=== PATIENT | female | born 1945 | race Caucasian/White ===

== ENCOUNTER 2020-04-19 | Outpatient (REF) | payer MEDICARE, SELFPAY | END 2020-04-19 00:01 | disposition home or self-care (01) | LOC: HO.LNP | PROVIDERS: Visit Provider Hospitalist | DX: J44.9 Chronic obstructive pulmonary disease, unspecified (principal) | CPT/HCPCS: 87070; 87205 ==

== ENCOUNTER 2020-04-26 12:55 | Outpatient (REF) | payer MEDICARE, SELFPAY | END 2020-04-26 12:56 | disposition home or self-care (01) | LOC: HO.LNP 12:55 | PROVIDERS: Visit Provider Hospitalist | DX: J44.9 Chronic obstructive pulmonary disease, unspecified (principal) | CPT/HCPCS: 87070; 87205 ==

== ENCOUNTER 2020-05-18 15:00 | Emergency (ER) | payer MEDICARE, SELFPAY ==
[2020-05-18] VITALS (7 sets, daily range): BP systolic 111–140; BP diastolic 69–90; PULSE 102–126; RESP 18–22; TEMP 36.4–36.5; O2SAT 96–99; BMI 46.3
--- NOTE | ~2020-05-18 | XR_ITS ---
EXAMINATION: XR TIBIA AND FIBULA, LEFT CLINICAL INFORMATION: Fall, trauma, pain COMPARISON: None TECHNIQUE: AP and 2 lateral views of the left lower leg are obtained portably for a total of 3 views. FINDINGS: There is no acute or healing fracture, dislocation, or destructive process. There is prior knee arthroplasty. The visualized hardware is intact and there is no osteolysis or destructive process or periostitis. There is an old healed fracture distal fibular shaft. Posterior calcaneal spur present. XR/XR tibia fibula LT 2V IMPRESSION: 1. No acute fracture or dislocation or destructive process. 2. Old healed fracture distal fibula.
--- NOTE | 2020-05-18 15:14 | ED_ITS ---
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) Fall from: standing Fall witnessed: no Place fall occurred: home Loss of consciousness: none Prolonged down time: no Symptoms prior to fall: none Context: tripped/slipped Location of injury - extremities: left: lower leg Severity: moderate Quality: burning Associated symptoms (after fall): other (large laceration) Related Data Previous Rx's Medication Instructions Recorded albuterol sulfate 90 mcg/actuation 2 puff INHALATION Q4-6H PRN #1 ea 02/08/20 aerosol inhaler fluticasone propionate 220 3 puff INHALATION BID 30 Days #12 g 02/08/20 mcg/actuation HFA aerosol inhaler budesonide 0.5 mg/2 mL suspension 0.5 mg INHALATION BID 30 Days #120 02/14/20 for nebulization ml amoxicillin 875 mg-potassium 1 tab PO BID 10 Days #20 tab 03/29/20 clavulanate 125 mg tablet prednisone 20 mg tablet 20 mg PO DAILY 10 Days #15 tab 03/29/20 prednisone 10 mg tablet 10 mg PO DAILY 10 Days #15 tab 04/07/20 Allergies Allergy/AdvReac Type Severity Reaction Status Date / Time Sulfa (Sulfonamide Allergy Intermediate SWELLING Unverified 12/02/19 14:47 Antibiotics) [Sulfa (Sulfonamides)] alendronate sodium [Fosamax] Allergy Unknown Verified 09/08/19 00:00 azithromycin [Zithromax] Allergy Unknown Verified 09/08/19 00:00 cefepime Allergy Unknown Verified 09/08/19 00:00 levofloxacin Allergy Unknown Verified 09/08/19 00:00 umeclidinium [Anoro Ellipta] Allergy Unknown Verified 09/08/19 00:00 vilanterol [Anoro Ellipta] Allergy Unknown Verified 09/08/19 00:00 ADHESIVE TAPE Allergy Unknown Uncoded 09/08/19 00:00 Sucralfate Allergy Unknown Uncoded 09/08/19 00:00 Sulfamethoxazole Allergy Unknown Uncoded 09/08/19 00:00 Review of Systems Review of Systems: Constitutional : No Fever, No Chills, ENT: no sore throat, no runny nose Cardiovascular : No Chest Pain, No SOB Respiratory : no CP, chronic edema Gastrointestinal : No abdominal pain, no vomiting, no diarrhea : no dysuria, no frequency Musculoskeletal : No Joint Swelling, no joint pain Skin : No rash, positive skin laceration Neuro : No Weakness, No Numbness, no headache Psych : No SI/HI All other systems are reviewed and are negative [facility] Past Medical History Attestation statement: The following information was validated with the patient. Medical History Blood clot in vein COPD (chronic obstructive pulmonary disease) Diabetes Epistaxis Factor 5 Leiden mutation, heterozygous FH: total knee replacement GERD (gastroesophageal reflux disease) Surgical History History of cholecystectomy Hx of tonsillectomy Social History Social History Alcohol intake: never Smoking Status: Former smoker Use of substances other than those prescribed or required for medical reasons: No Advance Directives: No Advance Directives Information Provided: Yes Physical Exam Vital Signs: Vital Signs: Last Vital Signs Temp 97.7 F 05/18/20 15:09 Pulse 109 H 05/18/20 15:47 Resp 22 H 05/18/20 15:09 BP 111/74 05/18/20 15:09 Pulse Ox 99 05/18/20 15:09 Body Mass Index 46.3 Appearance: Alert. Oriented X3. No acute distress. Eyes: Pupils equal, round and reactive to light. ENT: Pharynx normal. Neck: Normal inspection. Neck supple. CVS: tachycardic heart rate and rhythm. Pulses normal. Respiratory: No respiratory distress. Breath sounds with mild exp wheezes noted Abdomen: Soft and nontender. Skin: Skin warm and dry. Normal skin color. Normal skin turgor. Extremities: pos bilateral 2+ lower extremity edema pitting edema L>> R, L anterior bird contused tissue with sig tissue loss laceration to adipose tissue 10cm cannot approximate wound margins Neuro: Oriented X 3. No motor deficit. No sensory deficit. Course Course Course Narrative: message sent to general surgery Dr. Miles as I cannot approximate the wound margins 316pm repeat call to surgery 4pm Dr. Miles no emergent need for closure tonight will need wound care as well as possible skin graft in future tonight would cover with aquacel to keep wound bed moist and refer as outpatinet Dr. Poe will see patient as outpatient for wound treatment. MDM - Fall MDM Narrative Medical decision making narrative: 74 yo female with COPD on home O2, DVT with factor 5 here with large open laceration after mechanical slip and fall - labs, neb for COPD, unsure how to proceed with wound this is not amenable to closure in the ED due to significant tissue loss - will discuss with surgery Lab Data Result diagrams: 05/18/20 15:32 05/18/20 15:32 Labs: Lab Results 05/18/20 05/18/20 05/18/20 Range/Units 15:32 15:32 15:32 WBC 13.2 H (4.8-10.8) X10*3/uL RBC 4.24 (4.20-5.50) X10*6/uL Hgb 10.7 L (12.0-16.0) g/dl Hct 37.1 (37-47) % MCV 87.5 (80-98) fL MCH 25.2 L (27.0-33.0) pg MCHC 28.8 L (31.0-35.0) g/dl RDW 17.2 H (11.0-16.0) % Plt Count 468 H (160-400) X10*3/uL MPV 9.6 (9.4-12.3) fL Immature Gran % (Auto) Cancelled Neut % (Auto) Cancelled Lymph % (Auto) Cancelled [place] % (Auto) Cancelled Eos % (Auto) Cancelled Baso % (Auto) Cancelled Lymph # (Auto) Cancelled [place] # (Auto) Cancelled Eos # (Auto) Cancelled Baso # (Auto) Cancelled Abs Immat Gran (auto) Cancelled Absolute Neuts (auto) Cancelled Absolute Nucleated RBC 0.030 H (0.0-0.012) X10*3/uL Nucleated RBC % (auto) 0.2 (0.0-0.2) /100WBC PT 14.2 H (10.8-13.0) SEC INR 1.2 H (0.9-1.1) APTT 25.9 (24.1-38.0) SEC Sodium 141 (135-145) mmol/L Potassium 4.8 (3.3-5.1) mmol/L Chloride 105 (96-108) mmol/L Carbon Dioxide 20 L (22-29) mmol/L Anion Gap 21 H (12-20) BUN 31 H (9-16) mg/dL Creatinine 1.25 (0.5-1.4) mg/dL Estim Creat Clear Calc 44.9 Estimated GFR 42 Random Glucose 281 H (60-115) mg/dL Calcium 9.1 (8.4-10.2) mg/dL COVID-19 (ASHVIN) (Negative) COVID-19 Clin Com 05/18/20 Range/Units 15:45 WBC (4.8-10.8) X10*3/uL RBC (4.20-5.50) X10*6/uL Hgb (12.0-16.0) g/dl Hct (37-47) % MCV (80-98) fL MCH (27.0-33.0) pg MCHC (31.0-35.0) g/dl RDW (11.0-16.0) % Plt Count (160-400) X10*3/uL MPV (9.4-12.3) fL Immature Gran % (Auto) Neut % (Auto) Lymph % (Auto) [place] % (Auto) Eos % (Auto) Baso % (Auto) Lymph # (Auto) [place] # (Auto) Eos # (Auto) Baso # (Auto) Abs Immat Gran (auto) Absolute Neuts (auto) Absolute Nucleated RBC (0.0-0.012) X10*3/uL Nucleated RBC % (auto) (0.0-0.2) /100WBC PT (10.8-13.0) SEC INR (0.9-1.1) APTT (24.1-38.0) SEC Sodium (135-145) mmol/L Potassium (3.3-5.1) mmol/L Chloride (96-108) mmol/L Carbon Dioxide (22-29) mmol/L Anion Gap (12-20) BUN (9-16) mg/dL Creatinine (0.5-1.4) mg/dL Estim Creat Clear Calc Estimated GFR Random Glucose (60-115) mg/dL Calcium (8.4-10.2) mg/dL COVID-19 (ASHVIN) Negative (Negative) COVID-19 Clin Com See Note Discharge Plan Discharge Clinical Impression: Laceration Patient Disposition: Home, Self-Care Instructions: Laceration Without Closure (ED) Additional Instructions: return to ED for any worsening symptoms or concerns APPLY AQUACEL DRESSING DAILY THEN COVER WITH CLEAN STERILE GAUZE, DRESSING WILL NEED TO BE CHANGED DAILY PLAN IS TO FOLLOW UP WITH SURGERY FOR FURTHER MANAGEMENT INR 1.2 PLEASE NOTIFY YOUR ANTICOAGULATION PROVIDER Prescriptions: No Action Flovent HFA 220 mcg/actuation HFA aerosol inhaler 3 puff inhalation BID 30 Days Qty: 12 RF: 0 albuterol sulfate [ProAir HFA] 90 mcg/actuation HFA aerosol inhaler 2 puff inhalation Q4-6H PRN (Reason: shortness of breath or wheezing) Qty: 1 RF: 0 budesonide 0.5 mg/2 mL suspension for nebulization 0.5 mg inhalation BID 30 Days Qty: 120 RF: 6 amoxicillin-pot clavulanate [Augmentin] 875-125 mg tablet 1 tab PO BID 10 Days Qty: 20 RF: 0 prednisone 20 mg tablet 20 mg PO DAILY 10 Days Qty: 15 RF: 0 prednisone 10 mg tablet 10 mg PO DAILY 10 Days Qty: 15 RF: 0 Referrals: Jaleel Poe MD [Physician] - 2 days
[2020-05-18] MEDS: Albuterol Sulfate (0.083%) 2.5 MG/3 ML VIAL.NEB INHALE (15:21)
[2020-05-18 15:51] LABS: Hematocrit 37.1 % (37-47); Hemoglobin 10.7 g/dl (12.0-16.0); Mean Corpuscular HGB Conc 28.8 g/dl (31.0-35.0); Mean Corpuscular Hemoglobin 25.2 pg (27.0-33.0); Mean Corpuscular Volume 87.5 fL (80-98); Mean Platelet Volume 9.6 fL (9.4-12.3); NRBC Pct Auto 0.2 /100WBC (0.0-0.2); Platelet Count 468 X10*3/uL (160-400); Red Blood Count 4.24 X10*6/uL (4.20-5.50); Red Cell Distribution Width 17.2 % (11.0-16.0); White Blood Count 13.2 X10*3/uL (4.8-10.8)
[2020-05-18 15:58] LABS: INTERNATIONAL NORM RATIO 1.2 (0.9-1.1); Prothrombin Time 14.2 SEC (10.8-13.0)
[2020-05-18 16:00] LABS: Partial Thromboplastin Time 25.9 SEC (24.1-38.0)
[2020-05-18 16:16] LABS: COVID-19 Test Negative (Negative); IDNOW Serial# 9DD0AD1C
[2020-05-18 16:33] LABS: Anion Gap 21 (12-20); Blood Urea Nitrogen 31 mg/dL (9-16); Calcium 9.1 mg/dL (8.4-10.2); Carbon Dioxide 20 mmol/L (22-29); Chloride 105 mmol/L (96-108); Creatinine Clr Calc Pharmacy 44.9; Estimated Glomerular Filt Rate 42; Glucose Random 281 mg/dL (60-115); Potassium 4.8 mmol/L (3.3-5.1); Sodium 141 mmol/L (135-145)
[2020-05-18 16:44] LABS: Band Neutrophils Percent 16 % (3-5); Lymphocytes Absolute Manual 0.4 X10*3/uL (0.6-4.8); Lymphocytes Percent Manual 3 % (20-40); Metamyelocytes Absolute 0.3 X10*3/uL; Metamyelocytes Percent 2 %; Monocytes Absolute Manual 0.5 X10*3/uL (0.0-1.2); Monocytes Percent Manual 4 % (2-11); Myelocytes Absolute 0.1 X10*/uL; Myelocytes Percent 1 %; Neutrophils Absolute Manual 11.9 X10*3/uL (2.2-7.9); Neutrophils Percent Manual 74 % (45-73)
[2020-05-18 16:45] LABS: RBC Morphology NORMAL
[2020-05-18 16:46] LABS: Platelet Estimate SLIGHTLY INCREASED (NORMAL); Platelet Morphology Comment NORMAL
--- NOTE | 2020-05-18 17:45 | PC.NURSE ---
patient a&ox3, vss, pt awaiting something for dinner, patient currently watching tv and just spoke with sister bethany pina on the phone ([phone]), currently dressing is dry dressing as the nursing blast furnace auxiliaries supervisor looks for aquacell as requested by provider, will continue to monitor.
--- NOTE | 2020-05-18 17:50 | MHC.CM.ED ---
Dr. Noble met with CM to discuss pt need for daily dressing changes and question if [facility] has staffing for daily drsg changes. Pt will need skin graft repair by Dr. Longo. Will f/u in office. CM called [facility] and spoke with Abida MORENO. Per Abida, they cannot provide daily drsg changes and [facility] would need to accept pt. Expressed concerns about pt ambulation, need 2 assist with her walker and a wheelchair to follow for safety. Abida tells CM that pt was supposed to have PT starting today. Abida tells CM that patient has fallen twice in the 2 weeks that she has been at [facility]. Spoke with Dr. Noble. Agreement that [facility] would probably be best for patient. PT evaluation for am. Pt has not had an evaluation yet. Referral placed. Pt aware and agrees with plan. HCP/daughter, Kylie Tapia ([phone]) is aware and agrees with plan of care. HCP obtained from [facility] and uploaded into system. CM to follow for d/c needs.
--- NOTE | 2020-05-18 19:54 | PC.NURSE ---
patient a&o, vss, pt denies pain or discomfort, nursing casino slot supervisor is checking other facilities to obtain aquacell, pt currently watching tv, will continue to monitor.
--- NOTE | 2020-05-18 20:31 | PC.NURSE ---
unable to get regular aquacell as initially requested dr. hankins was contacted by the nursing uranium processing supervisor and he requested that durafiber ag be used. patients dressing was replaced with the durafiber, the edges are not approximated, the wound is approximately 14cm in length approximately 9cm wide, the wound has no drainage noted, pt tolerated the dressing change well.
[2020-05-18] MEDS: Amoxicillin/Potassium Clav 875 MG TABLET PO (21:23)
[2020-05-18] MEDS: predniSONE 20 MG TABLET PO (21:23)
[2020-05-18] MEDS: Albuterol Sulfate 90 MCG 8 GM INHALER 2 PUFF INHALE (21:25)
[2020-05-19 00:32] VITALS: PULSE 107; O2SAT 94
[2020-05-19 00:36] VITALS: BP 128/74; PULSE 107; RESP 20; O2SAT 94
[2020-05-19 04:13] VITALS: BP 122/76; PULSE 114; RESP 22; O2SAT 98
[2020-05-19] MEDS: predniSONE 20 MG TABLET PO (04:22)
[2020-05-19 07:15] VITALS: BP 155/97; PULSE 112; RESP 22; TEMP 37.2; O2SAT 96
--- NOTE | 2020-05-19 07:49 | PC.NURSE ---
report taken from Daniela MORENO. patient sleeping upon assessment. woke easily to voice. patient made aware that she will have physical therapy/case management. eval this morning to determine discharge needs. dressing to left low leg clean dry and intact. vitals updated. breakfast provided.
[2020-05-19] MEDS: Amoxicillin/Potassium Clav 875 MG TABLET PO (08:46)
[2020-05-19 09:20] VITALS: PULSE 134
--- NOTE | 2020-05-19 10:25 | PC.NURSE ---
patient Nancy given update in waiting room. can be reached at [phone]
[2020-05-19 11:25] VITALS: BP 153/76; PULSE 113; RESP 20; O2SAT 98
--- NOTE | 2020-05-19 12:53 | MHC.CM.ED ---
Patient remains in ER. Physical therapy eval completed. Short term rehab is recommended. Referral was already made to [facility]. [facility] is able to offer a bed and obtained insurance auth. Patient can leave here at 2pm. Attempted to arrange transport with [facility].They are unable to acccomodate patient. [facility] booked. [facility] with chart. Patient, daughter Lian Espinal PA and Ne aware. Continue to monitor for d/c needs.
--- NOTE | 2020-05-19 13:51 | PC.NURSE ---
attempted to call for nurse to nurse to facility. no answer from floor patient is going to.
== END 2020-05-19 14:22 | disposition skilled nursing facility (03) ==
PROVIDERS: Emergency Provider Emergency Medicine; PCP Internal Medicine
DX: S81.812A Laceration without foreign body, left lower leg, initial encounter (principal); W26.8XXA Contact with other sharp object(s), not elsewhere classified, initial encounter; E11.9 Type 2 diabetes mellitus without complications; J44.9 Chronic obstructive pulmonary disease, unspecified; Z20.822 Contact with and (suspected) exposure to COVID-19; Y93.89 Activity, other specified; Y92.039 Unspecified place in apartment as the place of occurrence of the external cause; Y99.9 Unspecified external cause status; Z99.81 Dependence on supplemental oxygen
CPT/HCPCS: 36415; 73590; 80048; 85007; 85025; 85027; 85610; 85730; 87635; 94640; 94660; 97162; 99285

== ENCOUNTER 2020-05-22 14:17 | Inpatient (IN) | payer MEDICARE, SELFPAY ==
[2020-05-22] VITALS (11 sets, daily range): BP systolic 114–127; BP diastolic 54–95; PULSE 105–117; RESP 18–37; TEMP 36.8–37.2; O2SAT 75–98; BMI 44.5
--- NOTE | ~2020-05-22 | CT_ITS ---
EXAMINATION: CT CHEST WITHOUT CONTRAST CLINICAL INFORMATION: Elevated WBC. Cough. Shortness of breath. COMPARISON: Chest x-ray 05/22/2020. CT of the chest 01/11/2008 TECHNIQUE: Multidetector volumetric CT imaging of the chest was done. Axial MIP volume rendering provided. Sagittal and coronal reformatted images were obtained. This CT examination was performed using dose optimization techniques as appropriate, variously including the following: *Automated exposure control *Adjustment of mA and/or kV according to patient size (this includes techniques or standardized protocols for targeted exams where dose is matched to indication/reason for exam; i.e. extremities or head) *Use of iterative reconstruction technique DLP: 416 mGy-cm FINDINGS: LUNGS: There is focal dependent consolidation with air bronchograms and bronchial wall thickening at the medial right lung base. There is bronchial wall thickening at the medial left lung base. Small patchy parenchymal area also present in the dependent peripheral left lower lobe. There is scattered nodularity in the subpleural lung in the right and left lower lobe posterior laterally. No suspicious lung nodules. There is a 4 mm focal pleural thickening along the minor fissure axial image 26/49 series 7. MEDIASTINUM: There is no significant lymphadenopathy. The heart size is normal. There is no pericardial effusion. The central bronchial airways are open. There is no bronchiectasis. PLEURA: There is no pleural effusion. No pleural mass or thickening. AXILLA: No lymphadenopathy. UPPER ABDOMEN: Unremarkable. OSSEOUS STRUCTURES: Compression deformity of T5 and T6 with anterior kyphosis. There is compression deformity with prior thoracoplasty of T8. CT/CT chest wo con IMPRESSION: Bilateral bibasilar airspace disease at both lung bases with bronchial wall thickening, right greater than left.
--- NOTE | ~2020-05-22 | XR_ITS ---
EXAMINATION: XR CHEST CLINICAL INFORMATION: Shortness of breath. Cough. COMPARISON: 01/11/2008 TECHNIQUE: Frontal view of the chest was obtained. FINDINGS: Lung volumes are low. No consolidation, edema, or effusion. Bronchial wall thickening present. No pneumothorax. The cardiomediastinal silhouette is within normal limits for this technique. No acute osseous abnormality. XR/XR chest 1V IMPRESSION: Low lung volumes. No consolidation. Bronchial wall thickening can be seen with a small airways process such as asthma or atypical/viral infection.
--- NOTE | 2020-05-22 14:58 | ECG_ITS ---
Test Reason : SOB Blood Pressure : / mmHG Vent. Rate : 120 BPM Atrial Rate : 120 BPM P-R Int : 136 ms QRS Dur : 066 ms QT Int : 326 ms P-R-T Axes : 038 052 023 degrees QTc Int : 460 ms Sinus tachycardia Otherwise normal ECG When compared with ECG of 11-JAN-2008 12:41, No significant change was found Referred By: Lian Wilkes Electronically Signed By:Yasmany Cooper
[2020-05-22] MEDS: Albuterol/Iprat 2.5/0.5MG 3 ML AMPUL.NEB INHALE ×2 (15:26→18:23)
[2020-05-22] MEDS: Magnesium Sulfate/H2O 2 GM/50 ML PIGGYBACK IV (16:24)
[2020-05-22] MEDS: dexAMETHasone sod phosphate 4 MG/ML VIAL 6 MG IVPUSH (16:24)
--- NOTE | 2020-05-22 16:31 | ED.SOB ---
HPI - SOB/Dyspnea General Chief Complaint: Dyspnea Stated Complaint: RESP DISTRESS LOW O2SAT (82% 2L),ON CPAP Time Seen by Provider: 05/22/20 14:34 Source: patient and EMS Mode of arrival: EMS History of Present Illness HPI Narrative: 74-year-old female with a past medical history of GERD, COPD on chronic 2-3L NC, diabetes, DVT on Coumadin, factor 5 Leiden, BIBA from SNF for worsening SOB and LEMUS x3 days, was found to be 75% on RA, 2L NC applied brought her to 82%. Patient also reports worsening cough. Of note patient recently seen in our ED for large leg laceration requiring surgical follow-up for skin graft, discharged to SNF. Denies fever, chills, worsening LE edema, abdominal pain, nausea/vomiting, calf pain MD elicited complaint: shortness of breath and cough Related Data Home Medications Medication Instructions Recorded Confirmed apixaban [Eliquis] 2.5 mg PO BID 05/18/20 05/22/20 fluticasone propionate [Flovent 2 puff INHALATION BID 05/18/20 05/22/20 HFA] furosemide 40 mg PO DAILY 05/18/20 05/22/20 lorazepam 1 mg PO BEDTIME PRN 05/18/20 05/22/20 metoprolol tartrate 12.5 mg PO BID 05/18/20 05/22/20 montelukast 10 mg PO BEDTIME 05/18/20 05/22/20 pantoprazole 40 mg PO BID 05/18/20 05/22/20 pioglitazone 15 mg PO DAILY 05/18/20 05/22/20 sertraline 25 mg PO DAILY 05/18/20 05/22/20 Previous Rx's Medication Instructions Recorded albuterol sulfate 90 mcg/actuation 2 puff INHALATION Q4-6H PRN #1 ea 02/08/20 aerosol inhaler budesonide 0.5 mg/2 mL suspension 0.5 mg INHALATION BID 30 Days #120 02/14/20 for nebulization ml prednisone 20 mg tablet 20 mg PO DAILY 10 Days #15 tab 03/29/20 Allergies Allergy/AdvReac Type Severity Reaction Status Date / Time Sulfa (Sulfonamide Allergy Intermediate SWELLING Unverified 12/02/19 14:47 Antibiotics) [Sulfa (Sulfonamides)] alendronate sodium [Fosamax] Allergy Unknown Verified 09/08/19 00:00 azithromycin [Zithromax] Allergy Unknown Verified 09/08/19 00:00 cefepime Allergy Unknown Verified 09/08/19 00:00 levofloxacin Allergy Unknown Verified 09/08/19 00:00 umeclidinium [Anoro Ellipta] Allergy Unknown Verified 09/08/19 00:00 vilanterol [Anoro Ellipta] Allergy Unknown Verified 09/08/19 00:00 ADHESIVE TAPE Allergy Unknown Uncoded 09/08/19 00:00 Sucralfate Allergy Unknown Uncoded 09/08/19 00:00 Sulfamethoxazole Allergy Unknown Uncoded 09/08/19 00:00 Review of Systems Review of Systems: Constitutional: No Fever, No Chills, No Fatigue, No Malaise Cardiovascular: No Chest Pain, + SOB, + Dyspnea on Exertion, No Orthopnea, No Edema, No Palpitations Respiratory: + Cough, No Sputum, No Wheezing, + Dyspnea Gastrointestinal: No Nausea, No Vomiting, No Diarrhea, No Constipation, No Abdominal pain Genitourinary: No Dysuria, No Urinary Frequency, No Hematuria Musculoskeletal: No joint pain, No Myalgias, No Joint Swelling Skin: No Skin Lesions, No rash Neuro: No Weakness Yes all other systems are reviewed and are negative [facility] Past Medical History Attestation statement: The following information was validated with the patient. Medical History Blood clot in vein COPD (chronic obstructive pulmonary disease) Diabetes Epistaxis Factor 5 Leiden mutation, heterozygous FH: total knee replacement GERD (gastroesophageal reflux disease) Surgical History History of cholecystectomy Hx of tonsillectomy Social History Social History Alcohol intake: never Smoking Status: Former smoker Use of substances other than those prescribed or required for medical reasons: No Advance Directives: Yes Advance Directives on File: Yes Advance Directives Date on File: 05/18/20 Physical Exam Vital Signs: Vital Signs: Last Vital Signs Temp 98.2 F 05/22/20 16:45 Pulse 114 H 05/22/20 16:45 Resp 24 H 05/22/20 16:45 BP 127/61 05/22/20 16:45 Pulse Ox 92 05/22/20 16:45 Body Mass Index 44.5 Const: General: cooperative Orientation/consciousness: patient oriented x3 Limitations: no limitations HENMT: Head: Yes normal to inspection Ears: hearing grossly normal bilaterally General nose exam: Normal external nose present Face and sinus: Yes normal facial exam Eyes: General: appearance normal, both eyes and all related structures EOM: EOMs intact bilaterally Neck: Neck: Yes normal visual inspection Resp: Other: Coarse lung sounds throughout all Effort & Inspection: normal respiratory effort, Actively coughing and tachypneic Auscultation: rhonchi throughout and wheezes Cardio: Rate: regular rate and tachycardic Heart sounds: S1 normal heart sound present and S2 normal heart sound present GI: Inspection: Yes normal to inspection Palpation (GI): Soft to palpation, nontender, no guarding and not rigid Skin: Other: Left anterior bird with large open laceration with adipose tissue present. Appropriately healing, no active signs of infection, no surrounding cellulitis. No fluctuance or induration Rashes: no rashes Neuro: General: patient oriented x3 Extrem: Other: + bilateral lower extremity edema General: Yes normal to inspection Course Course Course Narrative: XR chest 1V IMPRESSION: Low lung volumes. No consolidation. Bronchial wall thickening can be seen with a small airways process such as asthma or atypical/viral infection. >>1653--empiric IV ceftriaxone ordered. Blood cultures and lactic obtained. Still low concern for severe sepsis is likely chronic COPD, not treated properly as patient was on RA when supposed to be on NC vs viral illness. labs pending. Avoiding any IVF to avoid fluid overload -leukocytosis of 22,000 > dry CT chest ordered for further evaluation --1705--ED care transferred to YAYO Nicholson pending labs, UA, CT chest, re-evaluation, and anticipated admission MDM - SOB/Dyspnea MDM Narrative Medical decision making narrative: 74-year-old female with a past medical history of GERD, COPD on chronic 2-3L NC, diabetes, DVT on Coumadin, factor 5 Leiden, BIBA from SNF for worsening SOB and LEMUS x3 days, was found to be 75% on RA, 2L NC applied brought her to 82%. On arrival patient on CPAP via EMS, switched to BiPAP due to chronic disease, BiPAP almost immediately removed and switched to nasal cannula which patient maintaining saturations greater than 91% on 2-3L NC which is her baseline O2 requirement. Coarse lung sounds throughout. Concern for CHF vs viral syndrome/COVID-19 vs COPD exacerbation. Lower concern for pneumonia or ACS or PE/DVT as patient is anticoagulated Low concern for severe sepsis as vital sign abnormalities and initial CPAP/BiPAP from chronic disease Plan: EKG, labs, CXR, DuoNeb, magnesium, COVID-19 testing, steroids, reassess, anticipated admission Differential Diagnosis Differential diagnosis: Likely acute exacerbation of chronic obstructive airways disease, congestive heart failure, asthma with exacerbation, pleural effusion and sleep apnea Medical Records Attestation: I reviewed the patient's medical records. Lab Data Attestation: I reviewed the patient's lab results. Result diagrams: 05/22/20 16:41 05/22/20 16:41 Labs: Lab Results 05/22/20 05/22/20 05/22/20 Range/Units 16:41 16:41 16:41 WBC 22.1 H (4.8-10.8) X10*3/uL RBC 4.03 L (4.20-5.50) X10*6/uL Hgb 10.1 L (12.0-16.0) g/dl Hct 34.8 L (37-47) % MCV 86.4 (80-98) fL MCH 25.1 L (27.0-33.0) pg MCHC 29.0 L (31.0-35.0) g/dl RDW 17.2 H (11.0-16.0) % Plt Count 431 H (160-400) X10*3/uL MPV 10.0 (9.4-12.3) fL Immature Gran % (Auto) 4.6 H (0.0-0.4) % Neut % (Auto) 89.1 H (45-73) % Lymph % (Auto) 3.9 L (20-40) % Barton % (Auto) 1.6 L (2-11) % Eos % (Auto) 0.4 (0-4) % Baso % (Auto) 0.4 (0-2) % Lymph # (Auto) 0.9 L (1.2-4.9) X10*3/uL Barton # (Auto) 0.4 (0.1-1.2) X10*3/uL Eos # (Auto) 0.1 (0.0-0.4) X10*3/uL Baso # (Auto) 0.1 (0.0-0.2) X10*3/uL Abs Immat Gran (auto) 1.02 H (0.00-0.03) X10*3/uL Absolute Neuts (auto) 19.7 H (2.0-8.3) X10*3/uL Absolute Nucleated RBC 0.000 (0.0-0.012) X10*3/uL Nucleated RBC % (auto) 0.0 (0.0-0.2) /100WBC PT 16.1 H (10.8-13.0) SEC INR 1.4 H (0.9-1.1) APTT 29.9 (24.1-38.0) SEC Sodium 141 (135-145) mmol/L Potassium 3.7 D (3.3-5.1) mmol/L Chloride 99 (96-108) mmol/L Carbon Dioxide 29 (22-29) mmol/L Anion Gap 17 (12-20) BUN 13 D (9-16) mg/dL Creatinine 0.77 (0.5-1.4) mg/dL Estim Creat Clear Calc 71.1 Estimated GFR > 60 Random Glucose 168 H D (60-115) mg/dL Lactic Acid (0.5-2.0) mmol/L Calcium 8.7 (8.4-10.2) mg/dL Magnesium 1.5 L (1.6-2.6) mg/dL Total Bilirubin 0.6 (0.0-1.0) mg/dL Direct Bilirubin 0.4 (0.0-0.5) mg/dL AST 14 (5-31) U/L ALT 25 (0-31) U/L Alkaline Phosphatase 85 (39-117) U/L Total Protein 6.4 L (6.5-8.0) g/dL Albumin 3.2 L (3.5-5.0) g/dL Urine Color Urine Appearance Urine pH (5.0-8.0) Ur Specific [place] (1.005-1.025) Urine Protein (NEG-TRACE) MG/DL Urine Glucose (UA) (NEG) MG/DL Urine Ketones (NEG) MG/DL Urine Blood (NEG) Urine Nitrite (NEG) Ur Leukocyte Esterase (NEG) 05/22/20 05/22/20 Range/Units 16:41 17:05 WBC (4.8-10.8) X10*3/uL RBC (4.20-5.50) X10*6/uL Hgb (12.0-16.0) g/dl Hct (37-47) % MCV (80-98) fL MCH (27.0-33.0) pg MCHC (31.0-35.0) g/dl RDW (11.0-16.0) % Plt Count (160-400) X10*3/uL MPV (9.4-12.3) fL Immature Gran % (Auto) (0.0-0.4) % Neut % (Auto) (45-73) % Lymph % (Auto) (20-40) % Barton % (Auto) (2-11) % Eos % (Auto) (0-4) % Baso % (Auto) (0-2) % Lymph # (Auto) (1.2-4.9) X10*3/uL [place] # (Auto) (0.1-1.2) X10*3/uL Eos # (Auto) (0.0-0.4) X10*3/uL Baso # (Auto) (0.0-0.2) X10*3/uL Abs Immat Gran (auto) (0.00-0.03) X10*3/uL Absolute Neuts (auto) (2.0-8.3) X10*3/uL Absolute Nucleated RBC (0.0-0.012) X10*3/uL Nucleated RBC % (auto) (0.0-0.2) /100WBC PT (10.8-13.0) SEC INR (0.9-1.1) APTT (24.1-38.0) SEC Sodium (135-145) mmol/L Potassium (3.3-5.1) mmol/L Chloride (96-108) mmol/L Carbon Dioxide (22-29) mmol/L Anion Gap (12-20) BUN (9-16) mg/dL Creatinine (0.5-1.4) mg/dL Estim Creat Clear Calc Estimated GFR Random Glucose (60-115) mg/dL Lactic Acid 1.0 (0.5-2.0) mmol/L Calcium (8.4-10.2) mg/dL Magnesium (1.6-2.6) mg/dL Total Bilirubin (0.0-1.0) mg/dL Direct Bilirubin (0.0-0.5) mg/dL AST (5-31) U/L ALT (0-31) U/L Alkaline Phosphatase (39-117) U/L Total Protein (6.5-8.0) g/dL Albumin (3.5-5.0) g/dL Urine Color YELLOW Urine Appearance HAZY Urine pH 5.0 (5.0-8.0) Ur Specific [place] 1.015 (1.005-1.025) Urine Protein NEG (NEG-TRACE) MG/DL Urine Glucose (UA) NEG (NEG) MG/DL Urine Ketones NEG (NEG) MG/DL Urine Blood 2+ H (NEG) Urine Nitrite POS H (NEG) Ur Leukocyte Esterase 2+ H (NEG) Discharge Plan Discharge Prescriptions: No Action albuterol sulfate [ProAir HFA] 90 mcg/actuation HFA aerosol inhaler 2 puff inhalation Q4-6H PRN (Reason: shortness of breath or wheezing) Qty: 1 RF: 0 budesonide 0.5 mg/2 mL suspension for nebulization 0.5 mg inhalation BID 30 Days Qty: 120 RF: 6 prednisone 20 mg tablet 20 mg PO DAILY 10 Days Qty: 15 RF: 0 furosemide 40 mg tablet 40 mg PO DAILY RF: 0 pioglitazone 15 mg tablet 15 mg PO DAILY RF: 0 pantoprazole 40 mg tablet,delayed release (DR/EC) 40 mg PO BID RF: 0 sertraline 25 mg tablet 25 mg PO DAILY RF: 0 montelukast 10 mg tablet 10 mg PO BEDTIME RF: 0 lorazepam 1 mg tablet 1 mg PO BEDTIME PRN (Reason: insomnia) RF: 0 metoprolol tartrate 25 mg tablet 12.5 mg PO BID RF: 0 Eliquis 2.5 mg tablet 2.5 mg PO BID RF: 0 Flovent HFA 220 mcg/actuation HFA aerosol inhaler 2 puff inhalation BID RF: 0
--- NOTE | 2020-05-22 16:47 | PC.NURSE ---
patient a&ox3, speaking in short sentences, ekg performed, labs drawn, covid swab performed, dressing to lle changed to dressing to what was ordered the last time she was here annalisa hector/alfredo/troy, pt has no pain to lle where the wound is located. patient was briefly put on bipap by RT and switched over to 3L NC and O2 sat is in low to mid 90s, pt medicated per order, will continue to monitor.
[2020-05-22 16:52] LABS: MANUAL DIFF FLAG NO
[2020-05-22 17:00] LABS: Basophils Absolute Auto 0.1 X10*3/uL (0.0-0.2); Basophils Percent Auto 0.4 % (0-2); Eosinophils Absolute Auto 0.1 X10*3/uL (0.0-0.4); Eosinophils Percent Auto 0.4 % (0-4); Hematocrit 34.8 % (37-47); Hemoglobin 10.1 g/dl (12.0-16.0); Imm Gran Abs Auto 1.02 X10*3/uL (0.00-0.03); Imm Gran Pct Auto 4.6 % (0.0-0.4); Lymphocytes Absolute Auto 0.9 X10*3/uL (1.2-4.9); Lymphocytes Percent Auto 3.9 % (20-40); Mean Corpuscular Hemoglobin 25.1 pg (27.0-33.0); Mean Corpuscular Volume 86.4 fL (80-98); Monocytes Absolute Auto 0.4 X10*3/uL (0.1-1.2); Monocytes Percent Auto 1.6 % (2-11); Neutrophils Absolute Auto 19.7 X10*3/uL (2.0-8.3); Neutrophils Percent Auto 89.1 % (45-73); Platelet Count 431 X10*3/uL (160-400); Red Blood Count 4.03 X10*6/uL (4.20-5.50); Red Cell Distribution Width 17.2 % (11.0-16.0); White Blood Count 22.1 X10*3/uL (4.8-10.8)
[2020-05-22] MEDS: cefTRIAXone sodium 1 GM in 0.9 % Sodium Chloride 50 ML IV (17:02)
[2020-05-22 17:06] LABS: INTERNATIONAL NORM RATIO 1.4 (0.9-1.1); Prothrombin Time 16.1 SEC (10.8-13.0)
--- NOTE | 2020-05-22 17:06 | PC.NURSE ---
iv antibiotics started per order, urine obtained
--- NOTE | 2020-05-22 17:06 | PC.NURSE ---
Addendum entered by Sabina Rain RN 05/22/20 17:07: provider notified Original Note: during lab draw pt obtained skin tear to rt arm, dressing applied
[2020-05-22 17:08] LABS: Partial Thromboplastin Time 29.9 SEC (24.1-38.0)
[2020-05-22 17:18] LABS: Glucose Urine UA NEG (NEG); Leukocyte Esterase Urine 2+ (NEG); Nitrite Urine POS (NEG); Specific Gravity - Urine 1.015 (1.005-1.025); UACC Culture Trigger YES; Urine Blood 2+ (NEG); Urine Ketones NEG (NEG); Urine Protein NEG (NEG-TRACE)
[2020-05-22 17:22] LABS: Appearance Urine HAZY; Color Urine YELLOW
[2020-05-22 17:29] LABS: Alanine Aminotransferase 25 U/L (0-31); Albumin Level 3.2 g/dL (3.5-5.0); Alkaline Phosphatase 85 U/L (39-117); Anion Gap 17 (12-20); Aspartate Amino Transferase 14 U/L (5-31); Bilirubin Direct 0.4 mg/dL (0.0-0.5); Bilirubin Total 0.6 mg/dL (0.0-1.0); Blood Urea Nitrogen 13 mg/dL (9-16); Calcium 8.7 mg/dL (8.4-10.2); Carbon Dioxide 29 mmol/L (22-29); Chloride 99 mmol/L (96-108); Creatinine Clr Calc Pharmacy 71.1; Estimated Glomerular Filt Rate > 60; Glucose Random 168 mg/dL (60-115); Magnesium 1.5 mg/dL (1.6-2.6); Potassium 3.7 mmol/L (3.3-5.1); Sodium 141 mmol/L (135-145); Total Protein 6.4 g/dL (6.5-8.0)
[2020-05-22 17:33] LABS: B Type Natriuretic Peptide 59 pg/mL (<100)
[2020-05-22 17:34] LABS: Troponin-I High Sensitivity 13.7 ng/L (<3.5-17.0)
[2020-05-22 17:36] LABS: Bacteria Urine 3+ /LPF; Squamous Epithelial Cell Urine TRACE /LPF
[2020-05-22 17:37] LABS: Influenza A PCR NEGATIVE (Negative); Influenza B PCR NEGATIVE (Negative); Resp Syncy Virus RNA Qual PCR NEGATIVE (Negative); SARS COV2 PCR INHOUSE NEGATIVE (Negative)
--- NOTE | 2020-05-22 17:40 | PC.NURSE ---
pt to ct scan
--- NOTE | 2020-05-22 17:41 | PC.NURSE ---
pt to ct scan
[2020-05-22 17:48] LABS: Procalcitonin 0.19 ng/mL
[2020-05-22] MEDS: 0.9 % Sodium Chloride 500 ML 999 ML IV (18:14)
--- NOTE | 2020-05-22 19:24 | PC.NURSE ---
called phlebotomy to draw labs
[2020-05-22 19:35] LABS: Venous Blood Gas Refer to POC result
[2020-05-22 19:35] LABS: VBG Base Excess 1.6 mmol/L; VBG HCO3 24 mmol/L (22-26); VBG pCO2 32 mmHg; VBG pH 7.48 (7.32-7.43); VBG pO2 129 mmHg
--- NOTE | 2020-05-22 19:44 | PC.NURSE ---
IV ANTIBIOTICS RUNNING PER ORDER, LABS DRAWN BY PHLEBOTOMY
[2020-05-22 19:56] LABS: Troponin-I High Sensitivity 11.2 ng/L (<3.5-17.0)
--- NOTE | 2020-05-22 20:17 | PC.NURSE ---
patient a&ox, pt asking for a smaller mask for bipap, stem teacher sinus tach, vitals stable, hospitalist in to speak with the patient, will continue to monitor.
[2020-05-22] MEDS: Metoprolol Tartrate 25 MG TABLET 12.5 MG PO (21:54)
[2020-05-22] MEDS: Montelukast Sodium 10 MG TABLET PO (21:54)
[2020-05-22] MEDS: Azithromycin 500 MG in 0.9 % Sodium Chloride 250 ML 125 MG IV (21:54)
[2020-05-22] MEDS: Apixaban 2.5 MG TABLET PO (21:55)
[2020-05-22] MEDS: LORazepam 1 MG TABLET PO (21:55)
--- NOTE | 2020-05-22 22:03 | PC.NURSE ---
patient sleeping ,woke to verbal stimulus to take medications, chicken tender sinus tach low 100s, vss, iv antibiotics running per order, will continue to monitor.
[2020-05-23] VITALS (11 sets, daily range): BP systolic 102–140; BP diastolic 51–81; PULSE 79–112; RESP 19–25; TEMP 35.9–36.5; O2SAT 90–98; BMI 45.1
--- NOTE | 2020-05-23 01:30 | PC.NURSE ---
Late entry. While giving report to [facility] nurse it was noted patient was on BiPAP. RN was previously informed patient uses CPAP at night today and during previous visit. This RN consulted with medical charge entry specialist and tobacco warehouse manager regarding BiPAP use. FRONT SIGHT ATTACHER confirmed that respiratory can come down and switch patient from BiPAP to CPAP as the BiPAP was only for comfort . director of consumer affairs was able to confirm that the member uses BiPAP at home through previous documentation and this RN went to bedside to confirm what the member uses at home and she confirmed BiPAP use daily. finishing room supervisor confirms the member can go to [facility] with BiPAP in place as it is used at home and is not a rescue treatment.
--- NOTE | 2020-05-23 01:34 | PC.NURSE ---
Pt transported to [facility] via stretcher with respiratory therapist and staff anesthesiologist.
[2020-05-23] MEDS: 0.9 % Sodium Chloride Flush 3 ML SYRINGE IVFLUSH ×3 (02:14→15:29)
[2020-05-23] MEDS: LORazepam 1 MG TABLET PO ×2 (02:25→20:25)
[2020-05-23] MEDS: Omeprazole 20 MG CAPSULE.DR PO ×2 (05:42→15:29)
--- NOTE | 2020-05-23 05:43 | PM.IMHP ---
History of Present Illness Date of Service: 05/22/20 Chief Complaint: Shortness of breath This is a 74-year-old female with history of COPD, diabetes, who presents to hospital with complaints of shortness of breath as well as a cough. Patient comes from [facility] where she experienced acute dyspnea on exertion and was found a 75% O2 on room air. She was placed on nasal cannula and her oxygen only brought up to 82%. Patient reports that she started having shortness of breath since the of last month but worsened in the past 2 days, she also has a cough although has difficulty bringing up any phlegm, no fever but has some chills, she uses a BiPAP at bedtime but has not been helping with her shortness of breath. She had an avulsion of the skin about 2 weeks ago after falling around her knee and presented to the hospital last week and was supposed to follow-up with general surgeon outpatient for skin graft but did not get a chance to do that. She otherwise denies any headache, change in vision, no chest pain, no abdominal pain, no nausea or vomiting, no diarrhea constipation. No urinary symptoms. On arrival to the ED hemodynamically stable, she was placed on BiPAP on arrival because according to the ED PA she felt more comfortable with it but did not necessarily needed. She uses BiPAP at bedtime. she currently on BiPAP satting 96%. Labs are significant for WBC count 22.1 from 13.24 days ago, hemoglobin of 10.1, PT of 16.1, INR of 1.4, venous gas showed pH of 7.48, pCO2 of 32, sodium of 141, potassium 3.7, lactic acid of 1.0, magnesium of 1.5 which was repleted in the ED, UA that is positive for nitrites, leukocyte Estrace and WBC. COVID-19 negative, influenza and RSV negative. Chest CT shows bilateral a basilar airspace disease at both lung bases with bronchial wall thickening. Patient will be admitted for further management Past medical history as below and confirmed with patient Review of Systems Review of Systems: Yes all other systems are reviewed and are negative [facility] Medical History Blood clot in vein COPD (chronic obstructive pulmonary disease) Diabetes Epistaxis Factor 5 Leiden mutation, heterozygous FH: total knee replacement GERD (gastroesophageal reflux disease) Surgical History History of cholecystectomy Hx of tonsillectomy Social History Housing: Assisted Living Facility Alcohol intake: never Smoking Status: Former smoker Smoked in Last 30 Days: No Patient Interested in Nicotine Replacement: No Patient Given Instructions on How to Stop Smoking: No Second Hand Smoke Exposure: No Use of substances other than those prescribed or required for medical reasons: No Have you been hit, kicked, punched, or otherwise hurt by someone within the past year? If so, by whom?: No Do you feel safe in your current relationship?: Yes Is there a partner from a previous relationship who is making you feel unsafe now?: No Are you made to feel afraid or neglected: No Advance Directives: Yes Advance Directives on File: Yes Advance Directives Date on File: 05/18/20 Do you have thoughts of harming others: None Do you have a plan to hurt others: No Plan Recently lost weight without trying: No Meds Allergies Allergy/AdvReac Type Severity Reaction Status Date / Time Sulfa (Sulfonamide Allergy Intermediate SWELLING Unverified 12/02/19 14:47 Antibiotics) [Sulfa (Sulfonamides)] alendronate sodium [Fosamax] Allergy Unknown Verified 09/08/19 00:00 azithromycin [Zithromax] Allergy Unknown Verified 09/08/19 00:00 cefepime Allergy Unknown Verified 09/08/19 00:00 levofloxacin Allergy Unknown Verified 09/08/19 00:00 umeclidinium [Anoro Ellipta] Allergy Unknown Verified 09/08/19 00:00 vilanterol [Anoro Ellipta] Allergy Unknown Verified 09/08/19 00:00 ADHESIVE TAPE Allergy Unknown Uncoded 09/08/19 00:00 Sucralfate Allergy Unknown Uncoded 09/08/19 00:00 Sulfamethoxazole Allergy Unknown Uncoded 09/08/19 00:00 Active Medications: Current Medications Generic Name Dose Route Start Last Admin Trade Name Freq PRN Reason Stop Dose Admin Acetaminophen 650 mg 05/22/20 20:44 Acetaminophen 325 Mg Tablet PO Q6H PRN Pain, Mild (Pain Scale 1-3) Albuterol/Ipratropium 3 ml 05/23/20 08:00 Albuterol/Iprat 2.5/0.5mg 3 Ml Ampul.Neb INHALE RQ4H WHILE AWAKE SATNAM Albuterol/Ipratropium 3 ml 05/22/20 20:25 Albuterol/Iprat 2.5/0.5mg 3 Ml Ampul.Neb INHALE Q4H PRN shortness of breath/wheezing Apixaban 2.5 mg 05/22/20 21:00 05/22/20 21:55 Apixaban 2.5 Mg Tablet PO 2.5 mg BID SATNAM Administration Docusate Sodium 100 mg 05/22/20 20:44 Docusate Sodium 100 Mg Capsule PO DAILY PRN Constipation Furosemide 40 mg 05/23/20 09:00 Furosemide 40 Mg Tablet PO DAILY [facility] Protocol Guaifenesin/Dextromethorphan 1 tab 05/22/20 20:25 Guaifenesin Dm 600/30 1 Tab Tab.Er.12h PO BID PRN cough Ceftriaxone Sodium 1 gm/ 50 mls @ 100 mls/hr 05/23/20 17:00 Sodium Chloride IV Q24H SATNAM Azithromycin 500 mg/ Sodium 250 mls @ 125 mls/hr 05/22/20 21:00 05/23/20 00:10 Chloride IV Infused Q24H SATNAM Infusion Lorazepam 1 mg 05/22/20 20:44 05/23/20 02:25 Lorazepam 1 Mg Tablet PO 1 mg BEDTIME PRN Administration insomnia Methylprednisolone Sodium Succinate 40 mg 05/22/20 21:00 05/22/20 21:47 Methylprednisolone Sod Succ/Pf 40 Mg/Ml Vial IVPUSH Not Given Q12H SATNAM Metoprolol Tartrate 12.5 mg 05/22/20 21:00 05/22/20 21:54 Metoprolol Tartrate 25 Mg Tablet PO 12.5 mg BID SATNAM Administration Protocol Montelukast Sodium 10 mg 05/22/20 21:00 05/22/20 21:54 Montelukast Sodium 10 Mg Tablet PO 10 mg BEDTIME SATNAM Administration Omeprazole 20 mg 05/23/20 06:30 05/23/20 05:42 Omeprazole 20 Mg Capsule.Dr PO 20 mg BID@0630,1630 SATNAM Administration Ondansetron HCl 4 mg 05/22/20 20:44 Ondansetron Hcl 4 Mg/2 Ml Vial IVPUSH Q8H PRN Nausea and Vomiting Pharmacy Consult 1 each 05/22/20 14:58 Consult Rx Perform Med Rec MISCELLANE ONCE PRN Consult order Sertraline HCl 25 mg 05/23/20 09:00 Sertraline Hcl 25 Mg Tablet PO DAILY SATNAM Sodium Chloride 3 ml 05/23/20 00:00 05/23/20 02:14 0.9 % Sodium Chloride Flush 3 Ml Syringe IVFLUSH 3 ml QSHIFT [facility] Administration Home Medications Medication Instructions Recorded Confirmed Last Taken Type apixaban [Eliquis] 2.5 mg PO BID 05/18/20 05/22/20 05/22/20 History fluticasone propionate [Flovent 2 puff INHALATION BID 05/18/20 05/22/20 05/22/20 History HFA] furosemide 40 mg PO DAILY 05/18/20 05/22/20 05/22/20 History lorazepam 1 mg PO BEDTIME PRN 05/18/20 05/22/20 05/21/20 History metoprolol tartrate 12.5 mg PO BID 05/18/20 05/22/20 05/22/20 History montelukast 10 mg PO BEDTIME 05/18/20 05/22/20 05/21/20 History pantoprazole 40 mg PO BID 05/18/20 05/22/20 05/22/20 History pioglitazone 15 mg PO DAILY 05/18/20 05/22/20 05/22/20 History sertraline 25 mg PO DAILY 05/18/20 05/22/20 05/22/20 History Physical Exam Vital Signs and Narrative: Vital Signs: Last Vital Signs Temp 97.7 F 05/23/20 01:58 Pulse 82 05/23/20 01:58 Resp 19 05/23/20 01:58 BP 119/68 05/23/20 01:58 Pulse Ox 93 05/23/20 01:58 Body Mass Index 44.5 Const: General: cooperative and no acute distress Orientation/consciousness: patient oriented x3 Eyes: General: appearance normal, both eyes and all related structures Resp: Other: On BiPAP breathing slightly fast with a respiratory rate of 20 5-30 Effort & Inspection: able to speak in complete sentences and Actively coughing Auscultation: crackles Cardio: Rate: regular rate Rhythm: regular rhythm GI: Palpation (GI): Soft to palpation Auscultation: normal bowel sounds Skin: General skin exam: no rashes or lesions noted Neuro: General: patient oriented x3 Cognition (Neuro): normal cognition Extrem: General: Yes normal to inspection and Yes no pedal edema Results Labs CBC and Chem 7: 05/22/20 16:41 05/22/20 16:41 Labs: Laboratory Results - last 24 hr 05/22/20 05/22/20 05/22/20 16:41 16:41 16:41 MCV 86.4 MCH 25.1 L MCHC 29.0 L RDW 17.2 H Plt Count 431 H MPV 10.0 Immature Gran % (Auto) 4.6 H Neut % (Auto) 89.1 H Lymph % (Auto) 3.9 L Callahan % (Auto) 1.6 L Eos % (Auto) 0.4 Baso % (Auto) 0.4 Lymph # (Auto) 0.9 L Callahan # (Auto) 0.4 Eos # (Auto) 0.1 Baso # (Auto) 0.1 Abs Immat Gran (auto) 1.02 H Absolute Neuts (auto) 19.7 H Absolute Nucleated RBC 0.000 Nucleated RBC % (auto) 0.0 PT INR APTT VBG pH VBG pCO2 VBG pO2 VBG HCO3 VBG O2 Saturation VBG Base Excess Anion Gap 17 Estim Creat Clear Calc 71.1 Estimated GFR > 60 Random Glucose 168 H D Lactic Acid Calcium 8.7 Magnesium 1.5 L Total Bilirubin 0.6 Direct Bilirubin 0.4 AST 14 ALT 25 Alkaline Phosphatase 85 Troponin I High Sens 13.7 B-Natriuretic Peptide Total Protein 6.4 L Albumin 3.2 L Procalcitonin Urine Color Urine Appearance Urine pH Ur Specific [place] Urine Protein Urine Glucose (UA) Urine Ketones Urine Blood Urine Nitrite Ur Leukocyte Esterase Urine RBC Urine WBC Ur Squamous Epith Cells Urine Bacteria Coronavirus (PCR) Influenza Type A (PCR) Influenza Type B (PCR) RSV RNA Qual (PCR) 05/22/20 05/22/20 05/22/20 16:41 16:41 16:41 MCV MCH MCHC RDW Plt Count MPV Immature Gran % (Auto) Neut % (Auto) Lymph % (Auto) Callahan % (Auto) Eos % (Auto) Baso % (Auto) Lymph # (Auto) Callahan # (Auto) Eos # (Auto) Baso # (Auto) Abs Immat Gran (auto) Absolute Neuts (auto) Absolute Nucleated RBC Nucleated RBC % (auto) PT 16.1 H INR 1.4 H APTT 29.9 VBG pH VBG pCO2 VBG pO2 VBG HCO3 VBG O2 Saturation VBG Base Excess Anion Gap Estim Creat Clear Calc Estimated GFR Random Glucose Lactic Acid Calcium Magnesium Total Bilirubin Direct Bilirubin AST ALT Alkaline Phosphatase Troponin I High Sens B-Natriuretic Peptide 59 Total Protein Albumin Procalcitonin 0.19 Urine Color Urine Appearance Urine pH Ur Specific [place] Urine Protein Urine Glucose (UA) Urine Ketones Urine Blood Urine Nitrite Ur Leukocyte Esterase Urine RBC Urine WBC Ur Squamous Epith Cells Urine Bacteria Coronavirus (PCR) Influenza Type A (PCR) Influenza Type B (PCR) RSV RNA Qual (PCR) 05/22/20 05/22/20 05/22/20 16:41 16:41 17:05 MCV MCH MCHC RDW Plt Count MPV Immature Gran % (Auto) Neut % (Auto) Lymph % (Auto) Callahan % (Auto) Eos % (Auto) Baso % (Auto) Lymph # (Auto) Callahan # (Auto) Eos # (Auto) Baso # (Auto) Abs Immat Gran (auto) Absolute Neuts (auto) Absolute Nucleated RBC Nucleated RBC % (auto) PT INR APTT VBG pH VBG pCO2 VBG pO2 VBG HCO3 VBG O2 Saturation VBG Base Excess Anion Gap Estim Creat Clear Calc Estimated GFR Random Glucose Lactic Acid 1.0 Calcium Magnesium Total Bilirubin Direct Bilirubin AST ALT Alkaline Phosphatase Troponin I High Sens B-Natriuretic Peptide Total Protein Albumin Procalcitonin Urine Color YELLOW Urine Appearance HAZY Urine pH 5.0 Ur Specific [place] 1.015 Urine Protein NEG Urine Glucose (UA) NEG Urine Ketones NEG Urine Blood 2+ H Urine Nitrite POS H Ur Leukocyte Esterase 2+ H Urine RBC 1-4 Urine WBC 5-9 H Ur Squamous Epith Cells TRACE Urine Bacteria 3+ Coronavirus (PCR) NEGATIVE Influenza Type A (PCR) NEGATIVE Influenza Type B (PCR) NEGATIVE RSV RNA Qual (PCR) NEGATIVE 05/22/20 05/22/20 19:22 19:29 MCV MCH MCHC RDW Plt Count MPV Immature Gran % (Auto) Neut % (Auto) Lymph % (Auto) Callahan % (Auto) Eos % (Auto) Baso % (Auto) Lymph # (Auto) Callahan # (Auto) Eos # (Auto) Baso # (Auto) Abs Immat Gran (auto) Absolute Neuts (auto) Absolute Nucleated RBC Nucleated RBC % (auto) PT INR APTT VBG pH 7.48 H VBG pCO2 32 VBG pO2 129 VBG HCO3 24 VBG O2 Saturation 99.0 VBG Base Excess 1.6 Anion Gap Estim Creat Clear Calc Estimated GFR Random Glucose Lactic Acid Calcium Magnesium Total Bilirubin Direct Bilirubin AST ALT Alkaline Phosphatase Troponin I High Sens 11.2 B-Natriuretic Peptide Total Protein Albumin Procalcitonin Urine Color Urine Appearance Urine pH Ur Specific [place] Urine Protein Urine Glucose (UA) Urine Ketones Urine Blood Urine Nitrite Ur Leukocyte Esterase Urine RBC Urine WBC Ur Squamous Epith Cells Urine Bacteria Coronavirus (PCR) Influenza Type A (PCR) Influenza Type B (PCR) RSV RNA Qual (PCR) Imaging Radiologist's Impressions: Impressions Chest X-Ray 05/22/20 14:59 IMPRESSION: Low lung volumes. No consolidation. Bronchial wall thickening can be seen with a small airways process such as asthma or atypical/viral infection. Chest CT 05/22/20 17:08 IMPRESSION: Bilateral bibasilar airspace disease at both lung bases with bronchial wall thickening, right greater than left. Assessment and Plan (1) COPD exacerbation: Status: Acute (2) Community acquired pneumonia: Status: Acute (3) Skin avulsion: Status: Acute (4) Acute respiratory failure with hypoxia: Status: Acute 74-year-old female with past medical history COPD presents to the hospital with shortness of breath, cough found to have pneumonia # acute hypoxic resp failure - most likely multifactorial secondary to COPD exacerbation as well as acute community-acquired pneumonia - will start on Solu-Medrol, DuoNebs, ceftriaxone and azithromycin - will send out for ceftriaxone Legionella antigen - follow blood cultures # community-acquired pneumonia - COVID-19 negative - chest CT showing bilateral infiltrates - will start on ceftriaxone and azithromycin - follow cultures # COPD exacerbation - start DuoNeb q.i.d., p.r.n. - start on Solu-Medrol 40 IV b.i.d. - antibiotics as above # skin avulsion - occurred after falling on her knee about a week ago - was supposed to follow-up with surgeon outpatient but has not gone a chance - will consult surgeon for skin graft as planned DVT prophylaxis:Charlottequamy
[2020-05-23 06:15] LABS: MANUAL DIFF FLAG NO
[2020-05-23 06:34] LABS: Basophils Percent Auto 0.2 % (0-2); Hematocrit 32.3 % (37-47); Hemoglobin 9.3 g/dl (12.0-16.0); Imm Gran Pct Auto 4.4 % (0.0-0.4); Lymphocytes Percent Auto 6.3 % (20-40); Mean Corpuscular HGB Conc 28.8 g/dl (31.0-35.0); Mean Corpuscular Hemoglobin 24.8 pg (27.0-33.0); Mean Corpuscular Volume 86.1 fL (80-98); Mean Platelet Volume 9.9 fL (9.4-12.3); Monocytes Absolute Auto 0.3 X10*3/uL (0.1-1.2); Neutrophils Absolute Auto 13.8 X10*3/uL (2.0-8.3); Neutrophils Percent Auto 87.1 % (45-73); Platelet Count 408 X10*3/uL (160-400); Red Blood Count 3.75 X10*6/uL (4.20-5.50); Red Cell Distribution Width 16.8 % (11.0-16.0); White Blood Count 15.8 X10*3/uL (4.8-10.8)
[2020-05-23 06:42] LABS: Anion Gap 16 (12-20); Blood Urea Nitrogen 15 mg/dL (9-16); Calcium 8.3 mg/dL (8.4-10.2); Carbon Dioxide 27 mmol/L (22-29); Chloride 103 mmol/L (96-108); Creatinine Clr Calc Pharmacy 77.8; Estimated Glomerular Filt Rate > 60; Glucose Random 163 mg/dL (60-115); Potassium 4.2 mmol/L (3.3-5.1); Sodium 142 mmol/L (135-145)
[2020-05-23] MEDS: Metoprolol Tartrate 25 MG TABLET 12.5 MG PO ×2 (09:00→20:16)
[2020-05-23] MEDS: Furosemide 40 MG TABLET PO (09:00)
[2020-05-23] MEDS: Apixaban 2.5 MG TABLET PO ×2 (09:00→20:16)
[2020-05-23] MEDS: Sertraline HCL 25 MG TABLET PO (09:00)
--- NOTE | 2020-05-23 11:01 | P.CDIC_ITS ---
CDI Concurrent Query Service Date: 05/23/20 Documentation Clarification: Please clarify if you are treating a proba ble/suspected/likely or confirmed: Hypomagnesemia Please specify if known or other Hypomagnesemia Provider Response: Other Other Diagnosis: Hypomagnesemia PLEASE DO NOT DELETE/MODIFY EXISTING CONTENT Additional information is needed in order to code to the highest accuracy and appropriate Severity of Illness (SOI). Please clarify the information noted below in your progress notes and discharge summary. Risk Factors/Clinical Indicators/Treatments LABS: magnesium 1.5 was repleted in ED. CDS: Alma Watts CCS, CDIS Contact Number: [phone]. [phone] Please Review the information above and exercise your independent professional judgment in responding to the query. If you concur, pleas document in the PROGRESS NOTES and DISCHARGE SUMMARY. If you do not agree with the query, please document in the query above. THIS QUERY IS PART OF THE PERMANENT MEDICAL RECORD
--- NOTE | 2020-05-23 11:04 | P.CDIC_ITS ---
CDI Concurrent Query Service Date: 05/23/20 Documentation Clarification: Please clarify if you are treating a proba ble/suspected/likely or confirmed: Labs: Urine Urinary tract infection (treat, not treating) Please specify if known UTI Provider Response: UTI PLEASE DO NOT DELETE/MODIFY EXISTING CONTENT Additional information is needed in order to code to the highest accuracy and appropriate Severity of Illness (SOI). Please clarify the information noted below in your progress notes and discharge summary. Risk Factors/Clinical Indicators/Treatments LABS: URINE Hazy Nitrite positive Leukocyte 2+ Bacteria 3+ Ceftriaxone, Azithromycin CDS: Alma Watts CCS, CDIS Contact Number: [phone]. [phone] Please Review the information above and exercise your independent professional judgment in responding to the query. If you concur, pleas document in the PROGRESS NOTES and DISCHARGE SUMMARY. If you do not agree with the query, please document in the query above. THIS QUERY IS PART OF THE PERMANENT MEDICAL RECORD
[2020-05-23] MEDS: Albuterol/Iprat 2.5/0.5MG 3 ML AMPUL.NEB INHALE ×3 (11:07→20:07)
--- NOTE | 2020-05-23 12:19 | MHC.CM.PN ---
Addendum entered by Emily Aggarwal RN 05/23/20 12:25: HCP- SHANIQUE STRONG (DAUGHTER) [phone] Original Note: IMM 05/23/20, EMR REVIEWED, PT ADMITTED W/ COPD EXAC/PNA AND UTI DISCOVERED WELL, CM MET W/PT WHO IS ALERT AND ORIENTED, PT REPORTS SHE LIVES AT [facility] IN THE [facility] SECTION, REPORTS IS THERE WELL AND PT WAS TEARFUL WHEN TALKING ABOUT , PT REPORTS SHE IS DEPENDENT WITH CARE, USES A WC, BEDSIDE COMMODE AND BIPAP AT NIGHT, PT DENIES ANY OTHER MEDICAL EQUIPMENT HOWEVER IS DIABETIC SO [facility] STAFF CHECK HER BLOOD SUGARS, PT REPORTS HER PCP IS DR. BONILLA AND HER HCP IS HER DAUGHTER SHANIQUE, COPY IS ON FILE. DISCHARGE PLAN: RETURN TO [facility] WITH BLS TRANSPORT
--- NOTE | 2020-05-23 12:26 | MHC.CM.PN ---
REFERRAL TO RETURN TO [facility] SENT.
--- NOTE | 2020-05-23 12:53 | P.CONGS_ITS ---
History of Present Illness Consult details Consult date: 05/23/20 Narrative: 74-year-old female patient with history of COPD/pneumonia, DVT on anticoagulation, status post fall getting into chair resulting in a laceration to the left leg. The patient was evaluated initially in the emergency department on Friday subsequently returned to the ED with COPD exacerbation. The initial plan was to not close the wound given the thin skin which was unlikely to hold a suture in the surrounding edema. The wounds were dressed with silver calcium alginate and dry sterile dressings. Since this time the wound remains open with minimal bleeding. The patient does report some discomfort when dressings are changed. Review of Systems Constitutional: Constitutional: Denies chills, Reports fatigue, Denies headache(s) and Denies weakness ENT: Denies headache(s) Cardiovascular: Cardiovascular: Denies chest pain, Reports edema, Denies irregular heart rhythm, Reports dyspnea and Reports dyspnea on exertion Respiratory: Respiratory: Denies cough, Reports dyspnea, Reports dyspnea on exertion and Reports wheezing Gastrointestinal: Gastrointestinal: Reports no additional gastrointestinal complaints Musculoskeletal: Musculoskeletal: Reports as per HPI Integumentary/Breasts: Skin/Breast: Reports as per HPI Neurologic: Denies headache(s) and Denies weakness Endocrine: Endocrine: Reports fatigue Allergic/Immunologic: Allergic/Immunologic: Reports wheezing PMFSH Past Medical History Medical History Blood clot in vein COPD (chronic obstructive pulmonary disease) Diabetes Epistaxis Factor 5 Leiden mutation, heterozygous FH: total knee replacement GERD (gastroesophageal reflux disease) Surgical History Surgical History History of cholecystectomy Hx of tonsillectomy Social History Social History Housing: Assisted Living Facility Alcohol intake: never Smoking Status: Former smoker Smoked in Last 30 Days: No Patient Interested in Nicotine Replacement: No Patient Given Instructions on How to Stop Smoking: No Second Hand Smoke Exposure: No Use of substances other than those prescribed or required for medical reasons: No Currently Displaying Signs/Symptoms of Drug Intoxication Withdrawal: No Have you been hit, kicked, punched, or otherwise hurt by someone within the past year? If so, by whom?: No Do you feel safe in your current relationship?: Yes Is there a partner from a previous relationship who is making you feel unsafe now?: No Are you made to feel afraid or neglected: No Advance Directives: Yes Advance Directives on File: Yes Advance Directives Date on File: 05/18/20 Do you have thoughts of harming others: None Do you have a plan to hurt others: No Plan Recently lost weight without trying: No service: No Current occupational status: retired Meds Allergies Allergy/AdvReac Type Severity Reaction Status Date / Time Sulfa (Sulfonamide Allergy Intermediate SWELLING Unverified 12/02/19 14:47 Antibiotics) [Sulfa (Sulfonamides)] alendronate sodium [Fosamax] Allergy Unknown Verified 09/08/19 00:00 azithromycin [Zithromax] Allergy Unknown Verified 09/08/19 00:00 cefepime Allergy Unknown Verified 09/08/19 00:00 levofloxacin Allergy Unknown Verified 09/08/19 00:00 umeclidinium [Anoro Ellipta] Allergy Unknown Verified 09/08/19 00:00 vilanterol [Anoro Ellipta] Allergy Unknown Verified 09/08/19 00:00 ADHESIVE TAPE Allergy Unknown Uncoded 09/08/19 00:00 Sucralfate Allergy Unknown Uncoded 09/08/19 00:00 Sulfamethoxazole Allergy Unknown Uncoded 09/08/19 00:00 Active Medications: Current Medications Generic Name Dose Route Start Last Admin Trade Name Freq PRN Reason Stop Dose Admin Acetaminophen 650 mg 05/22/20 20:44 Acetaminophen 325 Mg Tablet PO Q6H PRN Pain, Mild (Pain Scale 1-3) Albuterol/Ipratropium 3 ml 05/23/20 08:00 05/23/20 11:07 Albuterol/Iprat 2.5/0.5mg 3 Ml Ampul.Neb INHALE 3 ml RQ4H WHILE AWAKE SATNAM Administration Albuterol/Ipratropium 3 ml 05/22/20 20:25 Albuterol/Iprat 2.5/0.5mg 3 Ml Ampul.Neb INHALE Q4H PRN shortness of breath/wheezing Apixaban 2.5 mg 05/22/20 21:00 05/23/20 09:00 Apixaban 2.5 Mg Tablet PO 2.5 mg BID SATNAM Administration Docusate Sodium 100 mg 05/22/20 20:44 Docusate Sodium 100 Mg Capsule PO DAILY PRN Constipation Furosemide 40 mg 05/23/20 09:00 05/23/20 09:00 Furosemide 40 Mg Tablet PO 40 mg DAILY SATNAM Administration Protocol Guaifenesin/Dextromethorphan 1 tab 05/22/20 20:25 Guaifenesin Dm 600/30 1 Tab Tab.Er.12h PO BID PRN cough Ceftriaxone Sodium 1 gm/ 50 mls @ 100 mls/hr 05/23/20 17:00 Sodium Chloride IV Q24H SATNAM Azithromycin 500 mg/ Sodium 250 mls @ 125 mls/hr 05/22/20 21:00 05/23/20 00:10 Chloride IV Infused Q24H SATNAM Infusion Lorazepam 1 mg 05/22/20 20:44 05/23/20 02:25 Lorazepam 1 Mg Tablet PO 1 mg BEDTIME PRN Administration insomnia Methylprednisolone Sodium Succinate 40 mg 05/22/20 21:00 05/23/20 09:20 Methylprednisolone Sod Succ/Pf 40 Mg/Ml Vial IVPUSH 40 mg Q12H SATNAM Administration Metoprolol Tartrate 12.5 mg 05/22/20 21:00 05/23/20 09:00 Metoprolol Tartrate 25 Mg Tablet PO 12.5 mg BID SATNAM Administration Protocol Montelukast Sodium 10 mg 05/22/20 21:00 05/22/20 21:54 Montelukast Sodium 10 Mg Tablet PO 10 mg BEDTIME SATNAM Administration Omeprazole 20 mg 05/23/20 06:30 05/23/20 05:42 Omeprazole 20 Mg Capsule.Dr PO 20 mg BID@0630,1630 SATNAM Administration Ondansetron HCl 4 mg 05/22/20 20:44 Ondansetron Hcl 4 Mg/2 Ml Vial IVPUSH Q8H PRN Nausea and Vomiting Pharmacy Consult 1 each 05/22/20 14:58 Consult Rx Perform Med Rec MISCELLANE ONCE PRN Consult order Sertraline HCl 25 mg 05/23/20 09:00 05/23/20 09:00 Sertraline Hcl 25 Mg Tablet PO 25 mg DAILY SATNAM Administration Sodium Chloride 3 ml 05/23/20 00:00 05/23/20 09:01 0.9 % Sodium Chloride Flush 3 Ml Syringe IVFLUSH 3 ml QSHIFT SATNAM Administration Home Medications Medication Instructions Recorded Confirmed Last Taken Type apixaban [Eliquis] 2.5 mg PO BID 05/18/20 05/22/20 05/22/20 History fluticasone propionate [Flovent 2 puff INHALATION BID 05/18/20 05/22/20 05/22/20 History HFA] furosemide 40 mg PO DAILY 05/18/20 05/22/20 05/22/20 History lorazepam 1 mg PO BEDTIME PRN 05/18/20 05/22/20 05/21/20 History metoprolol tartrate 12.5 mg PO BID 05/18/20 05/22/20 05/22/20 History montelukast 10 mg PO BEDTIME 05/18/20 05/22/20 05/21/20 History pantoprazole 40 mg PO BID 05/18/20 05/22/20 05/22/20 History pioglitazone 15 mg PO DAILY 05/18/20 05/22/20 05/22/20 History sertraline 25 mg PO DAILY 05/18/20 05/22/20 05/22/20 History Physical Exam Vital Signs: Vital Signs: Last Vital Signs Temp 97.4 F 05/23/20 11:40 Pulse 101 H 05/23/20 11:40 Resp 20 05/23/20 11:40 BP 139/76 05/23/20 11:40 Pulse Ox 91 L 05/23/20 11:40 Body Mass Index 45.1 Const: General: cooperative, healthy appearing, comfortable, no acute distress, alert and awake Eyes: General: appearance normal, both eyes and all related structures Resp: Effort & Inspection: normal respiratory effort, grunting, no stridor and tachypneic Auscultation: wheezes GI: Inspection: Yes normal to inspection Skin: Trauma: laceration (Laceration extends into the subcutaneous tissue) left anterior lower leg flap and avulsion; not actively bleeding Full body images: 1. Site of laceration Extrem: Other: See skin above General: Yes edema Results Labs Result diagrams: 05/23/20 05:58 05/23/20 05:58 Labs: Abnormal lab results 05/22/20 05/22/20 05/22/20 Range/Units 16:41 16:41 16:41 WBC 22.1 H (4.8-10.8) X10*3/uL RBC 4.03 L (4.20-5.50) X10*6/uL Hgb 10.1 L (12.0-16.0) g/dl Hct 34.8 L (37-47) % MCH 25.1 L (27.0-33.0) pg MCHC 29.0 L (31.0-35.0) g/dl RDW 17.2 H (11.0-16.0) % Plt Count 431 H (160-400) X10*3/uL Immature Gran % (Auto) 4.6 H (0.0-0.4) % Neut % (Auto) 89.1 H (45-73) % Lymph % (Auto) 3.9 L (20-40) % [place] % (Auto) 1.6 L (2-11) % Lymph # (Auto) 0.9 L (1.2-4.9) X10*3/uL Abs Immat Gran (auto) 1.02 H (0.00-0.03) X10*3/uL Absolute Neuts (auto) 19.7 H (2.0-8.3) X10*3/uL PT 16.1 H (10.8-13.0) SEC INR 1.4 H (0.9-1.1) VBG pH (7.32-7.43) Random Glucose 168 H D (60-115) mg/dL Calcium (8.4-10.2) mg/dL Magnesium 1.5 L (1.6-2.6) mg/dL Total Protein 6.4 L (6.5-8.0) g/dL Albumin 3.2 L (3.5-5.0) g/dL Urine Blood (NEG) Urine Nitrite (NEG) Ur Leukocyte Esterase (NEG) Urine WBC (0-4) /HPF 05/22/20 05/22/20 05/23/20 Range/Units 17:05 19:29 05:58 WBC 15.8 H (4.8-10.8) X10*3/uL RBC 3.75 L (4.20-5.50) X10*6/uL Hgb 9.3 L (12.0-16.0) g/dl Hct 32.3 L (37-47) % MCH 24.8 L (27.0-33.0) pg MCHC 28.8 L (31.0-35.0) g/dl RDW 16.8 H (11.0-16.0) % Plt Count 408 H (160-400) X10*3/uL Immature Gran % (Auto) 4.4 H (0.0-0.4) % Neut % (Auto) 87.1 H (45-73) % Lymph % (Auto) 6.3 L (20-40) % [place] % (Auto) (2-11) % Lymph # (Auto) 1.0 L (1.2-4.9) X10*3/uL Abs Immat Gran (auto) 0.70 H (0.00-0.03) X10*3/uL Absolute Neuts (auto) 13.8 H (2.0-8.3) X10*3/uL PT (10.8-13.0) SEC INR (0.9-1.1) VBG pH 7.48 H (7.32-7.43) Random Glucose (60-115) mg/dL Calcium (8.4-10.2) mg/dL Magnesium (1.6-2.6) mg/dL Total Protein (6.5-8.0) g/dL Albumin (3.5-5.0) g/dL Urine Blood 2+ H (NEG) Urine Nitrite POS H (NEG) Ur Leukocyte Esterase 2+ H (NEG) Urine WBC 5-9 H (0-4) /HPF 05/23/20 Range/Units 05:58 WBC (4.8-10.8) X10*3/uL RBC (4.20-5.50) X10*6/uL Hgb (12.0-16.0) g/dl Hct (37-47) % MCH (27.0-33.0) pg MCHC (31.0-35.0) g/dl RDW (11.0-16.0) % Plt Count (160-400) X10*3/uL Immature Gran % (Auto) (0.0-0.4) % Neut % (Auto) (45-73) % Lymph % (Auto) (20-40) % [place] % (Auto) (2-11) % Lymph # (Auto) (1.2-4.9) X10*3/uL Abs Immat Gran (auto) (0.00-0.03) X10*3/uL Absolute Neuts (auto) (2.0-8.3) X10*3/uL PT (10.8-13.0) SEC INR (0.9-1.1) VBG pH (7.32-7.43) Random Glucose 163 H (60-115) mg/dL Calcium 8.3 L (8.4-10.2) mg/dL Magnesium (1.6-2.6) mg/dL Total Protein (6.5-8.0) g/dL Albumin (3.5-5.0) g/dL Urine Blood (NEG) Urine Nitrite (NEG) Ur Leukocyte Esterase (NEG) Urine WBC (0-4) /HPF Short CBC 05/22/20 05/23/20 Range/Units 16:41 05:58 WBC 22.1 H 15.8 H (4.8-10.8) X10*3/uL Hgb 10.1 L 9.3 L (12.0-16.0) g/dl Hct 34.8 L 32.3 L (37-47) % Plt Count 431 H 408 H (160-400) X10*3/uL BMP 05/22/20 05/23/20 16:41 05:58 Sodium 141 142 Potassium 3.7 D 4.2 Chloride 99 103 Carbon Dioxide 29 27 BUN 13 D 15 Creatinine 0.77 0.71 Calcium 8.7 8.3 L Liver Function 05/22/20 Range/Units 16:41 Total Bilirubin 0.6 (0.0-1.0) mg/dL Direct Bilirubin 0.4 (0.0-0.5) mg/dL AST 14 (5-31) U/L ALT 25 (0-31) U/L Alkaline Phosphatase 85 (39-117) U/L Albumin 3.2 L (3.5-5.0) g/dL Urine 05/22/20 Range/Units 17:05 Urine Color YELLOW Urine Appearance HAZY Urine pH 5.0 (5.0-8.0) Ur Specific [place] 1.015 (1.005-1.025) Urine Protein NEG (NEG-TRACE) MG/DL Urine Glucose (UA) NEG (NEG) MG/DL All other labs normal. Assessment and Plan (1) Skin avulsion: Status: Acute 74-year-old female patient with an acute laceration to the left anterior calf. Wound is open and clean with no evidence of underlying infection or hematoma. Recommend applying silver calcium alginate followed by dry sterile dressings daily. Wound should close by secondary intention with time. No skin graft is required at this time.
--- NOTE | 2020-05-23 14:08 | HO.PM.IMPN ---
Subjective Subjective Date of Service: 05/23/20 Interval History: seen and examined this afternoon feels better than in the ED still has leg pain by her laceration ROS General - no fevers or chills Cardiovascular - no chest pain Respiratory - no shortness of breath or cough Abdominal- no abdominal pain, nausea, vomiting, diarrhea Ext - leg pain Physical Exam Vital Signs: Vital Signs: Last Vital Signs Temp 97.4 F 05/23/20 11:40 Pulse 101 H 05/23/20 11:40 Resp 20 05/23/20 11:40 BP 139/76 05/23/20 11:40 Pulse Ox 91 L 05/23/20 11:40 Body Mass Index 45.1 Const: Other: General - no acute distress, appears comfortable Cardiovascular - regular rate and rhythm, S1-S2 Lungs - dim Abdomen - soft, nontender, no rebound or guarding Extremities - no edema bilaterally Neuro - awake and alert, no focal deficits Skin - dressing in place Objective Data Current Medications Generic Name Dose Route Start Last Admin Trade Name Freq PRN Reason Stop Dose Admin Acetaminophen 650 mg 05/22/20 20:44 Acetaminophen 325 Mg Tablet PO Q6H PRN Pain, Mild (Pain Scale 1-3) Albuterol/Ipratropium 3 ml 05/23/20 08:00 05/23/20 11:07 Albuterol/Iprat 2.5/0.5mg 3 Ml Ampul.Neb INHALE 3 ml RQ4H WHILE AWAKE SATNAM Administration Albuterol/Ipratropium 3 ml 05/22/20 20:25 Albuterol/Iprat 2.5/0.5mg 3 Ml Ampul.Neb INHALE Q4H PRN shortness of breath/wheezing Apixaban 2.5 mg 05/22/20 21:00 05/23/20 09:00 Apixaban 2.5 Mg Tablet PO 2.5 mg BID SATNAM Administration Docusate Sodium 100 mg 05/22/20 20:44 Docusate Sodium 100 Mg Capsule PO DAILY PRN Constipation Furosemide 40 mg 05/23/20 09:00 05/23/20 09:00 Furosemide 40 Mg Tablet PO 40 mg DAILY SATNAM Administration Protocol Guaifenesin/Dextromethorphan 1 tab 05/22/20 20:25 Guaifenesin Dm 600/30 1 Tab Tab.Er.12h PO BID PRN cough Ceftriaxone Sodium 1 gm/ 50 mls @ 100 mls/hr 05/23/20 17:00 Sodium Chloride IV Q24H SATNAM Azithromycin 500 mg/ Sodium 250 mls @ 125 mls/hr 05/22/20 21:00 05/23/20 00:10 Chloride IV Infused Q24H SATNAM Infusion Lorazepam 1 mg 05/22/20 20:44 05/23/20 02:25 Lorazepam 1 Mg Tablet PO 1 mg BEDTIME PRN Administration insomnia Methylprednisolone Sodium Succinate 40 mg 05/22/20 21:00 05/23/20 09:20 Methylprednisolone Sod Succ/Pf 40 Mg/Ml Vial IVPUSH 40 mg Q12H SATNAM Administration Metoprolol Tartrate 12.5 mg 05/22/20 21:00 05/23/20 09:00 Metoprolol Tartrate 25 Mg Tablet PO 12.5 mg BID SATNAM Administration Protocol Montelukast Sodium 10 mg 05/22/20 21:00 05/22/20 21:54 Montelukast Sodium 10 Mg Tablet PO 10 mg BEDTIME SATNAM Administration Omeprazole 20 mg 05/23/20 06:30 05/23/20 05:42 Omeprazole 20 Mg Capsule.Dr PO 20 mg BID@0630,1630 SATNAM Administration Ondansetron HCl 4 mg 05/22/20 20:44 Ondansetron Hcl 4 Mg/2 Ml Vial IVPUSH Q8H PRN Nausea and Vomiting Pharmacy Consult 1 each 05/22/20 14:58 Consult Rx Perform Med Rec MISCELLANE ONCE PRN Consult order Sertraline HCl 25 mg 05/23/20 09:00 05/23/20 09:00 Sertraline Hcl 25 Mg Tablet PO 25 mg DAILY SATNAM Administration Sodium Chloride 3 ml 05/23/20 00:00 05/23/20 09:01 0.9 % Sodium Chloride Flush 3 Ml Syringe IVFLUSH 3 ml QSHIFT SATNAM Administration Labs CBC & Chem 7: 05/23/20 05:58 05/23/20 05:58 Microbiology Microbiology Results: Microbiology 05/22/20 17:00 Urine clean catch - Clean Catch Midstream Urine Culture - Preliminary Culture in progress. Assessment and Plan (1) COPD exacerbation: Status: Acute (2) Community acquired pneumonia: Status: Acute (3) Skin avulsion: Status: Acute (4) Acute respiratory failure with hypoxia: Status: Acute Assessment and Plan: 74-year-old female with past medical history COPD presents to the hospital with shortness of breath, cough found to have pneumonia 1. Acute on Chronic Respiratory failure with hypoxia reports being on O2 at SNF continue O2, goal 90-92 due to pneumonia + copd 2. COPD exacerbation updrafts solu-medrol 3. Penumonia continue rocephin / zithromax 4. UTI rocephin 5. Skin Laceration seen by gen surg silver alginate + dry sterile dressing 6. EMERALD BIPAP at night BIPAP use was for EMERALD and not severe sepsis 7. History of DVT on ELiquis 2.5mg at SNF, unclear why -- will leave the dose as is. DNR/DNI DVT pptx, Julio C
[2020-05-23] MEDS: guaiFENesin DM 600/30 1 TAB TAB.ER.12H PO (15:29)
--- NOTE | 2020-05-23 15:50 | PC.NURSE ---
P-patient reports allergy to zithromax,stating my plts went down I-pharmacist notified e-pharmacy will contact
[2020-05-23] MEDS: Piperacillin Sodium/Tazobactam 3.375 GM in 0.9 % Sodium Chloride 50 ML IV (20:13)
[2020-05-23] MEDS: Montelukast Sodium 10 MG TABLET PO (20:16)
[2020-05-23] MEDS: Doxycycline Hyclate 100 MG in 0.9 % Sodium Chloride 250 ML 166.67 MG IV (21:07)
[2020-05-24] VITALS (12 sets, daily range): BP systolic 104–143; BP diastolic 53–76; PULSE 82–108; RESP 16–22; TEMP 36–36.6; O2SAT 92–98; BMI 45.8
[2020-05-24] MEDS: Piperacillin Sodium/Tazobactam 3.375 GM in 0.9 % Sodium Chloride 50 ML IV ×4 (02:45→20:31)
[2020-05-24] MEDS: Omeprazole 20 MG CAPSULE.DR PO ×2 (06:48→17:10)
[2020-05-24] MEDS: Albuterol/Iprat 2.5/0.5MG 3 ML AMPUL.NEB INHALE ×3 (07:19→19:11)
[2020-05-24] MEDS: 0.9 % Sodium Chloride Flush 3 ML SYRINGE IVFLUSH ×3 (08:29→17:24)
[2020-05-24] MEDS: Apixaban 2.5 MG TABLET PO ×2 (08:29→19:49)
[2020-05-24] MEDS: Furosemide 40 MG TABLET PO (08:29)
[2020-05-24] MEDS: Metoprolol Tartrate 25 MG TABLET 12.5 MG PO ×2 (08:29→19:47)
[2020-05-24] MEDS: Sertraline HCL 25 MG TABLET PO (08:29)
--- NOTE | 2020-05-24 09:09 | PM.PNGS ---
Subjective Subjective Date of Service: 05/24/20 Interval history: No new complaints Has some shortness of breath Says she still has a cough Physical Exam Vital Signs: Vital Signs: Last Vital Signs Temp 96.8 F 05/24/20 07:24 Pulse 94 05/24/20 07:24 Resp 22 H 05/24/20 07:24 BP 136/76 05/24/20 07:24 Pulse Ox 93 05/24/20 07:24 Body Mass Index 45.8 Const: Other: A little short of breath, coughing otherwise not in distress Resp: Auscultation: wheezes Cardio: Rhythm: regular rhythm GI: Palpation (GI): Soft to palpation and nontender Extrem: Other: Laceration/avulsion anterior aspect of the leg, about 7 cm in length, 5 cm wide clean, no pus, no necrotic tissue, subcutaneous fat exposed Progress Note: A&P Assessment and plan (1) Skin avulsion: Status: Acute Assessment and Plan: I have changed her dressings - none adherent dressings applied Continue daily wound care - okay to start using alginate dressings Wound not infected Allow healing by secondary intention The rest of management as per the hospitalist service Fall Risk Details Current Medications: Current Medications Generic Name Dose Route Start Last Admin Trade Name Freq PRN Reason Stop Dose Admin Acetaminophen 650 mg 05/22/20 20:44 Acetaminophen 325 Mg Tablet PO Q6H PRN Pain, Mild (Pain Scale 1-3) Albuterol/Ipratropium 3 ml 05/23/20 08:00 05/24/20 07:19 Albuterol/Iprat 2.5/0.5mg 3 Ml Ampul.Neb INHALE 3 ml RQ4H WHILE AWAKE SATNAM Administration Albuterol/Ipratropium 3 ml 05/22/20 20:25 Albuterol/Iprat 2.5/0.5mg 3 Ml Ampul.Neb INHALE Q4H PRN shortness of breath/wheezing Apixaban 2.5 mg 05/22/20 21:00 05/24/20 08:29 Apixaban 2.5 Mg Tablet PO 2.5 mg BID SATNAM Administration Docusate Sodium 100 mg 05/22/20 20:44 Docusate Sodium 100 Mg Capsule PO DAILY PRN Constipation Furosemide 40 mg 05/23/20 09:00 05/24/20 08:29 Furosemide 40 Mg Tablet PO 40 mg DAILY SATNAM Administration Protocol Guaifenesin/Dextromethorphan 1 tab 05/22/20 20:25 05/23/20 15:29 Guaifenesin Dm 600/30 1 Tab Tab.Er.12h PO 1 tab BID PRN Administration cough Doxycycline Hyclate 100 mg/ 250 mls @ 166.67 mls/hr 05/23/20 21:00 05/23/20 22:55 Sodium Chloride IV Infused Q12H SATNAM Infusion Piperacillin Sod/Tazobactam 50 mls @ 100 mls/hr 05/23/20 20:00 05/24/20 08:28 Sod 3.375 gm/ Sodium Chloride IV 100 mls/hr Q6H SATNAM Administration Lorazepam 1 mg 05/22/20 20:44 05/23/20 20:25 Lorazepam 1 Mg Tablet PO 1 mg BEDTIME PRN Administration insomnia Methylprednisolone Sodium Succinate 40 mg 05/22/20 21:00 05/24/20 08:29 Methylprednisolone Sod Succ/Pf 40 Mg/Ml Vial IVPUSH 40 mg Q12H SATNAM Administration Metoprolol Tartrate 12.5 mg 05/22/20 21:00 05/24/20 08:29 Metoprolol Tartrate 25 Mg Tablet PO 12.5 mg BID SATNAM Administration Protocol Montelukast Sodium 10 mg 05/22/20 21:00 05/23/20 20:16 Montelukast Sodium 10 Mg Tablet PO 10 mg BEDTIME SATNAM Administration Omeprazole 20 mg 05/23/20 06:30 05/24/20 06:48 Omeprazole 20 Mg Capsule.Dr PO 20 mg BID@0630,1630 SATNAM Administration Ondansetron HCl 4 mg 05/22/20 20:44 Ondansetron Hcl 4 Mg/2 Ml Vial IVPUSH Q8H PRN Nausea and Vomiting Pharmacy Consult 1 each 05/22/20 14:58 Consult Rx Perform Med Rec MISCELLANE ONCE PRN Consult order Sertraline HCl 25 mg 05/23/20 09:00 05/24/20 08:29 Sertraline Hcl 25 Mg Tablet PO 25 mg DAILY SATNAM Administration Sodium Chloride 3 ml 05/23/20 00:00 05/24/20 08:29 0.9 % Sodium Chloride Flush 3 Ml Syringe IVFLUSH 3 ml QSHIFT SATNAM Administration Time Spent With Patient Time: Total time spent is greater than 50% in coordination of care (as documented) at patient's floor/unit and/or counseling patient: Time with patient: 15 - 24 minutes
[2020-05-24] MEDS: Doxycycline Hyclate 100 MG in 0.9 % Sodium Chloride 250 ML 166.67 MG IV (09:53)
--- NOTE | 2020-05-24 11:16 | MHC.CM.PN ---
PER MULTIDISCIPLINARY ROUNDS PT WILL NEED 1-2 MORE DAYS, NO D/C PLANNED FOR TODAY. DISCHARGE PLAN: RETURN TO [facility]
[2020-05-24 11:25] LABS: Hematocrit 33.9 % (37-47); Hemoglobin 9.7 g/dl (12.0-16.0); Mean Corpuscular HGB Conc 28.6 g/dl (31.0-35.0); Mean Corpuscular Hemoglobin 24.7 pg (27.0-33.0); Mean Corpuscular Volume 86.3 fL (80-98); Mean Platelet Volume 10.2 fL (9.4-12.3); Platelet Count 412 X10*3/uL (160-400); Red Blood Count 3.93 X10*6/uL (4.20-5.50); Red Cell Distribution Width 16.7 % (11.0-16.0); White Blood Count 20.6 X10*3/uL (4.8-10.8)
--- NOTE | 2020-05-24 12:50 | HO.PM.IMPN ---
Subjective Subjective Date of Service: 05/24/20 Interval History: f/u for COPD exacerbation, pneumonia Denies shortness of breath, reports chest congestion, cough Review of Systems Review of Systems: Yes all other systems are reviewed and are negative Constitutional Constitutional: Denies chills and Denies fever(s) Cardiovascular Cardiovascular: Denies chest pain Respiratory Respiratory: Reports cough Gastrointestinal Gastrointestinal: Denies abdominal pain Physical Exam Vital Signs: Vital Signs: Last Vital Signs Temp 96.8 F 05/24/20 07:24 Pulse 96 05/24/20 11:08 Resp 22 H 05/24/20 07:24 BP 136/76 05/24/20 07:24 Pulse Ox 93 05/24/20 07:24 Body Mass Index 45.8 Const: Nutritional Appearance: well nourished Orientation/consciousness: patient oriented x3 HENMT: Head: Yes normocephalic and Yes atraumatic Eyes: Sclerae: sclerae normal Chest: Chest palpation & inspection: normal inspection of the chest Resp: Effort & Inspection: normal respiratory effort, no respiratory distress and not tachypneic Auscultation: diminished lung sounds Cardio: Rate: regular rate Rhythm: regular rhythm GI: Palpation (GI): Soft to palpation and nontender Skin: General skin exam: no rashes or lesions noted Neuro: General: patient oriented x3 Cranial nerves: Yes CN's II-XII intact bilaterally and Yes Bilaterally intact EOM present Extrem: Other: left lower leg wrapped in clean bandage Objective Data Current Medications Generic Name Dose Route Start Last Admin Trade Name Freq PRN Reason Stop Dose Admin Acetaminophen 650 mg 05/22/20 20:44 Acetaminophen 325 Mg Tablet PO Q6H PRN Pain, Mild (Pain Scale 1-3) Albuterol/Ipratropium 3 ml 05/23/20 08:00 05/24/20 11:07 Albuterol/Iprat 2.5/0.5mg 3 Ml Ampul.Neb INHALE 3 ml RQ4H WHILE AWAKE SATNAM Administration Albuterol/Ipratropium 3 ml 05/22/20 20:25 Albuterol/Iprat 2.5/0.5mg 3 Ml Ampul.Neb INHALE Q4H PRN shortness of breath/wheezing Apixaban 2.5 mg 05/22/20 21:00 05/24/20 08:29 Apixaban 2.5 Mg Tablet PO 2.5 mg BID SATNAM Administration Docusate Sodium 100 mg 05/22/20 20:44 Docusate Sodium 100 Mg Capsule PO DAILY PRN Constipation Furosemide 40 mg 05/23/20 09:00 05/24/20 08:29 Furosemide 40 Mg Tablet PO 40 mg DAILY SATNAM Administration Protocol Guaifenesin/Dextromethorphan 1 tab 05/22/20 20:25 05/23/20 15:29 Guaifenesin Dm 600/30 1 Tab Tab.Er.12h PO 1 tab BID PRN Administration cough Doxycycline Hyclate 100 mg/ 250 mls @ 166.67 mls/hr 05/23/20 21:00 05/24/20 11:31 Sodium Chloride IV Infused Q12H [facility] Infusion Piperacillin Sod/Tazobactam 50 mls @ 100 mls/hr 05/23/20 20:00 05/24/20 09:35 Sod 3.375 gm/ Sodium Chloride IV Infused Q6H [facility] Infusion Lorazepam 1 mg 05/22/20 20:44 05/23/20 20:25 Lorazepam 1 Mg Tablet PO 1 mg BEDTIME PRN Administration insomnia Methylprednisolone Sodium Succinate 40 mg 05/22/20 21:00 05/24/20 08:29 Methylprednisolone Sod Succ/Pf 40 Mg/Ml Vial IVPUSH 40 mg Q12H [facility]NAM Administration Metoprolol Tartrate 12.5 mg 05/22/20 21:00 05/24/20 08:29 Metoprolol Tartrate 25 Mg Tablet PO 12.5 mg BID SATNAM Administration Protocol Montelukast Sodium 10 mg 05/22/20 21:00 05/23/20 20:16 Montelukast Sodium 10 Mg Tablet PO 10 mg BEDTIME SATNAM Administration Omeprazole 20 mg 05/23/20 06:30 05/24/20 06:48 Omeprazole 20 Mg Capsule.Dr PO 20 mg BID@0630,1630 [facility] Administration Ondansetron HCl 4 mg 05/22/20 20:44 Ondansetron Hcl 4 Mg/2 Ml Vial IVPUSH Q8H PRN Nausea and Vomiting Pharmacy Consult 1 each 05/22/20 14:58 Consult Rx Perform Med Rec MISCELLANE ONCE PRN Consult order Sertraline HCl 25 mg 05/23/20 09:00 05/24/20 08:29 Sertraline Hcl 25 Mg Tablet PO 25 mg DAILY [facility] Administration Sodium Chloride 3 ml 05/23/20 00:00 05/24/20 08:29 0.9 % Sodium Chloride Flush 3 Ml Syringe IVFLUSH 3 ml QSHIFT SATNAM Administration Labs CBC & Chem 7: 05/24/20 11:09 05/23/20 05:58 Microbiology Microbiology Results: Microbiology 05/22/20 17:00 Urine clean catch - Clean Catch Midstream Urine Culture - Final 05/22/20 16:41 Blood - Venous Blood Culture - Preliminary No growth after 24 hours. 05/22/20 16:41 Blood - Venous Blood Culture - Preliminary No growth after 24 hours. Assessment and Plan (1) Acute respiratory failure with hypoxia: Status: Acute (2) Community acquired pneumonia: Status: Acute (3) COPD exacerbation: Status: Acute (4) Skin avulsion: Status: Acute Assessment and Plan: 74-year-old female with past medical history of COPD presents to the hospital with shortness of breath, cough found to have pneumonia 1. Acute on Chronic Respiratory failure with hypoxia reports being on O2 at SNF continue O2, goal 90-92 due to pneumonia + copd 2. COPD exacerbation updrafts solu-medrol 3. Penumonia continue zosyn/doxy day 2 4. UTI Urine culture final result mixed gurpreet suggestive of contamination 5. Skin Laceration seen by gen surg silver alginate + dry sterile dressing 6. EMERALD BIPAP at night BIPAP use was for EMERALD and not severe sepsis 7. History of DVT on ELiquis 2.5mg at [facility], unclear why -- will leave the dose as is. DM -SSI, POCs -pioglidizone on hold Mood Continue sertraline Anemia H/H at baseline Leukocytosis likely related to steroids Morbid obesity 45.8 Likely contributing to respiratory condition DNR/DNI DVT pptx, Eliquis
[2020-05-24 17:06] LABS: Glucose, Whole Blood 223 mg/dL (60-115)
[2020-05-24] MEDS: Insulin Lispro 100 UNIT/ML 3 ML VIAL SUBCUT ×2 (17:50→20:38)
[2020-05-24] MEDS: Doxycycline Hyclate 100 MG in 0.9 % Sodium Chloride 250 ML 166.7 MG IV (19:46)
[2020-05-24] MEDS: LORazepam 1 MG TABLET PO (19:49)
[2020-05-24] MEDS: Montelukast Sodium 10 MG TABLET PO (19:49)
[2020-05-24 19:50] LABS: Glucose, Whole Blood 221 mg/dL (60-115)
[2020-05-24] MEDS: guaiFENesin DM 600/30 1 TAB TAB.ER.12H PO (20:37)
[2020-05-25] VITALS (13 sets, daily range): BP systolic 106–165; BP diastolic 66–86; PULSE 78–109; RESP 18–20; TEMP 36.2–36.6; O2SAT 92–98; BMI 45.3
[2020-05-25] MEDS: 0.9 % Sodium Chloride Flush 3 ML SYRINGE IVFLUSH ×3 (02:29→15:54)
[2020-05-25] MEDS: Piperacillin Sodium/Tazobactam 3.375 GM in 0.9 % Sodium Chloride 50 ML IV ×4 (02:29→21:17)
[2020-05-25] MEDS: Omeprazole 20 MG CAPSULE.DR PO ×2 (05:57→15:55)
[2020-05-25] MEDS: Insulin Lispro 100 UNIT/ML 3 ML VIAL SUBCUT ×3 (08:05→21:14)
[2020-05-25] MEDS: Albuterol/Iprat 2.5/0.5MG 3 ML AMPUL.NEB INHALE ×4 (08:28→19:53)
[2020-05-25 08:35] LABS: Glucose, Whole Blood 163 mg/dL (60-115)
[2020-05-25] MEDS: Sertraline HCL 25 MG TABLET PO (09:05)
[2020-05-25] MEDS: guaiFENesin DM 600/30 1 TAB TAB.ER.12H PO ×2 (09:05→21:15)
[2020-05-25] MEDS: Furosemide 40 MG TABLET PO (09:05)
[2020-05-25] MEDS: Metoprolol Tartrate 25 MG TABLET 12.5 MG PO ×2 (09:06→21:13)
[2020-05-25 09:56] LABS: MANUAL DIFF FLAG NO
[2020-05-25 09:58] LABS: Basophils Percent Auto 0.2 % (0-2); Hematocrit 34.5 % (37-47); Hemoglobin 9.9 g/dl (12.0-16.0); Imm Gran Abs Auto 0.93 X10*3/uL (0.00-0.03); Imm Gran Pct Auto 4.4 % (0.0-0.4); Lymphocytes Absolute Auto 1.6 X10*3/uL (1.2-4.9); Lymphocytes Percent Auto 7.5 % (20-40); Mean Corpuscular HGB Conc 28.7 g/dl (31.0-35.0); Mean Corpuscular Hemoglobin 25.1 pg (27.0-33.0); Mean Corpuscular Volume 87.6 fL (80-98); Mean Platelet Volume 10.5 fL (9.4-12.3); Monocytes Absolute Auto 1.1 X10*3/uL (0.1-1.2); Monocytes Percent Auto 5.3 % (2-11); NRBC Pct Auto 0.1 /100WBC (0.0-0.2); Neutrophils Absolute Auto 17.6 X10*3/uL (2.0-8.3); Neutrophils Percent Auto 82.6 % (45-73); Platelet Count 400 X10*3/uL (160-400); Red Blood Count 3.94 X10*6/uL (4.20-5.50); Red Cell Distribution Width 16.6 % (11.0-16.0); White Blood Count 21.3 X10*3/uL (4.8-10.8)
--- NOTE | 2020-05-25 10:03 | P.PNIM_ITS ---
Subjective Subjective Date of Service: 05/25/20 Interval History: f/u COPD exacerbation, PNA, left leg wound Reports improvement in breathing, still some chest congestion Review of Systems Review of Systems: Yes all other systems are reviewed and are negative Constitutional Constitutional: Denies chills and Denies fever(s) Cardiovascular Cardiovascular: Denies chest pain Respiratory Respiratory: Denies cough Gastrointestinal Gastrointestinal: Denies abdominal pain Physical Exam Vital Signs: Vital Signs: Last Vital Signs Temp 97.2 F 05/25/20 07:36 Pulse 78 05/25/20 09:36 Resp 18 05/25/20 07:36 BP 165/85 H 05/25/20 09:36 Pulse Ox 97 05/25/20 07:36 Body Mass Index 45.3 Const: General: alert and awake Nutritional Appearance: obese Orie ntation/consciousness: patient oriented x3 HENMT: Head: Yes normocephalic and Yes atraumatic Eyes: Sclerae: sclerae normal Chest: Chest palpation & inspection: normal inspection of the chest Resp: Other: coarse, congested b/l Effort & Inspection: able to speak in complete sentences and no respiratory distress Auscultation: diminished lung sounds Cardio: Rate: regular rate Rhythm: regular rhythm GI: Palpation (GI): Soft to palpation and nontender Skin: General skin exam: no rashes or lesions noted Neuro: General: patient oriented x3 Cranial nerves: Yes CN's II-XII intact bilaterally and Yes Bilaterally intact EOM present Extrem: Other: right wrist, left lower leg bandage Objective Data Current Medications Generic Name Dose Route Start Last Admin Trade Name Freq PRN Reason Stop Dose Admin Acetaminophen 650 mg 05/22/20 20:44 Acetaminophen 325 Mg Tablet PO Q6H PRN Pain, Mild (Pain Scale 1-3) Albuterol/Ipratropium 3 ml 05/23/20 08:00 05/25/20 08:28 Albuterol/Iprat 2.5/0.5mg 3 Ml Ampul.Neb INHALE 3 ml RQ4H WHILE AWAKE SATNAM Administration Albuterol/Ipratropium 3 ml 05/22/20 20:25 Albuterol/Iprat 2.5/0.5mg 3 Ml Ampul.Neb INHALE Q4H PRN shortness of breath/wheezing Apixaban 2.5 mg 05/22/20 21:00 05/24/20 19:49 Apixaban 2.5 Mg Tablet PO 2.5 mg BID SATNAM Administration Docusate Sodium 100 mg 05/22/20 20:44 Docusate Sodium 100 Mg Capsule PO DAILY PRN Constipation Furosemide 40 mg 05/23/20 09:00 05/25/20 09:05 Furosemide 40 Mg Tablet PO 40 mg DAILY [facility] Administration Protocol Guaifenesin/Dextromethorphan 1 tab 05/24/20 21:00 05/25/20 09:05 Guaifenesin Dm 600/30 1 Tab Tab.Er.12h PO 1 tab BID SATNAM Administration Insulin Human Lispro 0 unit 05/24/20 16:30 05/25/20 08:05 Insulin Lispro 100 Unit/Ml 3 Ml Vial SUBCUT 4 unit QIDACHS [facility] Administration Protocol Lorazepam 1 mg 05/22/20 20:44 05/24/20 19:49 Lorazepam 1 Mg Tablet PO 1 mg BEDTIME PRN Administration insomnia Metoprolol Tartrate 12.5 mg 05/22/20 21:00 05/25/20 09:06 Metoprolol Tartrate 25 Mg Tablet PO 12.5 mg BID SATNAM Administration Protocol Montelukast Sodium 10 mg 05/22/20 21:00 05/24/20 19:49 Montelukast Sodium 10 Mg Tablet PO 10 mg BEDTIME [facility]NAM Administration Omeprazole 20 mg 05/23/20 06:30 05/25/20 05:57 Omeprazole 20 Mg Capsule.Dr PO 20 mg BID@0630,1630 [facility] Administration Ondansetron HCl 4 mg 05/22/20 20:44 Ondansetron Hcl 4 Mg/2 Ml Vial IVPUSH Q8H PRN Nausea and Vomiting Pharmacy Consult 1 each 05/22/20 14:58 Consult Rx Perform Med Rec MISCELLANE ONCE PRN Consult order Prednisone 40 mg 05/25/20 09:45 Prednisone 20 Mg Tablet PO DAILY [facility] Sertraline HCl 25 mg 05/23/20 09:00 05/25/20 09:05 Sertraline Hcl 25 Mg Tablet PO 25 mg DAILY [facility] Administration Sodium Chloride 3 ml 05/23/20 00:00 05/25/20 09:02 0.9 % Sodium Chloride Flush 3 Ml Syringe IVFLUSH 3 ml QSHIFT [facility] Administration Labs CBC & Chem 7: 05/25/20 09:47 05/23/20 05:58 Microbiology Microbiology Results: Microbiology 05/22/20 16:41 Blood - Venous Blood Culture - Preliminary No growth after 48 hours. 05/22/20 16:41 Blood - Venous Blood Culture - Preliminary No growth after 48 hours. 05/22/20 17:00 Urine clean catch - Clean Catch Midstream Urine Culture - Final Assessment and Plan (1) Acute respiratory failure with hypoxia: Status: Acute (2) Skin avulsion: Status: Acute (3) Community acquired pneumonia: Status: Acute (4) COPD exacerbation: Status: Acute Assessment and Plan: 74-year-old female with past medical history of COPD presents to the hospital with shortness of breath, cough found to have pneumonia Acute on Chronic Respiratory failure with hypoxia on 2L O2 at baseline continue O2, goal 90-92 due to pneumonia + copd COPD exacerbation continue updrafts change steroids to PO Penumonia continue antibiotics day 3 h/o bronchiectasis/microaspiration seen by pulmonology, plan for bronch on Friday, hold ELiquis starting 05/26 UTI Urine culture final result mixed gurpreet suggestive of contamination Skin Laceration seen by gen surg, rec silver alginate + dry sterile dressing dressing changes every other day follow up with Dr. Poe after discharge EMERALD BIPAP at night BIPAP use was for EMERALD and not severe sepsis History of DVT on ELiquis 2.5mg at baseline, unclear why -- will leave the dose as is. DM -SSI, POCs -pioglidizone on hold Mood Continue sertraline Anemia H/H at baseline Leukocytosis likely related to steroids follow cbc Morbid obesity 45.8 Likely contributing to respiratory condition Difficult IV access, will order midline Dispo: likely back to STR at [facility], probably here through the weekend with plan for bronch on Friday DNR/DNI DVT pptx, Eliquis This case was discussed with Dr. Combs
[2020-05-25] MEDS: predniSONE 20 MG TABLET 40 MG PO (11:18)
[2020-05-25] MEDS: Apixaban 2.5 MG TABLET PO ×2 (11:19→21:13)
[2020-05-25 11:28] LABS: Glucose, Whole Blood 113 mg/dL (60-115)
--- NOTE | 2020-05-25 13:25 | MHC.CM.PN ---
EMR REVIEWED, PER HOSPITALIST PT PULMONOLGY WILL KEEP PT THROUGH WEEKEND AND SCHEDULE BRONCHOSCOPY ON Friday05/29/20, SNF HAS BEEN UPDATED ON PT STATUS. DISCHARGE PLAN: RETURN TO [facility].
--- NOTE | 2020-05-25 14:45 | HO.MIDLINE ---
PICC Line Insertion Diagnosis: SOB, COPD EXACERBATION, PNA, HYPOXIA Indication: DIFFICULT IV ACCESS Pertinent Labs: REVIEWED Using sterile technique including cap and mask, glove and drape, the RIGHT arm was prepped and draped in the usual sterile fashion of full barrier technique with CHG. Using ultrasound guidance, BRACHIAL vein access was obtained IN SINGLE ATTEMPT BY THIS RN. A (20G x 8CM) SINGLE LUMEN, NON-PASV MIDLINE was positioned. The procedure was performed in S3-363. Ultrasound was used to document vein patency and for needle entry. A formal ultrasound picture was recorded. [employer] has released the line for use and it is currently dressed with a StatLock, Tegaderm, and CHG disc. Verification has been performed for blood return and line patency. Arm Circumference: 40.5 Equipment: [employer] POWERGLIDE PRO MIDLINE Catheter Type: (20G X 8CM) SINGLE LUMEN NON-PASV Lot #: [id number]
--- NOTE | 2020-05-25 15:58 | PM.CNPUL ---
History of Present Illness History of Present Illness Consult date: 05/25/20 Requesting physician: Nelida Mcgarry Reason for consult: COPD and other (Pneumonia) Chief complaint: COPD/Pneumonia Narrative: 74-year-old lady with underlying history of morbid obesity obstructive sleep apnea on BiPAP, COPD, diabetes mellitus, factor 5 Leiden, deep venous thrombosis on anticoagulation, hospitalized on 05/23/2020 from [facility] for progressive dyspnea resulting in hypoxemia. On ER evaluation she was noted to to be hypoxic with leukocytosis and by basilar infiltrate on CT chest. She was started on empiric antibiotics and admitted to [facility]. Review of Systems Constitutional: Constitutional: Denies daytime sleepiness, Denies excessive sweating, Denies fatigue, Denies fever(s), Denies lethargy, Denies malaise, Denies night sweats, Denies snoring and Denies weight loss Eyes: Eyes: Denies blurry vision and Denies itchy eyes ENT: Denies nasal congestion, Denies post nasal drip, Denies sinus pain, Denies sinus pressure and Denies other ( Thrush) Cardiovascular: Cardiovascular: Denies chest pain, Reports pedal edema, Reports dyspnea, Denies orthopnea and Denies paroxysmal nocturnal dyspnea Respiratory: Respiratory: Denies cough, Denies hemoptysis, Denies excessive phlegm production, Reports dyspnea, Denies snoring and Denies wheezing Gastrointestinal: Gastrointestinal: Denies abdominal pain and Denies heartburn Musculoskeletal: Musculoskeletal: Denies myalgias, Denies arthralgias and Denies joint swelling Integumentary/Breasts: Skin/Breast: Denies rash Neurologic: Denies memory loss and Denies seizure-like activity Psychiatric: Psychiatric: Denies abnormal sleep pattern, Denies anxiety and Denies memory loss Endocrine: Endocrine: Denies excessive sweating, Denies fatigue and Denies heat intolerance Hematologic/Lymphatic: Hematologic/Lymphatic: Denies easy bruising Allergic/Immunologic: Allergic/Immunologic: Denies itchy eyes, Denies seasonal rhinorrhea and Denies wheezing PMFSH Past Medical History Medical History Blood clot in vein COPD (chronic obstructive pulmonary disease) Diabetes Epistaxis Factor 5 Leiden mutation, heterozygous FH: total knee replacement GERD (gastroesophageal reflux disease) Surgical History Surgical History History of cholecystectomy Hx of tonsillectomy Social History Social History Housing: Assisted Living Facility Alcohol intake: never Smoking Status: Former smoker Second Hand Smoke Exposure: No Advance Directives Date on File: 05/18/20 service: No Current occupational status: retired Meds Allergies Allergy/AdvReac Type Severity Reaction Status Date / Time Sulfa (Sulfonamide Allergy Intermediate SWELLING Unverified 12/02/19 14:47 Antibiotics) [Sulfa (Sulfonamides)] alendronate sodium [Fosamax] Allergy Unknown Verified 09/08/19 00:00 azithromycin [Zithromax] Allergy Unknown Verified 09/08/19 00:00 cefepime Allergy Unknown Verified 09/08/19 00:00 levofloxacin Allergy Unknown Verified 09/08/19 00:00 umeclidinium [Anoro Ellipta] Allergy Unknown Verified 09/08/19 00:00 vilanterol [Anoro Ellipta] Allergy Unknown Verified 09/08/19 00:00 ADHESIVE TAPE Allergy Unknown Uncoded 09/08/19 00:00 Sucralfate Allergy Unknown Uncoded 09/08/19 00:00 Sulfamethoxazole Allergy Unknown Uncoded 09/08/19 00:00 Active Medications: Current Medications Generic Name Dose Route Start Last Admin Trade Name Freq PRN Reason Stop Dose Admin Acetaminophen 650 mg 05/22/20 20:44 Acetaminophen 325 Mg Tablet PO Q6H PRN Pain, Mild (Pain Scale 1-3) Albuterol/Ipratropium 3 ml 05/23/20 08:00 05/25/20 11:49 Albuterol/Iprat 2.5/0.5mg 3 Ml Ampul.Neb INHALE 3 ml RQ4H WHILE AWAKE SATNAM Administration Albuterol/Ipratropium 3 ml 05/22/20 20:25 Albuterol/Iprat 2.5/0.5mg 3 Ml Ampul.Neb INHALE Q4H PRN shortness of breath/wheezing Apixaban 2.5 mg 05/22/20 21:00 05/25/20 11:19 Apixaban 2.5 Mg Tablet PO 2.5 mg BID SATNAM Administration Heparin Sodium (Porcine) 50 0 units 05/25/20 15:00 units/ Sodium Chloride 5 ml IVFLUSH TID SATNAM Docusate Sodium 100 mg 05/22/20 20:44 Docusate Sodium 100 Mg Capsule PO DAILY PRN Constipation Furosemide 40 mg 05/23/20 09:00 05/25/20 09:05 Furosemide 40 Mg Tablet PO 40 mg DAILY [facility] Administration Protocol Guaifenesin/Dextromethorphan 1 tab 05/24/20 21:00 05/25/20 09:05 Guaifenesin Dm 600/30 1 Tab Tab.Er.12h PO 1 tab BID [facility] Administration Piperacillin Sod/Tazobactam 50 mls @ 100 mls/hr 05/25/20 16:00 Sod 3.375 gm/ Sodium Chloride IV Q6H [facility] Insulin Human Lispro 0 unit 05/24/20 16:30 05/25/20 11:36 Insulin Lispro 100 Unit/Ml 3 Ml Vial SUBCUT Not Given QIDACHS [facility] Protocol Lorazepam 1 mg 05/22/20 20:44 05/24/20 19:49 Lorazepam 1 Mg Tablet PO 1 mg BEDTIME PRN Administration insomnia Metoprolol Tartrate 12.5 mg 05/22/20 21:00 05/25/20 09:06 Metoprolol Tartrate 25 Mg Tablet PO 12.5 mg BID [facility] Administration Protocol Montelukast Sodium 10 mg 05/22/20 21:00 05/24/20 19:49 Montelukast Sodium 10 Mg Tablet PO 10 mg BEDTIME [facility] Administration Omeprazole 20 mg 05/23/20 06:30 05/25/20 15:55 Omeprazole 20 Mg Capsule.Dr PO 20 mg BID@0630,1630 [facility] Administration Ondansetron HCl 4 mg 05/22/20 20:44 Ondansetron Hcl 4 Mg/2 Ml Vial IVPUSH Q8H PRN Nausea and Vomiting Pharmacy Consult 1 each 05/22/20 14:58 Consult Rx Perform Med Rec MISCELLANE ONCE PRN Consult order Prednisone 40 mg 05/25/20 09:45 05/25/20 11:18 Prednisone 20 Mg Tablet PO 40 mg DAILY [facility] Administration Sertraline HCl 25 mg 05/23/20 09:00 05/25/20 09:05 Sertraline Hcl 25 Mg Tablet PO 25 mg DAILY [facility] Administration Sodium Chloride 3 ml 05/23/20 00:00 05/25/20 15:54 0.9 % Sodium Chloride Flush 3 Ml Syringe IVFLUSH 3 ml QSWVFT [facility] Administration Home Medications Medication Instructions Recorded Confirmed Last Taken Type apixaban [Eliquis] 2.5 mg PO BID 05/18/20 05/22/20 05/22/20 History fluticasone propionate [Flovent 2 puff INHALATION BID 05/18/20 05/22/20 05/22/20 History HFA] furosemide 40 mg PO DAILY 05/18/20 05/22/20 05/22/20 History lorazepam 1 mg PO BEDTIME PRN 05/18/20 05/22/20 05/21/20 History metoprolol tartrate 12.5 mg PO BID 05/18/20 05/22/20 05/22/20 History montelukast 10 mg PO BEDTIME 05/18/20 05/22/20 05/21/20 History pantoprazole 40 mg PO BID 05/18/20 05/22/20 05/22/20 History pioglitazone 15 mg PO DAILY 05/18/20 05/22/20 05/22/20 History sertraline 25 mg PO DAILY 05/18/20 05/22/20 05/22/20 History Physical Exam Vital Signs: Vital Signs: Last Vital Signs Temp 97.7 F 05/25/20 11:40 Pulse 90 05/25/20 11:50 Resp 18 05/25/20 11:40 BP 136/86 05/25/20 11:40 Pulse Ox 98 05/25/20 11:40 Body Mass Index 45.3 Const: General: no acute distress, alert and awake Nutritional Appearance: obese morbidly obese Eyes: Sclerae: sclerae normal EOM: EOMs intact bilaterally Neck: Neck: Yes no lymphadenopathy, Yes trachea midline and Yes supple Resp: Effort & Inspection: normal respiratory effort and no respiratory distress Auscultation: crackles (Diffuse bilateral) Cardio: Rate: regular rate Rhythm: regular rhythm Heart sounds: no gallops, no murmurs and no rubs GI: Palpation (GI): Soft to palpation and Other GI palpation findings present ( Nontender) Auscultation: normal bowel sounds Extrem: General: No clubbing, No cyanosis and Yes edema (2+ bilateral) Results Laboratory Findings CBC and BMP: 05/25/20 09:47 05/23/20 05:58 ABG, PT/INR, D-dimer: PT/INR, D-dimer PT 16.1 SEC (10.8-13.0) H 05/22/20 16:41 INR 1.4 (0.9-1.1) H 05/22/20 16:41 Abnormal lab findings: Abnormal Labs 05/22/20 05/22/20 05/22/20 16:41 16:41 16:41 WBC 22.1 H RBC 4.03 L Hgb 10.1 L Hct 34.8 L MCH 25.1 L MCHC 29.0 L RDW 17.2 H Plt Count 431 H Immature Gran % (Auto) 4.6 H Neut % (Auto) 89.1 H Lymph % (Auto) 3.9 L [place] % (Auto) 1.6 L Lymph # (Auto) 0.9 L Abs Immat Gran (auto) 1.02 H Absolute Neuts (auto) 19.7 H Absolute Nucleated RBC PT 16.1 H INR 1.4 H VBG pH POC Glucose Random Glucose 168 H D Calcium Magnesium 1.5 L Total Protein 6.4 L Albumin 3.2 L Urine Blood Urine Nitrite Ur Leukocyte Esterase Urine WBC 05/22/20 05/22/20 05/23/20 17:05 19:29 05:58 WBC 15.8 H RBC 3.75 L Hgb 9.3 L Hct 32.3 L MCH 24.8 L MCHC 28.8 L RDW 16.8 H Plt Count 408 H Immature Gran % (Auto) 4.4 H Neut % (Auto) 87.1 H Lymph % (Auto) 6.3 L [place] % (Auto) Lymph # (Auto) 1.0 L Abs Immat Gran (auto) 0.70 H Absolute Neuts (auto) 13.8 H Absolute Nucleated RBC PT INR VBG pH 7.48 H POC Glucose Random Glucose Calcium Magnesium Total Protein Albumin Urine Blood 2+ H Urine Nitrite POS H Ur Leukocyte Esterase 2+ H Urine WBC 5-9 H 05/23/20 05/24/20 05/24/20 05:58 11:09 17:03 WBC 20.6 H RBC 3.93 L Hgb 9.7 L Hct 33.9 L MCH 24.7 L MCHC 28.6 L RDW 16.7 H Plt Count 412 H Immature Gran % (Auto) Neut % (Auto) Lymph % (Auto) [place] % (Auto) Lymph # (Auto) Abs Immat Gran (auto) Absolute Neuts (auto) Absolute Nucleated RBC PT INR VBG pH POC Glucose 223 H Random Glucose 163 H Calcium 8.3 L Magnesium Total Protein Albumin Urine Blood Urine Nitrite Ur Leukocyte Esterase Urine WBC 05/24/20 05/25/20 05/25/20 19:43 07:34 09:47 WBC 21.3 H RBC 3.94 L Hgb 9.9 L Hct 34.5 L MCH 25.1 L MCHC 28.7 L RDW 16.6 H Plt Count Immature Gran % (Auto) 4.4 H Neut % (Auto) 82.6 H Lymph % (Auto) 7.5 L [place] % (Auto) Lymph # (Auto) Abs Immat Gran (auto) 0.93 H Absolute Neuts (auto) 17.6 H Absolute Nucleated RBC 0.030 H PT INR VBG pH POC Glucose 221 H 163 H Random Glucose Calcium Magnesium Total Protein Albumin Urine Blood Urine Nitrite Ur Leukocyte Esterase Urine WBC Microbiology: Microbiology 05/22/20 16:41 Blood - Venous Blood Culture - Preliminary No growth after 48 hours. 05/22/20 16:41 Blood - Venous Blood Culture - Preliminary No growth after 48 hours. 05/22/20 17:00 Urine clean catch - Clean Catch Midstream Urine Culture - Final Assessment and Plan (1) Acute respiratory failure with hypoxia: Status: Acute Impression: 74-year-old lady with underlying morbid obesity, EMERALD, COPD, heart failure admitted on 05/23/2020 with progressive shortness of breath and hypoxemia likely secondary to combination pneumonia and acute on chronic congestive heart failure. On outpatient basis patient is followed by Dr. Baez who is planning to perform bronchoscopy on 05/30/2020. Patient appears to have air significant component of right-sided heart failure, however at this time she is very resistant to increase in her current diuretic regimen of Lasix 40 mg p.o. daily. Recommendation: Consider changing Zosyn to Unasyn, as Pseudomonas is a less likely pathogen. Continue with nocturnal noninvasive positive pressure ventilation. Patient would benefit from workup for underlying congestive heart failure. (2) Pneumonia: Status: Acute (3) Heart failure: Status: Acute (4) EMERALD (obstructive sleep apnea): Status: Acute (5) COPD (chronic obstructive pulmonary disease): Status: Acute
[2020-05-25 16:59] LABS: Glucose, Whole Blood 196 mg/dL (60-115)
[2020-05-25] MEDS: Heparin Sodium,Porcine Flush 50 UNITS, 0.9 % Sodium Chloride Flush 5 ML IVFLUSH ×2 (17:20→21:15)
[2020-05-25 20:40] LABS: Glucose, Whole Blood 212 mg/dL (60-115)
[2020-05-25] MEDS: Montelukast Sodium 10 MG TABLET PO (21:13)
[2020-05-26] VITALS (15 sets, daily range): BP systolic 116–148; BP diastolic 63–86; PULSE 78–108; RESP 18–20; TEMP 36.3–36.8; O2SAT 91–100; BMI 46.1
[2020-05-26] MEDS: 0.9 % Sodium Chloride Flush 3 ML SYRINGE IVFLUSH ×4 (00:18→23:44)
[2020-05-26] MEDS: Piperacillin Sodium/Tazobactam 3.375 GM in 0.9 % Sodium Chloride 50 ML IV ×4 (04:40→22:11)
[2020-05-26] MEDS: Omeprazole 20 MG CAPSULE.DR PO ×2 (06:12→16:18)
[2020-05-26 06:47] LABS: Hematocrit 29.9 % (37-47); Hemoglobin 8.5 g/dl (12.0-16.0); Mean Corpuscular HGB Conc 28.4 g/dl (31.0-35.0); Mean Corpuscular Hemoglobin 24.6 pg (27.0-33.0); Mean Corpuscular Volume 86.7 fL (80-98); Mean Platelet Volume 9.9 fL (9.4-12.3); NRBC Pct Auto 0.1 /100WBC (0.0-0.2); Platelet Count 260 X10*3/uL (160-400); Red Blood Count 3.45 X10*6/uL (4.20-5.50); Red Cell Distribution Width 16.7 % (11.0-16.0); White Blood Count 13.3 X10*3/uL (4.8-10.8)
[2020-05-26 07:58] LABS: Glucose, Whole Blood 132 mg/dL (60-115)
[2020-05-26 08:08] LABS: Iron 28 mcg/dL (30-160); Percent Iron Saturation 10 % (15-50); Total Iron Binding Capacity 291 mcg/dL (228-428); Unsaturated Iron Binding 263 ug/dL
[2020-05-26 08:19] LABS: Band Neutrophils Percent 6 % (3-5); Lymphocytes Absolute Manual 0.9 X10*3/uL (0.6-4.8); Lymphocytes Percent Manual 7 % (20-40); Metamyelocytes Absolute 0.1 X10*3/uL; Metamyelocytes Percent 1 %; Monocytes Absolute Manual 0.1 X10*3/uL (0.0-1.2); Monocytes Percent Manual 1 % (2-11); Neutrophils Absolute Manual 12.1 X10*3/uL (2.2-7.9); Neutrophils Percent Manual 85 % (45-73)
[2020-05-26 08:20] LABS: Hypochromasia 1+; Microcytosis 1+; Platelet Estimate NORMAL (NORMAL); Platelet Morphology Comment NORMAL; RBC Morphology NOTED; Stomatocytes 1+; Tear Drop Cells 1+
[2020-05-26 08:28] LABS: Ferritin 116 ng/mL (10-250)
[2020-05-26 08:31] LABS: Calcium 8.7 mg/dL (8.4-10.2); Creatinine Clr Calc Pharmacy 64.3; Estimated Glomerular Filt Rate > 60; Glucose Random 143 mg/dL (60-115)
[2020-05-26] MEDS: Albuterol/Iprat 2.5/0.5MG 3 ML AMPUL.NEB INHALE ×4 (08:34→20:45)
[2020-05-26 08:43] LABS: Anion Gap 14 (12-20); Blood Urea Nitrogen 28 mg/dL (9-16); Carbon Dioxide 30 mmol/L (22-29); Chloride 104 mmol/L (96-108); Potassium 3.2 mmol/L (3.3-5.1); Sodium 145 mmol/L (135-145)
[2020-05-26] MEDS: Heparin Sodium,Porcine Flush 50 UNITS, 0.9 % Sodium Chloride Flush 5 ML IVFLUSH ×3 (10:10→22:47)
[2020-05-26] MEDS: Sertraline HCL 25 MG TABLET PO (10:11)
[2020-05-26] MEDS: predniSONE 20 MG TABLET 40 MG PO (10:11)
[2020-05-26] MEDS: Metoprolol Tartrate 25 MG TABLET 12.5 MG PO ×2 (10:11→22:16)
[2020-05-26] MEDS: Furosemide 20 MG/2 ML VIAL IVPUSH (10:11)
--- NOTE | 2020-05-26 10:45 | CA_ITS ---
Transthoracic Echocardiogram Patient (Last, First, Middle): Natalie Cano, Gender: Female Date of : 1945 Age: 74 Procedure Date: 05/26/2020 Procedure Type: Transthoracic Echocardiogram Location: S3E Height: 154.94 cm Weight: 110.68 kg BSA: 2.06 m2 Heart Rate: bpm BP: 111 / 58 mmHg Product Support Specialist: Referring MD: Nelida NUÑEZ Symptoms: dyspnea Study Quality: Fair ECG Rhythm: Sinus Conclusions: - The left ventricular systolic function is hyperdynamic. The visually estimated ejection fraction is between 65-70%. - Abnormal diastolic function is noted. Spectral Doppler is indicative of an impaired relaxation filling pattern. Elevated filling pressures. - Normal right ventricular cavity size and systolic function. - The inferior vena cava is normal in size and collapses greater than 50% with inspiration. Findings Left Ventricle Normal left ventricular cavity size. There is mildly increased left ventricular wall thickness. The left ventricular systolic function is hyperdynamic. The visually estimated ejection fraction is between 65-70%. There is no evidence of regional wall motion abnormalities. Abnormal diastolic function is noted. Spectral Doppler is indicative of an impaired relaxation filling pattern. Elevated filling pressures. Right Ventricle Normal right ventricular cavity size and systolic function. Atria The left atrium is likely dilated. Aortic Valve The aortic valve was not well visualized. There is mild calcification of the aortic valve. There is mild thickening of the aortic valve. There is no aortic valve stenosis. There is no aortic valve regurgitation. Mitral Valve Normal mitral valve structure and function. There is trace mitral valve regurgitation. There is no mitral valve stenosis. Pulmonic Valve The pulmonic valve is likely normal. Tricuspid Valve Normal tricuspid valve structure and function. There is trace tricuspid valve regurgitation. Normal right atrial pressure. There is no evidence of pulmonary hypertension. Great Vessels All visible segments of the aorta are normal in size. Venous The inferior vena cava is normal in size and collapses greater than 50% with inspiration. Pericardium/Pleural Prominent epicardial adipose tissue noted. There is no evidence of pericardial effusion. Prior Study Comparison No prior study available for comparison. Measurements 2D Linear Measurements IVSd: 1.04 0.6-0.9/0.6-1.0 cm LVIDd: 3.06 3.9-5.3/4.2-5.9 cm LVIDd Index: 1.49 2.4-3.2/2.2-3.1 cm/m2 LVIDs: 2.26 2.0-3.6 cm LVPWd: 1.04 0.7-1.1 cm Ao Root: 3.10 2.1-3.5 cm LA Diam: 2.50 2.7-3.8/3.0-4.0 cm LAIDs Index: 1.21 1.5-2.3 cm/m2 LV Mass: 111.43 67-162/88-224 g LV Mass Index: 54.09 43-95/49-115 g/m2 LVOT Diam: 2.00 3.0+(-)1.3 cm 2D Systolic Function EF 4C: 71.30 >55% EF 2C: 67.80 >55% EF BiP: 71.20 >55% Mitral Valve MV Pk E: 0.92 MV PK A: 1.12 MV Decel Time: 162.00 E/A: 0.80 E'Lateral: 6.29 E'Medial: 4.16 E/E' Med: 22.20 E/E' Lat: 14.70 PHT: 47.00 MVA PHT: 4.68 Decel [place]: 5.69 Aortic Valve AoV Pk James: 1.75 AoV Mn James: 1.15 AoV VTI: 0.39 AoV Pk Grad: 12.00 Aov Mn Grad: 6.00 BRITANY Cont.VTI: 1.70 LVOT LVOT Pk James: 0.88 LVOT Mn James: 0.59 LVOT VTI: 0.21 LVOT Pk Grad: 3.00 LVOT Mn Grad: 2.00 LVOT Diam: 2.00 LVOT Area: 3.14 Diastolic Function MV Pk E: 0.92 MV Pk A: 1.12 E/A: 0.80 E'Medial: 4.16 E/E' Med: 22.20 E' Laterial: 6.29 E/E' Lat: 14.70 Tricuspid Valve TR Pk James: 2.43 TR Pk Grad: 24.00 RVSP: 27.00 Great Vessels Aorta Ao Root-2D: 3.10 2.0-3.7 cm Ao Asc: 3.20 2.1-3.4 cm Pulmonary Valve PV Pk James: 0.90 Peak PV Grad: 3.00 Updated in Other Vendor System with Status of Final Yasmany Cooper MD electronically signed on 05/27/2020 10:48:56 AM with status of Final
--- NOTE | 2020-05-26 10:59 | P.PNIM_ITS ---
Subjective Subjective Date of Service: 05/26/20 Interval History: f/u for respiratory failure/copd exacerbation Still with chest congestion, on baseline oxygen Review of Systems Review of Systems: Yes all other systems are reviewed and are negative Constitutional Constitutional: Denies chills and Denies fever(s) Cardiovascular Cardiovascular: Denies chest pain Respiratory Respiratory: Reports cough Gastrointestinal Gastrointestinal: Denies abdominal pain Physical Exam Vital Signs: Vital Signs: Last Vital Signs Temp 97.5 F 05/26/20 07:31 Pulse 78 05/26/20 10:11 Resp 19 05/26/20 07:31 BP 138/79 05/26/20 10:11 Pulse Ox 100 05/26/20 07:31 Body Mass Index 46.1 Const: General: alert and awake Nutritional Appearance: obese Orientation/consciousness: patient oriented x3 HENMT: Head: Yes normocephalic and Yes atraumatic Eyes: Sclerae: sclerae normal Chest: Chest palpation & inspection: normal inspection of the chest Resp: Other: coarse, congested b/l Effort & Inspection: able to speak in complete sentences, no respiratory distress and not tachypneic Auscultation: diminished lung sounds Cardio: Rate: regular rate Rhythm: regular rhythm GI: Palpation (GI): Soft to palpation and nontender Skin: General skin exam: no rashes or lesions noted Neuro: General: patient oriented x3 Cranial nerves: Yes CN's II-XII intact bilaterally and Yes Bilaterally intact EOM present Extrem: Other: right wrist, left lower leg bandage Objective Data Current Medications Generic Name Dose Route Start Last Admin Trade Name Freq PRN Reason Stop Dose Admin Acetaminophen 650 mg 05/22/20 20:44 Acetaminophen 325 Mg Tablet PO Q6H PRN Pain, Mild (Pain Scale 1-3) Albuterol/Ipratropium 3 ml 05/23/20 08:00 05/26/20 08:34 Albuterol/Iprat 2.5/0.5mg 3 Ml Ampul.Neb INHALE 3 ml RQ4H WHILE AWAKE SATNAM Administration Albuterol/Ipratropium 3 ml 05/22/20 20:25 Albuterol/Iprat 2.5/0.5mg 3 Ml Ampul.Neb INHALE Q4H PRN shortness of breath/wheezing Heparin Sodium (Porcine) 50 0 units 05/25/20 15:00 05/26/20 10:10 units/ Sodium Chloride 5 ml IVFLUSH 50 unit TID SATNAM Administration Docusate Sodium 100 mg 05/22/20 20:44 Docusate Sodium 100 Mg Capsule PO DAILY PRN Constipation Furosemide 40 mg 05/27/20 09:00 Furosemide 40 Mg/4 Ml Vial IVPUSH DAILY [facility] Protocol Guaifenesin 1,200 mg 05/26/20 21:00 Guaifenesin La 600 Mg Tab.Er.12h PO BID [facility] Piperacillin Sod/Tazobactam 50 mls @ 100 mls/hr 05/25/20 16:00 05/26/20 10:58 Sod 3.375 gm/ Sodium Chloride IV Infused Q6H SATNAM Infusion Insulin Human Lispro 0 unit 05/24/20 16:30 05/26/20 07:54 Insulin Lispro 100 Unit/Ml 3 Ml Vial SUBCUT Not Given QIDACHS [facility] Protocol Lorazepam 1 mg 05/22/20 20:44 05/24/20 19:49 Lorazepam 1 Mg Tablet PO 1 mg BEDTIME PRN Administration insomnia Metoprolol Tartrate 12.5 mg 05/22/20 21:00 05/26/20 10:11 Metoprolol Tartrate 25 Mg Tablet PO 12.5 mg BID SATNAM Administration Protocol Montelukast Sodium 10 mg 05/22/20 21:00 05/25/20 21:13 Montelukast Sodium 10 Mg Tablet PO 10 mg BEDTIME SATNAM Administration Omeprazole 20 mg 05/23/20 06:30 05/26/20 06:12 Omeprazole 20 Mg Capsule.Dr PO 20 mg BID@0630,1630 SATNAM Administration Ondansetron HCl 4 mg 05/22/20 20:44 Ondansetron Hcl 4 Mg/2 Ml Vial IVPUSH Q8H PRN Nausea and Vomiting Pharmacy Consult 1 each 05/22/20 14:58 Consult Rx Perform Med Rec MISCELLANE ONCE PRN Consult order Prednisone 40 mg 05/25/20 09:45 05/26/20 10:11 Prednisone 20 Mg Tablet PO 40 mg DAILY SATNAM Administration Sertraline HCl 25 mg 05/23/20 09:00 05/26/20 10:11 Sertraline Hcl 25 Mg Tablet PO 25 mg DAILY SATNAM Administration Sodium Chloride 3 ml 05/23/20 00:00 05/26/20 10:10 0.9 % Sodium Chloride Flush 3 Ml Syringe IVFLUSH 3 ml QSHIFT SATNAM Administration Labs CBC & Chem 7: 05/26/20 06:08 05/26/20 06:08 Microbiology Microbiology Results: Microbiology 05/22/20 16:41 Blood - Venous Blood Culture - Preliminary No growth after 48 hours. 05/22/20 16:41 Blood - Venous Blood Culture - Preliminary No growth after 48 hours. 05/22/20 17:00 Urine clean catch - Clean Catch Midstream Urine Culture - Final Assessment and Plan (1) Acute respiratory failure with hypoxia: Status: Acute (2) Skin avulsion: Status: Acute (3) Community acquired pneumonia: Status: Acute (4) COPD exacerbation: Status: Acute Assessment and Plan: 74-year-old female with past medical history of COPD presents to the hospital with shortness of breath, cough found to have pneumonia Acute on Chronic Respiratory failure with hypoxia on 2L O2 at baseline continue O2, goal 90-92 due to pneumonia + copd ?component of CHF -will change lasix to IV (on PO lasix at home) -no echo in system, will obtain echo COPD exacerbation continue updrafts continue PO steroids Penumonia continue antibiotics day 3 h/o bronchiectasis/microaspiration seen by pulmonology, plan for bronch on Friday, hold Eliquis starting 05/26 Skin Laceration seen by gen surg, rec silver alginate + dry sterile dressing No evidence of infection dressing changes every other day follow up with Dr. Poe after discharge EMERALD BIPAP at night BIPAP use was for EMERALD and not severe sepsis History of DVT on ELiquis 2.5mg at baseline, unclear why -- will leave the dose as is. -Eliquis on hold due to plan for bronch on Friday DM -SSI, POCs -pioglidizone on hold Mood Continue sertraline Anemia H/H downtrending somewhat no active bleeding noted Iron studies suggest anemia of chronic dz -check stool guiac -follow cbc Urine culture final result mixed gurpreet suggestive of contamination Morbid obesity 45.8 Likely contributing to respiratory condition Difficult IV access, will order midline Dispo: eval by PT plan to return to [facility] at [facility] when medically ready, here through the weekend with plan for bronch on Friday DNR/DNI DVT pptx, Eliquis This case was discussed with Dr. Combs
[2020-05-26 12:18] LABS: Glucose, Whole Blood 102 mg/dL (60-115)
[2020-05-26 16:18] LABS: Glucose, Whole Blood 172 mg/dL (60-115)
[2020-05-26] MEDS: Insulin Lispro 100 UNIT/ML 3 ML VIAL SUBCUT ×2 (16:18→22:09)
[2020-05-26 20:26] LABS: Glucose, Whole Blood 159 mg/dL (60-115)
[2020-05-26] MEDS: guaiFENesin LA 600 MG TAB.ER.12H 1200 MG PO (22:08)
[2020-05-26] MEDS: Montelukast Sodium 10 MG TABLET PO (22:08)
[2020-05-27] VITALS (12 sets, daily range): BP systolic 118–159; BP diastolic 66–89; PULSE 76–105; RESP 13–18; TEMP 36.2–37; O2SAT 94–98; BMI 45.3
[2020-05-27] MEDS: Piperacillin Sodium/Tazobactam 3.375 GM in 0.9 % Sodium Chloride 50 ML IV ×2 (03:51→10:30)
[2020-05-27] MEDS: Omeprazole 20 MG CAPSULE.DR PO ×2 (06:47→16:13)
[2020-05-27 07:23] LABS: Hematocrit 32.9 % (37-47); Hemoglobin 9.3 g/dl (12.0-16.0); Mean Corpuscular HGB Conc 28.3 g/dl (31.0-35.0); Mean Corpuscular Hemoglobin 24.5 pg (27.0-33.0); Mean Corpuscular Volume 86.8 fL (80-98); Mean Platelet Volume 10.6 fL (9.4-12.3); NRBC Pct Auto 0.4 /100WBC (0.0-0.2); Platelet Count 193 X10*3/uL (160-400); Red Blood Count 3.79 X10*6/uL (4.20-5.50); Red Cell Distribution Width 16.9 % (11.0-16.0)
[2020-05-27 07:36] LABS: Anion Gap 14 (12-20); Blood Urea Nitrogen 28 mg/dL (9-16); Calcium 8.7 mg/dL (8.4-10.2); Carbon Dioxide 29 mmol/L (22-29); Chloride 104 mmol/L (96-108); Estimated Glomerular Filt Rate > 60; Glucose Random 101 mg/dL (60-115); Sodium 144 mmol/L (135-145)
[2020-05-27 07:49] LABS: Atypical Lymph Absolute Manual 0.1 x10*3/uL; Atypical Lymphs Percent Manual 1 % (0-6); Lymphocytes Absolute Manual 1.4 X10*3/uL (0.6-4.8); Lymphocytes Percent Manual 10 % (20-40); Metamyelocytes Absolute 0.3 X10*3/uL; Metamyelocytes Percent 2 %; Monocytes Absolute Manual 0.8 X10*3/uL (0.0-1.2); Monocytes Percent Manual 6 % (2-11); Neutrophils Percent Manual 81 % (45-73)
[2020-05-27 07:50] LABS: Band Neutrophils Percent 0 % (3-5); Neutrophils Absolute Manual 11.3 X10*3/uL (2.2-7.9); Platelet Estimate NORMAL (NORMAL); Platelet Morphology Comment NORMAL; Polychromasia 1+; RBC Morphology NOTED
[2020-05-27 07:51] LABS: Hypochromasia 1+
[2020-05-27 07:57] LABS: Glucose, Whole Blood 89 mg/dL (60-115)
[2020-05-27] MEDS: Albuterol/Iprat 2.5/0.5MG 3 ML AMPUL.NEB INHALE ×3 (08:15→15:20)
[2020-05-27] MEDS: guaiFENesin LA 600 MG TAB.ER.12H 1200 MG PO ×2 (08:46→20:36)
[2020-05-27] MEDS: Metoprolol Tartrate 25 MG TABLET 12.5 MG PO ×2 (08:47→20:37)
[2020-05-27] MEDS: predniSONE 20 MG TABLET 40 MG PO (08:49)
[2020-05-27] MEDS: Furosemide 40 MG/4 ML VIAL IVPUSH (08:49)
[2020-05-27] MEDS: 0.9 % Sodium Chloride Flush 3 ML SYRINGE IVFLUSH ×2 (08:50→20:40)
[2020-05-27] MEDS: Heparin Sodium,Porcine Flush 50 UNITS, 0.9 % Sodium Chloride Flush 5 ML IVFLUSH ×3 (08:51→20:39)
[2020-05-27] MEDS: Sertraline HCL 25 MG TABLET PO (08:51)
--- NOTE | 2020-05-27 09:54 | PM.PNGS ---
Subjective Subjective Date of Service: 05/27/20 Interval history: no new events pt says she is ok Physical Exam Vital Signs: Vital Signs: Last Vital Signs Temp 97.5 F 05/27/20 07:55 Pulse 76 05/27/20 08:17 Resp 18 05/27/20 07:55 BP 118/66 05/27/20 07:55 Pulse Ox 94 05/27/20 07:55 Body Mass Index 45.3 Const: General: comfortable and no acute distress Resp: Auscultation: crackles and rhonchi Cardio: Rhythm: regular rhythm GI: Palpation (GI): Soft to palpation Back/Spine/Pelvis: Other: large skin avulsion left thigh, clean, no cellulitis Progress Note: A&P Assessment and plan (1) Skin avulsion: Status: Acute Assessment and Plan: dressings changed - Durafiber Ag applied wound clean,not infected continue wound care Fall Risk Details Current Medications: Current Medications Generic Name Dose Route Start Last Admin Trade Name Freq PRN Reason Stop Dose Admin Acetaminophen 650 mg 05/22/20 20:44 Acetaminophen 325 Mg Tablet PO Q6H PRN Pain, Mild (Pain Scale 1-3) Albuterol/Ipratropium 3 ml 05/23/20 08:00 05/27/20 08:15 Albuterol/Iprat 2.5/0.5mg 3 Ml Ampul.Neb INHALE 3 ml RQ4H WHILE AWAKE SATNAM Administration Albuterol/Ipratropium 3 ml 05/22/20 20:25 Albuterol/Iprat 2.5/0.5mg 3 Ml Ampul.Neb INHALE Q4H PRN shortness of breath/wheezing Heparin Sodium (Porcine) 50 0 units 05/25/20 15:00 05/27/20 08:51 units/ Sodium Chloride 5 ml IVFLUSH 50 unit TID SATNAM Administration Docusate Sodium 100 mg 05/22/20 20:44 Docusate Sodium 100 Mg Capsule PO DAILY PRN Constipation Furosemide 40 mg 05/27/20 09:00 05/27/20 08:49 Furosemide 40 Mg/4 Ml Vial IVPUSH 40 mg DAILY SATNAM Administration Protocol Guaifenesin 1,200 mg 05/26/20 21:00 05/27/20 08:46 Guaifenesin La 600 Mg Tab.Er.12h PO 1,200 mg BID SATNAM Administration Piperacillin Sod/Tazobactam 50 mls @ 100 mls/hr 05/25/20 16:00 05/27/20 04:27 Sod 3.375 gm/ Sodium Chloride IV Infused Q6H SATNAM Infusion Insulin Human Lispro 0 unit 05/24/20 16:30 05/27/20 08:17 Insulin Lispro 100 Unit/Ml 3 Ml Vial SUBCUT Not Given QIDACHS [facility]NAM Protocol Lorazepam 1 mg 05/22/20 20:44 05/24/20 19:49 Lorazepam 1 Mg Tablet PO 1 mg BEDTIME PRN Administration insomnia Metoprolol Tartrate 12.5 mg 05/22/20 21:00 05/27/20 08:47 Metoprolol Tartrate 25 Mg Tablet PO 12.5 mg BID SATNAM Administration Protocol Montelukast Sodium 10 mg 05/22/20 21:00 05/26/20 22:08 Montelukast Sodium 10 Mg Tablet PO 10 mg BEDTIME SATNAM Administration Omeprazole 20 mg 05/23/20 06:30 05/27/20 06:47 Omeprazole 20 Mg Capsule.Dr PO 20 mg BID@0630,1630 SATNAM Administration Ondansetron HCl 4 mg 05/22/20 20:44 Ondansetron Hcl 4 Mg/2 Ml Vial IVPUSH Q8H PRN Nausea and Vomiting Pharmacy Consult 1 each 05/22/20 14:58 Consult Rx Perform Med Rec MISCELLANE ONCE PRN Consult order Prednisone 40 mg 05/25/20 09:45 05/27/20 08:49 Prednisone 20 Mg Tablet PO 40 mg DAILY SATNAM Administration Sertraline HCl 25 mg 05/23/20 09:00 05/27/20 08:51 Sertraline Hcl 25 Mg Tablet PO 25 mg DAILY SATNAM Administration Sodium Chloride 3 ml 05/23/20 00:00 05/27/20 08:50 0.9 % Sodium Chloride Flush 3 Ml Syringe IVFLUSH 3 ml QSHIFT SATNAM Administration Time Spent With Patient Time: Total time spent is greater than 50% in coordination of care (as documented) at patient's floor/unit and/or counseling patient: Time with patient: 15 - 24 minutes
--- NOTE | 2020-05-27 10:05 | HO.PM.IMPN ---
Subjective Subjective Date of Service: 05/27/20 <SAVANNAH Mata - Last Filed: 05/27/20 11:32> 05/28/20 <Carmen Combs MD - Last Filed: 05/28/20 15:43> Interval History: f/u respiratory failure/COPD exacerbation Not much change in respiratory status Worried about bronch on Friday, otherwise no complaints No overnight events <SAVANNAH Mata - Last Filed: 05/27/20 11:32> Review of Systems Review of Systems: Yes all other systems are reviewed and are negative <SAVANNAH Mata - Last Filed: 05/27/20 11:32> Constitutional Constitutional: Denies chills and Denies fever(s) <SAVANNAH Mata - Last Filed: 05/27/20 11:32> Cardiovascular Cardiovascular: Denies chest pain <SAVANNAH Mata - Last Filed: 05/27/20 11:32> Respiratory Respiratory: Reports cough <SAVANNAH Mata - Last Filed: 05/27/20 11:32> Gastrointestinal Gastrointestinal: Denies abdominal pain <SAVANNAH Mata - Last Filed: 05/27/20 11:32> Physical Exam Vital Signs: Vital Signs: Last Vital Signs Temp 97.5 F 05/27/20 07:55 Pulse 76 05/27/20 08:17 Resp 18 05/27/20 07:55 BP 118/66 05/27/20 07:55 Pulse Ox 94 05/27/20 07:55 Body Mass Index 45.3 <SAVANNAH Mata - Last Filed: 05/27/20 11:32> Const: General: alert and awake <SAVANNAH Mata - Last Filed: 05/27/20 11:32> Nutritional Appearance: obese <SAVANNAH Mata - Last Filed: 05/27/20 11:32> Orientation/consciousness: patient oriented x3 <SAVANNAH Mata - Last Filed: 05/27/20 11:32> HENMT: Head: Yes normocephalic and Yes atraumatic <SAVANNAH Mata - Last Filed: 05/27/20 11:32> Eyes: Sclerae: sclerae normal <SAVANNAH Mata - Last Filed: 05/27/20 11:32> Chest: Chest palpation & inspection: normal inspection of the chest <SAVANNAH Mata - Last Filed: 05/27/20 11:32> Resp: Other: coarse, congested b/l <SAVANNAH Mata - Last Filed: 05/27/20 11:32> Effort & Inspection: able to speak in complete sentences, no respiratory distress and not tachypneic <SAVANNAH Mata - Last Filed: 05/27/20 11:32> Auscultation: diminished lung sounds <SAVANNAH Mata - Last Filed: 05/27/20 11:32> Cardio: Rate: regular rate <SAVANNAH Mata - Last Filed: 05/27/20 11:32> Rhythm: regular rhythm <SAVANNAH Mata - Last Filed: 05/27/20 11:32> GI: Palpation (GI): Soft to palpation and nontender <SAVANNAH Mata - Last Filed: 05/27/20 11:32> Skin: General skin exam: no rashes or lesions noted <SAVANNAH Mata - Last Filed: 05/27/20 11:32> Neuro: General: patient oriented x3 <SAVANNAH Mata - Last Filed: 05/27/20 11:32> Cranial nerves: Yes CN's II-XII intact bilaterally and Yes Bilaterally intact EOM present <SAVANNAH Mata - Last Filed: 05/27/20 11:32> Extrem: Other: right wrist, left lower leg bandage <SAVANNAH Mata - Last Filed: 05/27/20 11:32> Objective Data Current Medications Generic Name Dose Route Start Last Admin Trade Name Freq PRN Reason Stop Dose Admin Acetaminophen 650 mg 05/22/20 20:44 Acetaminophen 325 Mg Tablet PO Q6H PRN Pain, Mild (Pain Scale 1-3) Albuterol/Ipratropium 3 ml 05/23/20 08:00 05/27/20 08:15 Albuterol/Iprat 2.5/0.5mg 3 Ml Ampul.Neb INHALE 3 ml RQ4H WHILE AWAKE SATNAM Administration Albuterol/Ipratropium 3 ml 05/22/20 20:25 Albuterol/Iprat 2.5/0.5mg 3 Ml Ampul.Neb INHALE Q4H PRN shortness of breath/wheezing Heparin Sodium (Porcine) 50 0 units 05/25/20 15:00 05/27/20 08:51 units/ Sodium Chloride 5 ml IVFLUSH 50 unit TID SATNAM Administration Docusate Sodium 100 mg 05/22/20 20:44 Docusate Sodium 100 Mg Capsule PO DAILY PRN Constipation Furosemide 40 mg 05/27/20 09:00 05/27/20 08:49 Furosemide 40 Mg/4 Ml Vial IVPUSH 40 mg DAILY SATNAM Administration Protocol Guaifenesin 1,200 mg 05/26/20 21:00 05/27/20 08:46 Guaifenesin La 600 Mg Tab.Er.12h PO 1,200 mg BID SATNAM Administration Piperacillin Sod/Tazobactam 50 mls @ 100 mls/hr 05/25/20 16:00 05/27/20 04:27 Sod 3.375 gm/ Sodium Chloride IV Infused Q6H SATNAM Infusion Insulin Human Lispro 0 unit 05/24/20 16:30 05/27/20 08:17 Insulin Lispro 100 Unit/Ml 3 Ml Vial SUBCUT Not Given QIDACHS [facility] Protocol Lorazepam 1 mg 05/22/20 20:44 05/24/20 19:49 Lorazepam 1 Mg Tablet PO 1 mg BEDTIME PRN Administration insomnia Metoprolol Tartrate 12.5 mg 05/22/20 21:00 05/27/20 08:47 Metoprolol Tartrate 25 Mg Tablet PO 12.5 mg BID [facility] Administration Protocol Montelukast Sodium 10 mg 05/22/20 21:00 05/26/20 22:08 Montelukast Sodium 10 Mg Tablet PO 10 mg BEDTIME SATNAM Administration Omeprazole 20 mg 05/23/20 06:30 05/27/20 06:47 Omeprazole 20 Mg Capsule. PO 20 mg BID@0630,1630 SATNAM Administration Ondansetron HCl 4 mg 05/22/20 20:44 Ondansetron Hcl 4 Mg/2 Ml Vial IVPUSH Q8H PRN Nausea and Vomiting Pharmacy Consult 1 each 05/22/20 14:58 Consult Rx Perform Med Rec MISCELLANE ONCE PRN Consult order Prednisone 40 mg 05/25/20 09:45 05/27/20 08:49 Prednisone 20 Mg Tablet PO 40 mg DAILY SATNAM Administration Sertraline HCl 25 mg 05/23/20 09:00 05/27/20 08:51 Sertraline Hcl 25 Mg Tablet PO 25 mg DAILY SATNAM Administration Sodium Chloride 3 ml 05/23/20 00:00 05/27/20 08:50 0.9 % Sodium Chloride Flush 3 Ml Syringe IVFLUSH 3 ml QSHIFT SATNAM Administration <SAVANNAH Mata - Last Filed: 05/27/20 11:32> Labs CBC & Chem 7: : 05/27/20 06:48 05/28/20 06:01 <SAVANNAH Mata - Last Filed: 05/27/20 11:32> Microbiology Microbiology Results: Microbiology 05/22/20 16:41 Blood - Venous Blood Culture - Preliminary No growth after 48 hours. 05/22/20 16:41 Blood - Venous Blood Culture - Preliminary No growth after 48 hours. 05/22/20 17:00 Urine clean catch - Clean Catch Midstream Urine Culture - Final <SAVANNAH Mata - Last Filed: 05/27/20 11:32> Assessment and Plan (1) Acute respiratory failure with hypoxia: Status: Acute <SAVANNAH Mata - Last Filed: 05/27/20 11:32> (2) Skin avulsion: Status: Acute <SAVANNAH Mata - Last Filed: 05/27/20 11:32> (3) Community acquired pneumonia: Status: Acute <SAVANNAH Mata - Last Filed: 05/27/20 11:32> (4) COPD exacerbation: Status: Acute <SAVANNAH Mata - Last Filed: 05/27/20 11:32> Assessment and Plan: 74-year-old female with past medical history of COPD presents to the hospital with shortness of breath, cough found to have pneumonia Acute on Chronic Respiratory failure with hypoxia on 2L O2 at baseline continue O2, goal 90-92 due to pneumonia + copd ?component of CHF -continue IV lasix -echo report pending COPD exacerbation continue updrafts continue PO steroids Penumonia continue antibiotics day 07/21, will change to PO Augmentin h/o bronchiectasis/microaspiration seen by pulmonology, plan for bronch on Friday, holding Eliquis starting 05/26 Skin Laceration seen by gen surg, rec silver alginate + dry sterile dressing No evidence of infection dressing changes every other day follow up with Dr. Poe after discharge EMERALD BIPAP at night BIPAP use was for EMERALD and not severe sepsis History of DVT on ELiquis 2.5mg at baseline, unclear why -- will leave the dose as is. -Eliquis on hold due to plan for bronch on Friday DM -SSI, POCs -pioglidizone on hold Mood Continue sertraline Anemia H/H stable no active bleeding noted Iron studies suggest anemia of chronic dz Urine culture final result mixed gurpreet suggestive of contamination Morbid obesity 45.8 Likely contributing to respiratory condition Difficult IV access, midline in place Dispo: eval by PT plan to return to [facility] [place] when medically ready, here through the weekend with plan for bronch on Friday DNR/DNI DVT pptx, Eliquis This case was discussed with Dr. Combs <SAVANNAH Mata - Last Filed: 05/27/20 11:32>
[2020-05-27] MEDS: Potassium Chloride Packet 20 MEQ PACKET 40 MEQ PO (10:32)
[2020-05-27 11:23] LABS: Glucose, Whole Blood 121 mg/dL (60-115)
[2020-05-27] MEDS: Ferrous Sulfate 324 MG TABLET.DR PO (12:27)
[2020-05-27] MEDS: Insulin Lispro 100 UNIT/ML 3 ML VIAL SUBCUT ×2 (16:13→20:39)
[2020-05-27 16:27] LABS: Glucose, Whole Blood 200 mg/dL (60-115)
[2020-05-27 20:34] LABS: Glucose, Whole Blood 195 mg/dL (60-115)
[2020-05-27] MEDS: Montelukast Sodium 10 MG TABLET PO (20:36)
[2020-05-27] MEDS: Amoxicillin/Potassium Clav 875 MG TABLET PO (20:38)
[2020-05-28] VITALS (9 sets, daily range): BP systolic 112–153; BP diastolic 50–95; PULSE 78–100; RESP 16–19; TEMP 35.7–36.3; O2SAT 93–98
[2020-05-28] MEDS: Omeprazole 20 MG CAPSULE.DR PO ×2 (05:56→15:43)
[2020-05-28 07:00] LABS: Anion Gap 15 (12-20); Blood Urea Nitrogen 29 mg/dL (9-16); Carbon Dioxide 30 mmol/L (22-29); Chloride 103 mmol/L (96-108); Creatinine Clr Calc Pharmacy 70.1; Estimated Glomerular Filt Rate > 60; Glucose Random 112 mg/dL (60-115); Potassium 3.6 mmol/L (3.3-5.1); Sodium 144 mmol/L (135-145)
[2020-05-28 07:53] LABS: Glucose, Whole Blood 94 mg/dL (60-115)
--- NOTE | 2020-05-28 08:15 | HO.PM.IMPN ---
Subjective Subjective Date of Service: 05/28/20 <SAVANNAH Mata - Last Filed: 05/28/20 10:42> 05/28/20 <Carmen Combs MD - Last Filed: 05/28/20 15:45> Interval History: f/u acute on chronic respiratory failure Mild improvement with breathing, still with chest congestion plan for bronchoscopy tomorrow No acute events overnight <SAVANNAH Mata - Last Filed: 05/28/20 10:42> Review of Systems Review of Systems: Yes all other systems are reviewed and are negative <SAVANNAH Mata - Last Filed: 05/28/20 10:42> Constitutional Constitutional: Denies chills and Denies fever(s) <SAVANNAH Mata - Last Filed: 05/28/20 10:42> Cardiovascular Cardiovascular: Denies chest pain and Denies palpitations <SAVANNAH Mata - Last Filed: 05/28/20 10:42> Respiratory Respiratory: Reports chest congestion and Reports cough <SAVANNAH Mata - Last Filed: 05/28/20 10:42> Gastrointestinal Gastrointestinal: Denies abdominal pain <SAVANNAH Mata - Last Filed: 05/28/20 10:42> Endocrine Endocrine: Denies palpitations <SAVANNAH Mata - Last Filed: 05/28/20 10:42> Physical Exam Vital Signs: Vital Signs: Last Vital Signs Temp 97.1 F 05/28/20 03:46 Pulse 84 05/28/20 03:46 Resp 18 05/28/20 03:46 BP 140/50 H 05/28/20 03:46 Pulse Ox 98 05/28/20 03:46 Body Mass Index 45.3 <SAVANNAH Mata - Last Filed: 05/28/20 10:42> Const: General: alert and awake <SAVANNAH Mata - Last Filed: 05/28/20 10:42> Nutritional Appearance: obese <SAVANNAH Mata - Last Filed: 05/28/20 10:42> Orientation/consciousness: patient oriented x3 <SAVANNAH Mata - Last Filed: 05/28/20 10:42> HENMT: Head: Yes normocephalic and Yes atraumatic <SAVANNAH Mata - Last Filed: 05/28/20 10:42> Eyes: Sclerae: sclerae normal <SAVANNAH Mata - Last Filed: 05/28/20 10:42> Chest: Chest palpation & inspection: normal inspection of the chest <SAVANNAH Mata - Last Filed: 05/28/20 10:42> Resp: Other: coarse, congested b/l <SAVANNAH Mata - Last Filed: 05/28/20 10:42> Effort & Inspection: able to speak in complete sentences, no respiratory distress and not tachypneic <SAVANNAH Mata - Last Filed: 05/28/20 10:42> Auscultation: diminished lung sounds <SAVANNAH Mata - Last Filed: 05/28/20 10:42> Cardio: Rate: regular rate <SAVANNAH Mata - Last Filed: 05/28/20 10:42> Rhythm: regular rhythm <SAVANNAH Mata - Last Filed: 05/28/20 10:42> GI: Palpation (GI): Soft to palpation and nontender <SAVANNAH Mata - Last Filed: 05/28/20 10:42> : Other: pérez present <SAVANNAH Mata - Last Filed: 05/28/20 10:42> Skin: General skin exam: no rashes or lesions noted <SAVANNAH Mata - Last Filed: 05/28/20 10:42> Neuro: General: patient oriented x3 <SAVANNAH Mata - Last Filed: 05/28/20 10:42> Cranial nerves: Yes CN's II-XII intact bilaterally and Yes Bilaterally intact EOM present <SAVANNAH Mata - Last Filed: 05/28/20 10:42> Extrem: Other: right wrist, left lower leg bandage; right wrist laceration with no surrounding erythema, some ecchymosis, no fluctuance/drainage; left lower leg skin tear no fluctuance/drainage <SAVANNAH Mata - Last Filed: 05/28/20 10:42> Objective Data Current Medications Generic Name Dose Route Start Last Admin Trade Name Kelle PRN Reason Stop Dose Admin Acetaminophen 650 mg 05/22/20 20:44 Acetaminophen 325 Mg Tablet PO Q6H PRN Pain, Mild (Pain Scale 1-3) Albuterol/Ipratropium 3 ml 05/23/20 08:00 05/28/20 07:29 Albuterol/Iprat 2.5/0.5mg 3 Ml Ampul.Neb INHALE Not Given RQ4H WHILE AWAKE [facility] Albuterol/Ipratropium 3 ml 05/22/20 20:25 Albuterol/Iprat 2.5/0.5mg 3 Ml Ampul.Neb INHALE Q4H PRN shortness of breath/wheezing Amoxicillin/Clavulanate Potassium 875 mg 05/27/20 21:00 05/27/20 20:38 Amoxicillin/Potassium Clav 875 Mg Tablet PO 875 mg BID SATNAM Administration Heparin Sodium (Porcine) 50 0 units 05/25/20 15:00 05/27/20 20:39 units/ Sodium Chloride 5 ml IVFLUSH 1 unit TID [facility] Administration Docusate Sodium 100 mg 05/22/20 20:44 Docusate Sodium 100 Mg Capsule PO DAILY PRN Constipation Ferrous Sulfate 324 mg 05/27/20 10:45 05/27/20 12:27 Ferrous Sulfate 324 Mg Tablet.Dr PO 324 mg DAILY [facility] Administration Furosemide 40 mg 05/27/20 09:00 05/27/20 08:49 Furosemide 40 Mg/4 Ml Vial IVPUSH 40 mg DAILY [facility] Administration Protocol Guaifenesin 1,200 mg 05/26/20 21:00 05/27/20 20:36 Guaifenesin La 600 Mg Tab.Er.12h PO 1,200 mg BID [facility] Administration Insulin Human Lispro 0 unit 05/24/20 16:30 05/28/20 07:27 Insulin Lispro 100 Unit/Ml 3 Ml Vial SUBCUT Not Given QIDACHS [facility] Protocol Metoprolol Tartrate 12.5 mg 05/22/20 21:00 05/27/20 20:37 Metoprolol Tartrate 25 Mg Tablet PO 12.5 mg BID SATNAM Administration Protocol Montelukast Sodium 10 mg 05/22/20 21:00 05/27/20 20:36 Montelukast Sodium 10 Mg Tablet PO 10 mg BEDTIME [facility] Administration Omeprazole 20 mg 05/23/20 06:30 05/28/20 05:56 Omeprazole 20 Mg Capsule. PO 20 mg BID@1156,8467 [facility] Administration Ondansetron HCl 4 mg 05/22/20 20:44 Ondansetron Hcl 4 Mg/2 Ml Vial IVPUSH Q8H PRN Nausea and Vomiting Pharmacy Consult 1 each 05/22/20 14:58 Consult Rx Perform Med Rec MISCELLANE ONCE PRN Consult order Prednisone 40 mg 05/25/20 09:45 05/27/20 08:49 Prednisone 20 Mg Tablet PO 40 mg DAILY [facility] Administration Sertraline HCl 25 mg 05/23/20 09:00 05/27/20 08:51 Sertraline Hcl 25 Mg Tablet PO 25 mg DAILY [facility] Administration Sodium Chloride 3 ml 05/23/20 00:00 05/28/20 07:27 0.9 % Sodium Chloride Flush 3 Ml Syringe IVFLUSH Not Given QSHIFT [facility] <SAVANNAH Mata - Last Filed: 05/28/20 10:42> Labs CBC & Chem 7: : 05/27/20 06:48 05/28/20 06:01 <SAVANNAH Mata - Last Filed: 05/28/20 10:42> Microbiology Microbiology Results: Microbiology 05/22/20 16:41 Blood - Venous Blood Culture - Final No growth after 5 days. 05/22/20 16:41 Blood - Venous Blood Culture - Final No growth after 5 days. 05/22/20 17:00 Urine clean catch - Clean Catch Midstream Urine Culture - Final <SAVANNAH Mata - Last Filed: 05/28/20 10:42> Assessment and Plan (1) Acute respiratory failure with hypoxia: Status: Acute <SAVANNAH Mata Last Filed: 05/28/20 10:42> (2) Skin avulsion: Status: Acute <SAVANNAH Mata Last Filed: 05/28/20 10:42> (3) Community acquired pneumonia: Status: Acute <SAVANNAH Mata Last Filed: 05/28/20 10:42> (4) COPD exacerbation: Status: Acute <SAVANNAH Mata Last Filed: 05/28/20 10:42> Assessment and Plan: 74-year-old female with past medical history of COPD/chronic respiratory failure, factor 5 leiden deficiency/h/o DVT, emerald on bipap, DM, recent fall (05/18) with left leg wound who presented to the hospital with shortness of breath, cough found to have pneumonia and likely component of chf Acute on Chronic Respiratory failure with hypoxia on 2L O2 at baseline due to pneumonia + copd, component of CHF Acute on chronic HFpEF ECHO from 05/26: The left ventricular systolic function is hyperdynamic. The visually estimated ejection fraction is between 65-70%. Abnormal diastolic function is noted. Spectral Doppler is indicative of an impaired relaxation filling pattern. Elevated filling pressures. Normal right ventricular cavity size and systolic function. -Contiinue gnetle diuresis, follow Is & Os -pérez for fluid management -add fluid restriction, low sodium diet COPD exacerbation -continue updrafts -Continue steroids day 6 (changed to PO 05/26) Penumonia -continue antibiotics day /7, PO Augmentin h/o bronchiectasis/microaspiration seen by pulmonology, plan for bronch on Friday, holding Eliquis starting 05/26 Skin Laceration seen by gen surg, rec silver alginate + dry sterile dressing No evidence of infection dressing changes every other day follow up with Dr. Poe after discharge EMERALD BIPAP at night History of DVT on ELiquis 2.5mg at baseline -Eliquis on hold due to plan for bronch on Friday DM -SSI, POCs -pioglidizone on hold Mood Continue sertraline Anemia H/H stable no active bleeding noted -iron supplementation added Gerd prilosec Urine culture final result mixed gurpreet suggestive of contamination Morbid obesity 45.8 Likely contributing to respiratory condition/difficulty ambulating and overall deconditioning Difficult IV access, midline in place Dispo: eval by PT plan to return to [facility] at when medically ready, plan for bronch on Friday DNR/DNI DVT pptx, Eliquis This case was discussed with Dr. Combs <SAVANNAH Mata - Last Filed: 05/28/20 10:42>
[2020-05-28] MEDS: guaiFENesin LA 600 MG TAB.ER.12H 1200 MG PO ×2 (10:22→21:13)
[2020-05-28] MEDS: Sertraline HCL 25 MG TABLET PO (10:23)
[2020-05-28] MEDS: predniSONE 20 MG TABLET 40 MG PO (10:24)
[2020-05-28] MEDS: Metoprolol Tartrate 25 MG TABLET 12.5 MG PO ×2 (10:24→21:13)
[2020-05-28] MEDS: Heparin Sodium,Porcine Flush 50 UNITS, 0.9 % Sodium Chloride Flush 5 ML IVFLUSH ×3 (10:25→21:20)
[2020-05-28] MEDS: Ferrous Sulfate 324 MG TABLET.DR PO (10:25)
[2020-05-28] MEDS: Furosemide 40 MG/4 ML VIAL IVPUSH (10:26)
[2020-05-28] MEDS: Piperacillin Sodium/Tazobactam 3.375 GM in 0.9 % Sodium Chloride 50 ML IV ×3 (11:49→23:23)
[2020-05-28 11:50] LABS: Glucose, Whole Blood 92 mg/dL (60-115)
--- NOTE | 2020-05-28 13:28 | MHC.CM.PN ---
UPDATES SENT TO [facility] FOR PATIENT ANTICIPATED DISCHARGE
[2020-05-28] MEDS: Albuterol/Iprat 2.5/0.5MG 3 ML AMPUL.NEB INHALE ×2 (15:08→23:13)
[2020-05-28] MEDS: Insulin Lispro 100 UNIT/ML 3 ML VIAL SUBCUT ×2 (16:33→21:14)
[2020-05-28 17:14] LABS: Glucose, Whole Blood 227 mg/dL (60-115)
[2020-05-28 20:39] LABS: Glucose, Whole Blood 180 mg/dL (60-115)
[2020-05-28] MEDS: Nystatin Powder 15 GM BOTTLE 1 APPL TOPICAL (21:12)
[2020-05-28] MEDS: Montelukast Sodium 10 MG TABLET PO (21:13)
[2020-05-28] MEDS: 0.9 % Sodium Chloride Flush 3 ML SYRINGE IVFLUSH (23:23)
[2020-05-29] VITALS (13 sets, daily range): BP systolic 104–124; BP diastolic 67–77; PULSE 68–105; RESP 14–22; TEMP 36.1–36.6; O2SAT 94–100; BMI 45.8
[2020-05-29] MEDS: Piperacillin Sodium/Tazobactam 3.375 GM in 0.9 % Sodium Chloride 50 ML IV ×4 (04:57→22:23)
[2020-05-29 06:14] LABS: Hematocrit 36.5 % (37-47); Hemoglobin 10.5 g/dl (12.0-16.0); Mean Corpuscular HGB Conc 28.8 g/dl (31.0-35.0); Mean Corpuscular Hemoglobin 24.9 pg (27.0-33.0); Mean Corpuscular Volume 86.7 fL (80-98); Mean Platelet Volume 10.3 fL (9.4-12.3); NRBC Pct Auto 0.2 /100WBC (0.0-0.2); Red Blood Count 4.21 X10*6/uL (4.20-5.50); Red Cell Distribution Width 17.2 % (11.0-16.0); White Blood Count 16.9 X10*3/uL (4.8-10.8)
[2020-05-29 06:37] LABS: Platelet Count 76 X10*3/uL (160-400)
[2020-05-29 06:40] LABS: Anion Gap 14 (12-20); Blood Urea Nitrogen 26 mg/dL (9-16); Calcium 8.5 mg/dL (8.4-10.2); Carbon Dioxide 31 mmol/L (22-29); Chloride 101 mmol/L (96-108); Creatinine Clr Calc Pharmacy 74.4; Estimated Glomerular Filt Rate > 60; Glucose Random 96 mg/dL (60-115); Potassium 3.1 mmol/L (3.3-5.1); Sodium 143 mmol/L (135-145)
[2020-05-29] MEDS: Albuterol/Iprat 2.5/0.5MG 3 ML AMPUL.NEB INHALE ×3 (07:24→14:57)
[2020-05-29 07:30] LABS: Glucose, Whole Blood 89 mg/dL (60-115)
[2020-05-29] MEDS: Furosemide 40 MG/4 ML VIAL IVPUSH (08:59)
[2020-05-29] MEDS: guaiFENesin LA 600 MG TAB.ER.12H 1200 MG PO ×2 (08:59→20:09)
[2020-05-29] MEDS: Ferrous Sulfate 324 MG TABLET.DR PO (09:00)
[2020-05-29] MEDS: Sertraline HCL 25 MG TABLET PO (09:00)
[2020-05-29] MEDS: Potassium Chloride/H20 10 MEQ/100 ML PIGGYBACK 100 MEQ IV ×2 (09:01→11:23)
[2020-05-29] MEDS: Metoprolol Tartrate 25 MG TABLET 12.5 MG PO ×2 (09:01→20:09)
[2020-05-29] MEDS: Heparin Sodium,Porcine Flush 50 UNITS, 0.9 % Sodium Chloride Flush 5 ML IVFLUSH ×3 (09:02→20:09)
[2020-05-29] MEDS: predniSONE 20 MG TABLET 40 MG PO (09:03)
[2020-05-29] MEDS: Omeprazole 20 MG CAPSULE.DR PO ×2 (09:04→16:54)
[2020-05-29] MEDS: Nystatin Powder 15 GM BOTTLE 1 APPL TOPICAL ×2 (09:21→20:11)
[2020-05-29] MEDS: 0.9 % Sodium Chloride Flush 3 ML SYRINGE IVFLUSH ×2 (09:21→15:29)
[2020-05-29 11:33] LABS: Glucose, Whole Blood 113 mg/dL (60-115)
--- NOTE | 2020-05-29 11:39 | MHC.CM.PN ---
Per ROUNDS discussion, Patient is not yet medically cleared for dc (IV LASIX, IV HEPARIN, IV Zosyn). Returning to LTC at [facility] is the goal for dc and CM will continue to follow.
--- NOTE | 2020-05-29 14:20 | HO.PM.IMPN ---
Subjective Subjective Date of Service: 05/29/20 Interval History: Patient feels her breathing is a little better, her bronchoscopy has been postponed for tomorrow, no acute overnight issues, remains on 2 L of oxygen with finger oximetry 100% General no headache, no dizziness no fever chills. CVS no chest pain, no palpitation. Respiratory chest congestion, cough, no respiratory distress Gastrointestinal no nausea no vomiting, no abdominal pain Physical Exam Vital Signs: Vital Signs: Last Vital Signs Temp 98 F 05/29/20 11:07 Pulse 84 05/29/20 11:07 Resp 22 H 05/29/20 11:07 BP 106/67 05/29/20 11:07 Pulse Ox 100 05/29/20 11:07 Body Mass Index 45.8 General resting comfortably in no acute distress. Neck is supple no JVD. CVS regular rate rhythm, Respiratory lungs bilateral inspiratory rhonchi, no acute respiratory distress Gastrointestinal abdomen soft, nontender, bowel sounds audible, no guarding , no rigidity. Extremities bilateral nonpitting edema Neuro nonfocal , speech clear. Skin left lower leg dressing in place, no drainage, few old bruises and ecchymoses, right wrist laceration healing with no surrounding erythema, Objective Data Current Medications Generic Name Dose Route Start Last Admin Trade Name Freq PRN Reason Stop Dose Admin Acetaminophen 650 mg 05/22/20 20:44 Acetaminophen 325 Mg Tablet PO Q6H PRN Pain, Mild (Pain Scale 1-3) Albuterol/Ipratropium 3 ml 05/23/20 08:00 05/29/20 10:58 Albuterol/Iprat 2.5/0.5mg 3 Ml Ampul.Neb INHALE 3 ml RQ4H WHILE AWAKE [facility] Administration Albuterol/Ipratropium 3 ml 05/22/20 20:25 Albuterol/Iprat 2.5/0.5mg 3 Ml Ampul.Neb INHALE Q4H PRN shortness of breath/wheezing Heparin Sodium (Porcine) 50 0 units 05/25/20 15:00 05/29/20 09:02 units/ Sodium Chloride 5 ml IVFLUSH 50 unit TID [facility]NAM Administration Docusate Sodium 100 mg 05/22/20 20:44 Docusate Sodium 100 Mg Capsule PO DAILY PRN Constipation Ferrous Sulfate 324 mg 05/27/20 10:45 05/29/20 09:00 Ferrous Sulfate 324 Mg Tablet. PO 324 mg DAILY [facility] Administration Furosemide 40 mg 05/27/20 09:00 05/29/20 08:59 Furosemide 40 Mg/4 Ml Vial IVPUSH 40 mg DAILY [facility] Administration Protocol Guaifenesin 1,200 mg 05/26/20 21:00 05/29/20 08:59 Guaifenesin La 600 Mg Tab.Er.12h PO 1,200 mg BID [facility] Administration Piperacillin Sod/Tazobactam 50 mls @ 100 mls/hr 05/28/20 11:00 05/29/20 13:06 Sod 3.375 gm/ Sodium Chloride IV Infused Q6H [facility] Infusion Insulin Human Lispro 0 unit 05/24/20 16:30 05/29/20 11:38 Insulin Lispro 100 Unit/Ml 3 Ml Vial SUBCUT Not Given QIDACHS [facility] Protocol Metoprolol Tartrate 12.5 mg 05/22/20 21:00 05/29/20 09:01 Metoprolol Tartrate 25 Mg Tablet PO 12.5 mg BID SATNAM Administration Protocol Montelukast Sodium 10 mg 05/22/20 21:00 05/28/20 21:13 Montelukast Sodium 10 Mg Tablet PO 10 mg BEDTIME [facility] Administration Nystatin 1 appl 05/28/20 21:00 05/29/20 09:21 Nystatin Powder 15 Gm Bottle TOPICAL 1 appl BID [facility] Administration Protocol Omeprazole 20 mg 05/23/20 06:30 05/29/20 09:04 Omeprazole 20 Mg Capsule. PO 20 mg BID@0630,1630 [facility] Administration Ondansetron HCl 4 mg 05/22/20 20:44 Ondansetron Hcl 4 Mg/2 Ml Vial IVPUSH Q8H PRN Nausea and Vomiting Pharmacy Consult 1 each 05/22/20 14:58 Consult Rx Perform Med Rec MISCELLANE ONCE PRN Consult order Prednisone 40 mg 05/25/20 09:45 05/29/20 09:03 Prednisone 20 Mg Tablet PO 40 mg DAILY [facility] Administration Sertraline HCl 25 mg 05/23/20 09:00 05/29/20 09:00 Sertraline Hcl 25 Mg Tablet PO 25 mg DAILY [facility] Administration Sodium Chloride 3 ml 05/23/20 00:00 05/29/20 09:21 0.9 % Sodium Chloride Flush 3 Ml Syringe IVFLUSH 3 ml QSHIFT [facility] Administration Labs CBC & Chem 7: 05/29/20 05:59 05/29/20 05:59 Microbiology Microbiology Results: Microbiology 05/22/20 16:41 Blood - Venous Blood Culture - Final No growth after 5 days. 05/22/20 16:41 Blood - Venous Blood Culture - Final No growth after 5 days. 05/22/20 17:00 Urine clean catch - Clean Catch Midstream Urine Culture - Final Assessment and Plan (1) EMERALD (obstructive sleep apnea): Status: Acute (2) Heart failure: Status: Acute (3) Pneumonia: Status: Acute (4) Acute respiratory failure with hypoxia: Status: Acute (5) Skin avulsion: Status: Acute (6) Community acquired pneumonia: Status: Acute (7) COPD exacerbation: Status: Acute (8) Epistaxis: Status: Acute (9) COPD (chronic obstructive pulmonary disease): Status: Acute Assessment and Plan: 74-year-old female with past medical history of COPD/chronic respiratory failure, factor 5 leiden deficiency/h/o DVT, emerald on bipap, DM, recent fall (05/18) with left leg wound who presented to the hospital with shortness of breath, cough found to have pneumonia and likely component of chf Acute on Chronic Respiratory failure with hypoxia due to pneumonia, underlying COPD and component of CHF,on 2L O2 at baseline Acute on chronic HFpEF ECHO from 05/26: The left ventricular systolic function is hyperdynamic, ejection fraction 65-70%. Abnormal diastolic function is noted. Normal right ventricular cavity size and systolic function. will Contiinue gentle diuresis, follow Is & Os,elisa for fluid management continue low-sodium diet Hypokalemia due to Lasix will replace and follow. COPD exacerbation improving continue, updrafts now on by mouth prednisone day 7 Penumonia on IV Zosyn day 7 will discontinue after today's dose,h/o bronchiectasis/microaspiration seen by pulmonology, plan for bronch tomorrow will continue to hold Eliquis Skin Laceration seen by gen surg, rec silver alginate + dry sterile dressing,No evidence of infection,dressing changes every other day follow up with Dr. Poe after discharge EMERALD BIPAP at night History of DVT on ELiquis 2.5mg at baseline -Eliquis on hold due to plan for bronch on Friday DM blood sugar stable this a.m. continue SSI, POCs -pioglidizone on hold Mood Continue sertraline Anemia H/H stable no active bleeding noted iron supplementation added Gerd prilosec Urine culture final result mixed gurpreet suggestive of contamination Morbid obesity 45.8 Likely contributing to respiratory condition/difficulty ambulating and overall deconditioning Difficult IV access, midline in place Dispo: eval by PT plan to return [facility] when medically ready, after bronchoscopy. DNR/DNI DVT Eliquis is on hold, placed on Lovenox.
[2020-05-29] MEDS: Potassium Chloride ER 20 MEQ TAB.ER.PRT 40 MEQ PO (15:28)
[2020-05-29] MEDS: Enoxaparin Sodium 40 MG/0.4 ML SYRINGE SUBCUT (15:29)
[2020-05-29 16:46] LABS: Glucose, Whole Blood 218 mg/dL (60-115)
[2020-05-29] MEDS: Insulin Lispro 100 UNIT/ML 3 ML VIAL SUBCUT (16:54)
--- NOTE | 2020-05-29 18:40 | PC.NURSE ---
Patient's potassium 3.1; 2 10 mEq bags of potassium chloride hung. On PO potassium following IV infusions. Patient's dressings changed; skin tear to right forearm and laceration to left bird; patient tolerated well. Patient had 3 BM's on bedpan, F/C for accurate I+O due to diuresis. No complaints or complications.
[2020-05-29 20:09] LABS: Glucose, Whole Blood 155 mg/dL (60-115)
[2020-05-29] MEDS: Montelukast Sodium 10 MG TABLET PO (20:09)
[2020-05-30] VITALS (17 sets, daily range): BP systolic 115–162; BP diastolic 63–96; PULSE 74–123; RESP 16–22; TEMP 36–36.9; O2SAT 90–98; BMI 46.0; BMI 46.8
[2020-05-30] MEDS: 0.9 % Sodium Chloride Flush 3 ML SYRINGE IVFLUSH ×3 (00:30→23:36)
[2020-05-30] MEDS: Piperacillin Sodium/Tazobactam 3.375 GM in 0.9 % Sodium Chloride 50 ML IV (04:32)
[2020-05-30 07:16] LABS: Glucose, Whole Blood 75 mg/dL (60-115)
[2020-05-30 07:55] LABS: Anion Gap 14 (12-20); Blood Urea Nitrogen 23 mg/dL (9-16); Calcium 8.7 mg/dL (8.4-10.2); Carbon Dioxide 33 mmol/L (22-29); Chloride 102 mmol/L (96-108); Creatinine Clr Calc Pharmacy 71.5; Estimated Glomerular Filt Rate > 60; Glucose Random 81 mg/dL (60-115); Potassium 3.6 mmol/L (3.3-5.1); Sodium 145 mmol/L (135-145)
--- NOTE | 2020-05-30 08:27 | MHC.SHP ---
Pre-Procedural Eval Section B Chief Complaint: COPD/Pneumonia Allergies: Allergies Allergy/AdvReac Type Severity Reaction Status Date / Time Sulfa (Sulfonamide Allergy Intermediate SWELLING Verified 05/27/20 20:09 Antibiotics) [Sulfa (Sulfonamides)] alendronate sodium [Fosamax] Allergy Unknown Unknown Verified 05/27/20 20:09 azithromycin [Zithromax] Allergy Unknown Unknown Verified 05/27/20 20:09 cefepime Allergy Unknown Unknown Verified 05/27/20 20:09 levofloxacin Allergy Unknown Unknown Verified 05/27/20 20:09 umeclidinium [Anoro Ellipta] Allergy Unknown Unknown Verified 05/27/20 20:09 vilanterol [Anoro Ellipta] Allergy Unknown Unknown Verified 05/27/20 20:09 ADHESIVE TAPE Allergy Unknown Unknown Uncoded 05/27/20 20:09 Sucralfate Allergy Unknown Unknown Uncoded 05/27/20 20:09 Sulfamethoxazole Allergy Unknown Unknown Uncoded 05/27/20 20:09 Plan I have reviewed the history and physical and performed a pertinent physical examination on my patient. No changes have occurred unless specified.
[2020-05-30] MEDS: Lactated Ringers 1,000 ML 50 ML IV (08:30)
[2020-05-30 08:31] LABS: Glucose, Whole Blood 72 mg/dL (60-115)
--- NOTE | 2020-05-30 08:37 | P.CONAN_ITS ---
HPI - Anesthesia Eval Consult details Narrative: 74yo female patient here for fiberoptic bronchoscopy [facility] Active Problems Active Problems: All Active Problems (Updated 05/25/20 @ 16:02 by Israel Ashby MD) EMERALD (obstructive sleep apnea) (Acute) Heart failure (Acute) Pneumonia (Acute) Acute respiratory failure with hypoxia (Acute) Skin avulsion (Acute) Community acquired pneumonia (Acute) COPD exacerbation (Acute) Epistaxis (Acute) COPD (chronic obstructive pulmonary disease) (Acute) Past Medical History Medical History (Updated 05/25/20 @ 16:02 by Israel Ashby MD) Blood clot in vein COPD (chronic obstructive pulmonary disease) Diabetes Epistaxis Factor 5 Leiden mutation, heterozygous FH: total knee replacement GERD (gastroesophageal reflux disease) Family History Family history of problems with anesthesia: No Surgical History Surgical History (Updated 05/30/20 @ 09:05 by Olinda Gabriel) History of bronchoscopy History of cholecystectomy Hx of tonsillectomy History of Problems with Anesthesia: No Social History Social History Housing: Assisted Living Facility Alcohol intake: never Smoking Status: Former smoker Second Hand Smoke Exposure: No Advance Directives Date on File: 05/18/20 service: No Current occupational status: retired Meds Allergies Allergy/AdvReac Type Severity Reaction Status Date / Time Sulfa (Sulfonamide Allergy Intermediate SWELLING Verified 05/27/20 20:09 Antibiotics) [Sulfa (Sulfonamides)] alendronate sodium [Fosamax] Allergy Unknown Unknown Verified 05/27/20 20:09 azithromycin [Zithromax] Allergy Unknown Unknown Verified 05/27/20 20:09 cefepime Allergy Unknown Unknown Verified 05/27/20 20:09 levofloxacin Allergy Unknown Unknown Verified 05/27/20 20:09 umeclidinium [Anoro Ellipta] Allergy Unknown Unknown Verified 05/27/20 20:09 vilanterol [Anoro Ellipta] Allergy Unknown Unknown Verified 05/27/20 20:09 ADHESIVE TAPE Allergy Unknown Unknown Uncoded 05/27/20 20:09 Sucralfate Allergy Unknown Unknown Uncoded 05/27/20 20:09 Sulfamethoxazole Allergy Unknown Unknown Uncoded 05/27/20 20:09 Active Medications: Current Medications Generic Name Dose Route Start Last Admin Trade Name Freq PRN Reason Stop Dose Admin Acetaminophen 650 mg 03/08/21 20:44 Acetaminophen 325 Mg Tablet PO Q6H PRN Pain, Mild (Pain Scale 1-3) Heparin Sodium (Porcine) 50 0 units 05/25/20 15:00 05/29/20 20:09 units/ Sodium Chloride 5 ml IVFLUSH 50 unit TID SATNAM Administration Docusate Sodium 100 mg 05/22/20 20:44 Docusate Sodium 100 Mg Capsule PO DAILY PRN Constipation Ferrous Sulfate 324 mg 05/27/20 10:45 05/29/20 09:00 Ferrous Sulfate 324 Mg Tablet. PO 324 mg DAILY SATNAM Administration Furosemide 40 mg 05/30/20 09:00 Furosemide 40 Mg Tablet PO DAILY [facility] Protocol Guaifenesin 1,200 mg 05/26/20 21:00 05/29/20 20:09 Guaifenesin La 600 Mg Tab.Er.12h PO 1,200 mg BID SATNAM Administration Piperacillin Sod/Tazobactam 50 mls @ 100 mls/hr 05/28/20 11:00 05/30/20 05:03 Sod 3.375 gm/ Sodium Chloride IV Infused Q6H [facility] Infusion Insulin Human Lispro 0 unit 05/24/20 16:30 05/30/20 07:34 Insulin Lispro 100 Unit/Ml 3 Ml Vial SUBCUT Not Given QIDACHS [facility] Protocol Metoprolol Tartrate 12.5 mg 05/22/20 21:00 05/29/20 20:09 Metoprolol Tartrate 25 Mg Tablet PO 12.5 mg BID [facility] Administration Protocol Montelukast Sodium 10 mg 05/22/20 21:00 05/29/20 20:09 Montelukast Sodium 10 Mg Tablet PO 10 mg BEDTIME [facility] Administration Nystatin 1 appl 05/28/20 21:00 05/29/20 20:11 Nystatin Powder 15 Gm Bottle TOPICAL 1 appl BID [facility] Administration Protocol Omeprazole 20 mg 05/23/20 06:30 05/30/20 05:03 Omeprazole 20 Mg Capsule. PO Not Given BID@0630,1630 [facility] Ondansetron HCl 4 mg 05/22/20 20:44 Ondansetron Hcl 4 Mg/2 Ml Vial IVPUSH Q8H PRN Nausea and Vomiting Pharmacy Consult 1 each 05/22/20 14:58 Consult Rx Perform Med Rec MISCELLANE ONCE PRN Consult order Potassium Chloride 40 meq 05/29/20 14:45 05/29/20 15:28 Potassium Chloride Er 20 Meq Tab.Er.Prt PO 40 meq DAILY SATNAM Administration Prednisone 40 mg 05/25/20 09:45 05/29/20 09:03 Prednisone 20 Mg Tablet PO 40 mg DAILY SATNAM Administration Sertraline HCl 25 mg 05/23/20 09:00 05/29/20 09:00 Sertraline Hcl 25 Mg Tablet PO 25 mg DAILY [facility] Administration Sodium Chloride 3 ml 05/23/20 00:00 05/30/20 08:37 0.9 % Sodium Chloride Flush 3 Ml Syringe IVFLUSH Not Given QSHIFT [facility] Home Medications Medication Instructions Recorded Confirmed Last Taken Type apixaban [Eliquis] 2.5 mg PO BID 05/18/20 05/22/20 05/22/20 History fluticasone propionate [Flovent 2 puff INHALATION BID 05/18/20 05/22/20 05/22/20 History HFA] furosemide 40 mg PO DAILY 05/18/20 05/22/20 05/22/20 History lorazepam 1 mg PO BEDTIME PRN 05/18/20 05/22/20 05/21/20 History metoprolol tartrate 12.5 mg PO BID 05/18/20 05/22/20 05/22/20 History montelukast 10 mg PO BEDTIME 05/18/20 05/22/20 05/21/20 History pantoprazole 40 mg PO BID 05/18/20 05/22/20 05/22/20 History pioglitazone 15 mg PO DAILY 05/18/20 05/22/20 05/22/20 History sertraline 25 mg PO DAILY 05/18/20 05/22/20 05/22/20 History Exam Exam Date and Time: May 30, 2020 0837 Height,Weight and Vital Signs: Height 5 ft 1 in Weight 112.5 kg Temp Pulse Resp BP Pulse Ox 97.5 F 103 H 20 132/83 96 05/30/20 07:30 05/30/20 07:30 05/30/20 07:30 05/30/20 07:30 05/30/20 07:30 Pertinent Lab Results Pertinent Lab Results: Laboratory Tests 05/22/20 05/22/20 05/22/20 16:41 16:41 16:41 WBC 22.1 H RBC 4.03 L Hgb 10.1 L Hct 34.8 L MCV 86.4 MCH 25.1 L MCHC 29.0 L RDW 17.2 H Plt Count 431 H MPV 10.0 Immature Gran % (Auto) 4.6 H Neut % (Auto) 89.1 H Lymph % (Auto) 3.9 L [place] % (Auto) 1.6 L Eos % (Auto) 0.4 Baso % (Auto) 0.4 Lymph # (Auto) 0.9 L [place] # (Auto) 0.4 Eos # (Auto) 0.1 Baso # (Auto) 0.1 Abs Immat Gran (auto) 1.02 H Absolute Neuts (auto) 19.7 H Absolute Nucleated RBC 0.000 Nucleated RBC % (auto) 0.0 Neutrophils % (Manual) Band Neutrophils % Lymphocytes % (Manual) Atypical Lymphs % (Man) Monocytes % (Manual) Metamyelocytes % Abs Neuts (Manual) Lymphocytes # (Manual) Atyp Lymphs # (Manual) Monocytes # (Manual) Metamyelocytes # Platelet Estimate Plt Morphology Comment RBC Morphology Polychromasia Hypochromasia Microcytosis Tear Drop Cells Stomatocytes PT INR APTT VBG pH VBG pCO2 VBG pO2 VBG HCO3 VBG O2 Saturation VBG Base Excess Sodium 141 Potassium 3.7 D Chloride 99 Carbon Dioxide 29 Anion Gap 17 BUN 13 D Creatinine 0.77 Estim Creat Clear Calc 71.1 Estimated GFR > 60 POC Glucose Random Glucose 168 H D Lactic Acid Calcium 8.7 Magnesium 1.5 L Iron TIBC % Saturation Unsat Iron Binding Ferritin Total Bilirubin 0.6 Direct Bilirubin 0.4 AST 14 ALT 25 Alkaline Phosphatase 85 Troponin I High Sens 13.7 B-Natriuretic Peptide Total Protein 6.4 L Albumin 3.2 L Procalcitonin Urine Color Urine Appearance Urine pH Ur Specific [place] Urine Protein Urine Glucose (UA) Urine Ketones Urine Blood Urine Nitrite Ur Leukocyte Esterase Urine RBC Urine WBC Ur Squamous Epith Cells Urine Bacteria Coronavirus (PCR) Influenza Type A (PCR) Influenza Type B (PCR) RSV RNA Qual (PCR) 05/22/20 05/22/20 05/22/20 16:41 16:41 16:41 WBC RBC Hgb Hct MCV MCH MCHC RDW Plt Count MPV Immature Gran % (Auto) Neut % (Auto) Lymph % (Auto) [place] % (Auto) Eos % (Auto) Baso % (Auto) Lymph # (Auto) [place] # (Auto) Eos # (Auto) Baso # (Auto) Abs Immat Gran (auto) Absolute Neuts (auto) Absolute Nucleated RBC Nucleated RBC % (auto) Neutrophils % (Manual) Band Neutrophils % Lymphocytes % (Manual) Atypical Lymphs % (Man) Monocytes % (Manual) Metamyelocytes % Abs Neuts (Manual) Lymphocytes # (Manual) Atyp Lymphs # (Manual) Monocytes # (Manual) Metamyelocytes # Platelet Estimate Plt Morphology Comment RBC Morphology Polychromasia Hypochromasia Microcytosis Tear Drop Cells Stomatocytes PT 16.1 H INR 1.4 H APTT 29.9 VBG pH VBG pCO2 VBG pO2 VBG HCO3 VBG O2 Saturation VBG Base Excess Sodium Potassium Chloride Carbon Dioxide Anion Gap BUN Creatinine Estim Creat Clear Calc Estimated GFR POC Glucose Random Glucose Lactic Acid Calcium Magnesium Iron TIBC % Saturation Unsat Iron Binding Ferritin Total Bilirubin Direct Bilirubin AST ALT Alkaline Phosphatase Troponin I High Sens B-Natriuretic Peptide 59 Total Protein Albumin Procalcitonin 0.19 Urine Color Urine Appearance Urine pH Ur Specific [place] Urine Protein Urine Glucose (UA) Urine Ketones Urine Blood Urine Nitrite Ur Leukocyte Esterase Urine RBC Urine WBC Ur Squamous Epith Cells Urine Bacteria Coronavirus (PCR) Influenza Type A (PCR) Influenza Type B (PCR) RSV RNA Qual (PCR) 05/22/20 05/22/20 05/22/20 16:41 16:41 17:05 WBC RBC Hgb Hct MCV MCH MCHC RDW Plt Count MPV Immature Gran % (Auto) Neut % (Auto) Lymph % (Auto) [place] % (Auto) Eos % (Auto) Baso % (Auto) Lymph # (Auto) [place] # (Auto) Eos # (Auto) Baso # (Auto) Abs Immat Gran (auto) Absolute Neuts (auto) Absolute Nucleated RBC Nucleated RBC % (auto) Neutrophils % (Manual) Band Neutrophils % Lymphocytes % (Manual) Atypical Lymphs % (Man) Monocytes % (Manual) Metamyelocytes % Abs Neuts (Manual) Lymphocytes # (Manual) Atyp Lymphs # (Manual) Monocytes # (Manual) Metamyelocytes # Platelet Estimate Plt Morphology Comment RBC Morphology Polychromasia Hypochromasia Microcytosis Tear Drop Cells Stomatocytes PT INR APTT VBG pH VBG pCO2 VBG pO2 VBG HCO3 VBG O2 Saturation VBG Base Excess Sodium Potassium Chloride Carbon Dioxide Anion Gap BUN Creatinine Estim Creat Clear Calc Estimated GFR POC Glucose Random Glucose Lactic Acid 1.0 Calcium Magnesium Iron TIBC % Saturation Unsat Iron Binding Ferritin Total Bilirubin Direct Bilirubin AST ALT Alkaline Phosphatase Troponin I High Sens B-Natriuretic Peptide Total Protein Albumin Procalcitonin Urine Color YELLOW Urine Appearance HAZY Urine pH 5.0 Ur Specific [place] 1.015 Urine Protein NEG Urine Glucose (UA) NEG Urine Ketones NEG Urine Blood 2+ H Urine Nitrite POS H Ur Leukocyte Esterase 2+ H Urine RBC 1-4 Urine WBC 5-9 H Ur Squamous Epith Cells TRACE Urine Bacteria 3+ Coronavirus (PCR) NEGATIVE Influenza Type A (PCR) NEGATIVE Influenza Type B (PCR) NEGATIVE RSV RNA Qual (PCR) NEGATIVE 05/22/20 05/22/20 05/23/20 19:22 19:29 05:58 WBC 15.8 H RBC 3.75 L Hgb 9.3 L Hct 32.3 L MCV 86.1 MCH 24.8 L MCHC 28.8 L RDW 16.8 H Plt Count 408 H MPV 9.9 Immature Gran % (Auto) 4.4 H Neut % (Auto) 87.1 H Lymph % (Auto) 6.3 L [place] % (Auto) 2.0 Eos % (Auto) 0.0 Baso % (Auto) 0.2 Lymph # (Auto) 1.0 L [place] # (Auto) 0.3 Eos # (Auto) 0.0 Baso # (Auto) 0.0 Abs Immat Gran (auto) 0.70 H Absolute Neuts (auto) 13.8 H Absolute Nucleated RBC 0.000 Nucleated RBC % (auto) 0.0 Neutrophils % (Manual) Band Neutrophils % Lymphocytes % (Manual) Atypical Lymphs % (Man) Monocytes % (Manual) Metamyelocytes % Abs Neuts (Manual) Lymphocytes # (Manual) Atyp Lymphs # (Manual) Monocytes # (Manual) Metamyelocytes # Platelet Estimate Plt Morphology Comment RBC Morphology Polychromasia Hypochromasia Microcytosis Tear Drop Cells Stomatocytes PT INR APTT VBG pH 7.48 H VBG pCO2 32 VBG pO2 129 VBG HCO3 24 VBG O2 Saturation 99.0 VBG Base Excess 1.6 Sodium Potassium Chloride Carbon Dioxide Anion Gap BUN Creatinine Estim Creat Clear Calc Estimated GFR POC Glucose Random Glucose Lactic Acid Calcium Magnesium Iron TIBC % Saturation Unsat Iron Binding Ferritin Total Bilirubin Direct Bilirubin AST ALT Alkaline Phosphatase Troponin I High Sens 11.2 B-Natriuretic Peptide Total Protein Albumin Procalcitonin Urine Color Urine Appearance Urine pH Ur Specific [place] Urine Protein Urine Glucose (UA) Urine Ketones Urine Blood Urine Nitrite Ur Leukocyte Esterase Urine RBC Urine WBC Ur Squamous Epith Cells Urine Bacteria Coronavirus (PCR) Influenza Type A (PCR) Influenza Type B (PCR) RSV RNA Qual (PCR) 05/23/20 05/24/20 05/24/20 05:58 11:09 17:03 WBC 20.6 H RBC 3.93 L Hgb 9.7 L Hct 33.9 L MCV 86.3 MCH 24.7 L MCHC 28.6 L RDW 16.7 H Plt Count 412 H MPV 10.2 Immature Gran % (Auto) Neut % (Auto) Lymph % (Auto) [place] % (Auto) Eos % (Auto) Baso % (Auto) Lymph # (Auto) [place] # (Auto) Eos # (Auto) Baso # (Auto) Abs Immat Gran (auto) Absolute Neuts (auto) Absolute Nucleated RBC 0.000 Nucleated RBC % (auto) 0.0 Neutrophils % (Manual) Band Neutrophils % Lymphocytes % (Manual) Atypical Lymphs % (Man) Monocytes % (Manual) Metamyelocytes % Abs Neuts (Manual) Lymphocytes # (Manual) Atyp Lymphs # (Manual) Monocytes # (Manual) Metamyelocytes # Platelet Estimate Plt Morphology Comment RBC Morphology Polychromasia Hypochromasia Microcytosis Tear Drop Cells Stomatocytes PT INR APTT VBG pH VBG pCO2 VBG pO2 VBG HCO3 VBG O2 Saturation VBG Base Excess Sodium 142 Potassium 4.2 Chloride 103 Carbon Dioxide 27 Anion Gap 16 BUN 15 Creatinine 0.71 Estim Creat Clear Calc 77.8 Estimated GFR > 60 POC Glucose 223 H Random Glucose 163 H Lactic Acid Calcium 8.3 L Magnesium Iron TIBC % Saturation Unsat Iron Binding Ferritin Total Bilirubin Direct Bilirubin AST ALT Alkaline Phosphatase Troponin I High Sens B-Natriuretic Peptide Total Protein Albumin Procalcitonin Urine Color Urine Appearance Urine pH Ur Specific [place] Urine Protein Urine Glucose (UA) Urine Ketones Urine Blood Urine Nitrite Ur Leukocyte Esterase Urine RBC Urine WBC Ur Squamous Epith Cells Urine Bacteria Coronavirus (PCR) Influenza Type A (PCR) Influenza Type B (PCR) RSV RNA Qual (PCR) 05/24/20 05/25/2005/25/21 19:43 07:34 09:47 WBC 21.3 H RBC 3.94 L Hgb 9.9 L Hct 34.5 L MCV 87.6 MCH 25.1 L MCHC 28.7 L RDW 16.6 H Plt Count 400 MPV 10.5 Immature Gran % (Auto) 4.4 H Neut % (Auto) 82.6 H Lymph % (Auto) 7.5 L [place] % (Auto) 5.3 Eos % (Auto) 0.0 Baso % (Auto) 0.2 Lymph # (Auto) 1.6 [place] # (Auto) 1.1 Eos # (Auto) 0.0 Baso # (Auto) 0.0 Abs Immat Gran (auto) 0.93 H Absolute Neuts (auto) 17.6 H Absolute Nucleated RBC 0.030 H Nucleated RBC % (auto) 0.1 Neutrophils % (Manual) Band Neutrophils % Lymphocytes % (Manual) Atypical Lymphs % (Man) Monocytes % (Manual) Metamyelocytes % Abs Neuts (Manual) Lymphocytes # (Manual) Atyp Lymphs # (Manual) Monocytes # (Manual) Metamyelocytes # Platelet Estimate Plt Morphology Comment RBC Morphology Polychromasia Hypochromasia Microcytosis Tear Drop Cells Stomatocytes PT INR APTT VBG pH VBG pCO2 VBG pO2 VBG HCO3 VBG O2 Saturation VBG Base Excess Sodium Potassium Chloride Carbon Dioxide Anion Gap BUN Creatinine Estim Creat Clear Calc Estimated GFR POC Glucose 221 H 163 H Random Glucose Lactic Acid Calcium Magnesium Iron TIBC % Saturation Unsat Iron Binding Ferritin Total Bilirubin Direct Bilirubin AST ALT Alkaline Phosphatase Troponin I High Sens B-Natriuretic Peptide Total Protein Albumin Procalcitonin Urine Color Urine Appearance Urine pH Ur Specific [place] Urine Protein Urine Glucose (UA) Urine Ketones Urine Blood Urine Nitrite Ur Leukocyte Esterase Urine RBC Urine WBC Ur Squamous Epith Cells Urine Bacteria Coronavirus (PCR) Influenza Type A (PCR) Influenza Type B (PCR) RSV RNA Qual (PCR) 05/25/20 05/25/20 05/25/20 11:23 16:54 20:34 WBC RBC Hgb Hct MCV MCH MCHC RDW Plt Count MPV Immature Gran % (Auto) Neut % (Auto) Lymph % (Auto) [place] % (Auto) Eos % (Auto) Baso % (Auto) Lymph # (Auto) [place] # (Auto) Eos # (Auto) Baso # (Auto) Abs Immat Gran (auto) Absolute Neuts (auto) Absolute Nucleated RBC Nucleated RBC % (auto) Neutrophils % (Manual) Band Neutrophils % Lymphocytes % (Manual) Atypical Lymphs % (Man) Monocytes % (Manual) Metamyelocytes % Abs Neuts (Manual) Lymphocytes # (Manual) Atyp Lymphs # (Manual) Monocytes # (Manual) Metamyelocytes # Platelet Estimate Plt Morphology Comment RBC Morphology Polychromasia Hypochromasia Microcytosis Tear Drop Cells Stomatocytes PT INR APTT VBG pH VBG pCO2 VBG pO2 VBG HCO3 VBG O2 Saturation VBG Base Excess Sodium Potassium Chloride Carbon Dioxide Anion Gap BUN Creatinine Estim Creat Clear Calc Estimated GFR POC Glucose 113 196 H 212 H Random Glucose Lactic Acid Calcium Magnesium Iron TIBC % Saturation Unsat Iron Binding Ferritin Total Bilirubin Direct Bilirubin AST ALT Alkaline Phosphatase Troponin I High Sens B-Natriuretic Peptide Total Protein Albumin Procalcitonin Urine Color Urine Appearance Urine pH Ur Specific [place] Urine Protein Urine Glucose (UA) Urine Ketones Urine Blood Urine Nitrite Ur Leukocyte Esterase Urine RBC Urine WBC Ur Squamous Epith Cells Urine Bacteria Coronavirus (PCR) Influenza Type A (PCR) Influenza Type B (PCR) RSV RNA Qual (PCR) 05/26/20 05/26/20 05/26/20 06:08 06:08 07:28 WBC 13.3 H RBC 3.45 L Hgb 8.5 L Hct 29.9 L MCV 86.7 MCH 24.6 L MCHC 28.4 L RDW 16.7 H Plt Count 260 D MPV 9.9 Immature Gran % (Auto) Cancelled Neut % (Auto) Cancelled Lymph % (Auto) Cancelled [place] % (Auto) Cancelled Eos % (Auto) Cancelled Baso % (Auto) Cancelled Lymph # (Auto) Cancelled [place] # (Auto) Cancelled Eos # (Auto) Cancelled Baso # (Auto) Cancelled Abs Immat Gran (auto) Cancelled Absolute Neuts (auto) Cancelled Absolute Nucleated RBC 0.020 H Nucleated RBC % (auto) 0.1 Neutrophils % (Manual) 85 H Band Neutrophils % 6 H Lymphocytes % (Manual) 7 L Atypical Lymphs % (Man) Monocytes % (Manual) 1 L Metamyelocytes % 1 Abs Neuts (Manual) 12.1 H Lymphocytes # (Manual) 0.9 Atyp Lymphs # (Manual) Monocytes # (Manual) 0.1 Metamyelocytes # 0.1 Platelet Estimate NORMAL Plt Morphology Comment NORMAL RBC Morphology NOTED Polychromasia Hypochromasia 1+ Microcytosis 1+ Tear Drop Cells 1+ Stomatocytes 1+ PT INR APTT VBG pH VBG pCO2 VBG pO2 VBG HCO3 VBG O2 Saturation VBG Base Excess Sodium 145 Potassium 3.2 L D Chloride 104 Carbon Dioxide 30 H Anion Gap 14 BUN 28 H D Creatinine 0.87 Estim Creat Clear Calc 64.3 Estimated GFR > 60 POC Glucose 132 H Random Glucose 143 H Lactic Acid Calcium 8.7 Magnesium Iron 28 L TIBC 291 % Saturation 10 L Unsat Iron Binding 263 Ferritin 116 Total Bilirubin Direct Bilirubin AST ALT Alkaline Phosphatase Troponin I High Sens B-Natriuretic Peptide Total Protein Albumin Procalcitonin Urine Color Urine Appearance Urine pH Ur Specific [place] Urine Protein Urine Glucose (UA) Urine Ketones Urine Blood Urine Nitrite Ur Leukocyte Esterase Urine RBC Urine WBC Ur Squamous Epith Cells Urine Bacteria Coronavirus (PCR) Influenza Type A (PCR) Influenza Type B (PCR) RSV RNA Qual (PCR) 05/26/20 05/26/20 05/26/20 11:24 16:15 20:22 WBC RBC Hgb Hct MCV MCH MCHC RDW Plt Count MPV Immature Gran % (Auto) Neut % (Auto) Lymph % (Auto) [place] % (Auto) Eos % (Auto) Baso % (Auto) Lymph # (Auto) [place] # (Auto) Eos # (Auto) Baso # (Auto) Abs Immat Gran (auto) Absolute Neuts (auto) Absolute Nucleated RBC Nucleated RBC % (auto) Neutrophils % (Manual) Band Neutrophils % Lymphocytes % (Manual) Atypical Lymphs % (Man) Monocytes % (Manual) Metamyelocytes % Abs Neuts (Manual) Lymphocytes # (Manual) Atyp Lymphs # (Manual) Monocytes # (Manual) Metamyelocytes # Platelet Estimate Plt Morphology Comment RBC Morphology Polychromasia Hypochromasia Microcytosis Tear Drop Cells Stomatocytes PT INR APTT VBG pH VBG pCO2 VBG pO2 VBG HCO3 VBG O2 Saturation VBG Base Excess Sodium Potassium Chloride Carbon Dioxide Anion Gap BUN Creatinine Estim Creat Clear Calc Estimated GFR POC Glucose 102 172 H 159 H Random Glucose Lactic Acid Calcium Magnesium Iron TIBC % Saturation Unsat Iron Binding Ferritin Total Bilirubin Direct Bilirubin AST ALT Alkaline Phosphatase Troponin I High Sens B-Natriuretic Peptide Total Protein Albumin Procalcitonin Urine Color Urine Appearance Urine pH Ur Specific [place] Urine Protein Urine Glucose (UA) Urine Ketones Urine Blood Urine Nitrite Ur Leukocyte Esterase Urine RBC Urine WBC Ur Squamous Epith Cells Urine Bacteria Coronavirus (PCR) Influenza Type A (PCR) Influenza Type B (PCR) RSV RNA Qual (PCR) 05/27/20 05/27/20 05/27/20 06:48 06:48 07:52 WBC 14.0 H RBC 3.79 L Hgb 9.3 L Hct 32.9 L MCV 86.8 MCH 24.5 L MCHC 28.3 L RDW 16.9 H Plt Count 193 D MPV 10.6 Immature Gran % (Auto) Cancelled Neut % (Auto) Cancelled Lymph % (Auto) Cancelled [place] % (Auto) Cancelled Eos % (Auto) Cancelled Baso % (Auto) Cancelled Lymph # (Auto) Cancelled [place] # (Auto) Cancelled Eos # (Auto) Cancelled Baso # (Auto) Cancelled Abs Immat Gran (auto) Cancelled Absolute Neuts (auto) Cancelled Absolute Nucleated RBC 0.060 H Nucleated RBC % (auto) 0.4 H Neutrophils % (Manual) 81 H Band Neutrophils % 0 L Lymphocytes % (Manual) 10 L Atypical Lymphs % (Man) 1 Monocytes % (Manual) 6 Metamyelocytes % 2 Abs Neuts (Manual) 11.3 H Lymphocytes # (Manual) 1.4 Atyp Lymphs # (Manual) 0.1 Monocytes # (Manual) 0.8 Metamyelocytes # 0.3 Platelet Estimate NORMAL Plt Morphology Comment NORMAL RBC Morphology NOTED Polychromasia 1+ Hypochromasia 1+ Microcytosis Tear Drop Cells Stomatocytes PT INR APTT VBG pH VBG pCO2 VBG pO2 VBG HCO3 VBG O2 Saturation VBG Base Excess Sodium 144 Potassium 3.0 L Chloride 104 Carbon Dioxide 29 Anion Gap 14 BUN 28 H Creatinine 0.84 Estim Creat Clear Calc 66.0 Estimated GFR > 60 POC Glucose 89 Random Glucose 101 Lactic Acid Calcium 8.7 Magnesium Iron TIBC % Saturation Unsat Iron Binding Ferritin Total Bilirubin Direct Bilirubin AST ALT Alkaline Phosphatase Troponin I High Sens B-Natriuretic Peptide Total Protein Albumin Procalcitonin Urine Color Urine Appearance Urine pH Ur Specific [place] Urine Protein Urine Glucose (UA) Urine Ketones Urine Blood Urine Nitrite Ur Leukocyte Esterase Urine RBC Urine WBC Ur Squamous Epith Cells Urine Bacteria Coronavirus (PCR) Influenza Type A (PCR) Influenza Type B (PCR) RSV RNA Qual (PCR) 05/27/20 05/27/20 05/27/20 11:05 16:07 20:14 WBC RBC Hgb Hct MCV MCH MCHC RDW Plt Count MPV Immature Gran % (Auto) Neut % (Auto) Lymph % (Auto) [place] % (Auto) Eos % (Auto) Baso % (Auto) Lymph # (Auto) [place] # (Auto) Eos # (Auto) Baso # (Auto) Abs Immat Gran (auto) Absolute Neuts (auto) Absolute Nucleated RBC Nucleated RBC % (auto) Neutrophils % (Manual) Band Neutrophils % Lymphocytes % (Manual) Atypical Lymphs % (Man) Monocytes % (Manual) Metamyelocytes % Abs Neuts (Manual) Lymphocytes # (Manual) Atyp Lymphs # (Manual) Monocytes # (Manual) Metamyelocytes # Platelet Estimate Plt Morphology Comment RBC Morphology Polychromasia Hypochromasia Microcytosis Tear Drop Cells Stomatocytes PT INR APTT VBG pH VBG pCO2 VBG pO2 VBG HCO3 VBG O2 Saturation VBG Base Excess Sodium Potassium Chloride Carbon Dioxide Anion Gap BUN Creatinine Estim Creat Clear Calc Estimated GFR POC Glucose 121 H 200 H 195 H Random Glucose Lactic Acid Calcium Magnesium Iron TIBC % Saturation Unsat Iron Binding Ferritin Total Bilirubin Direct Bilirubin AST ALT Alkaline Phosphatase Troponin I High Sens B-Natriuretic Peptide Total Protein Albumin Procalcitonin Urine Color Urine Appearance Urine pH Ur Specific [place] Urine Protein Urine Glucose (UA) Urine Ketones Urine Blood Urine Nitrite Ur Leukocyte Esterase Urine RBC Urine WBC Ur Squamous Epith Cells Urine Bacteria Coronavirus (PCR) Influenza Type A (PCR) Influenza Type B (PCR) RSV RNA Qual (PCR) 05/28/20 05/28/20 05/28/20 06:01 07:26 11:46 WBC RBC Hgb Hct MCV MCH MCHC RDW Plt Count MPV Immature Gran % (Auto) Neut % (Auto) Lymph % (Auto) [place] % (Auto) Eos % (Auto) Baso % (Auto) Lymph # (Auto) [place] # (Auto) Eos # (Auto) Baso # (Auto) Abs Immat Gran (auto) Absolute Neuts (auto) Absolute Nucleated RBC Nucleated RBC % (auto) Neutrophils % (Manual) Band Neutrophils % Lymphocytes % (Manual) Atypical Lymphs % (Man) Monocytes % (Manual) Metamyelocytes % Abs Neuts (Manual) Lymphocytes # (Manual) Atyp Lymphs # (Manual) Monocytes # (Manual) Metamyelocytes # Platelet Estimate Plt Morphology Comment RBC Morphology Polychromasia Hypochromasia Microcytosis Tear Drop Cells Stomatocytes PT INR APTT VBG pH VBG pCO2 VBG pO2 VBG HCO3 VBG O2 Saturation VBG Base Excess Sodium 144 Potassium 3.6 Chloride 103 Carbon Dioxide 30 H Anion Gap 15 BUN 29 H Creatinine 0.79 Estim Creat Clear Calc 70.1 Estimated GFR > 60 POC Glucose 94 92 Random Glucose 112 Lactic Acid Calcium 9.0 Magnesium Iron TIBC % Saturation Unsat Iron Binding Ferritin Total Bilirubin Direct Bilirubin AST ALT Alkaline Phosphatase Troponin I High Sens B-Natriuretic Peptide Total Protein Albumin Procalcitonin Urine Color Urine Appearance Urine pH Ur Specific [place] Urine Protein Urine Glucose (UA) Urine Ketones Urine Blood Urine Nitrite Ur Leukocyte Esterase Urine RBC Urine WBC Ur Squamous Epith Cells Urine Bacteria Coronavirus (PCR) Influenza Type A (PCR) Influenza Type B (PCR) RSV RNA Qual (PCR) 05/28/20 05/28/20 05/29/20 16:29 20:36 05:59 WBC 16.9 H RBC 4.21 Hgb 10.5 L Hct 36.5 L MCV 86.7 MCH 24.9 L MCHC 28.8 L RDW 17.2 H Plt Count 76 L D MPV 10.3 Immature Gran % (Auto) Neut % (Auto) Lymph % (Auto) [place] % (Auto) Eos % (Auto) Baso % (Auto) Lymph # (Auto) [place] # (Auto) Eos # (Auto) Baso # (Auto) Abs Immat Gran (auto) Absolute Neuts (auto) Absolute Nucleated RBC 0.030 H Nucleated RBC % (auto) 0.2 Neutrophils % (Manual) Band Neutrophils % Lymphocytes % (Manual) Atypical Lymphs % (Man) Monocytes % (Manual) Metamyelocytes % Abs Neuts (Manual) Lymphocytes # (Manual) Atyp Lymphs # (Manual) Monocytes # (Manual) Metamyelocytes # Platelet Estimate Plt Morphology Comment RBC Morphology Polychromasia Hypochromasia Microcytosis Tear Drop Cells Stomatocytes PT INR APTT VBG pH VBG pCO2 VBG pO2 VBG HCO3 VBG O2 Saturation VBG Base Excess Sodium Potassium Chloride Carbon Dioxide Anion Gap BUN Creatinine Estim Creat Clear Calc Estimated GFR POC Glucose 227 H 180 H Random Glucose Lactic Acid Calcium Magnesium Iron TIBC % Saturation Unsat Iron Binding Ferritin Total Bilirubin Direct Bilirubin AST ALT Alkaline Phosphatase Troponin I High Sens B-Natriuretic Peptide Total Protein Albumin Procalcitonin Urine Color Urine Appearance Urine pH Ur Specific [place] Urine Protein Urine Glucose (UA) Urine Ketones Urine Blood Urine Nitrite Ur Leukocyte Esterase Urine RBC Urine WBC Ur Squamous Epith Cells Urine Bacteria Coronavirus (PCR) Influenza Type A (PCR) Influenza Type B (PCR) RSV RNA Qual (PCR) 05/29/20 05/29/20 05/29/20 05:59 07:07 11:09 WBC RBC Hgb Hct MCV MCH MCHC RDW Plt Count MPV Immature Gran % (Auto) Neut % (Auto) Lymph % (Auto) [place] % (Auto) Eos % (Auto) Baso % (Auto) Lymph # (Auto) [place] # (Auto) Eos # (Auto) Baso # (Auto) Abs Immat Gran (auto) Absolute Neuts (auto) Absolute Nucleated RBC Nucleated RBC % (auto) Neutrophils % (Manual) Band Neutrophils % Lymphocytes % (Manual) Atypical Lymphs % (Man) Monocytes % (Manual) Metamyelocytes % Abs Neuts (Manual) Lymphocytes # (Manual) Atyp Lymphs # (Manual) Monocytes # (Manual) Metamyelocytes # Platelet Estimate Plt Morphology Comment RBC Morphology Polychromasia Hypochromasia Microcytosis Tear Drop Cells Stomatocytes PT INR APTT VBG pH VBG pCO2 VBG pO2 VBG HCO3 VBG O2 Saturation VBG Base Excess Sodium 143 Potassium 3.1 L Chloride 101 Carbon Dioxide 31 H Anion Gap 14 BUN 26 H Creatinine 0.75 Estim Creat Clear Calc 74.4 Estimated GFR > 60 POC Glucose 89 113 Random Glucose 96 Lactic Acid Calcium 8.5 Magnesium Iron TIBC % Saturation Unsat Iron Binding Ferritin Total Bilirubin Direct Bilirubin AST ALT Alkaline Phosphatase Troponin I High Sens B-Natriuretic Peptide Total Protein Albumin Procalcitonin Urine Color Urine Appearance Urine pH Ur Specific [place] Urine Protein Urine Glucose (UA) Urine Ketones Urine Blood Urine Nitrite Ur Leukocyte Esterase Urine RBC Urine WBC Ur Squamous Epith Cells Urine Bacteria Coronavirus (PCR) Influenza Type A (PCR) Influenza Type B (PCR) RSV RNA Qual (PCR) 05/29/20 05/29/20 05/30/20 16:43 20:04 06:10 WBC RBC Hgb Hct MCV MCH MCHC RDW Plt Count MPV Immature Gran % (Auto) Neut % (Auto) Lymph % (Auto) [place] % (Auto) Eos % (Auto) Baso % (Auto) Lymph # (Auto) [place] # (Auto) Eos # (Auto) Baso # (Auto) Abs Immat Gran (auto) Absolute Neuts (auto) Absolute Nucleated RBC Nucleated RBC % (auto) Neutrophils % (Manual) Band Neutrophils % Lymphocytes % (Manual) Atypical Lymphs % (Man) Monocytes % (Manual) Metamyelocytes % Abs Neuts (Manual) Lymphocytes # (Manual) Atyp Lymphs # (Manual) Monocytes # (Manual) Metamyelocytes # Platelet Estimate Plt Morphology Comment RBC Morphology Polychromasia Hypochromasia Microcytosis Tear Drop Cells Stomatocytes PT INR APTT VBG pH VBG pCO2 VBG pO2 VBG HCO3 VBG O2 Saturation VBG Base Excess Sodium 145 Potassium 3.6 Chloride 102 Carbon Dioxide 33 H Anion Gap 14 BUN 23 H Creatinine 0.79 Estim Creat Clear Calc 71.5 Estimated GFR > 60 POC Glucose 218 H 155 H Random Glucose 81 Lactic Acid Calcium 8.7 Magnesium Iron TIBC % Saturation Unsat Iron Binding Ferritin Total Bilirubin Direct Bilirubin AST ALT Alkaline Phosphatase Troponin I High Sens B-Natriuretic Peptide Total Protein Albumin Procalcitonin Urine Color Urine Appearance Urine pH Ur Specific [place] Urine Protein Urine Glucose (UA) Urine Ketones Urine Blood Urine Nitrite Ur Leukocyte Esterase Urine RBC Urine WBC Ur Squamous Epith Cells Urine Bacteria Coronavirus (PCR) Influenza Type A (PCR) Influenza Type B (PCR) RSV RNA Qual (PCR) 05/30/20 05/30/20 07:07 08:26 WBC RBC Hgb Hct MCV MCH MCHC RDW Plt Count MPV Immature Gran % (Auto) Neut % (Auto) Lymph % (Auto) [place] % (Auto) Eos % (Auto) Baso % (Auto) Lymph # (Auto) [place] # (Auto) Eos # (Auto) Baso # (Auto) Abs Immat Gran (auto) Absolute Neuts (auto) Absolute Nucleated RBC Nucleated RBC % (auto) Neutrophils % (Manual) Band Neutrophils % Lymphocytes % (Manual) Atypical Lymphs % (Man) Monocytes % (Manual) Metamyelocytes % Abs Neuts (Manual) Lymphocytes # (Manual) Atyp Lymphs # (Manual) Monocytes # (Manual) Metamyelocytes # Platelet Estimate Plt Morphology Comment RBC Morphology Polychromasia Hypochromasia Microcytosis Tear Drop Cells Stomatocytes PT INR APTT VBG pH VBG pCO2 VBG pO2 VBG HCO3 VBG O2 Saturation VBG Base Excess Sodium Potassium Chloride Carbon Dioxide Anion Gap BUN Creatinine Estim Creat Clear Calc Estimated GFR POC Glucose 75 72 Random Glucose Lactic Acid Calcium Magnesium Iron TIBC % Saturation Unsat Iron Binding Ferritin Total Bilirubin Direct Bilirubin AST ALT Alkaline Phosphatase Troponin I High Sens B-Natriuretic Peptide Total Protein Albumin Procalcitonin Urine Color Urine Appearance Urine pH Ur Specific [place] Urine Protein Urine Glucose (UA) Urine Ketones Urine Blood Urine Nitrite Ur Leukocyte Esterase Urine RBC Urine WBC Ur Squamous Epith Cells Urine Bacteria Coronavirus (PCR) Influenza Type A (PCR) Influenza Type B (PCR) RSV RNA Qual (PCR) Airway Mallampati Class: III TM Dist: >3cm Neck ROM: Full Loose/Missing/Broken Teeth: No (Poor dentition) Heart: RRR Lungs: Diminished. No wheezes Assessment and Plan Assessment Anesthesia Assessment: Anesthesia Plan Discussed and Chart Reviewed Final Anesthetic Review NPO: Yes ASA Class: III Final Preanesthetic Review: No Changes in Pt Med Stat, Meds/Allgs Chart Reviewed, Consent Obtained/Reviewed and Anes Risks/Benef Reviewed Patient Risk: Intermediate Procedure Risk: Intermediate Assessment/Block/Sedation in SS: Assess/Block/Sedation-SS Anesthetic Plan Anesthetic Plan: GA Disposition: Standard PACU
[2020-05-30] MEDS: ondansetron HCL 4 MG/2 ML VIAL IVPUSH (09:50)
--- NOTE | 2020-05-30 10:34 | MHC.CLN ---
F/U PT CURRENTLY NPO FOR PROCEDURE TODAY PREVIOUS PO INTAKE 75/100% RECOMMEND 1100 CALORIES PER DAY TO PROMOTE SLOW WT LOSS FOLLOWING
[2020-05-30 11:15] LABS: Glucose, Whole Blood 95 mg/dL (60-115)
[2020-05-30] MEDS: predniSONE 20 MG TABLET 40 MG PO (11:46)
[2020-05-30] MEDS: Potassium Chloride ER 20 MEQ TAB.ER.PRT 40 MEQ PO (11:46)
[2020-05-30] MEDS: Furosemide 40 MG TABLET PO (11:46)
[2020-05-30] MEDS: Ferrous Sulfate 324 MG TABLET.DR PO (11:46)
[2020-05-30] MEDS: guaiFENesin LA 600 MG TAB.ER.12H 1200 MG PO ×2 (11:47→20:24)
[2020-05-30] MEDS: Nystatin Powder 15 GM BOTTLE 1 APPL TOPICAL ×2 (11:47→21:00)
[2020-05-30] MEDS: Metoprolol Tartrate 25 MG TABLET 12.5 MG PO ×2 (11:47→20:23)
[2020-05-30] MEDS: Heparin Sodium,Porcine Flush 50 UNITS, 0.9 % Sodium Chloride Flush 5 ML IVFLUSH ×3 (11:48→20:25)
[2020-05-30] MEDS: Sertraline HCL 25 MG TABLET PO (12:00)
--- NOTE | 2020-05-30 15:11 | HO.PM.IMPN ---
Subjective Subjective Date of Service: 05/31/20 Interval History: Patient feeling better this morning underwent bronchoscopy as per patient large amount of secretions were suctioned, denies shortness of breath, denies nausea vomiting fever chills or other acute issues. Daughter at bedside. General no headache, no dizziness no fever chills. CVS no chest pain, no palpitation. Respiratory no shortness of breath , no respiratory distress Gastrointestinal no nausea, no vomiting, no abdominal pain Physical Exam Vital Signs: Vital Signs: Last Vital Signs Temp 98.5 F 05/30/20 11:13 Pulse 123 H 05/30/20 11:47 Resp 22 H 05/30/20 11:13 BP 132/63 05/30/20 11:47 Pulse Ox 92 05/30/20 11:13 Body Mass Index 46.8 General resting comfortably in no acute distress. Neck is supple no JVD. CVS regular rate rhythm, Respiratory lungs clear to auscultation, diminished, no acute respiratory distress Gastrointestinal abdomen soft, nontender, bowel sounds audible, no guarding , no rigidity. Extremities bilateral nonpitting edema click Neuro nonfocal , speech clear. Skin left lower leg dressing in place, area of large skin avulsion, clean base, no drainage, few old bruises and ecchymoses, right wrist laceration healing with no surrounding erythema, Objective Data Current Medications Generic Name Dose Route Start Last Admin Trade Name Laurentq PRN Reason Stop Dose Admin Acetaminophen 650 mg 05/22/20 20:44 Acetaminophen 325 Mg Tablet PO Q6H PRN Pain, Mild (Pain Scale 1-3) Heparin Sodium (Porcine) 50 0 units 05/25/20 15:00 05/30/20 11:48 units/ Sodium Chloride 5 ml IVFLUSH 50 unit TID SATNAM Administration Docusate Sodium 100 mg 05/22/20 20:44 Docusate Sodium 100 Mg Capsule PO DAILY PRN Constipation Ferrous Sulfate 324 mg 05/27/20 10:45 05/30/20 11:46 Ferrous Sulfate 324 Mg Tablet. PO 324 mg DAILY SATNAM Administration Furosemide 40 mg 05/30/20 09:00 05/30/20 11:46 Furosemide 40 Mg Tablet PO 40 mg DAILY SATNAM Administration Protocol Guaifenesin 1,200 mg 05/26/20 21:00 05/30/20 11:47 Guaifenesin La 600 Mg Tab.Er.12h PO 1,200 mg BID SATNAM Administration Piperacillin Sod/Tazobactam 50 mls @ 100 mls/hr 05/28/20 11:00 05/30/20 12:01 Sod 3.375 gm/ Sodium Chloride IV Not Given Q6H [facility] Lactated Ringer's 1,000 mls @ 50 mls/hr 05/30/20 09:30 05/30/20 08:30 Lr IV 50 mls/hr .Q20H SATNAM Administration Insulin Human Lispro 0 unit 05/24/20 16:30 05/30/20 12:02 Insulin Lispro 100 Unit/Ml 3 Ml Vial SUBCUT Not Given QIDACHS [facility] Protocol Metoprolol Tartrate 12.5 mg 05/22/20 21:00 05/30/20 11:47 Metoprolol Tartrate 25 Mg Tablet PO 12.5 mg BID [facility] Administration Protocol Montelukast Sodium 10 mg 05/22/20 21:00 05/29/20 20:09 Montelukast Sodium 10 Mg Tablet PO 10 mg BEDTIME SATNAM Administration Nystatin 1 appl 05/28/20 21:00 05/30/20 11:47 Nystatin Powder 15 Gm Bottle TOPICAL 1 appl BID [facility] Administration Protocol Omeprazole 20 mg 05/23/20 06:30 05/30/20 05:03 Omeprazole 20 Mg Capsule.Dr PO Not Given BID@0630,1630 [facility] Ondansetron HCl 4 mg 05/22/20 20:44 Ondansetron Hcl 4 Mg/2 Ml Vial IVPUSH Q8H PRN Nausea and Vomiting Ondansetron HCl 4 mg 05/30/20 09:18 05/30/20 09:50 Ondansetron Hcl 4 Mg/2 Ml Vial IVPUSH 4 mg ONCE PRN Administration Nausea and Vomiting Pharmacy Consult 1 each 05/22/20 14:58 Consult Rx Perform Med Rec MISCELLANE ONCE PRN Consult order Potassium Chloride 40 meq 05/29/20 14:45 05/30/20 11:46 Potassium Chloride Er 20 Meq Tab.Er.Prt PO 40 meq DAILY SATNAM Administration Prednisone 40 mg 05/25/20 09:45 05/30/20 11:46 Prednisone 20 Mg Tablet PO 40 mg DAILY SATNAM Administration Sertraline HCl 25 mg 05/23/20 09:00 05/30/20 12:00 Sertraline Hcl 25 Mg Tablet PO 25 mg DAILY SATNAM Administration Sodium Chloride 3 ml 05/23/20 00:00 05/30/20 08:37 0.9 % Sodium Chloride Flush 3 Ml Syringe IVFLUSH Not Given QSHIFT SATNAM Labs CBC & Chem 7: 05/29/20 05:59 05/30/20 06:10 Microbiology Microbiology Results: Microbiology 05/30/20 09:21 Bronchial Washings Gram Stain - Final 05/30/20 09:21 Bronchial Brushings Gram Stain - Final 05/22/20 16:41 Blood - Venous Blood Culture - Final No growth after 5 days. 05/22/20 16:41 Blood - Venous Blood Culture - Final No growth after 5 days. 05/22/20 17:00 Urine clean catch - Clean Catch Midstream Urine Culture - Final Assessment and Plan (1) History of bronchoscopy: Problem details: About 10 years ago Status: Acute (2) EMERALD (obstructive sleep apnea): Status: Acute (3) Heart failure: Status: Acute (4) Pneumonia: Status: Acute (5) Acute respiratory failure with hypoxia: Status: Acute (6) Skin avulsion: Status: Acute (7) Community acquired pneumonia: Status: Acute (8) COPD exacerbation: Status: Acute (9) COPD (chronic obstructive pulmonary disease): Status: Acute Assessment and Plan: 74-year-old female with past medical history of COPD/chronic respiratory failure, factor 5 leiden deficiency/h/o DVT, emerald on bipap, DM, recent fall (05/18) with left leg wound who presented to the hospital with shortness of breath, cough found to have pneumonia and likely component of chf Acute on Chronic Respiratory failure with hypoxia due to pneumonia, underlying COPD and component of CHF,on 2L O2 at baseline, currently on 3 L of oxygen s/p bronchoscopy will wean down to 2 L Acute on chronic HFpEF ECHO from 05/26: The left ventricular systolic function is hyperdynamic, ejection fraction 65-70%. Abnormal diastolic function is noted. Normal right ventricular cavity size and systolic function. Patient appears euvolemic will DC IV Lasix and placed back on Lasix 40 mg daily, follow Is & Os,pérez for fluid management continue low-sodium diet, noted to have blood in Pérez catheter question related to trauma for will irrigate Pérez and will discontinue Pérez catheter after urine is clear, patient is not on Pérez catheter at baseline. Hematuria noted blood in Pérez catheter with a clot in tubing will irrigate Pérez and if hematuria resolves will discontinue Pérez catheter. Hypokalemia due to Lasix placed on potassium repeat potassium normalized. COPD exacerbation improving continue, updrafts and by mouth prednisone day 8 will start tapering dose of prednisone Penumonia finished course of antibiotic ,h/o bronchiectasis/microaspiration seen by pulmonology, s/p bronch today will follow final operative report and resume Eliquis Skin Laceration seen by gen surg, rec silver alginate + dry sterile dressing,No evidence of infection,dressing changes every other day follow up with Dr. Poe after discharge EMERALD BIPAP at night History of DVT on ELiquis 2.5mg at baseline, resume Eliquis DM blood sugar stable this a.m. continue SSI, POCs -pioglidizone on hold Mood Continue sertraline Anemia H/H stable no active bleeding noted iron supplementation added Gerd prilosec Urine culture final result mixed gurpreet suggestive of contamination Morbid obesity 45.8 Likely contributing to respiratory condition/difficulty ambulating and overall deconditioning Difficult IV access, midline in place Dispo: eval by PT plan to return to STR at [facility] when medically ready, after bronchoscopy. DNR/DNI DVT resume Eliquis
[2020-05-30] MEDS: Omeprazole 20 MG CAPSULE.DR PO (15:51)
[2020-05-30] MEDS: Insulin Lispro 100 UNIT/ML 3 ML VIAL SUBCUT ×2 (15:57→20:24)
[2020-05-30 16:05] LABS: Glucose, Whole Blood 182 mg/dL (60-115)
--- NOTE | 2020-05-30 16:54 | PM.OP ---
Brief Operative Note Date of Service: 05/30/20 Pre-op diagnosis: Pneumonia Post-op diagnosis: same Procedure: Bronchoscopy with washings and brushings Surgeon: Lobo Baez MD Anesthesia: GLMA Estimated blood loss (mL): 0 Pathology: none sent Condition: stable Disposition: floor
--- NOTE | 2020-05-30 19:15 | OP_ITS ---
SURGEON: Lobo Baez MD INDICATIONS: Preop pneumonia, postop pneumonia, and also bronchomalacia. PREOPERATIVE DIAGNOSIS: POSTOPERATIVE DIAGNOSIS: PROCEDURE PERFORMED: Bronchoscopy with washings and brushings. ESTIMATED BLOOD LOSS: COMPLICATIONS: None. ANESTHESIA: LMA. ASSISTANTS: None. SPECIMENS: BLOOD LOSS: 0. INTERPRETATION: Successful bronchoscopy with micro and cytologic brushings along with washings and along with therapeutic suctioning. DESCRIPTION OF PROCEDURE: The patient was adequately sedated. The flexible digital bronchoscope was inserted over the LMA to the level of the vocal cords. The vocal cord was moved symmetrically to the midline without any lesions or masses. After instilling 2% lidocaine for a total of 6 mL, the bronchoscope was navigated, past the vocal cords to the level of the trachea. The bronchoscopy was navigated to the entire tracheobronchial tree up to the subsegmental level. The patient did have moderate degree of purulent secretion probably from the left lower lobe. Also, significant malacia collapsing her left lower lobe bronchi. The patient also had a slight endobronchial area of abnormality in the right lower lobe, which is more of an area of increased vascularity. No evidence of any active bleeding, although she did have friable mucosa and had a little bleeding from the lingula area likely from the brushings. The bronchoscope was navigated to the entire tracheobronchial tree. Cytologic brush was introduced into the right lower lobe, sent to the appropriate location. Also, a microscopic brush was introduced into the left lower lobe and that was also sent for microbiology specimens. Bronchial washings were collected bilaterally and therapeutic suctioning was provided and the washings were sent for both cytology and also microbiology. The bronchoscope was then removed. After adequate therapeutic suctioning of the airways, the bronchoscope was then removed. The total endoscopic time approximately 10 minutes. The patient tolerated the procedure well. Vital signs were stable throughout the procedure. MD LEO Bocanegra/LEONARDO / [phone]
[2020-05-30 19:53] LABS: Glucose, Whole Blood 172 mg/dL (60-115)
[2020-05-30] MEDS: Apixaban 2.5 MG TABLET PO (20:23)
[2020-05-30] MEDS: Montelukast Sodium 10 MG TABLET PO (20:24)
[2020-05-31 00:15] VITALS: PULSE 81; RESP 22; O2SAT 98
[2020-05-31 03:07] VITALS: BP 142/82; PULSE 81; RESP 16; TEMP 36.6; O2SAT 98
[2020-05-31 06:00] VITALS: BMI 45.6
[2020-05-31] MEDS: Omeprazole 20 MG CAPSULE.DR PO (06:20)
[2020-05-31 07:39] LABS: Glucose, Whole Blood 80 mg/dL (60-115)
[2020-05-31 08:00] VITALS: BP 128/58; PULSE 93; RESP 25; TEMP 36.7; O2SAT 95
[2020-05-31] MEDS: Metoprolol Tartrate 25 MG TABLET 12.5 MG PO (08:07)
[2020-05-31] MEDS: Furosemide 40 MG TABLET PO (08:08)
[2020-05-31] MEDS: Ferrous Sulfate 324 MG TABLET.DR PO (08:08)
[2020-05-31] MEDS: Sertraline HCL 25 MG TABLET PO (08:08)
[2020-05-31] MEDS: Potassium Chloride ER 20 MEQ TAB.ER.PRT 40 MEQ PO (08:09)
[2020-05-31] MEDS: predniSONE 10 MG TABLET 30 MG PO (08:09)
[2020-05-31] MEDS: guaiFENesin LA 600 MG TAB.ER.12H 1200 MG PO (08:09)
[2020-05-31] MEDS: Apixaban 2.5 MG TABLET PO (08:09)
[2020-05-31] MEDS: 0.9 % Sodium Chloride Flush 3 ML SYRINGE IVFLUSH (08:10)
[2020-05-31] MEDS: Nystatin Powder 15 GM BOTTLE 1 APPL TOPICAL (08:11)
[2020-05-31] MEDS: Heparin Sodium,Porcine Flush 50 UNITS, 0.9 % Sodium Chloride Flush 5 ML IVFLUSH (08:11)
[2020-05-31 09:18] VITALS: O2SAT 95
[2020-05-31 09:48] VITALS: BP 128/58; PULSE 93; O2SAT 95
[2020-05-31 10:59] LABS: COVID-19 Test Negative (Negative); IDNOW Serial# 9DD0AD1C
[2020-05-31 11:03] VITALS: BP 105/63; PULSE 85; RESP 20; TEMP 36.7; O2SAT 96
[2020-05-31 11:20] LABS: Glucose, Whole Blood 106 mg/dL (60-115)
--- NOTE | 2020-05-31 12:14 | HO.POSTANES ---
Post Anesthesia Evaluation Post Anesthesia Evaluation Vital Signs: Vital Signs Temp Pulse Resp BP Pulse Ox 05/31/20 11:03 98.1 F 85 20 105/63 96 05/31/20 09:48 93 128/58 L 95 05/31/20 09:18 95 05/31/20 08:00 98.1 F 93 25 H 128/58 L 95 05/31/20 03:07 97.8 F 81 16 142/82 H 98 05/31/20 00:15 22 H Anesthesia: General Mental Status: Awake Pain Control: Satisfactory Nausea/Vomiting: None Hydration: Adequate Anesthesia-Related Issues: No Anes. Related Issues
--- NOTE | 2020-05-31 12:57 | MHC.CM.PN ---
IMM 05/31/20 Female DX PNA/COPD The Patient is discharged today. She will return to [facility] via S. DC info has been sent. Negative covid result as well as PT notes. The Patients family has been notified
[2020-05-31] MEDS: Amoxicillin/Potassium Clav 875 MG TABLET PO (13:34)
--- NOTE | 2020-05-31 14:15 | MHC.INPTTRAN ---
F/C removed at 0830 voided at 1000. also had BM today. Has open area on left lower leg. gets silver alginate and DSD daily. Skin tear on left arm, xeroform and DSD. Takes meds whole with water. Leeann diet. Alert and oriented. started back on eliquis today. VSS Blood sugars stable.
--- NOTE | 2020-05-31 15:09 | P.DS_ITS ---
DS: Providers Provider Date of Service: 05/31/20 Date of admission: 05/22/20 20:23 Primary care physician: Unknown Physician Consults: 05/22/20 20:44 Consult to General Surgery Routine Consulting Provider: Jaleel Poe Reason for consultation: skin avulsion/was to see dr. Poe op for skin graft Has provider been notified: No 05/25/20 10:09 Consult to Pulmonology Routine Consulting Provider: Lobo Baez Reason for consultation: copd,pna Has provider been notified: No DS: Diagnosis Discharge Diagnosis (1) History of bronchoscopy: Status: Acute Problem details: About 10 years ago (2) EMERALD (obstructive sleep apnea): Status: Acute (3) Heart failure: Status: Acute (4) Pneumonia: Status: Acute (5) Acute respiratory failure with hypoxia: Status: Acute (6) Skin avulsion: Status: Acute (7) Community acquired pneumonia: Status: Acute (8) COPD exacerbation: Status: Acute (9) COPD (chronic obstructive pulmonary disease): Status: Acute DS: Medications Discharge Medications Home Medications: Home Medications Medication Instructions Recorded Confirmed Eliquis 2.5 mg PO BID 05/18/20 05/22/20 Flovent HFA 2 puff INHALATION BID 05/18/20 05/22/20 furosemide 40 mg PO DAILY 05/18/20 05/22/20 lorazepam 1 mg PO BEDTIME PRN 05/18/20 05/22/20 metoprolol tartrate 12.5 mg PO BID 05/18/20 05/22/20 montelukast 10 mg PO BEDTIME 05/18/20 05/22/20 pantoprazole 40 mg PO BID 05/18/20 05/22/20 pioglitazone 15 mg PO DAILY 05/18/20 05/22/20 sertraline 25 mg PO DAILY 05/18/20 05/22/20 Previous Rx's Medication Instructions Recorded albuterol sulfate 90 mcg/actuation 2 puff INHALATION Q4-6H PRN #1 ea 02/08/20 aerosol inhaler budesonide 0.5 mg/2 mL suspension 0.5 mg INHALATION BID 30 Days #120 02/14/20 for nebulization ml amoxicillin-pot clavulanate 875 mg PO BID #10 tab 05/31/20 ferrous sulfate 324 mg PO DAILY #30 tab 05/31/20 guaifenesin [Mucinex] 1,200 mg PO BID #10 tab 05/31/20 ipratropium-albuterol 3 ml INHALATION Q6H PRN #180 ml 05/31/20 nystatin 1 appl TOPICAL BID #1 g 05/31/20 potassium chloride 20 meq PO DAILY #30 tab 05/31/20 prednisone 20 mg PO DAILY 10 Days #10 tab 05/31/20 DS: Summary Hospital Course Hospital Course: History of presenting illness Chief Complaint: Shortness of breath This is a 74-year-old female with history of COPD, diabetes, who presents to hospital with complaints of shortness of breath as well as a cough. Patient comes from [facility] where she experienced acute dyspnea on exertion and was found a 75% O2 on room air. She was placed on nasal cannula and her oxygen only brought up to 82%. Patient reports that she started having shortness of b reath since the of last month but worsened in the past 2 days, she also has a cough although has difficulty bringing up any phlegm, no fever but has some chills, she uses a BiPAP at bedtime but has not been helping with her shortness of breath. She had an avulsion of the skin about 2 weeks ago after falling around her knee and presented to the hospital last week and was supposed to follow-up with general surgeon outpatient for skin graft but did not get a chance to do that. She otherwise denies any headache, change in vision, no chest pain, no abdominal pain, no nausea or vomiting, no diarrhea constipation. No urinary symptoms. On arrival to the ED hemodynamically stable, she was placed on BiPAP on arrival because according to the ED PA she felt more comfortable with it but did not necessarily needed. She uses BiPAP at bedtime. she currently on BiPAP satting 96%. Labs are significant for WBC count 22.1 from 13.24 days ago, hemoglobin of 10.1, PT of 16.1, INR of 1.4, venous gas showed pH of 7.48, pCO2 of 32, sodium of 141, potassium 3.7, lactic acid of 1.0, magnesium of 1.5 which was repleted in the ED, UA that is positive for nitrites, leukocyte Estrace and WBC. COVID-19 negative, influenza and RSV negative. Chest CT shows bilateral a basilar airspace disease at both lung bases with bronchial wall thickening. Hospital course 74-year-old female with past medical history of COPD/chronic respiratory failure, factor 5 leiden deficiency/h/o DVT, emerald on bipap, DM, recent fall (05/18) with left leg wound who presented to the hospital with shortness of breath, cough found to have pneumonia and likely component of chf Acute on Chronic Respiratory failure with hypoxia due to pneumonia, underlying COPD and component of CHF,on 2L O2 at baseline, clinically appears at baseline continue oxygen 2 L Acute on chronic HFpEF Patient feeling better with less shortness of breath, has no PND or orthopnea,ECHO from 05/26 showed left ventricular systolic function is hyperdyna lizette, ejection fraction 65-70%. Abnormal diastolic function is noted. Normal right ventricular cavity size and systolic function patient treated with IV Lasix currently appears euvolemic therefore placed back on 40 mg of Lasix daily with potassium supplement. Caraballo catheter removed today. Hypokalemia due to Lasix resolved placed on potassium supplement COPD exacerbation improved continue, updrafts and prednisone continue home inhalers. Penumonia with h/o bronchiectasis/microaspiration, s/p bronch 05/30/20 large amount of secretions were suctioned post procedure patient is feeling significantly better, patient will be continued on 5 more days of Augmentin g stain from bronchial secretion grew Gram-negative pau follow final culture report patient has multiple antibiotic allergies including sulfa, Levaquin and cefepime. Skin Laceration seen by gen surg, rec silver alginate + dry sterile dressing,No evidence of infection,dressing changes every other day follow up with Dr. Poe in 1-2 weeks. EMERALD continue BIPAP at night History of DVT on ELiquis 2.5mg twice daily DM blood sugar stable resume home medication Mood Continue sertraline Anemia H/H stable no active bleeding noted iron supplementation added due to low iron saturation Gerd continue Protonix Urine culture final result mixed gurpreet suggestive of contamination Morbid obesity 45.8 Likely contributing to respiratory condition/difficulty ambulating and overall deconditioning, weight reduction recommended. Time Spent with Patient Time attestation: Total time spent providing and/or coordinating discharge services: Discharge coordination time: Greater than 30 minutes Physical Exam Vital Signs: Vital Signs: Last Vital Signs Temp 98.1 F 05/31/20 11:03 Pulse 85 05/31/20 11:03 Resp 20 05/31/20 11:03 BP 105/63 05/31/20 11:03 Pulse Ox 96 05/31/20 11:03 Body Mass Index 45.6 General resting comfortably in no acute distress. Neck is supple no JVD. CVS regular rate rhythm, Respiratory lungs bilateral crackles improved , no acute respiratory distress Gastrointestinal abdomen soft, nontender, bowel sounds audible, no guarding , no rigidity. Extremities bilateral nonpitting edema Neuro nonfocal , speech clear. Skin left lower leg dressing in place, area of large skin avulsion, clean base, no drainage, few old bruises and ecchymoses, right wrist laceration healing with no surrounding erythema, DS: Data Data Completed and Pending Pending studies at discharge: Pending at discharge 05/30/20 09:21 Cytology [PTH] Stat Labs on day of discharge: Laboratory Results - last 24 hr 05/30/20 05/30/20 05/31/20 15:54 19:44 07:28 POC Glucose 182 H 172 H 80 COVID-19 (ASHVIN) COVID-19 Clin Com 05/31/20 05/31/20 10:35 11:05 POC Glucose 106 COVID-19 (ASHVIN) Negative COVID-19 Clin Com See Note Preliminary micro results at discharge 05/30/20 09:21 Routine Culture - Preliminary Bronchial Washings Gram negative pau 05/30/20 09:21 Routine Culture - Preliminary Bronchial Brushings Gram negative pau Discharge Plan Discharge Patient Disposition: [facility] Referrals: [facility] [Outside] Physician,Unknown [Primary Care Provider] - Discharge Medications: New nystatin 100,000 unit/gram Powder 1 appl topical BID Qty: 1 RF: 0 guaifenesin [Mucinex] 600 mg Tablet Extended Release 12hr 1,200 mg PO BID Qty: 10 RF: 0 amoxicillin-pot clavulanate 875-125 mg Tablet 875 mg PO BID Qty: 10 RF: 0 potassium chloride 20 mEq tablet extended release 20 meq PO DAILY Qty: 30 RF: 0 ipratropium-albuterol 0.5 mg-3 mg(2.5 mg base)/3 mL solution for nebulization 3 ml inhalation Q6H PRN (Reason: shortness of breath) Qty: 180 RF: 0 ferrous sulfate 324 mg (65 mg iron) Tablet,Delayed Release (Dr/Ec) 324 mg PO DAILY Qty: 30 RF: 0 Continued albuterol sulfate [ProAir HFA] 90 mcg/actuation HFA aerosol inhaler 2 puff inhalation Q4-6H PRN (Reason: shortness of breath or wheezing) Qty: 1 RF: 0 budesonide 0.5 mg/2 mL suspension for nebulization 0.5 mg inhalation BID 30 Days Qty: 120 RF: 6 furosemide 40 mg tablet 40 mg PO DAILY RF: 0 pioglitazone 15 mg tablet 15 mg PO DAILY RF: 0 pantoprazole 40 mg tablet,delayed release (DR/EC) 40 mg PO BID RF: 0 sertraline 25 mg tablet 25 mg PO DAILY RF: 0 montelukast 10 mg tablet 10 mg PO BEDTIME RF: 0 lorazepam 1 mg tablet 1 mg PO BEDTIME PRN (Reason: insomnia) RF: 0 metoprolol tartrate 25 mg tablet 12.5 mg PO BID RF: 0 Eliquis 2.5 mg tablet 2.5 mg PO BID RF: 0 Flovent HFA 220 mcg/actuation HFA aerosol inhaler 2 puff inhalation BID RF: 0 prednisone 20 mg tablet 20 mg PO DAILY 10 Days Qty: 10 RF: 0 Discharge Orders: Discharge Order (Routine); Ordered 05/31/20 Ordered By: Carmen Combs Diet: diabetic diet, low fat, low cholesterol and low salt diet Activity on Discharge: As tolerated Stand Alone Forms: Patient Portal Discharge page Care Plan Goals: Follow low-salt, diabetic and low-fat diet Health Concerns: Acute on chronic heart failure, acute on chronic respiratory failure, COPD exacerbation and pneumonia, encourage out of bed to chair use incentive spirometry prednisone and antibiotic as prescribed Avulsion injury to left leg continue durafiber Ag dressing and follow-up with general surgeon Plan of Treatment: Follow-up with primary care physician
--- NOTE | 2020-05-31 15:18 | HO.MIDLINE ---
PICC Line Insertion MIDLINE) Diagnosis SOB,COPD,PNA AND HYPOXIA Indication: [DIFFICULTY IV ACCESS]----NO LONGER NEEDED PT BEING D/C TODAY Right Brachial midline ([id number]) was removed intact without any issues. No bleeding/edema or s/s of infection noted. 4x4 gauze and tegaderm applied. Pt tolerated the removal.
== END 2020-05-31 14:15 | disposition skilled nursing facility (03) | DRG 190 ==
LOC: HO.ED 14:46 → HO.EDOVER 20:31 → HO.S3 23:14 → HO.IMC 05-28 19:27
PROVIDERS: Family Medicine; Hospitalist; Nurse Practitioner Family; Physician Assistant; Physician Assistant Medical; Admitting Provider Internal Medicine; Emergency Provider Emergency Medicine; PCP Internal Medicine; Visit Provider Hospitalist
PROC: 0BJ08ZZ Inspection of Tracheobronchial Tree, Via Natural or Artificial Opening Endoscopic (ICD-10-PCS; CPT 31622; principal; 2020-05-30 08:30)
DX: J44.0 Chronic obstructive pulmonary disease with (acute) lower respiratory infection (principal); J18.9 Pneumonia, unspecified organism; J96.21 Acute and chronic respiratory failure with hypoxia; I50.33 Acute on chronic diastolic (congestive) heart failure; D68.51 Activated protein C resistance; Z68.42 Body mass index [BMI] 45.0-49.9, adult; J44.1 Chronic obstructive pulmonary disease with (acute) exacerbation; E66.01 Morbid (severe) obesity due to excess calories; D72.829 Elevated white blood cell count, unspecified; E83.42 Hypomagnesemia; G47.33 Obstructive sleep apnea (adult) (pediatric); S81.002A Unspecified open wound, left knee, initial encounter; K21.9 Gastro-esophageal reflux disease without esophagitis; D63.8 Anemia in other chronic diseases classified elsewhere; W18.30XA Fall on same level, unspecified, initial encounter; E87.6 Hypokalemia; Y93.9 Activity, unspecified; Y92.9 Unspecified place or not applicable; Y99.9 Unspecified external cause status; Z87.891 Personal history of nicotine dependence; Z20.822 Contact with and (suspected) exposure to COVID-19; Z86.718 Personal history of other venous thrombosis and embolism; Z88.2 Allergy status to sulfonamides; Z79.4 Long term (current) use of insulin; Z79.01 Long term (current) use of anticoagulants; Z79.899 Other long term (current) drug therapy; Z66 Do not resuscitate
CPT/HCPCS: 0241U; 36410; 36415; 71045; 71250; 80048; 80076; 81001; 81003; 82728; 82947; 83540; 83605; 83735; 83880; 84145; 84484; 85007; 85025; 85027; 85610; 85730; 87040; 87071; 87077; 87086; 87102; 87106; 87116; 87186; 87205; 87635; 88112; 88305; 93005; 93306; 94640; 94660; 94799; 96365; 96366; 96367; 96368; 96375; 97110; 97162; 99284; 99285; C1758; J0171; J0456; J0696; J1100; J1642; J1650; J1940; J2250; J2405; J2543; J2920; J3370; J3475

== ENCOUNTER 2020-06-04 17:31 | Inpatient (IN) | payer MEDICARE, SELFPAY ==
[2020-06-04] VITALS (10 sets, daily range): BP systolic 80–135; BP diastolic 40–81; PULSE 103–120; RESP 12–27; TEMP 36–36.4; O2SAT 86–98; BMI 44.1
--- NOTE | ~2020-06-04 | CT_ITS ---
EXAMINATION: CT ABDOMEN AND PELVIS WITHOUT CONTRAST CLINICAL INFORMATION: Followup abscess. COMPARISON: Previous CT of the abdomen and pelvis 06/12/2020 TECHNIQUE: Multidetector volumetric imaging was performed from the superior aspect of the liver through the pubic symphysis. Sagittal and coronal reformatted images were obtained on the technologist's workstation. This CT examination was performed using dose optimization techniques as appropriate, variously including the following: *Automated exposure control *Adjustment of mA and/or kV according to patient size (this includes techniques or standardized protocols for targeted exams where dose is matched to indication/reason for exam; i.e. extremities or head) *Use of iterative reconstruction technique DLP: 747 mGy-cm FINDINGS: LUNG BASES: There is bilateral lower lobe atelectasis/consolidation with air bronchograms. This does not appear appreciably changed. There is a small left pleural effusion that is unchanged. LIVER, GALLBLADDER, AND BILIARY TREE: The liver is normal in size, shape, and attenuation. No focal hepatic lesion or biliary ductal dilatation is present. The gallbladder has been removed. PANCREAS: There is fatty infiltration of the pancreas. SPLEEN: Unremarkable. ADRENAL GLANDS: Unremarkable. KIDNEYS AND URETERS: The kidneys are normal in size, shape, and attenuation. No hydronephrosis, hydroureter, or calculi seen. No perinephric stranding. BLADDER: Unremarkable. GASTROINTESTINAL TRACT: There is diverticulosis of the colon. There is mild bowel wall thickening of the proximal sigmoid colon. There is an adjacent air-fluid level lateral to the left side of the sigmoid colon and adjacent to the left adnexa suggestive of an abscess. This is decreased in size from previous exam. This measures approximately 2.9 x 3.4 cm axial image 51 series 3 compared to 4.3 x 3.7 cm on most recent exam 06/12/2020. Again differential would include pericolic abscess or contained perforation. ABDOMINAL WALL: No significant hernia is appreciated. LYMPH NODES: Normal. VASCULAR: There is an IVC filter. There is evidence of atherosclerotic disease. PELVIC VISCERA: Unremarkable. OSSEOUS STRUCTURES: There is spondylolysis, spondylolisthesis and degenerative disc disease at L5-S1. There are mild compression fractures versus Schmorl's nodes of the superior endplates of the T12 and L1 vertebral bodies. There is joint space narrowing at the hip joints. CT/CT abdomen pelvis wo con IMPRESSION: Mild diverticular disease of the proximal sigmoid colon. There is slight interval decrease in the pericolic abscess versus contained perforation now measuring 2.9 x 3.4 cm.
--- NOTE | ~2020-06-04 | XR_ITS ---
EXAMINATION: XR CHEST CLINICAL INFORMATION: Shortness of breath COMPARISON: CT abdomen/pelvis from earlier today and chest x-ray 06/04/2020 TECHNIQUE: Frontal view of the chest was obtained. FINDINGS: Stable cardiac silhouette. Low lung volumes. No gross lobar consolidation. Subtle bibasilar opacities likely represent atelectasis/consolidation identified on CT imaging from earlier today. No significant pleural effusion identified. No pneumothorax. XR/XR chest 1V IMPRESSION: Stable examination demonstrating mild bibasilar airspace disease, atelectasis versus consolidation.
--- NOTE | ~2020-06-04 | IR_ITS ---
PROCEDURE: IR INSERTION OF PICC CLINICAL INFORMATION: Needs long-term IV hydration and hyperalimentation. COMPARISON: None TECHNIQUE: Following explaining ultrasound and fluoroscopy-guided PICC line placement, benefits and risk, a written consent was obtained. Patient was placed supine on fluoroscopy table and preliminary ultrasound imaging was obtained through the right arm and a small basilic vein was aerated on the skin and marked. A small 2 negative was applied above the right arm. All elements of maximal sterile barrier technique followed including use of cap, mask, sterile gown, sterile gloves, a sterile full body drape and hand hygiene. Also followed skin preparation with 2% chlorhexidine for cutaneous antisepsis, and sterile ultrasound preparation with sterile gel and probe cover when applicable. 1% lidocaine was injected at puncture site. Under sterile guidance a singlewall needle was advanced and right basilic vein was punctured. After observing venous return, a thin guidewire was advanced into the SVC under fluoroscopy and needle withdrawn. A 5 [place] dilator sheath was advanced over the wire. The guidewire and the dilator were removed. Precut PICC line catheter with wire advanced centimeters beyond the catheter was inserted through the peel-away sheath under fluoroscopy and placed in SVC. The peel-away sheath and wire were removed. Both ports of the catheter were flushed with heparinized saline. Simple dressing applied at puncture site anchoring device. Patient tolerated procedure extremely well. FINDINGS: On preliminary ultrasound imaging there is small basilic and brachial veins. Approximately 44 cm long dual lumen PICC 5 [place] catheter was placed via basilic vein into the SVC. The catheter is ready for use. IR/IR us guide venous access IMPRESSION: Successful and ultrasound-guided placement of a 5 [place] 40 cm long dual lumen PICC catheter was tip in the SVC. A single extremities was obtained for documentation. FLUOROSCOPY TIME: 1.0 minutes. DOSE AREA PRODUCT: 40 cGy/cm. IMAGES: 1 ultrasound and 1 x-ray
--- NOTE | ~2020-06-04 | CT_ITS ---
EXAMINATION: CT CHEST WITHOUT CONTRAST CLINICAL INFORMATION: Dyspnea. Altered mental status. COMPARISON: Chest regressed and earlier the same day. CT chest dated 05/22/2020. TECHNIQUE: Multidetector volumetric CT imaging of the chest was done. Axial MIP volume rendering provided. Sagittal and coronal reformatted images were obtained. This CT examination was performed using dose optimization techniques as appropriate, variously including the following: *Automated exposure control *Adjustment of mA and/or kV according to patient size (this includes techniques or standardized protocols for targeted exams where dose is matched to indication/reason for exam; i.e. extremities or head) *Use of iterative reconstruction technique DLP: 1325 mGy-cm FINDINGS: CHARGE HAND: Hypoinflation of the lungs. LUNGS: Bilateral lower lobe airspace opacities with air bronchograms, slightly decreased on the right and slightly increased on the left when compared to the prior CT dated 05/22/2020. Findings could represent atelectasis versus early infiltrates. No large pulmonary mass. Fluid/secretions redemonstrated within the left mainstem bronchus, similar when compared to the prior CT. MEDIASTINUM: No cardiomegaly. No pericardial effusion. Prominent mediastinal fat. No significant mediastinal or hilar lymphadenopathy. Atrophic thyroid. PLEURA: There is no pleural effusion. No pleural mass or thickening. AXILLA: No lymphadenopathy. UPPER ABDOMEN: Small, sliding hiatal hernia. Otherwise, the visualized upper abdominal structures are unremarkable. OSSEOUS STRUCTURES: Compression fractures redemonstrated within the thoracic spine, unchanged. No new lytic or blastic osseous lesion. CT/CT chest wo con IMPRESSION: 1. Bilateral lower lobe airspace opacities, slightly decreased on the right and slightly increased on the left when compared to the CT dated 05/22/2020. Findings could represent atelectasis versus early infiltrates. 2. Fluid/secretions redemonstrated within the left mainstem bronchus, similar when compared to the prior CT. 3. Small, sliding hiatal hernia. 4. Compression fractures redemonstrated throughout the thoracic spine, unchanged.
--- NOTE | ~2020-06-04 | CT_ITS ---
EXAMINATION: CT ABDOMEN AND PELVIS WITHOUT CONTRAST. CT LEFT HIP WITHOUT CONTRAST. CLINICAL INFORMATION: Check for retroperitoneal bleed COMPARISON: CT chest 06/04/2020 TECHNIQUE: 5 mm thin axial and reformatted 2 mm thin sagittal and coronal images of abdomen and pelvis are obtained without contrast. Subsequently 2 mm thin axial and reformatted 2 minutes in sagittal coronal images of left hip were obtained. DLP 1088. FINDINGS: Abdomen and pelvis: There is bilateral lower lobe airspace disease. The heart size is normal. The liver is homogeneous in density without focal lesion. There is normal size and shape. The gallbladder has been surgically removed. Visualized spleen, pancreas and bilateral adrenal glands are unremarkable. Both kidneys are normal size, shape and position. No radiopaque renal calculi or hydronephrosis seen. The abdominal aorta is normal caliber. No retroperitoneal lymph nodes or mass seen. There is infrarenal IVC filter. There is scattered stool, diverticula and gas seen in colon without any distention. There is a small air-fluid collection in the left pelvis measuring 4.6 x 3.5 cm and lies adjacent to the sigmoid colon likely a small abscess. Small bowel loops are normal caliber. Appendix is normal caliber. The stomach is nondistended. There is likely a small hiatal hernia There is a small umbilical hernia containing fat. The uterus is anteverted and appears unremarkable. No pelvic free fluid seen. The uterus is anteverted and appears unremarkable. Bone windows reveal grade 1 anterolisthesis L5 over S1 with degenerative disc changes. Rest of vertebral heights, alignment and disc heights are normal. LEFT HIP: There is no visible acute fracture, dislocation subluxation. The left hip joint space is maintained normal. The left pelvic bone including the pubic symphysis is normal. The soft tissues are normal. CT/CT abdomen pelvis wo con IMPRESSION: Small air-fluid collection likely an abscess. Appears concealed at this time and may have originated from adjacent sigmoid colon. No mural thickening seen in the sigmoid colon at this time. There is noted from bleed or mass seen. Small umbilical hernia. Small hiatal hernia. There is no visible acute fracture, dislocation or subluxation of left hip. There are mild degenerative changes bilateral SI joints. There is no evidence of hematoma.
--- NOTE | ~2020-06-04 | XR_ITS ---
EXAMINATION: XR CHEST CLINICAL INFORMATION: Shortness of breath. COMPARISON: 05/22/2020 portable chest. TECHNIQUE: Frontal view of the chest was obtained. FINDINGS: Low lung volumes limit evaluation. Mild linear markings are seen at the left lung base. The left upper lung field and right lung are clear. The heart is mildly enlarged. The mediastinal structures are unremarkable. XR/XR chest 1V IMPRESSION: Mild linear atelectasis versus scarring at the left lung base. Mild cardiac enlargement.
--- NOTE | ~2020-06-04 | CT_ITS ---
EXAMINATION: CT ABDOMEN AND PELVIS WITHOUT CONTRAST CLINICAL INFORMATION: Follow-up pelvic abscess COMPARISON: Previous CT scan of the abdomen and pelvis most recent 06/08/2020 TECHNIQUE: Multidetector volumetric imaging was performed from the superior aspect of the liver through the pubic symphysis. Sagittal and coronal reformatted images were obtained on the technologist's workstation. This CT examination was performed using dose optimization techniques as appropriate, variously including the following: *Automated exposure control *Adjustment of mA and/or kV according to patient size (this includes techniques or standardized protocols for targeted exams where dose is matched to indication/reason for exam; i.e. extremities or head) *Use of iterative reconstruction technique DLP: 1032 mGy-cm FINDINGS: LUNG BASES: There is bilateral lower lobe consolidation with air bronchograms that appears unchanged. There is a small left pleural effusion. LIVER, GALLBLADDER, AND BILIARY TREE: The liver is normal in size, shape, and attenuation. No focal hepatic lesion or biliary ductal dilatation is present. The gallbladder has been removed. PANCREAS: There is fatty infiltration of the pancreas. SPLEEN: Unremarkable. ADRENAL GLANDS: Unremarkable. KIDNEYS AND URETERS: The kidneys are normal in size, shape, and attenuation. No hydronephrosis, hydroureter, or calculi seen. No perinephric stranding. BLADDER: Unremarkable. GASTROINTESTINAL TRACT: There is a left pelvic abscess inferior lateral to the sigmoid colon and adjacent to the left adnexa. This is irregularly-shaped and has air-fluid levels. This measures 3.7 x 3.9 cm axial image 60 series 3 compared to 3.4 x 3.8 cm on 06/08/2020 exam and does not appear appreciably changed. This may communication with the sigmoid colon, for example sagittal reconstructed image 64, coronal reconstructed image 48 and axial 3. There is minimal inflammatory change of the surrounding fat. No free air is seen. No ascites is seen. There is diverticulosis of the distal colon. The small and large bowel is otherwise unremarkable. The appendix is unremarkable. ABDOMINAL WALL: There is a small umbilical hernia containing fat. LYMPH NODES: Normal. VASCULAR: There is an IVC filter that appears unchanged. There is evidence of atherosclerotic disease. The abdominal aorta is normal in caliber. PELVIC VISCERA: Unremarkable. OSSEOUS STRUCTURES: There is spondylolysis spondylolisthesis and degenerative disc disease at L5-S1. There are mild compression fracture versus Schmorl's nodes of the superior endplates of the L1 and T12 vertebral bodies. There is an old severe to the eighth vertebral body compression fracture with some retropulsion of bone posteriorly into the spinal canal measuring 0.[address]/CT abdomen pelvis wo con IMPRESSION: No change in left pelvic abscess from most recent exam 06/08/2020. This may communicate with the sigmoid colon. There is diverticulosis of the colon.
--- NOTE | ~2020-06-04 | CT_ITS ---
EXAMINATION: CT ABDOMEN AND PELVIS WITHOUT CONTRAST CLINICAL INFORMATION: Follow up of abdominal abscess. COMPARISON: Most recent prior CT of the abdomen and pelvis done on 06/20/2020. TECHNIQUE: Multidetector volumetric imaging was performed from the superior aspect of the liver through the pubic symphysis. Sagittal and coronal reformatted images were obtained on the technologist's workstation. This CT examination was performed using dose optimization techniques as appropriate, variously including the following: *Automated exposure control *Adjustment of mA and/or kV according to patient size (this includes techniques or standardized protocols for targeted exams where dose is matched to indication/reason for exam; i.e. extremities or head) *Use of iterative reconstruction technique DLP: 1123.73 mGy-cm FINDINGS: LUNG BASES: Persistent stable nonspecific airspace disease along the posteromedial aspect of both lung bases associated with air bronchogram and mild bronchiectatic changes are noted, likely represent chronic changes. Stable trace simple appearing left-sided pleural effusion. New trace right-sided pleural effusion. LIVER, GALLBLADDER, AND BILIARY TREE: The liver is normal in size, shape, and attenuation. No focal hepatic lesion or biliary ductal dilatation is present. The gallbladder is surgically absent. PANCREAS: Unremarkable. SPLEEN: Unremarkable. ADRENAL GLANDS: Unremarkable. KIDNEYS AND URETERS: The kidneys are normal in size, shape, and attenuation. No hydronephrosis, hydroureter, or calculi seen. No perinephric stranding. BLADDER: Unremarkable. GASTROINTESTINAL TRACT: Small sliding hiatal hernia is noted, unchanged. Colonic diverticulosis related changes are noted within the sigmoid colon. The appendix is visualized and is unremarkable. Previously documented air-fluid level and associated fluid collection seen within the left hemipelvis appears significantly smaller. Specifically, the air-fluid levels are no longer present. Trace amount of air pocket is visualized. Adjacent inflammatory stranding, mesenteric thickening however is still noted measuring approximately 2.8 x 2.5 cm, previously measured 2.8 x 3.2 cm. ABDOMINAL WALL: No significant hernia is appreciated. LYMPH NODES: Normal. VASCULAR: IVC filter is present, unchanged. PELVIC VISCERA: There is no pelvic mass present. There is no free fluid and/or free air present. OSSEOUS STRUCTURES: Grade 2 spondylolisthesis of L5 over S1 is seen, unchanged. CT/CT abdomen pelvis wo con IMPRESSION: Compared to most recent prior CT of the abdomen and pelvis dated 06/20/2020, previously documented air-fluid levels within the fluid collection at the level of the left upper hemipelvis is no longer present. Residual tiny air pockets and nonspecific inflammatory stranding are noted. Specifically, no new abnormalities.
--- NOTE | ~2020-06-04 | XR_ITS ---
EXAMINATION: XR CHEST CLINICAL INFORMATION: Sepsis COMPARISON: 06/20/2020 TECHNIQUE: Frontal view of the chest was obtained. FINDINGS: Small left pleural effusion and accompanying atelectasis. Right lung clear. No pneumothorax. Normal heart size and pulmonary vascularity. Aorta is atherosclerotic. No acute osseous abnormalities. XR/XR chest 1V IMPRESSION: Stable small left pleural effusion and accompanying atelectasis.
--- NOTE | ~2020-06-04 | IR_ITS ---
PROCEDURE: IR INSERTION OF PICC CLINICAL INFORMATION: Needs long-term IV hydration and hyperalimentation. COMPARISON: None TECHNIQUE: Following explaining ultrasound and fluoroscopy-guided PICC line placement, benefits and risk, a written consent was obtained. Patient was placed supine on fluoroscopy table and preliminary ultrasound imaging was obtained through the right arm and a small basilic vein was aerated on the skin and marked. A small 2 negative was applied above the right arm. All elements of maximal sterile barrier technique followed including use of cap, mask, sterile gown, sterile gloves, a sterile full body drape and hand hygiene. Also followed skin preparation with 2% chlorhexidine for cutaneous antisepsis, and sterile ultrasound preparation with sterile gel and probe cover when applicable. 1% lidocaine was injected at puncture site. Under sterile guidance a singlewall needle was advanced and right basilic vein was punctured. After observing venous return, a thin guidewire was advanced into the SVC under fluoroscopy and needle withdrawn. A 5 Ghanaian dilator sheath was advanced over the wire. The guidewire and the dilator were removed. Precut PICC line catheter with wire advanced centimeters beyond the catheter was inserted through the peel-away sheath under fluoroscopy and placed in SVC. The peel-away sheath and wire were removed. Both ports of the catheter were flushed with heparinized saline. Simple dressing applied at puncture site anchoring device. Patient tolerated procedure extremely well. FINDINGS: On preliminary ultrasound imaging there is small basilic and brachial veins. Approximately 44 cm long dual lumen PICC 5 Ghanaian catheter was placed via basilic vein into the SVC. The catheter is ready for use. IR/IR cvc insert peripheral IMPRESSION: Successful and ultrasound-guided placement of a 5 Ghanaian 40 cm long dual lumen PICC catheter was tip in the SVC. A single extremities was obtained for documentation. FLUOROSCOPY TIME: 1.0 minutes. DOSE AREA PRODUCT: 40 cGy/cm. IMAGES: 1 ultrasound and 1 x-ray
--- NOTE | ~2020-06-04 | CT_ITS ---
EXAMINATION: CT HEAD WITHOUT CONTRAST CLINICAL INFORMATION: Altered mental status. Evaluate for intracranial hemorrhage. COMPARISON: None TECHNIQUE: Contiguous axial imaging was performed from the skull base to vertex without intravenous administration of contrast. This CT examination was performed using dose optimization techniques as appropriate, variously including the following: *Automated exposure control *Adjustment of mA and/or kV according to patient size (this includes techniques or standardized protocols for targeted exams where dose is matched to indication/reason for exam; i.e. extremities or head) *Use of iterative reconstruction technique DLP: 801 mGy-cm FINDINGS: There is no evidence of acute intracranial hemorrhage or territorial infarction. No abnormal mass effect or midline shift is seen. Lemon to white matter differentiation is well preserved. No extra-axial fluid collections are identified. The ventricles are normal in size. Patchy subcortical and periventricular white matter low-attenuation changes statistically related to chronic white matter small vessel ischemic disease. Bilateral chronic gangliocapsular lacunar infarcts suspected. Cavernous carotid calcifications. The osseous structures and soft tissues are normal. Bilateral mastoid air cell effusions. Minimal secretions present within the left middle ear cavity. Paranasal sinuses are clear. CT/CT head/brain wo con IMPRESSION: * No acute intracranial hemorrhage. * Small vessel ischemic changes and bilateral gangliocapsular lacunar infarcts. If there is concern for acute or subacute ischemia, MRI is indicated. * Partial bilateral mastoid air cell effusions.
--- NOTE | 2020-06-04 17:39 | ECG_ITS ---
Test Reason : SEPTIC Blood Pressure : / mmHG Vent. Rate : 116 BPM Atrial Rate : 116 BPM P-R Int : 146 ms QRS Dur : 058 ms QT Int : 332 ms P-R-T Axes : 018 029 -04 degrees QTc Int : 461 ms Artifact in tracing Sinus tachycardia with Premature supraventricular complexes Otherwise normal ECG When compared with ECG of 22-MAY-2020 15:58, Premature supraventricular complexes are now Present Referred By: Lyn Posada Electronically Signed By:SAM ISAACS
--- NOTE | 2020-06-04 17:57 | ED_ITS ---
HPI - Altered Mental Status General Chief Complaint: Altered Mental Status Stated Complaint: ams Time Seen by Provider: 06/04/20 17:32 Source: EMS Mode of arrival: EMS Limitations: no limitations History of Present Illness HPI narrative: 74 yo female with past medical history of COPD on 2LNC, chronic resp failure, factor 5 leiden deficiency h/o DVT on eliquis, EMERALD on bipap nightly, anemia, GERD, morbid obesity here with AMS. Patient coming from [facility] after discharge 05/31 from this facility. Per report from EMS came to visit patient today and noted her to be lethargic and confused from her baseline. Additional history is limited d/t patient's mental status. Recent admit 05/23-05/31 for acute on chronic respiratory failure with hypoxia d/t PNA discharge on 5 more days of augmentin (completion day 06/04), acute on chronic HF, hypokalemia, known large LLE skin laceration. Had bronchoscopy during admission with bronchial secretions growing gram negative rods, pseudomonas sensitive to cefepime, gent, levaquin (however multiple allergies). Related Data Home Medications Medication Instructions Recorded Confirmed Eliquis 2.5 mg PO BID 05/18/20 06/04/20 Flovent HFA 2 puff INHALATION BID 05/18/20 06/04/20 furosemide 40 mg PO DAILY 05/18/20 06/04/20 lorazepam 1 mg PO BEDTIME PRN 05/18/20 06/04/20 metoprolol tartrate 12.5 mg PO BID 05/18/20 06/04/20 montelukast 10 mg PO BEDTIME 05/18/20 06/04/20 pantoprazole 40 mg PO BID 05/18/20 06/04/20 pioglitazone 15 mg PO DAILY 05/18/20 06/04/20 sertraline 25 mg PO DAILY 05/18/20 06/04/20 calcium carbonate-vitamin D2 1 tab PO DAILY 06/04/20 06/04/20 [Calcium + Vitamin D] cholecalciferol (vitamin D3) 25 mcg PO DAILY 06/04/20 06/04/20 [Vitamin D3] glucosamine sulfate [Glucosamine] 750 mg PO DAILY 06/04/20 06/04/20 insulin lispro [Humalog U-100 1 sliding scale dose SUBCUT 06/04/20 06/04/20 Insulin] USEASDIRECTD loratadine [Claritin] 10 mg PO DAILY 06/04/20 06/04/20 zolpidem [Ambien] 5 mg PO BEDTIME PRN 06/04/20 06/04/20 Previous Rx's Medication Instructions Recorded albuterol sulfate 90 mcg/actuation 2 puff INHALATION Q4-6H PRN #1 ea 02/08/20 aerosol inhaler budesonide 0.5 mg/2 mL suspension 0.5 mg INHALATION BID 30 Days #120 02/14/20 for nebulization ml amoxicillin-pot clavulanate 875 mg PO BID #10 tab 05/31/20 ferrous sulfate 324 mg PO DAILY #30 tab 05/31/20 guaifenesin [Mucinex] 1,200 mg PO BID #10 tab 05/31/20 ipratropium-albuterol 3 ml INHALATION Q6H PRN #180 ml 05/31/20 nystatin 1 appl TOPICAL BID #1 g 05/31/20 potassium chloride 20 meq PO DAILY #30 tab 05/31/20 Allergies Allergy/AdvReac Type Severity Reaction Status Date / Time Sulfa (Sulfonamide Allergy Intermediate SWELLING Verified 05/27/20 20:09 Antibiotics) [Sulfa (Sulfonamides)] alendronate sodium [Fosamax] Allergy Unknown Unknown Verified 05/27/20 20:09 azithromycin [Zithromax] Allergy Unknown Unknown Verified 05/27/20 20:09 cefepime Allergy Unknown Unknown Verified 05/27/20 20:09 levofloxacin Allergy Unknown Unknown Verified 05/27/20 20:09 umeclidinium [Anoro Ellipta] Allergy Unknown Unknown Verified 05/27/20 20:09 vilanterol [Anoro Ellipta] Allergy Unknown Unknown Verified 05/27/20 20:09 ADHESIVE TAPE Allergy Unknown Unknown Uncoded 05/27/20 20:09 Sucralfate Allergy Unknown Unknown Uncoded 05/27/20 20:09 Sulfamethoxazole Allergy Unknown Unknown Uncoded 05/27/20 20:09 Review of Systems Review of Systems: Yes Unobtainable due to mental status (limited d/t mental status ) ENT: Reports system reviewed and no additional complaints, except as documented, Denies nasal congestion and Denies nasal discharge Respiratory: Respiratory: Denies cough PMFSH Past Medical History Attestation statement: The following information was validated with the patient. Source: old records reviewed and nursing notes reviewed Medical History (Updated 06/04/20 @ 20:58 by Erika Arroyo NP) Blood clot in vein COPD (chronic obstructive pulmonary disease) Diabetes Epistaxis Factor 5 Leiden mutation, heterozygous FH: total knee replacement GERD (gastroesophageal reflux disease) Surgical History History of bronchoscopy History of cholecystectomy Hx of tonsillectomy Social History Social History Housing: Assisted Living Facility Alcohol intake: unknown Smoking Status: Unknown if ever smoked Second Hand Smoke Exposure: No Use of substances other than those prescribed or required for medical reasons: Unknown Advance Directives: Yes Advance Directives on File: Yes Advance Directives Date on File: 05/18/20 service: No Current occupational status: retired Physical Exam Vital Signs: Vital Signs: Last Vital Signs Temp 96.8 F 06/04/20 19:23 Pulse 112 H 06/04/20 19:23 Resp 19 06/04/20 20:25 BP 135/81 06/04/20 19:23 Pulse Ox 92 06/04/20 19:23 Body Mass Index 44.1 Const: General: cooperative and lethargic Orientation/consciousness: oriented to person and lethargic Limitations: altered mental status HENMT: Head: Yes normal to inspection Ears: hearing grossly normal bilate rally General nose exam: Normal external nose present Face and sinus: Yes normal facial exam Mouth: Normal oral and palatal mucosa present Throat: Yes posterior oropharynx normal Eyes: General: appearance normal, both eyes and all related structures Pupils: Equal, round and reactive pupils present Neck: Neck: Yes normal visual inspection Chest: Chest palpation & inspection: normal inspection of the chest Resp: Other: Accessory muscle use noted Coarse breath sounds throughout noted Cardio: Rate: tachycardic Rhythm: regular rhythm Peripheral pulses: Peripheral pulses 2+ throughout GI: Inspection: Yes normal to inspection Palpation (GI): Soft to palpation and nontender Auscultation: normal bowel sounds Back/Spine/Pelvis: Thoracic/Lumbar Spine: thoracic and lumbar spine normal to inspection Skin: General skin exam: no rashes or lesions noted Neuro: Other: Diffuse weakness 3/5 throughout Able to follow simple commands, tell her name, requires frequent re-direction as patient is very lethargic General: oriented to person, moves all extremities, normal sensation to monofilament and Unable to assess gait Cranial nerves: Yes Equal, round and reactive pupils present Gait exam (Neuro): Unable to assess gait Extrem: Other: To the distal anterior LLE there is a healing laceration noted. No surrounding erythema, fluctuance or induration. NV intact distally. General: Yes normal to inspection NIH Stroke Scale Internal: Other (Very limited to mental status-patient not cooperative ) Level of Consciousness: Not Alert; but arousable by minor stimulation Level of Consciousness Questions: Answers one question correctly Level of Consciousness Commands: Performs both tasks correctly Best Gaze: Normal (unable to assess) Visual: No visual loss (unable to assess) Facial Palsy: Normal Motor Arm (Right): Some effort against gravity Motor Arm (Left): Some effort against gravity Motor Leg (Right): Some effort against gravity Motor Leg (Left): Some effort against gravity Limb Ataxia: Absent (unable to assess) Sensory: Normal Best Language: No aphasia (unable to assess) Dysarthia: Normal (unable to assess) Extinction and Inattention: No abnormality (unable to assess ) Score: 10 Course Course Course Narrative: 74 yo female from a SNF with AMS. Noted by today during visit however unable to contact him. Spoke to HCP daughter who tells me patient has been lethargic today, confused. Normally A&Ox4. Last few days complaining of depression with suicidal thoughts. Psych consult pending Friday at facility. daughter told staff and they dispense her medication. Daughter does not feel the patient would harm herself and does not have access to do so. Also noted to have worsening WOB in the last 2 days per family. On arrival patient is lethargic rouses to verbal stimuli and follows simple commands. Oriented to self only which per family is not baseline. Last known well yesterday per family. Coarse breath sounds throughout, accessory muscle use noted with tachypnea with stable saturations 95% on 2LNC. Patient is DNR/DNI. Will need labs including blood cultures, lactic acid, COVID screen, ABG, CXR, CT head, UA, tox screens. 1850-CXR shows low lung volumes with mild atelectasis and mild cardiac enlargement. Will order CT chest to further eval with CT head. Labs show leukocytosis worsened from previous ?secondary to recent prednisone use. BNP normal. ABG shows no hypercarbia. UA negative. Unclear source of lethargy. To place on Bipap for CLD once returned from CT scan. Saturations are stable on baseline 2LNC. 2029-Call from daughter who tells me she spoke to the patient's spouse. The patient has been feeling depressed as well as suicidal and requested him to bring her bottle of ativan to the correction so she may take this as an attempted suicide. The ativan was filled 04/30 #30 to take one daily. Patient had access to this until 05/18 and has not had access to this since as she has been in either the correction or hospital setting. The bottle is currently empty and so they believe the patient may have taken up to 15 tablets of 1mg ativan between 11-2pm today. At this time HD stable. Lethargic but rouses to verbal. Maintaining saturations on 2 LNC. On bipap for CLD which patient is on at home at nighttime. Spoke to poison control. Recommended supportive measures. Imaging pending. 2054-CT chest concern for bilateral infiltrates. AT this time infection is suspected. Antibiotics ordered. Ct head shows no ICH, small vessel ischemic changes and bilateral lacunar infarcts. Recommend MRI if concern for acute or benavides bacute ischemia.Call out to hospitalist to discuss. 2109-Spoke to Dr Jarvis who accepted admission to hospital. Requested adding vancomycin. Section 12 placed on chart. Nursing aware. Daughter Kylie [phone] MDM - Altered Mental Status MDM Narrative Medical decision making narrative: Tox, metabolic encephalopathy (UTI, PNA, viral syndrome), COPD exacerbation, CHF exacerbation, ICH Medical Records Attestation: I reviewed the patient's medical records. Lab Data Attestation: I reviewed the patient's lab results. Result diagrams: 06/04/20 18:06 06/04/20 18:06 Labs: Lab Results 06/04/20 06/04/20 06/04/20 Range/Units 18:05 18:06 18:06 WBC 20.6 H (4.8-10.8) X10*3/uL RBC 4.14 L (4.20-5.50) X10*6/uL Hgb 10.6 L (12.0-16.0) g/dl Hct 35.4 L (37-47) % MCV 85.5 (80-98) fL MCH 25.6 L (27.0-33.0) pg MCHC 29.9 L (31.0-35.0) g/dl RDW 18.2 H (11.0-16.0) % Plt Count 208 D (160-400) X10*3/uL MPV 10.9 (9.4-12.3) fL Immature Gran % (Auto) Cancelled Neut % (Auto) Cancelled Lymph % (Auto) Cancelled Williamson % (Auto) Cancelled Eos % (Auto) Cancelled Baso % (Auto) Cancelled Lymph # (Auto) Cancelled Williamson # (Auto) Cancelled Eos # (Auto) Cancelled Baso # (Auto) Cancelled Abs Immat Gran (auto) Cancelled Absolute Neuts (auto) Cancelled Absolute Nucleated RBC 0.000 (0.0-0.012) X10*3/uL Nucleated RBC % (auto) 0.0 (0.0-0.2) /100WBC Neutrophils % (Manual) 84 H (45-73) % Band Neutrophils % 1 L (3-5) % Lymphocytes % (Manual) 5 L (20-40) % Monocytes % (Manual) 5 (2-11) % Metamyelocytes % 3 % Myelocytes % 2 % Abs Neuts (Manual) 17.5 H (2.2-7.9) X10*3/uL Lymphocytes # (Manual) 1.0 (0.6-4.8) X10*3/uL Monocytes # (Manual) 1.0 (0.0-1.2) X10*3/uL Metamyelocytes # 0.6 X10*3/uL Myelocytes # 0.4 X10*/uL Platelet Estimate NORMAL (NORMAL) Plt Morphology Comment NORMAL RBC Morphology NOTED Polychromasia 1+ (0-2) /OIF Macrocytosis 1+ (5-14) /OIF PT 15.9 H (10.8-13.0) SEC INR 1.3 H (0.9-1.1) O2 Saturation % ABG pH at Pt Temp (7.35-7.45) ABG pH (Temp Correct) (7.35-7.45) ABG pCO2 at Pt Temp (32-45) mmHg ABG pCO2 (Temp Corrct (32-45) mmHg ABG pO2 at Pt Temp (83-108) mmHg ABG pO2 (Temp Correct (83-108) ABG HCO3 (22-26) mmol/L ABG Base Excess (Actual) mmol/L Sodium (135-145) mmol/L Potassium (3.3-5.1) mmol/L Chloride (96-108) mmol/L Carbon Dioxide (22-29) mmol/L Anion Gap (12-20) BUN (9-16) mg/dL Creatinine (0.5-1.4) mg/dL Estim Creat Clear Calc Estimated GFR Random Glucose (60-115) mg/dL Lactic Acid (0.5-2.0) mmol/L Calcium (8.4-10.2) mg/dL Magnesium (1.6-2.6) mg/dL Total Bilirubin (0.0-1.0) mg/dL Direct Bilirubin (0.0-0.5) mg/dL AST (5-31) U/L ALT (0-31) U/L Alkaline Phosphatase (39-117) U/L Troponin I High Sens (<3.5-17.0) ng/L B-Natriuretic Peptide (<100) pg/mL Total Protein (6.5-8.0) g/dL Albumin (3.5-5.0) g/dL Urine Color Urine Appearance Urine pH (5.0-8.0) Ur Specific [place] (1.005-1.025) Urine Protein (NEG-TRACE) MG/DL Urine Glucose (UA) (NEG) MG/DL Urine Ketones (NEG) MG/DL Urine Blood (NEG) Urine Nitrite (NEG) Ur Leukocyte Esterase (NEG) Salicylates (15-30) mg/dL Urine Opiates Screen (Not Detect) Acetaminophen (<30) mcg/mL Ur Barbiturates Screen (Not Detect) Ur Phencyclidine Scrn (Not Detect) Ur Amphetamines Screen (Not Detect) U Benzodiazepines Scrn (Not Detect) Urine Cocaine Screen (Not Detect) U Marijuana (THC) Screen (Not Detect) Ethyl Alcohol mg/dL COVID-19 (ASHVIN) Negative (Negative) COVID-19 Clin Com See Note 06/04/20 06/04/20 06/04/20 Range/Units 18:06 18:06 18:06 WBC (4.8-10.8) X10*3/uL RBC (4.20-5.50) X10*6/uL Hgb (12.0-16.0) g/dl Hct (37-47) % MCV (80-98) fL MCH (27.0-33.0) pg MCHC (31.0-35.0) g/dl RDW (11.0-16.0) % Plt Count (160-400) X10*3/uL MPV (9.4-12.3) fL Immature Gran % (Auto) Neut % (Auto) Lymph % (Auto) Williamson % (Auto) Eos % (Auto) Baso % (Auto) Lymph # (Auto) Williamson # (Auto) Eos # (Auto) Baso # (Auto) Abs Immat Gran (auto) Absolute Neuts (auto) Absolute Nucleated RBC (0.0-0.012) X10*3/uL Nucleated RBC % (auto) (0.0-0.2) /100WBC Neutrophils % (Manual) (45-73) % Band Neutrophils % (3-5) % Lymphocytes % (Manual) (20-40) % Monocytes % (Manual) (2-11) % Metamyelocytes % % Myelocytes % % Abs Neuts (Manual) (2.2-7.9) X10*3/uL Lymphocytes # (Manual) (0.6-4.8) X10*3/uL Monocytes # (Manual) (0.0-1.2) X10*3/uL Metamyelocytes # X10*3/uL Myelocytes # X10*/uL Platelet Estimate (NORMAL) Plt Morphology Comment RBC Morphology Polychromasia /OIF Macrocytosis /OIF PT (10.8-13.0) SEC INR (0.9-1.1) O2 Saturation % ABG pH at Pt Temp (7.35-7.45) ABG pH (Temp Correct) (7.35-7.45) ABG pCO2 at Pt Temp (32-45) mmHg ABG pCO2 (Temp Corrct (32-45) mmHg ABG pO2 at Pt Temp (83-108) mmHg ABG pO2 (Temp Correct (83-108) ABG HCO3 (22-26) mmol/L ABG Base Excess (Actual) mmol/L Sodium 139 (135-145) mmol/L Potassium 3.6 (3.3-5.1) mmol/L Chloride 97 (96-108) mmol/L Carbon Dioxide 28 (22-29) mmol/L Anion Gap 18 (12-20) BUN 11 D (9-16) mg/dL Creatinine 0.76 (0.5-1.4) mg/dL Estim Creat Clear Calc 71.7 Estimated GFR > 60 Random Glucose 141 H D (60-115) mg/dL Lactic Acid 0.9 (0.5-2.0) mmol/L Calcium 8.1 L D (8.4-10.2) mg/dL Magnesium 1.7 (1.6-2.6) mg/dL Total Bilirubin 0.2 (0.0-1.0) mg/dL Direct Bilirubin 0.2 (0.0-0.5) mg/dL AST 12 (5-31) U/L ALT 20 (0-31) U/L Alkaline Phosphatase 73 (39-117) U/L Troponin I High Sens 11.3 (<3.5-17.0) ng/L B-Natriuretic Peptide 94 (<100) pg/mL Total Protein 6.2 L (6.5-8.0) g/dL Albumin 3.1 L (3.5-5.0) g/dL Urine Color Urine Appearance Urine pH (5.0-8.0) Ur Specific [place] (1.005-1.025) Urine Protein (NEG-TRACE) MG/DL Urine Glucose (UA) (NEG) MG/DL Urine Ketones (NEG) MG/DL Urine Blood (NEG) Urine Nitrite (NEG) Ur Leukocyte Esterase (NEG) Salicylates (15-30) mg/dL Urine Opiates Screen (Not Detect) Acetaminophen (<30) mcg/mL Ur Barbiturates Screen (Not Detect) Ur Phencyclidine Scrn (Not Detect) Ur Amphetamines Screen (Not Detect) U Benzodiazepines Scrn (Not Detect) Urine Cocaine Screen (Not Detect) U Marijuana (THC) Screen (Not Detect) Ethyl Alcohol mg/dL COVID-19 (ASHVIN) (Negative) COVID-19 Clin Com 06/04/20 06/04/20 06/04/20 Range/Units 18:13 18:13 18:27 WBC (4.8-10.8) X10*3/uL RBC (4.20-5.50) X10*6/uL Hgb (12.0-16.0) g/dl Hct (37-47) % MCV (80-98) fL MCH (27.0-33.0) pg MCHC (31.0-35.0) g/dl RDW (11.0-16.0) % Plt Count (160-400) X10*3/uL MPV (9.4-12.3) fL Immature Gran % (Auto) Neut % (Auto) Lymph % (Auto) Williamson % (Auto) Eos % (Auto) Baso % (Auto) Lymph # (Auto) Williamson # (Auto) Eos # (Auto) Baso # (Auto) Abs Immat Gran (auto) Absolute Neuts (auto) Absolute Nucleated RBC (0.0-0.012) X10*3/uL Nucleated RBC % (auto) (0.0-0.2) /100WBC Neutrophils % (Manual) (45-73) % Band Neutrophils % (3-5) % Lymphocytes % (Manual) (20-40) % Monocytes % (Manual) (2-11) % Metamyelocytes % % Myelocytes % % Abs Neuts (Manual) (2.2-7.9) X10*3/uL Lymphocytes # (Manual) (0.6-4.8) X10*3/uL Monocytes # (Manual) (0.0-1.2) X10*3/uL Metamyelocytes # X10*3/uL Myelocytes # X10*/uL Platelet Estimate (NORMAL) Plt Morphology Comment RBC Morphology Polychromasia /OIF Macrocytosis /OIF PT (10.8-13.0) SEC INR (0.9-1.1) O2 Saturation 95.0 % ABG pH at Pt Temp 7.42 (7.35-7.45) ABG pH (Temp Correct) 7.42 (7.35-7.45) ABG pCO2 at Pt Temp 48 H (32-45) mmHg ABG pCO2 (Temp Corrct 47 H (32-45) mmHg ABG pO2 at Pt Temp 82 L (83-108) mmHg ABG pO2 (Temp Correct 80 L (83-108) ABG HCO3 31 H (22-26) mmol/L ABG Base Excess (Actual) 6.2 mmol/L Sodium (135-145) mmol/L Potassium (3.3-5.1) mmol/L Chloride (96-108) mmol/L Carbon Dioxide (22-29) mmol/L Anion Gap (12-20) BUN (9-16) mg/dL Creatinine (0.5-1.4) mg/dL Estim Creat Clear Calc Estimated GFR Random Glucose (60-115) mg/dL Lactic Acid (0.5-2.0) mmol/L Calcium (8.4-10.2) mg/dL Magnesium (1.6-2.6) mg/dL Total Bilirubin (0.0-1.0) mg/dL Direct Bilirubin (0.0-0.5) mg/dL AST (5-31) U/L ALT (0-31) U/L Alkaline Phosphatase (39-117) U/L Troponin I High Sens (<3.5-17.0) ng/L B-Natriuretic Peptide (<100) pg/mL Total Protein (6.5-8.0) g/dL Albumin (3.5-5.0) g/dL Urine Color YELLOW Urine Appearance CLEAR Urine pH 5.5 (5.0-8.0) Ur Specific [place] 1.020 (1.005-1.025) Urine Protein NEG (NEG-TRACE) MG/DL Urine Glucose (UA) NEG (NEG) MG/DL Urine Ketones NEG (NEG) MG/DL Urine Blood NEG (NEG) Urine Nitrite NEG (NEG) Ur Leukocyte Esterase NEG (NEG) Salicylates (15-30) mg/dL Urine Opiates Screen Not Detected (Not Detect) Acetaminophen (<30) mcg/mL Ur Barbiturates Screen Not Detected (Not Detect) Ur Phencyclidine Scrn Not Detected (Not Detect) Ur Amphetamines Screen Not Detected (Not Detect) U Benzodiazepines Scrn Not Detected (Not Detect) Urine Cocaine Screen Not Detected (Not Detect) U Marijuana (THC) Screen Not Detected (Not Detect) Ethyl Alcohol mg/dL COVID-19 (ASHVIN) (Negative) COVID-19 Clin Com 06/04/20 06/04/20 Range/Units 18:35 18:35 WBC (4.8-10.8) X10*3/uL RBC (4.20-5.50) X10*6/uL Hgb (12.0-16.0) g/dl Hct (37-47) % MCV (80-98) fL MCH (27.0-33.0) pg MCHC (31.0-35.0) g/dl RDW (11.0-16.0) % Plt Count (160-400) X10*3/uL MPV (9.4-12.3) fL Immature Gran % (Auto) Neut % (Auto) Lymph % (Auto) Williamson % (Auto) Eos % (Auto) Baso % (Auto) Lymph # (Auto) Williamson # (Auto) Eos # (Auto) Baso # (Auto) Abs Immat Gran (auto) Absolute Neuts (auto) Absolute Nucleated RBC (0.0-0.012) X10*3/uL Nucleated RBC % (auto) (0.0-0.2) /100WBC Neutrophils % (Manual) (45-73) % Band Neutrophils % (3-5) % Lymphocytes % (Manual) (20-40) % Monocytes % (Manual) (2-11) % Metamyelocytes % % Myelocytes % % Abs Neuts (Manual) (2.2-7.9) X10*3/uL Lymphocytes # (Manual) (0.6-4.8) X10*3/uL Monocytes # (Manual) (0.0-1.2) X10*3/uL Metamyelocytes # X10*3/uL Myelocytes # X10*/uL Platelet Estimate (NORMAL) Plt Morphology Comment RBC Morphology Polychromasia /OIF Macrocytosis /OIF PT (10.8-13.0) SEC INR (0.9-1.1) O2 Saturation % ABG pH at Pt Temp (7.35-7.45) ABG pH (Temp Correct) (7.35-7.45) ABG pCO2 at Pt Temp (32-45) mmHg ABG pCO2 (Temp Corrct (32-45) mmHg ABG pO2 at Pt Temp (83-108) mmHg ABG pO2 (Temp Correct (83-108) ABG HCO3 (22-26) mmol/L ABG Base Excess (Actual) mmol/L Sodium (135-145) mmol/L Potassium (3.3-5.1) mmol/L Chloride (96-108) mmol/L Carbon Dioxide (22-29) mmol/L Anion Gap (12-20) BUN (9-16) mg/dL Creatinine (0.5-1.4) mg/dL Estim Creat Clear Calc Estimated GFR Random Glucose (60-115) mg/dL Lactic Acid (0.5-2.0) mmol/L Calcium (8.4-10.2) mg/dL Magnesium (1.6-2.6) mg/dL Total Bilirubin (0.0-1.0) mg/dL Direct Bilirubin (0.0-0.5) mg/dL AST (5-31) U/L ALT (0-31) U/L Alkaline Phosphatase (39-117) U/L Troponin I High Sens (<3.5-17.0) ng/L B-Natriuretic Peptide (<100) pg/mL Total Protein (6.5-8.0) g/dL Albumin (3.5-5.0) g/dL Urine Color Urine Appearance Urine pH (5.0-8.0) Ur Specific [place] (1.005-1.025) Urine Protein (NEG-TRACE) MG/DL Urine Glucose (UA) (NEG) MG/DL Urine Ketones (NEG) MG/DL Urine Blood (NEG) Urine Nitrite (NEG) Ur Leukocyte Esterase (NEG) Salicylates < 5.0 L (15-30) mg/dL Urine Opiates Screen (Not Detect) Acetaminophen < 1 (<30) mcg/mL Ur Barbiturates Screen (Not Detect) Ur Phencyclidine Scrn (Not Detect) Ur Amphetamines Screen (Not Detect) U Benzodiazepines Scrn (Not Detect) Urine Cocaine Screen (Not Detect) U Marijuana (THC) Screen (Not Detect) Ethyl Alcohol < 10 mg/dL COVID-19 (ASHVIN) (Negative) COVID-19 Clin Com Imaging Data Chest x-ray: Attestation: I personally reviewed and interpreted this imaging study as follows: Radiologist's impression: [address] [id number] ReportSigned Patient: Natalie Cano#: [id number]: 5Acct:[id number]/Sex: 74 / FADM Date: 06/04/20Loc: HO.EDAttending Dr: Ordering Physician: ERIKA ARROYO NP Date of Service: 06/04/20 Procedure(s): XR chest 1V Accession Number(s): [id number] cc: ERIKA ARROYO NP~ EXAMINATION: XR CHEST CLINICAL INFORMATION: Shortness of breath. COMPARISON: 05/22/2020 portable chest. TECHNIQUE: Frontal view of the chest was obtained. FINDINGS: Low lung volumes limit evaluation. Mild linear markings are seen at the left lung base. The left upper lung field and right lung are clear. The heart is mildly enlarged. The mediastinal structures are unremarkable. XR/XR chest 1V IMPRESSION: Mild linear atelectasis versus scarring at the left lung base. Mild cardiac enlargement. CT scan - head: Radiologist's impression: There is no evidence of acute intracranial hemorrhage or territorial infarction. No abnormal mass effect or midline shift is seen. Lemon to white matter differentiation is well preserved. No extra-axial fluid collections are identified. The ventricles are normal in size. Patchy subcortical and periventricular white matter low-attenuation changes statistically related to chronic white matter small vessel ischemic disease. Bilateral chronic gangliocapsular lacunar infarcts suspected. Cavernous carotid calcifications. The osseous structures and soft tissues are normal. Bilateral mastoid air cell effusions. Minimal secretions present within the left middle ear cavity. Paranasal sinuses are clear. CT/CT head/brain wo con IMPRESSION: * No acute intracranial hemorrhage. * Small vessel ischemic changes and bilateral gangliocapsular lacunar infarcts. If there is concern for acute or subacute ischemia, MRI is indicated. * Partial bilateral mastoid air cell effusions. CT scan - chest: Attestation: I personally reviewed and interpreted this imaging study as follows: Radiologist's impression: 1. Bilateral lower lobe airspace opacities, slightly decreased on the right and slightly increased on the left when compared to the CT dated 05/22/2020. Findings could represent atelectasis versus early infiltrates. 2. Fluid/secretions redemonstrated within the left mainstem bronchus, similar when compared to the prior CT. 3. Small, sliding hiatal hernia. 4. Compression fractures redemonstrated throughout the thoracic spine, unchanged. ECG Data ECG #1: Attestation: I personally reviewed and interpreted this ECG as follows: ECG interpretation date: 06/04/20 ECG interpretation time: 17:58 Interpretation: ST with rate 116 with PVC's, normal pr, normal qrs, normal qtc Critical Care Time Critical Care Time Critical Care Time: Yes Total Critical Care Time: 60 Attestation: Discussion with family multiple times, re-evaluation for mental status, vital signs multiple times Discharge Plan Discharge Clinical Impression: Overdose of benzodiazepine, Leukocytosis, Pneumonia Patient Disposition: Admitted As Inpatient
[2020-06-04 18:14] LABS: Hematocrit 35.4 % (37-47); Hemoglobin 10.6 g/dl (12.0-16.0); Mean Corpuscular HGB Conc 29.9 g/dl (31.0-35.0); Mean Corpuscular Hemoglobin 25.6 pg (27.0-33.0); Mean Corpuscular Volume 85.5 fL (80-98); Mean Platelet Volume 10.9 fL (9.4-12.3); Platelet Count 208 X10*3/uL (160-400); Red Blood Count 4.14 X10*6/uL (4.20-5.50); Red Cell Distribution Width 18.2 % (11.0-16.0); White Blood Count 20.6 X10*3/uL (4.8-10.8)
[2020-06-04 18:20] LABS: INTERNATIONAL NORM RATIO 1.3 (0.9-1.1); Prothrombin Time 15.9 SEC (10.8-13.0)
[2020-06-04 18:27] LABS: Appearance Urine CLEAR; Color Urine YELLOW; Glucose Urine UA NEG (NEG); Leukocyte Esterase Urine NEG (NEG); Nitrite Urine NEG (NEG); PH 5.5 (5.0-8.0); Urine Blood NEG (NEG); Urine Ketones NEG (NEG); Urine Protein NEG (NEG-TRACE)
[2020-06-04] MEDS: Albuterol/Iprat 2.5/0.5MG 3 ML AMPUL.NEB INHALE (18:28)
[2020-06-04 18:30] LABS: Lactic Acid 0.9 mmol/L (0.5-2.0)
[2020-06-04 18:33] LABS: COVID-19 Test Negative (Negative)
[2020-06-04 18:34] LABS: ABG Refer to POC result
[2020-06-04 18:35] LABS: ABG Base Excess 6.2 mmol/L; ABG HCO3 31 mmol/L (22-26); ABG pCO2 48 mmHg (32-45); ABG pCO2 TC 47 mmHg (32-45); ABG pH 7.42 (7.35-7.45); ABG pH TC 7.42 (7.35-7.45); ABG pO2 82 mmHg (83-108); ABG pO2 TC 80 (83-108)
[2020-06-04 18:35] LABS: Alanine Aminotransferase 20 U/L (0-31); Albumin Level 3.1 g/dL (3.5-5.0); Alkaline Phosphatase 73 U/L (39-117); Anion Gap 18 (12-20); Aspartate Amino Transferase 12 U/L (5-31); Bilirubin Direct 0.2 mg/dL (0.0-0.5); Bilirubin Total 0.2 mg/dL (0.0-1.0); Blood Urea Nitrogen 11 mg/dL (9-16); Calcium 8.1 mg/dL (8.4-10.2); Carbon Dioxide 28 mmol/L (22-29); Chloride 97 mmol/L (96-108); Creatinine Clr Calc Pharmacy 71.7; Estimated Glomerular Filt Rate > 60; Glucose Random 141 mg/dL (60-115); Magnesium 1.7 mg/dL (1.6-2.6); Potassium 3.6 mmol/L (3.3-5.1); Sodium 139 mmol/L (135-145); Total Protein 6.2 g/dL (6.5-8.0)
[2020-06-04 18:38] LABS: Band Neutrophils Percent 1 % (3-5); Lymphocytes Percent Manual 5 % (20-40); Metamyelocytes Absolute 0.6 X10*3/uL; Metamyelocytes Percent 3 %; Monocytes Percent Manual 5 % (2-11); Myelocytes Absolute 0.4 X10*/uL; Myelocytes Percent 2 %; Neutrophils Absolute Manual 17.5 X10*3/uL (2.2-7.9); Neutrophils Percent Manual 84 % (45-73)
[2020-06-04 18:40] LABS: B Type Natriuretic Peptide 94 pg/mL (<100); Troponin-I High Sensitivity 11.3 ng/L (<3.5-17.0)
[2020-06-04 18:41] LABS: Macrocytosis 1+ (5-14) /OIF; Polychromasia 1+ (0-2) /OIF; RBC Morphology NOTED
[2020-06-04 18:42] LABS: Platelet Estimate NORMAL (NORMAL); Platelet Morphology Comment NORMAL
[2020-06-04 18:55] LABS: Amphetamine Screen Urine Not Detected (Not Detect); Barbiturates, Urine Not Detected (Not Detect); Benzodiazepines Screen Urine Not Detected (Not Detect); Cannabinoid Screen Urine Not Detected (Not Detect); Cocaine Screen Urine Not Detected (Not Detect); Opiate Screen Urine Not Detected (Not Detect); Phencyclidine Screen Urine Not Detected (Not Detect)
[2020-06-04 19:03] LABS: Ethanol < 10 mg/dL
[2020-06-04 19:05] LABS: Acetaminophen LAB < 1 mcg/mL (<30); Salicylate < 5.0 mg/dL (15-30)
--- NOTE | 2020-06-04 20:48 | PC.NURSE ---
Addendum entered by Paula Melendez 06/04/20 20:50: Pt and daughter also report pt was making SI statements earlier today. Facility staff aware. Original Note: Pt tolerating bipap well at this time. Continues to be lethargic. Pt family reports to ingested approc 50 0.5 mg ativan around 2pm today. carson Crawford aware and placed call to poison control.
--- NOTE | 2020-06-04 21:21 | PC.NURSE ---
Unable to complete [place] suicide scale w/ pt r/t lethargy.
[2020-06-04] MEDS: Piperacillin Sodium/Tazobactam 3.375 GM in 0.9 % Sodium Chloride 50 ML IV (21:25)
--- NOTE | 2020-06-04 21:26 | PM.IMHP ---
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 She most of the history obtained from the ER staff, family, records. Reportedly patient has been depressed over the past few days at the longterm and today she took 12-15 tablets of Ativan 1 mg. Subsequently patient was brought into the hospital with a chief complaint of altered mental status. Patient was recently discharged from the hospital for pneumonia was on Augmentin as outpatient. ER team mentioned that this spoke to the patient's daughter and followed the patient was due suicidal and took Ativan tablets. Patient was lethargic and drowsy, follows simple commands and falls back to sleep. Rates the airway is okay. Does not seem to be in discomfort. ER course: ER team mentioned that patient was noted to be lethargic on presentation; CT scan showed pneumonia and old compression fractures and bronchial secretions. Patient was protecting airways. Briefly placed on BiPAP. ER team mentioned that this spoke to poison Control who recommended supportive therapy and also mentioned that benzos may not disease in the urinary tox screen in the initial period. Patient was section 12 in the ER and 1 on 1 sitter was placed. Patient was given vanc and Zosyn. Blood cultures were sent. Admitted to the hospital for further management. [facility] Medical History Blood clot in vein COPD (chronic obstructive pulmonary disease) Diabetes Epistaxis Factor 5 Leiden mutation, heterozygous FH: total knee replacement GERD (gastroesophageal reflux disease) Heart failure Intra-abdominal abscess EMERALD (obstructive sleep apnea) Surgical History History of bronchoscopy History of cholecystectomy Hx of tonsillectomy Social History Household Members: Other Household Members Other:: [facility] Housing: Assisted Living Facility Housing Other:: [facility] Do you presently have visiting nurse or other home services: Yes Unable to assess alcohol history related to: Unable to respond, Unknown and Refusing to respond Alcohol intake: unknown Smoking Status: Unknown if ever smoked Second Hand Smoke Exposure: No Use of substances other than those prescribed or required for medical reasons: Unknown Currently Displaying Signs/Symptoms of Drug Intoxication Withdrawal: No Advance Directives: Yes Advance Directives on File: Yes Advance Directives Date on File: 05/18/20 Do you have thoughts of harming others: None Do you have a plan to hurt others: No Plan Recently lost weight without trying: Unsure service: No Current occupational status: retired Meds Allergies Allergy/AdvReac Type Severity Reaction Status Date / Time Sulfa (Sulfonamide Allergy Intermediate SWELLING Verified 05/27/20 20:09 Antibiotics) [Sulfa (Sulfonamides)] alendronate sodium [Fosamax] Allergy Unknown Unknown Verified 05/27/20 20:09 azithromycin [Zithromax] Allergy Unknown Unknown Verified 05/27/20 20:09 cefepime Allergy Unknown Unknown Verified 05/27/20 20:09 levofloxacin Allergy Unknown Unknown Verified 05/27/20 20:09 umeclidinium [Anoro Ellipta] Allergy Unknown Unknown Verified 05/27/20 20:09 vilanterol [Anoro Ellipta] Allergy Unknown Unknown Verified 05/27/20 20:09 vancomycin AdvReac Severe thrombocyto Verified 06/06/20 17:13 penia ADHESIVE TAPE Allergy Unknown Unknown Uncoded 05/27/20 20:09 Sucralfate Allergy Unknown Unknown Uncoded 05/27/20 20:09 Sulfamethoxazole Allergy Unknown Unknown Uncoded 05/27/20 20:09 Active Medications: Current Medications Generic Name Dose Route Start Last Admin Trade Name Freq PRN Reason Stop Dose Admin Acetaminophen 650 mg 06/04/20 21:23 Acetaminophen Supp 650 Mg Supp.Rect IN Q6H PRN Pain, Mild (Pain Scale 1-3) Albuterol/Ipratropium 3 ml 06/04/20 21:18 Albuterol/Iprat 2.5/0.5mg 3 Ml Ampul.Neb INHALE Q6H PRN shortness of breath Apixaban 2.5 mg 06/05/20 09:00 Apixaban 2.5 Mg Tablet PO BID [facility] Ferrous Sulfate 324 mg 06/05/20 09:00 Ferrous Sulfate 324 Mg Tablet.Dr PO DAILY [facility] Furosemide 40 mg 06/05/20 09:00 Furosemide 40 Mg Tablet PO DAILY [facility] Protocol Guaifenesin 1,200 mg 06/05/20 09:00 Guaifenesin La 600 Mg Tab.Er.12h PO BID [facility] Vancomycin HCl 1,500 mg/ 500 mls @ 333.333 mls/hr 06/04/20 21:12 Sodium Chloride IV 06/04/20 22:41 ONCE ONE Piperacillin Sod/Tazobactam 50 mls @ 100 mls/hr 06/04/20 21:30 Sod 3.375 gm/ Sodium Chloride IV Q6H [facility] Vancomycin HCl 1,000 mg/ 270 mls @ 270 mls/hr 06/04/20 21:30 Sodium Chloride IV Q12H [facility] Sodium Chloride 1,000 mls @ 50 mls/hr 06/04/20 21:30 Ns IVCONT .Q20H [facility] Insulin Human Lispro 0 unit 06/05/20 07:30 Insulin Lispro 100 Unit/Ml 3 Ml Vial SUBCUT QIDACHS [facility] Protocol Loratadine 10 mg 06/05/20 09:00 Loratadine 10 Mg Tablet PO DAILY [facility] Metoprolol Tartrate 12.5 mg 06/05/20 09:00 Metoprolol Tartrate 25 Mg Tablet PO BID [facility] Protocol Montelukast Sodium 10 mg 06/05/20 21:00 Montelukast Sodium 10 Mg Tablet PO BEDTIME [facility] Non-Formulary Medication 40 mg 06/05/20 09:00 Pantoprazole PO BID [facility] Pharmacy Consult 1 each 06/04/20 21:12 Consult Rx Vancomycin Dosing MISCELLANE DAILY PRN Consult order Pharmacy Consult 1 each 06/04/20 21:20 Consult Rx Vancomycin Dosing MISCELLANE DAILY PRN Consult order Senna 17.2 mg 06/04/20 21:23 Sennosides 8.6 Mg Tablet PO BEDTIME PRN Constipation Sertraline HCl 25 mg 06/05/20 09:00 Sertraline Hcl 25 Mg Tablet PO DAILY [facility] Sodium Chloride 3 ml 06/05/20 00:00 0.9 % Sodium Chloride Flush 3 Ml Syringe [facility] Home Medications Medication Instructions Recorded Confirmed Last Taken Type Eliquis 2.5 mg PO BID 05/18/20 06/04/20 05/22/20 History Flovent HFA 2 puff INHALATION BID 05/18/20 06/04/20 05/22/20 History furosemide 40 mg PO DAILY 05/18/20 06/04/2021 History lorazepam 1 mg PO BEDTIME PRN 05/18/20 06/04/20 05/21/20 History metoprolol tartrate 12.5 mg PO BID 05/18/20 06/04/20 05/22/20 History montelukast 10 mg PO BEDTIME 05/18/20 06/04/20 05/21/20 History pantoprazole 40 mg PO BID 05/18/20 06/04/20 05/22/20 History pioglitazone 15 mg PO DAILY 05/18/20 06/04/20 05/22/20 History sertraline 25 mg PO DAILY 05/18/20 06/04/20 05/22/20 History calcium carbonate-vitamin D2 1 tab PO DAILY 06/04/20 06/04/20 Unknown History [Calcium + Vitamin D] cholecalciferol (vitamin D3) 25 mcg PO DAILY 06/04/20 06/04/20 Unknown History [Vitamin D3] glucosamine sulfate [Glucosamine] 750 mg PO DAILY 06/04/20 06/04/20 Unknown History insulin lispro [Humalog U-100 1 sliding scale dose SUBCUT 06/04/20 06/04/20 Unknown History Insulin] USEASDIRECTD loratadine [Claritin] 10 mg PO DAILY 06/04/20 06/04/20 Unknown History zolpidem [Ambien] 5 mg PO BEDTIME PRN 06/04/20 06/04/20 Unknown History Physical Exam Vital Signs and Narrative: Vital Signs: Last Vital Signs Temp 96.8 F 06/04/20 19:23 Pulse 112 H 06/04/20 19:23 Resp 19 06/04/20 20:25 BP 135/81 06/04/20 19:23 Pulse Ox 92 06/04/20 19:23 Body Mass Index 44.1 Gen: Appears be in no acute distress. On supplemental oxygen HEENT: NCAT, dry mucosa. Pulmonary: Course breath sounds, fair air entry CVS: Normal S1-S2 Abdomen: BS+, Soft, Nontender Extremities: Warm well perfused Neuro: Lethargic, drowsy but follows simple commands. Results Labs CBC and Chem 7: 06/10/20 07:28 06/12/20 05:45 Labs: Laboratory Results - last 24 hr 06/04/20 06/04/20 06/04/20 18:05 18:06 18:06 MCV 85.5 MCH 25.6 L MCHC 29.9 L RDW 18.2 H Plt Count 208 D MPV 10.9 Immature Gran % (Auto) Cancelled Neut % (Auto) Cancelled Lymph % (Auto) Cancelled [place] % (Auto) Cancelled Eos % (Auto) Cancelled Baso % (Auto) Cancelled Lymph # (Auto) Cancelled [place] # (Auto) Cancelled Eos # (Auto) Cancelled Baso # (Auto) Cancelled Abs Immat Gran (auto) Cancelled Absolute Neuts (auto) Cancelled Absolute Nucleated RBC 0.000 Nucleated RBC % (auto) 0.0 Neutrophils % (Manual) 84 H Band Neutrophils % 1 L Lymphocytes % (Manual) 5 L Monocytes % (Manual) 5 Metamyelocytes % 3 Myelocytes % 2 Abs Neuts (Manual) 17.5 H Lymphocytes # (Manual) 1.0 Monocytes # (Manual) 1.0 Metamyelocytes # 0.6 Myelocytes # 0.4 Platelet Estimate NORMAL Plt Morphology Comment NORMAL RBC Morphology NOTED Polychromasia 1+ (0-2) Macrocytosis 1+ (5-14) PT 15.9 H INR 1.3 H O2 Saturation ABG pH at Pt Temp ABG pH (Temp Correct) ABG pCO2 at Pt Temp ABG pCO2 (Temp Corrct ABG pO2 at Pt Temp ABG pO2 (Temp Correct ABG HCO3 ABG Base Excess (Actual) Anion Gap Estim Creat Clear Calc Estimated GFR Random Glucose Lactic Acid Calcium Magnesium Total Bilirubin Direct Bilirubin AST ALT Alkaline Phosphatase Troponin I High Sens B-Natriuretic Peptide Total Protein Albumin Urine Color Urine Appearance Urine pH Ur Specific [place] Urine Protein Urine Glucose (UA) Urine Ketones Urine Blood Urine Nitrite Ur Leukocyte Esterase Salicylates Urine Opiates Screen Acetaminophen Ur Barbiturates Screen Ur Phencyclidine Scrn Ur Amphetamines Screen U Benzodiazepines Scrn Urine Cocaine Screen U Marijuana (THC) Screen Ethyl Alcohol COVID-19 (ASHVIN) Negative COVID-19 Clin Com See Note 06/04/20 06/04/20 06/04/20 18:06 18:06 18:06 MCV MCH MCHC RDW Plt Count MPV Immature Gran % (Auto) Neut % (Auto) Lymph % (Auto) [place] % (Auto) Eos % (Auto) Baso % (Auto) Lymph # (Auto) [place] # (Auto) Eos # (Auto) Baso # (Auto) Abs Immat Gran (auto) Absolute Neuts (auto) Absolute Nucleated RBC Nucleated RBC % (auto) Neutrophils % (Manual) Band Neutrophils % Lymphocytes % (Manual) Monocytes % (Manual) Metamyelocytes % Myelocytes % Abs Neuts (Manual) Lymphocytes # (Manual) Monocytes # (Manual) Metamyelocytes # Myelocytes # Platelet Estimate Plt Morphology Comment RBC Morphology Polychromasia Macrocytosis PT INR O2 Saturation ABG pH at Pt Temp ABG pH (Temp Correct) ABG pCO2 at Pt Temp ABG pCO2 (Temp Corrct ABG pO2 at Pt Temp ABG pO2 (Temp Correct ABG HCO3 ABG Base Excess (Actual) Anion Gap 18 Estim Creat Clear Calc 71.7 Estimated GFR > 60 Random Glucose 141 H D Lactic Acid 0.9 Calcium 8.1 L D Magnesium 1.7 Total Bilirubin 0.2 Direct Bilirubin 0.2 AST 12 ALT 20 Alkaline Phosphatase 73 Troponin I High Sens 11.3 B-Natriuretic Peptide 94 Total Protein 6.2 L Albumin 3.1 L Urine Color Urine Appearance Urine pH Ur Specific [place] Urine Protein Urine Glucose (UA) Urine Ketones Urine Blood Urine Nitrite Ur Leukocyte Esterase Salicylates Urine Opiates Screen Acetaminophen Ur Barbiturates Screen Ur Phencyclidine Scrn Ur Amphetamines Screen U Benzodiazepines Scrn Urine Cocaine Screen U Marijuana (THC) Screen Ethyl Alcohol COVID-19 (ASHVIN) COVID-19 Clin Com 06/04/20 06/04/20 06/04/20 18:13 18:13 18:27 MCV MCH MCHC RDW Plt Count MPV Immature Gran % (Auto) Neut % (Auto) Lymph % (Auto) [place] % (Auto) Eos % (Auto) Baso % (Auto) Lymph # (Auto) [place] # (Auto) Eos # (Auto) Baso # (Auto) Abs Immat Gran (auto) Absolute Neuts (auto) Absolute Nucleated RBC Nucleated RBC % (auto) Neutrophils % (Manual) Band Neutrophils % Lymphocytes % (Manual) Monocytes % (Manual) Metamyelocytes % Myelocytes % Abs Neuts (Manual) Lymphocytes # (Manual) Monocytes # (Manual) Metamyelocytes # Myelocytes # Platelet Estimate Plt Morphology Comment RBC Morphology Polychromasia Macrocytosis PT INR O2 Saturation 95.0 ABG pH at Pt Temp 7.42 ABG pH (Temp Correct) 7.42 ABG pCO2 at Pt Temp 48 H ABG pCO2 (Temp Corrct 47 H ABG pO2 at Pt Temp 82 L ABG pO2 (Temp Correct 80 L ABG HCO3 31 H ABG Base Excess (Actual) 6.2 Anion Gap Estim Creat Clear Calc Estimated GFR Random Glucose Lactic Acid Calcium Magnesium Total Bilirubin Direct Bilirubin AST ALT Alkaline Phosphatase Troponin I High Sens B-Natriuretic Peptide Total Protein Albumin Urine Color YELLOW Urine Appearance CLEAR Urine pH 5.5 Ur Specific [place] 1.020 Urine Protein NEG Urine Glucose (UA) NEG Urine Ketones NEG Urine Blood NEG Urine Nitrite NEG Ur Leukocyte Esterase NEG Salicylates Urine Opiates Screen Not Detected Acetaminophen Ur Barbiturates Screen Not Detected Ur Phencyclidine Scrn Not Detected Ur Amphetamines Screen Not Detected U Benzodiazepines Scrn Not Detected Urine Cocaine Screen Not Detected U Marijuana (THC) Screen Not Detected Ethyl Alcohol COVID-19 (ASHVIN) COVID-19 [employer] Com 06/04/20 06/04/20 18:35 18:35 MCV MCH MCHC RDW Plt Count MPV Immature Gran % (Auto) Neut % (Auto) Lymph % (Auto) [place] % (Auto) Eos % (Auto) Baso % (Auto) Lymph # (Auto) [place] # (Auto) Eos # (Auto) Baso # (Auto) Abs Immat Gran (auto) Absolute Neuts (auto) Absolute Nucleated RBC Nucleated RBC % (auto) Neutrophils % (Manual) Band Neutrophils % Lymphocytes % (Manual) Monocytes % (Manual) Metamyelocytes % Myelocytes % Abs Neuts (Manual) Lymphocytes # (Manual) Monocytes # (Manual) Metamyelocytes # Myelocytes # Platelet Estimate Plt Morphology Comment RBC Morphology Polychromasia Macrocytosis PT INR O2 Saturation ABG pH at Pt Temp ABG pH (Temp Correct) ABG pCO2 at Pt Temp ABG pCO2 (Temp Corrct ABG pO2 at Pt Temp ABG pO2 (Temp Correct ABG HCO3 ABG Base Excess (Actual) Anion Gap Estim Creat Clear Calc Estimated GFR Random Glucose Lactic Acid Calcium Magnesium Total Bilirubin Direct Bilirubin AST ALT Alkaline Phosphatase Troponin I High Sens B-Natriuretic Peptide Total Protein Albumin Urine Color Urine Appearance Urine pH Ur Specific [place] Urine Protein Urine Glucose (UA) Urine Ketones Urine Blood Urine Nitrite Ur Leukocyte Esterase Salicylates < 5.0 L Urine Opiates Screen Acetaminophen < 1 Ur Barbiturates Screen Ur Phencyclidine Scrn Ur Amphetamines Screen U Benzodiazepines Scrn Urine Cocaine Screen U Marijuana (THC) Screen Ethyl Alcohol < 10 COVID-19 (ASHVIN) COVID-19 Clin Com Imaging Radiologist's Impressions: Impressions Chest X-Ray 06/04/20 17:39 IMPRESSION: Mild linear atelectasis versus scarring at the left lung base. Mild cardiac enlargement. Chest CT 06/04/20 18:54 IMPRESSION: 1. Bilateral lower lobe airspace opacities, slightly decreased on the right and slightly increased on the left when compared to the CT dated 05/22/2020. Findings could represent atelectasis versus early infiltrates. 2. Fluid/secretions redemonstrated within the left mainstem bronchus, similar when compared to the prior CT. 3. Small, sliding hiatal hernia. 4. Compression fractures redemonstrated throughout the thoracic spine, unchanged. Head CT 06/04/20 18:54 IMPRESSION: * No acute intracranial hemorrhage. * Small vessel ischemic changes and bilateral gangliocapsular lacunar infarcts. If there is concern for acute or subacute ischemia, MRI is indicated. * Partial bilateral mastoid air cell effusions. 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 Altered mental status: Likely in setting of benzodiazepine overdose/toxic metabolic encephalopathy. Patient currently lethargic. Will keep the patient NPO. Dysphagia screen. Fall precautions. Aspiration precautions. Suicidal ideation/benzodiazepine overdose: Patient was placed on 1 on 1 observation. Section 12 was done in the ER. Psychiatric consult. Patient reported to Will to 15 tablets of Ativan 1 mg tablets. Poison Control recommended supportive therapy and observation. Patient currently protecting the airway is okay. Discussed with the family who mentioned that patient is strict DNR DNI but BiPAP okay. Health-care associated pneumonia: Suspected aspiration. Continue vancomycin and Zosyn. Id consult. Patient has thick bronchial secretions-chest physiotherapy. History of COPD/chronic respiratory failure: Continue home oxygen at 2 L. Duo nebs p.r.n.. Will keep BiPAP at night as tolerated. History of factor 5 laden deficiency/DVT: Continue home anticoagulation. Patient was on Eliquis but question recently changed to Coumadin; will defer to the a.m. team for clarification with the PCP. Diet: NPO. IV fluids. Aspiration precautions. Code status: DNR/DNI. Discussed with the family.
[2020-06-04 22:07] LABS: Troponin-I High Sensitivity 9.1 ng/L (<3.5-17.0)
[2020-06-04] MEDS: vancomycin HCL 1,500 MG in 0.9 % Sodium Chloride 500 ML 333.33 MG IV (22:09)
[2020-06-04] MEDS: 0.9 % Sodium Chloride 1,000 ML 50 ML IVCONT (22:11)
--- NOTE | 2020-06-04 22:25 | PC.NURSE ---
Report given- unable to take pt to floor until 11pm sitter arrives.
[2020-06-05] VITALS (8 sets, daily range): BP systolic 102–133; BP diastolic 62–87; PULSE 82–127; RESP 18–24; TEMP 36.4–36.9; O2SAT 91–99; BMI 44.1
[2020-06-05] MEDS: ondansetron HCL 4 MG/2 ML VIAL IVPUSH (00:01)
--- NOTE | 2020-06-05 00:32 | PC.NURSE ---
Admission assessment done to the best of my abilities as patient is not able to answer questions/very drowsy/vague with her answers.
[2020-06-05] MEDS: Piperacillin Sodium/Tazobactam 3.375 GM in 0.9 % Sodium Chloride 50 ML IV ×4 (01:34→21:00)
[2020-06-05 06:24] LABS: Eosinophils Percent Auto 1.3 % (0-4); MANUAL DIFF FLAG SCAN; NRBC Pct Auto 0.1 /100WBC (0.0-0.2); PLT CLUMP 1; SCAN SMEAR FLAG 1
[2020-06-05 06:26] LABS: Basophils Absolute Auto 0.1 X10*3/uL (0.0-0.2); Basophils Percent Auto 0.4 % (0-2); Eosinophils Absolute Auto 0.4 X10*3/uL (0.0-0.4); Hematocrit 37.1 % (37-47); Hemoglobin 10.7 g/dl (12.0-16.0); Imm Gran Abs Auto 1.19 X10*3/uL (0.00-0.03); Imm Gran Pct Auto 4.3 % (0.0-0.4); Lymphocytes Percent Auto 3.7 % (20-40); Mean Corpuscular HGB Conc 28.8 g/dl (31.0-35.0); Mean Corpuscular Hemoglobin 25.1 pg (27.0-33.0); Mean Corpuscular Volume 87.1 fL (80-98); Mean Platelet Volume 11.2 fL (9.4-12.3); Monocytes Absolute Auto 1.1 X10*3/uL (0.1-1.2); Monocytes Percent Auto 3.8 % (2-11); Neutrophils Absolute Auto 24.2 X10*3/uL (2.0-8.3); Neutrophils Percent Auto 86.5 % (45-73); Red Blood Count 4.26 X10*6/uL (4.20-5.50); Red Cell Distribution Width 18.4 % (11.0-16.0); White Blood Count 27.9 X10*3/uL (4.8-10.8)
[2020-06-05 06:33] LABS: Platelet Count 55 X10*3/uL (160-400)
[2020-06-05 06:45] LABS: Anion Gap 18 (12-20); Blood Urea Nitrogen 13 mg/dL (9-16); Calcium 8.2 mg/dL (8.4-10.2); Carbon Dioxide 27 mmol/L (22-29); Chloride 101 mmol/L (96-108); Creatinine Clr Calc Pharmacy 63.4; Estimated Glomerular Filt Rate > 60; Glucose Random 110 mg/dL (60-115); Potassium 3.4 mmol/L (3.3-5.1); Sodium 143 mmol/L (135-145)
[2020-06-05 06:53] LABS: SLIDE REVIEW VERIFIED
[2020-06-05 07:29] LABS: Glucose, Whole Blood 111 mg/dL (60-115)
--- NOTE | 2020-06-05 09:47 | MHC.CM.PN ---
Patient appears to have AMS; CM spoke with Daughter/HCP/Jackie @ [phone]. Patient (and her ) are LTC Residents of [facility] and the goal for dc is to return there. CM has initiated and will follow for dc plan. IMM addressed with Kylie and chio will be mailed certified letter to her and a copy has been placed on the chart. PCP is Dr. Magdiel Stanley. Patient is here with SI/AMS/Ativan Overdose and may benefit from Psych and or Care Team Consult.
[2020-06-05 11:01] LABS: Glucose, Whole Blood 108 mg/dL (60-115)
--- NOTE | 2020-06-05 12:11 | P.CDIC_ITS ---
CDI Concurrent Query Service Date: 06/05/20 Documentation Clarification: Please clarify if you are treating a proba ble/suspected/likely or confirmed: Chronic respiratory failure Acute on chronic respiratory failure Please specify if known Provider Response: Other Other Diagnosis: Acute on chronic hypoxic resp. failure PLEASE DO NOT DELETE/MODIFY EXISTING CONTENT Additional information is needed in order to code to the highest accuracy and appropriate Severity of Illness (SOI). Please clarify the information noted below in your progress notes and discharge summary. Risk Factors/Clinical Indicators/Treatments Accessory muscle use, tachypnea, coarse breath sounds. Chronic respiratory failure home oxygen 2 liters HR 112 RR Pulse ox 91 L ABG's ordered History of acute respiratory failure EMERALD, Morbid obesity on Bipap CDS: Alma Watts CCS, CDIS Contact Number: [phone]. [phone] Please Review the information above and exercise your independent professional judgment in responding to the query. If you concur, pleas document in the PROGRESS NOTES and DISCHARGE SUMMARY. If you do not agree with the query, pl ease document in the query above. THIS QUERY IS PART OF THE PERMANENT MEDICAL RECORD
--- NOTE | 2020-06-05 13:43 | HO.PM.IMPN ---
Subjective Subjective Date of Service: 06/05/20 Interval History: the patient was seen and evaluated this morning Laying in bed, sleepy, very difficult to arouse but open her eyes and speaks and recognizable words No reported fever, chills No reported other overnight events. Systemic review: Encephalopathic, nonverbal Physical Exam Vital Signs: Vital Signs: Last Vital Signs Temp 98.1 F 06/05/20 11:22 Pulse 111 H 06/05/20 11:22 Resp 24 H 06/05/20 11:24 BP 133/87 06/05/20 11:22 Pulse Ox 98 06/05/20 11:22 Body Mass Index 44.1 Const: Other: Constitutional : Encephalopathic, not in distress Neck : Normal inspection, Supple Cardiovascular : RRR, S1 S2, no lower extremity edema Respiratory : Fair bilateral air entry, bilateral bases crackles, now wheezes or rhonchi Gastrointestinal: soft, lax, Normal bowel sounds, Non tender Skin : Warm/Dry, No rash Neurological : Encephalopathic, No focal deficit Objective Data Current Medications Generic Name Dose Route Start Last Admin Trade Name Freq PRN Reason Stop Dose Admin Acetaminophen 650 mg 06/04/20 21:23 Acetaminophen Supp 650 Mg Supp.Rect VA Q6H PRN Pain, Mild (Pain Scale 1-3) Albuterol/Ipratropium 3 ml 06/04/20 21:18 Albuterol/Iprat 2.5/0.5mg 3 Ml Ampul.Neb INHALE Q6H PRN shortness of breath Apixaban 2.5 mg 06/05/20 09:00 06/05/20 08:36 Apixaban 2.5 Mg Tablet PO Not Given BID [facility] Ferrous Sulfate 324 mg 06/05/20 09:00 06/05/20 08:36 Ferrous Sulfate 324 Mg Tablet. PO Not Given DAILY SATNAM Furosemide 40 mg 06/05/20 09:00 06/05/20 08:36 Furosemide 40 Mg Tablet PO Not Given DAILY [facility] Protocol Guaifenesin 1,200 mg 06/05/20 09:00 06/05/20 08:37 Guaifenesin La 600 Mg Tab.Er.12h PO Not Given BID [facility] Piperacillin Sod/Tazobactam 50 mls @ 100 mls/hr 06/05/20 03:00 06/05/20 09:22 Sod 3.375 gm/ Sodium Chloride IV Infused Q6H SATNAM Infusion Insulin Human Lispro 0 unit 06/05/20 07:30 06/05/20 12:38 Insulin Lispro 100 Unit/Ml 3 Ml Vial SUBCUT Not Given QIDACHS [facility] Protocol Loratadine 10 mg 06/05/20 09:00 06/05/20 08:37 Loratadine 10 Mg Tablet PO Not Given DAILY [facility] Metoprolol Tartrate 12.5 mg 06/05/20 09:00 06/05/20 08:37 Metoprolol Tartrate 25 Mg Tablet PO Not Given BID [facility] Protocol Montelukast Sodium 10 mg 06/05/20 21:00 Montelukast Sodium 10 Mg Tablet PO BEDTIME [facility] Omeprazole 20 mg 06/05/20 06:30 06/05/20 05:22 Omeprazole 20 Mg Capsule.Dr PO Not Given BID@0630,1230 [facility] Ondansetron HCl 4 mg 06/04/20 23:45 06/05/20 00:01 Ondansetron Hcl 4 Mg/2 Ml Vial IVPUSH 4 mg Q8H PRN Administration Nausea Pharmacy Consult 1 each 06/04/20 21:12 Consult Rx Vancomycin Dosing MISCELLANE DAILY PRN Consult order Pharmacy Consult 1 each 06/04/20 21:20 Consult Rx Vancomycin Dosing MISCELLANE DAILY PRN Consult order Senna 17.2 mg 06/04/20 21:23 Sennosides 8.6 Mg Tablet PO BEDTIME PRN Constipation Sertraline HCl 25 mg 06/05/20 09:00 06/05/20 08:37 Sertraline Hcl 25 Mg Tablet PO Not Given DAILY [facility] Sodium Chloride 3 ml 06/05/20 00:00 06/05/20 08:27 0.9 % Sodium Chloride Flush 3 Ml Syringe IVFLUSH Not Given QSHIFT [facility] Labs CBC & Chem 7: 06/05/20 05:51 06/05/20 05:51 Assessment and Plan (1) Overdose of benzodiazepine: Status: Acute Assessment and Plan: 74-year-old female with a past medical history of hypertension, hyperlipidemia, diabetes, COPD/chronic respiratory failure on home oxygen/BiPAP; GERD, 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 Toxic encephalopathy in setting of reported benzodiazepine overdose More interactive and alert today [employer] evaluated, 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 Aspiration precautions. Suicidal ideation/benzodiazepine overdose Patient reported to Will to 15 tablets of Ativan 1 mg tablets. Poison Control recommended supportive therapy and observation. Patient currently protecting the airway 1 on observation. Section 12 was done in the ER. Crisis/Psychiatric consult. Discussed with the family who mentioned that patient is strict DNR DNI Acute on chronic hypoxic respiratory failure Health-care associated pneumonia, likely aspiration O2 dropped to 80s on admission, continue oxygen supplement and wean down as tolerated Continue Zosyn Id consult. Patient has thick bronchial secretions-chest physiotherapy. History of COPD/chronic respiratory failure Continue home oxygen at 2 L. Duo nebs p.r.n.. keep BiPAP at night as tolerated. History of factor 5 laden deficiency/DVT: Continue home anticoagulation. Patient was on Eliquis but question recently changed to Coumadin; Diet Ground mechanical per [employer] Code status: DNR/DNI.
[2020-06-05] MEDS: 0.9 % Sodium Chloride Flush 3 ML SYRINGE IVFLUSH ×2 (16:01→21:25)
[2020-06-05] MEDS: Omeprazole 20 MG CAPSULE.DR PO (16:02)
[2020-06-05] MEDS: Apixaban 2.5 MG TABLET PO ×2 (16:02→21:01)
[2020-06-05] MEDS: Furosemide 40 MG TABLET PO (16:02)
[2020-06-05] MEDS: Metoprolol Tartrate 25 MG TABLET 12.5 MG PO ×2 (16:03→21:12)
[2020-06-05 16:19] LABS: Glucose, Whole Blood 133 mg/dL (60-115)
[2020-06-05] MEDS: guaiFENesin LA 600 MG TAB.ER.12H 1200 MG PO (21:00)
[2020-06-05] MEDS: Montelukast Sodium 10 MG TABLET PO (21:01)
[2020-06-05 21:09] LABS: Glucose, Whole Blood 97 mg/dL (60-115)
--- NOTE | 2020-06-05 21:21 | W.PM.IDCN ---
History of Present Illness Data of Consult Service Date: 06/05/20 Requesting physician: Nai Craig Primary Care Provider: Magdiel Stanley MD HPI Reason for consult: shortness of breath She presents to hospital with somnolence and shortness of breath. She had been lethargic as well and not alert. She had no fever or chills Review of Systems Review of Systems: Yes Unobtainable due to mental condition PMFSH Past Medical History Medical History Blood clot in vein COPD (chronic obstructive pulmonary disease) Diabetes Epistaxis Factor 5 Leiden mutation, heterozygous FH: total knee replacement GERD (gastroesophageal reflux disease) Heart failure Intra-abdominal abscess EMERALD (obstructive sleep apnea) Family History Family history: reviewed and not pertinent Surgical History Surgical History History of bronchoscopy History of cholecystectomy Hx of tonsillectomy Social History Social History Household Members: Other Household Members Other:: [facility] Housing: Assisted Living Facility Housing Other:: [facility] Do you presently have visiting nurse or other home services: Yes Unable to assess alcohol history related to: Unable to respond, Unknown and Refusing to respond Alcohol intake: unknown Smoking Status: Unknown if ever smoked Second Hand Smoke Exposure: No Use of substances other than those prescribed or required for medical reasons: Unknown Currently Displaying Signs/Symptoms of Drug Intoxication Withdrawal: No Advance Directives: Yes Advance Directives on File: Yes Advance Directives Date on File: 05/18/20 Do you have thoughts of harming others: None Do you have a plan to hurt others: No Plan Recently lost weight without trying: Unsure service: No Current occupational status: retired Meds Allergies Allergy/AdvReac Type Severity Reaction Status Date / Time Sulfa (Sulfonamide Allergy Intermediate SWELLING Verified 05/27/20 20:09 Antibiotics) [Sulfa (Sulfonamides)] alendronate sodium [Fosamax] Allergy Unknown Unknown Verified 05/27/20 20:09 azithromycin [Zithromax] Allergy Unknown Unknown Verified 05/27/20 20:09 cefepime Allergy Unknown Unknown Verified 05/27/20 20:09 levofloxacin Allergy Unknown Unknown Verified 05/27/20 20:09 umeclidinium [Anoro Ellipta] Allergy Unknown Unknown Verified 05/27/20 20:09 vilanterol [Anoro Ellipta] Allergy Unknown Unknown Verified 05/27/20 20:09 vancomycin AdvReac Severe thrombocyto Verified 06/06/20 17:13 penia ADHESIVE TAPE Allergy Unknown Unknown Uncoded 05/27/20 20:09 Sucralfate Allergy Unknown Unknown Uncoded 05/27/20 20:09 Sulfamethoxazole Allergy Unknown Unknown Uncoded 05/27/20 20:09 Active Medications: Current Medications Generic Name Dose Route Start Last Admin Trade Name Freq PRN Reason Stop Dose Admin Acetaminophen 650 mg 06/04/20 21:23 Acetaminophen Supp 650 Mg Supp.Rect MD Q6H PRN Pain, Mild (Pain Scale 1-3) Albuterol/Ipratropium 3 ml 06/04/20 21:18 Albuterol/Iprat 2.5/0.5mg 3 Ml Ampul.Neb INHALE Q6H PRN shortness of breath Apixaban 2.5 mg 06/05/20 09:00 06/05/20 21:01 Apixaban 2.5 Mg Tablet PO 2.5 mg BID SATNAM Administration Ferrous Sulfate 324 mg 06/05/20 09:00 06/05/20 08:36 Ferrous Sulfate 324 Mg Tablet.Dr PO Not Given DAILY SATNAM Furosemide 40 mg 06/05/20 09:00 06/05/20 16:02 Furosemide 40 Mg Tablet PO 40 mg DAILY SATNAM Administration Protocol Guaifenesin 1,200 mg 06/05/20 09:00 06/05/20 21:00 Guaifenesin La 600 Mg Tab.Er.12h PO 1,200 mg BID SATNAM Administration Piperacillin Sod/Tazobactam 50 mls @ 100 mls/hr 06/05/20 03:00 06/05/20 21:00 Sod 3.375 gm/ Sodium Chloride IV 100 mls/hr Q6H SATNAM Administration Insulin Human Lispro 0 unit 06/05/20 07:30 06/05/20 16:04 Insulin Lispro 100 Unit/Ml 3 Ml Vial SUBCUT Not Given QIDACHS [facility] Protocol Loratadine 10 mg 06/05/20 09:00 06/05/20 08:37 Loratadine 10 Mg Tablet PO Not Given DAILY [facility] Metoprolol Tartrate 12.5 mg 06/05/20 09:00 06/05/20 21:12 Metoprolol Tartrate 25 Mg Tablet PO 12.5 mg BID SATNAM Administration Protocol Montelukast Sodium 10 mg 06/05/20 21:00 06/05/20 21:01 Montelukast Sodium 10 Mg Tablet PO 10 mg BEDTIME SATNAM Administration Omeprazole 20 mg 06/05/20 06:30 06/05/20 16:02 Omeprazole 20 Mg Capsule.Dr PO 20 mg BID@0630,1570 SATNAM Administration Ondansetron HCl 4 mg 06/04/20 23:45 06/05/20 00:01 Ondansetron Hcl 4 Mg/2 Ml Vial IVPUSH 4 mg Q8H PRN Administration Nausea Pharmacy Consult 1 each 06/04/20 21:12 Consult Rx Vancomycin Dosing MISCELLANE DAILY PRN Consult order Pharmacy Consult 1 each 06/04/20 21:20 Consult Rx Vancomycin Dosing MISCELLANE DAILY PRN Consult order Senna 17.2 mg 06/04/20 21:23 Sennosides 8.6 Mg Tablet PO BEDTIME PRN Constipation Sertraline HCl 25 mg 06/05/20 09:00 06/05/20 08:37 Sertraline Hcl 25 Mg Tablet PO Not Given DAILY [facility] Sodium Chloride 3 ml 06/05/20 00:00 06/05/20 16:01 0.9 % Sodium Chloride Flush 3 Ml Syringe IVFLUSH 3 ml QSHIFT [facility] Administration Home Medications Medication Instructions Recorded Confirmed Last Taken Type Eliquis 2.5 mg PO BID 05/18/20 06/04/20 05/22/20 History Flovent HFA 2 puff INHALATION BID 05/18/20 06/04/20 05/22/20 History furosemide 40 mg PO DAILY 05/18/20 06/04/20 05/22/20 History lorazepam 1 mg PO BEDTIME PRN 05/18/20 06/04/20 05/21/20 History metoprolol tartrate 12.5 mg PO BID 05/18/20 06/04/20 05/22/20 History montelukast 10 mg PO BEDTIME 05/18/20 06/04/20 05/21/20 History pantoprazole 40 mg PO BID 05/18/20 06/04/20 05/22/20 History pioglitazone 15 mg PO DAILY 05/18/20 06/04/20 05/22/20 History sertraline 25 mg PO DAILY 05/18/20 06/04/20 05/22/20 History calcium carbonate-vitamin D2 1 tab PO DAILY 06/04/20 06/04/20 Unknown History [Calcium + Vitamin D] cholecalciferol (vitamin D3) 25 mcg PO DAILY 06/04/20 06/04/20 Unknown History [Vitamin D3] glucosamine sulfate [Glucosamine] 750 mg PO DAILY 06/04/20 06/04/20 Unknown History insulin lispro [Humalog U-100 1 sliding scale dose SUBCUT 06/04/20 06/04/20 Unknown History Insulin] USEASDIRECTD loratadine [Claritin] 10 mg PO DAILY 06/04/20 06/04/20 Unknown History zolpidem [Ambien] 5 mg PO BEDTIME PRN 06/04/20 06/04/20 Unknown History Physical Exam Vital Signs: Vital Signs: Last Vital Signs Temp 97.5 F 06/05/20 14:56 Pulse 97 06/05/20 21:12 Resp 20 06/05/20 14:56 BP 123/62 06/05/20 21:12 Pulse Ox 98 06/05/20 14:56 Body Mass Index 44.1 Const: General: cooperative HENMT: Head: Yes normal to inspection Mouth: Normal oral and palatal mucosa present Eyes: General: appearance normal, both eyes and all related structures Resp: Effort & Inspection: normal respiratory effort Cardio: Rate: regular rate Rhythm: regular rhythm GI: Palpation (GI): Soft to palpation and nontender : General: Yes no CVA tenderness Back/Spine/Pelvis: Back: no CVA tenderness Skin: General skin exam: no rashes or lesions noted Extrem: General: Yes normal to inspection Results Labs CBC & Chem 7: 06/10/20 07:28 06/12/20 05:45 Labs: Short CBC 06/05/20 Range/Units 05:51 WBC 27.9 H (4.8-10.8) X10*3/uL Hgb 10.7 L (12.0-16.0) g/dl Hct 37.1 (37-47) % Plt Count 55 L D (160-400) X10*3/uL BMP 06/05/20 05:51 Sodium 143 Potassium 3.4 Chloride 101 Carbon Dioxide 27 BUN 13 Creatinine 0.86 Calcium 8.2 L Microbiology Microbiology Results: Microbiology 06/04/20 18:07 Blood - Venous Blood Culture - Preliminary No growth after 24 hours. 06/04/20 18:06 Blood - Venous Blood Culture - Preliminary No growth after 24 hours. Assessment and Plan (1) Leukocytosis: Status: Acute (2) Pneumonia: Status: Acute Agree with Piperacillin/Tazobactam for 3-5 days likely Minimize sedating medications (3) Overdose of benzodiazepine: Status: Acute
--- NOTE | 2020-06-05 22:34 | MHC.CARE ---
CARE team consult received. Chart reviewed. It does not appear that pt is medically stable for evaluation due to ongoing assessment and treatment of active illness. CARE team available for evaluation once pt is medically cleared.
[2020-06-06] VITALS (20 sets, daily range): BP systolic 87–138; BP diastolic 51–74; PULSE 81–105; RESP 13–30; TEMP 36.2–37.2; O2SAT 95–98
[2020-06-06] MEDS: Piperacillin Sodium/Tazobactam 3.375 GM in 0.9 % Sodium Chloride 50 ML IV (03:48)
[2020-06-06 07:06] LABS: Blood Urea Nitrogen 11 mg/dL (9-16); Calcium 7.9 mg/dL (8.4-10.2); Creatinine Clr Calc Pharmacy 63.4; Estimated Glomerular Filt Rate > 60; Glucose Random 90 mg/dL (60-115)
[2020-06-06 07:22] LABS: Anion Gap 20 (12-20); Carbon Dioxide 26 mmol/L (22-29); Chloride 101 mmol/L (96-108); Potassium 2.8 mmol/L (3.3-5.1); Sodium 144 mmol/L (135-145)
[2020-06-06 07:25] LABS: Glucose, Whole Blood 90 mg/dL (60-115)
[2020-06-06 09:14] LABS: Hematocrit 37.2 % (37-47); Hemoglobin 10.7 g/dl (12.0-16.0); Mean Corpuscular HGB Conc 28.8 g/dl (31.0-35.0); Mean Corpuscular Hemoglobin 25.3 pg (27.0-33.0); Mean Corpuscular Volume 87.9 fL (80-98); NRBC Pct Auto 0.1 /100WBC (0.0-0.2); Red Blood Count 4.23 X10*6/uL (4.20-5.50); Red Cell Distribution Width 18.6 % (11.0-16.0); White Blood Count 21.8 X10*3/uL (4.8-10.8)
[2020-06-06 09:22] LABS: PLT ABN DIST 1
[2020-06-06 10:40] LABS: Platelet Count 4 X10*3/uL (160-400)
[2020-06-06] MEDS: guaiFENesin LA 600 MG TAB.ER.12H 1200 MG PO ×2 (10:46→19:57)
[2020-06-06] MEDS: Metoprolol Tartrate 25 MG TABLET 12.5 MG PO ×2 (10:46→19:58)
[2020-06-06] MEDS: Ferrous Sulfate 324 MG TABLET.DR PO (10:46)
[2020-06-06] MEDS: 0.9 % Sodium Chloride Flush 3 ML SYRINGE IVFLUSH ×2 (10:46→16:05)
[2020-06-06] MEDS: Apixaban 2.5 MG TABLET PO (10:46)
[2020-06-06] MEDS: Loratadine 10 MG TABLET PO (10:47)
[2020-06-06] MEDS: Furosemide 40 MG TABLET PO (10:47)
[2020-06-06] MEDS: Sertraline HCL 25 MG TABLET PO (10:47)
--- NOTE | 2020-06-06 10:53 | MHC.SLORD ---
ARCHITECTURAL SUPERINTENDENT checked in with RN regarinding pt's tolerance to recommended diet. RN stated pt has not been eating much solid food however, has had no difficulty tolerating thin liquids at this time. Continue to recommend CHOPPED/ADVANCED solids and THIN liquids with PILLS WHOLE IN PUREE. ST no longer warranted at this time. If pt's condition changes or if ARCHITECTURAL SUPERINTENDENT can be of assistance, please re-refer. Name: aNtalie Cano Date of : 1945 Age: 74 Date of Registration: 06/04/20 Speech Language Pathology Order Status:
[2020-06-06 11:29] LABS: Glucose, Whole Blood 93 mg/dL (60-115)
[2020-06-06] MEDS: Potassium Chloride/H20 10 MEQ/100 ML PIGGYBACK 100 MEQ IV ×2 (11:31→13:23)
--- NOTE | 2020-06-06 12:51 | PM.HEMONCCN ---
Subjective - Subjective Chief complaint: None Patient: new to practice Consult date: 06/06/20 Requesting Physician: Dr. Craig Primary Care Provider: Magdiel Stanley MD HPI - Consult Narrative Reason for consult: Thrombocytopenia Narrative: Natalie Cano is a 74 year old female admitted to the hospital with somnolence/mental status changes after overdosing on Ativan in an apparent suicide attempt. Patient was awake but her daughter who was at the bedside was the main historian.According to the daughter, patient has been going rapidly downhill since January of last year. She has had multiple admissions to both [facility] and [facility]. Her PCP and inspecting engineer are at [facility]. 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 In the recent months she has been admitted to the hospital for pneumonia as well as wound over her left leg after a fall. She was transferred to a longterm after her recent admission 2 weeks ago. Patient got Ativan pills from her . No prior suicide attempt. Patient's daughter did seem to know about her previous problems with anemia and thrombocytopenia. She does have a history of previous platelet transfusion as well, she thinks this was at [facility]. Her platelet count on admission, 06/04/2020 was normal at 208 K, 2 days later it dropped to 5 K. Patient does have extensive skin bruising over her extremities. No reports of hematochezia, hematuria, melena, nose or gum bleeds. She received both Zosyn and vancomycin for about 2 doses each. Eliquis was discontinued today. Review of Systems - Constitutional Reports as per [facility] Medical History: Medical History (Last Reviewed 06/05/20 @ 21:24 by Claire Dumont MD) Blood clot in vein COPD (chronic obstructive pulmonary disease) Diabetes Epistaxis Factor 5 Leiden mutation, heterozygous FH: total knee replacement GERD (gastroesophageal reflux disease) Family history: reviewed and not pertinent Surgical History: Surgical History (Last Reviewed 06/05/20 @ 21:25 by Claire Dumont MD) History of bronchoscopy History of cholecystectomy Hx of tonsillectomy Social History: Social History (Last Reviewed 06/05/20 @ 21:25 by Claire Dumont MD) Living Situation History: Household Members: Other Household Members Other:: [facility] Housing: Assisted Living Facility Housing Other:: [facility] Do you presently have visiting nurse or other home services: Yes Alcohol History: Unable to assess alcohol history related to: Unable to respond Unable to assess alcohol history related to: Unknown Unable to assess alcohol history related to: Refusing to respond Alcohol intake: unknown Tobacco History: Smoking Status: Unknown if ever smoked Second Hand Smoke Exposure: No Substance Use History: Use of substances other than those prescribed or required for medical reasons: Unknown Currently Displaying Signs/Symptoms of Drug Intoxication Withdrawal: No Advance Directives: Advance Directives: Yes Advance Directives on File: Yes Advance Directives Date on File: 05/18/20 Homicidal Assessment: Do you have thoughts of harming others: None Do you have a plan to hurt others: No Plan Nutrition Assessment: Recently lost weight without trying: Unsure Nutrition Risks: Difficulty swallowing Nutrition Risks: On aspiration precautions Patient : No : No Poor oral hygiene: Yes Occupation Assessmet: service: No Current occupational status: retired Smoking status: Unknown if ever smoked Home Medications and Allergies Current Medications: Current Medications Generic Name Dose Route Start Last Admin Trade Name Freq PRN Reason Stop Dose Admin Acetaminophen 650 mg 06/04/20 21:23 Acetaminophen Supp 650 Mg Supp.Rect TN Q6H PRN Pain, Mild (Pain Scale 1-3) Albuterol/Ipratropium 3 ml 06/04/20 21:18 Albuterol/Iprat 2.5/0.5mg 3 Ml Ampul.Neb INHALE Q6H PRN shortness of breath Apixaban 2.5 mg 06/05/20 09:00 06/06/20 10:46 Apixaban 2.5 Mg Tablet PO 2.5 mg BID SATNAM Administration Ferrous Sulfate 324 mg 06/05/20 09:00 06/06/20 10:46 Ferrous Sulfate 324 Mg Tablet.Dr PO 324 mg DAILY SATNAM Administration Furosemide 40 mg 06/05/20 09:00 06/06/20 10:47 Furosemide 40 Mg Tablet PO 40 mg DAILY SATNAM Administration Protocol Guaifenesin 1,200 mg 06/05/20 09:00 06/06/20 10:46 Guaifenesin La 600 Mg Tab.Er.12h PO 1,200 mg BID SATNAM Administration Insulin Human Lispro 0 unit 06/05/20 07:30 06/06/20 11:27 Insulin Lispro 100 Unit/Ml 3 Ml Vial SUBCUT Not Given QIDACHS [facility] Protocol Loratadine 10 mg 06/05/20 09:00 06/06/20 10:47 Loratadine 10 Mg Tablet PO 10 mg DAILY SATNAM Administration Metoprolol Tartrate 12.5 mg 06/05/20 09:00 06/06/20 10:46 Metoprolol Tartrate 25 Mg Tablet PO 12.5 mg BID [facility] Administration Protocol Montelukast Sodium 10 mg 06/05/20 21:00 06/05/20 21:01 Montelukast Sodium 10 Mg Tablet PO 10 mg BEDTIME SATNAM Administration Omeprazole 20 mg 06/05/20 06:30 06/06/20 06:15 Omeprazole 20 Mg Capsule.Dr PO Not Given BID@4430,5890 [facility] Ondansetron HCl 4 mg 06/04/20 23:45 06/05/20 00:01 Ondansetron Hcl 4 Mg/2 Ml Vial IVPUSH 4 mg Q8H PRN Administration Nausea Pharmacy Consult 1 each 06/04/20 21:12 Consult Rx Vancomycin Dosing MISCELLANE DAILY PRN Consult order Pharmacy Consult 1 each 06/04/20 21:20 Consult Rx Vancomycin Dosing MISCELLANE DAILY PRN Consult order Senna 17.2 mg 06/04/20 21:23 Sennosides 8.6 Mg Tablet PO BEDTIME PRN Constipation Sertraline HCl 25 mg 06/05/20 09:00 06/06/20 10:47 Sertraline Hcl 25 Mg Tablet PO 25 mg DAILY [facility] Administration Sodium Chloride 3 ml 06/05/20 00:00 06/06/20 10:46 0.9 % Sodium Chloride Flush 3 Ml Syringe IVFLUSH 3 ml QSHIFT [facility] Administration Home Medications Medication Instructions Recorded Confirmed Type Eliquis 2.5 mg PO BID 05/18/20 06/04/20 History Flovent HFA 2 puff INHALATION BID 05/18/20 06/04/20 History furosemide 40 mg PO DAILY 05/18/20 06/04/20 History lorazepam 1 mg PO BEDTIME PRN 05/18/20 06/04/20 History metoprolol tartrate 12.5 mg PO BID 05/18/20 06/04/20 History montelukast 10 mg PO BEDTIME 05/18/20 06/04/20 History pantoprazole 40 mg PO BID 05/18/20 06/04/20 History pioglitazone 15 mg PO DAILY 05/18/20 06/04/20 History sertraline 25 mg PO DAILY 05/18/20 06/04/20 History calcium carbonate-vitamin D2 1 tab PO DAILY 06/04/20 06/04/20 History [Calcium + Vitamin D] cholecalciferol (vitamin D3) 25 mcg PO DAILY 06/04/20 06/04/20 History [Vitamin D3] glucosamine sulfate [Glucosamine] 750 mg PO DAILY 06/04/20 06/04/20 History insulin lispro [Humalog U-100 1 sliding scale dose SUBCUT 06/04/20 06/04/20 History Insulin] USEASDIRECTD loratadine [Claritin] 10 mg PO DAILY 06/04/20 06/04/20 History zolpidem [Ambien] 5 mg PO BEDTIME PRN 06/04/20 06/04/20 History Allergies Allergy/AdvReac Type Severity Reaction Status Date / Time Sulfa (Sulfonamide Allergy Intermediate SWELLING Verified 05/27/20 20:09 Antibiotics) [Sulfa (Sulfonamides)] alendronate sodium [Fosamax] Allergy Unknown Unknown Verified 05/27/20 20:09 azithromycin [Zithromax] Allergy Unknown Unknown Verified 05/27/20 20:09 cefepime Allergy Unknown Unknown Verified 05/27/20 20:09 levofloxacin Allergy Unknown Unknown Verified 05/27/20 20:09 umeclidinium [Anoro Ellipta] Allergy Unknown Unknown Verified 05/27/20 20:09 vilanterol [Anoro Ellipta] Allergy Unknown Unknown Verified 05/27/20 20:09 ADHESIVE TAPE Allergy Unknown Unknown Uncoded 05/27/20 20:09 Sucralfate Allergy Unknown Unknown Uncoded 05/27/20 20:09 Sulfamethoxazole Allergy Unknown Unknown Uncoded 05/27/20 20:09 Physical Exam Vital signs: Vital Signs Temp 97.3 F 06/06/20 12:00 Pulse 100 06/06/20 12:00 Resp 19 06/06/20 12:00 BP 92/66 06/06/20 12:00 Pulse Ox 97 06/06/20 12:00 Intake & Output 06/05/20 06/06/20 06/06/20 18:59 06:59 18:59 Intake Total 1123.75 / 1583.75 460 / 1583.75 Output Total 600 / 600 Balance 1123.75 / 983.75 -140 / 983.75 Urine Output (Average ml/kg/hr) 0.47 0.47 Intake: Intake, Oral Amount 360 / 720 360 / 720 Intake, IV Amount 763.75 / 863.75 100 / 863.75 Piperacillin Sodium/Tazobactam 100 / 200 100 / 200 3.375 gm In 0.9 % Sodium Chloride 50 ml @ 100 mls/hr IV Q6H [facility] Rx#:[id number] 0.9 % Sodium Chloride 1,000 ml 663.75 / 663.75 @ 75 mls/hr IVCONT .[id number] [facility] Rx#:[id number] Output: Output, Urine Amount 600 / 600 Other: Breakfast % Eaten 0% 0% Lunch % Eaten 100% 25% Dinner % Eaten 100% Number of Incontinent Voids 3 Number of Bowel Movements 1 Urine Urinal Urine Color Yellow Stool Incontinent Stool Amount Moderate Stool Color Brown Stool Consistency Mushy Weight 106 kg Weight 106 kg - Constitutional Present: no acute distress, obese - Routine HEENT Exam Head: Present: atraumatic, normal inspection Eye: Present: EOMI, conjunctivae pale - Routine Neck Exam Present: supple - Routine Respiratory Exam Absent: accessory muscle use - Routine Cardiovascular Exam Cardiovascular: Present: S1, S2 - Routine Skin Exam Present: erythema, ecchymosis Hem/Onc Consult Result - Labs CBC & Chem 7: 06/06/20 08:51 06/06/20 05:43 Labs: Short CBC 06/06/20 Range/Units 08:51 WBC 21.8 H (4.8-10.8) X10*3/uL Hgb 10.7 L (12.0-16.0) g/dl Hct 37.2 (37-47) % Plt Count 4 L* D (160-400) X10*3/uL BMP 06/06/20 05:43 Sodium 144 Potassium 2.8 L Chloride 101 Carbon Dioxide 26 BUN 11 Creatinine 0.86 Calcium 7.9 L Assessment and Plan (1) Thrombocytopenia Status: Acute 1. This is a 74-year-old woman admitted to [facility] after suicide attempt with Ativan. She is noted to have severe thrombocytopenia 2 days after admission. Her admitting platelet count was 208 K, it dropped to 55 K yesterday and today it is 4 K. she received vancomycin and Zosyn for 2 doses each in the last 2 days. During her previous admission in May she again received Zosyn and vancomycin, her platelet counts dropped from 260 K to 76 K on 05/29/2020. This seemed to have recovered in the interim days and now on reexposure to antibiotics platelets have rapidly declined. This goes along with vancomycin induced ITP which is an adverse effect, which can occur rapidly on reexposure to vancomycin. Zosyn can also cause bone marrow suppression, pancytopenia and hemolytic anemia. However this dramatic decline in just the platelet count seems to go along with vancomycin adverse effect. Both antibiotics have been stopped. Eliquis has been stopped. Platelet transfusion in order to prevent bleeding which can be severe. Recheck platelets after an hour after completing transfusion. Goal is to keep platelets above 30 K. Check DIC profile. Check vitamin B12 and folic acid levels. Monitor daily CBC, kidney and liver functions. I thank you very much for this consultation, will follow with you.
[2020-06-06 13:38] LABS: Fibrinogen 621 MG/DL (259-690); INTERNATIONAL NORM RATIO 1.4 (0.9-1.1)
--- NOTE | 2020-06-06 15:10 | P.PNIM_ITS ---
Subjective Subjective Date of Service: 06/06/20 Interval History: the patient was seen and evaluated this morning Laying in bed, more alert and interactive today but still very sleepy and difficult to arouse No reported fever, chills No reported other overnight events. Systemic review: Encephalopathic, nonverbal denies any pain, shortness of breath Physical Exam Vital Signs: Vital Signs: Last Vital Signs Temp 97.3 F 06/06/20 12:00 Pulse 103 H 06/06/20 15:00 Resp 20 06/06/20 15:00 BP 115/74 06/06/20 15:00 Pulse Ox 98 06/06/20 15:00 Body Mass Index 44.1 Const: Other: Constitutional : Encephalopathic, not in distress Neck : Normal inspection, Supple Cardiovascular : RRR, S1 S2, no lower extremity edema Respiratory : Fair bilateral air entry, bilateral bases crackles, now wheezes or rhonchi Gastrointestinal: soft, lax, Normal bowel sounds, Non tender Skin : Warm/Dry, No rash Neurological : Encephalopathic, No focal deficit Objective Data Current Medications Generic Name Dose Route Start Last Admin Trade Name Freq PRN Reason Stop Dose Admin Acetaminophen 650 mg 06/04/20 21:23 Acetaminophen Supp 650 Mg Supp.Rect [place] Q6H PRN Pain, Mild (Pain Scale 1-3) Albuterol/Ipratropium 3 ml 06/04/20 21:18 Albuterol/Iprat 2.5/0.5mg 3 Ml Ampul.Neb INHALE Q6H PRN shortness of breath Apixaban 2.5 mg 06/05/20 09:00 06/06/20 10:46 Apixaban 2.5 Mg Tablet PO 2.5 mg BID [facility] Administration Ferrous Sulfate 324 mg 06/05/20 09:00 06/06/20 10:46 Ferrous Sulfate 324 Mg Tablet. PO 324 mg DAILY [facility] Administration Furosemide 40 mg 06/05/20 09:00 06/06/20 10:47 Furosemide 40 Mg Tablet PO 40 mg DAILY [facility] Administration Protocol Guaifenesin 1,200 mg 06/05/20 09:00 06/06/20 10:46 Guaifenesin La 600 Mg Tab.Er.12h PO 1,200 mg BID [facility] Administration Insulin Human Lispro 0 unit 06/05/20 07:30 06/06/20 11:27 Insulin Lispro 100 Unit/Ml 3 Ml Vial SUBCUT Not Given QIDACHS [facility] Protocol Loratadine 10 mg 06/05/20 09:00 06/06/20 10:47 Loratadine 10 Mg Tablet PO 10 mg DAILY [facility] Administration Metoprolol Tartrate 12.5 mg 06/05/20 09:00 06/06/20 10:46 Metoprolol Tartrate 25 Mg Tablet PO 12.5 mg BID [facility] Administration Protocol Montelukast Sodium 10 mg 06/05/20 21:00 06/05/20 21:01 Montelukast Sodium 10 Mg Tablet PO 10 mg BEDTIME [facility] Administration Omeprazole 20 mg 06/05/20 06:30 06/06/20 06:15 Omeprazole 20 Mg Capsule.Dr PO Not Given BID@0630,3000 [facility] Ondansetron HCl 4 mg 06/04/20 23:45 06/05/20 00:01 Ondansetron Hcl 4 Mg/2 Ml Vial IVPUSH 4 mg Q8H PRN Administration Nausea Pharmacy Consult 1 each 06/04/20 21:12 Consult Rx Vancomycin Dosing MISCELLANE DAILY PRN Consult order Pharmacy Consult 1 each 06/04/20 21:20 Consult Rx Vancomycin Dosing MISCELLANE DAILY PRN Consult order Senna 17.2 mg 06/04/20 21:23 Sennosides 8.6 Mg Tablet PO BEDTIME PRN Constipation Sertraline HCl 25 mg 06/05/20 09:00 06/06/20 10:47 Sertraline Hcl 25 Mg Tablet PO 25 mg DAILY [facility] Administration Sodium Chloride 3 ml 06/05/20 00:00 06/06/20 10:46 0.9 % Sodium Chloride Flush 3 Ml Syringe IVFLUSH 3 ml QSHIFT [facility] Administration Labs CBC & Chem 7: 06/06/20 08:51 06/06/20 05:43 Microbiology Microbiology Results: Microbiology 06/04/20 18:07 Blood - Venous Blood Culture - Preliminary No growth after 24 hours. 06/04/20 18:06 Blood - Venous Blood Culture - Preliminary No growth after 24 hours. 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 Thrombocytopenia Platelets dropped from 208 on admission to 4 within 2 days Unclear etiology but could be related to antibiotics Hold Eliquis Transfused 2 units of platelets Hematology input appreciated, vancomycin induced ITP possibility, bone Chang suppression Recheck platelets Check DIC profile Goal to keep platelets above 30 Toxic encephalopathy in setting of reported benzodiazepine overdose More interactive and alert today TRIM MACHINE OPERATOR evaluated, 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 Aspiration precautions. Suicidal ideation/benzodiazepine overdose Patient reported to Will to 15 tablets of Ativan 1 mg tablets. Poison Control recommended supportive therapy and observation. Patient currently protecting the airway 1 on observation. Section 12 was done in the ER. Crisis/Psychiatric consult. Discussed with the family who mentioned that patient is strict DNR DNI Acute on chronic hypoxic respiratory failure Health-care associated pneumonia, likely aspiration O2 dropped to 80s on admission, continue oxygen supplement and wean down as tolerated Start doxycycline Id consult. Patient has thick bronchial secretions-chest physiotherapy. History of COPD/chronic respiratory failure Continue home oxygen at 2 L. Duo nebs p.r.n.. keep BiPAP at night as tolerated. History of factor 5 laden deficiency/DVT: Continue home anticoagulation. Patient was on Eliquis , to hold Diet Ground mechanical per TRIM MACHINE OPERATOR Code status: DNR/DNI.
[2020-06-06 15:57] LABS: Glucose, Whole Blood 100 mg/dL (60-115)
[2020-06-06] MEDS: Doxycycline Hyclate 100 MG in 0.9 % Sodium Chloride 250 ML 166.67 MG IV (16:05)
[2020-06-06 17:46] LABS: Baso%MD 0.9 %; Eos%MD 4.2 %; Hematocrit 35.6 % (37-47); Hemoglobin 10.9 g/dl (12.0-16.0); IG%MD 5.7 %; Lymph%MD 13.3 %; Mean Corpuscular HGB Conc 30.6 g/dl (31.0-35.0); Mean Corpuscular Hemoglobin 25.1 pg (27.0-33.0); Mono%MD 7.6 %; NRBC Pct Auto 0.1 /100WBC (0.0-0.2); Neut%MD 68.3 %; Red Blood Count 4.34 X10*6/uL (4.20-5.50); Red Cell Distribution Width 18.5 % (11.0-16.0); White Blood Count 22.8 X10*3/uL (4.8-10.8)
[2020-06-06 18:37] LABS: Band Neutrophils Percent 5 % (3-5); Eosinophils Percent Manual 9 % (0-4); Lymphocytes Percent Manual 8 % (20-40); Metamyelocytes Percent 2 %; Monocytes Percent Manual 5 % (2-11); Neutrophils Percent Manual 71 % (45-73)
[2020-06-06] MEDS: Dextrose 5 % and Lactated Ring 1,000 ML 80 ML IVCONT (18:38)
[2020-06-06 18:39] LABS: Macrocytosis 1+ (5-14) /OIF; Polychromasia 1+ (0-2) /OIF; RBC Morphology NOTED
[2020-06-06 18:40] LABS: Platelet Estimate DECREASED (NORMAL); Platelet Morphology Comment NORMAL
[2020-06-06 18:48] LABS: PLT ABN DIST 1; Platelet Count 6 X10*3/uL (160-400)
--- NOTE | 2020-06-06 19:32 | PC.NURSE ---
New IV placed by Tressa Chavez in patient's Right shoulder/chest at 0930.
--- NOTE | 2020-06-06 19:34 | PC.NURSE ---
Informed consent obtained from patients health care proxy for transfusion of blood products at 1605.
[2020-06-06 19:50] LABS: Glucose, Whole Blood 91 mg/dL (60-115)
[2020-06-06] MEDS: Montelukast Sodium 10 MG TABLET PO (19:58)
[2020-06-06 21:37] LABS: Hematocrit 33.4 % (37-47); Hemoglobin 10.3 g/dl (12.0-16.0); Mean Corpuscular HGB Conc 30.8 g/dl (31.0-35.0); Mean Corpuscular Hemoglobin 25.1 pg (27.0-33.0); Mean Corpuscular Volume 81.3 fL (80-98); Red Blood Count 4.11 X10*6/uL (4.20-5.50); Red Cell Distribution Width 18.5 % (11.0-16.0); White Blood Count 21.4 X10*3/uL (4.8-10.8)
[2020-06-06 22:21] LABS: Band Neutrophils Percent 4 % (3-5); Eosinophils Percent Manual 6 % (0-4); Lymphocytes Percent Manual 11 % (20-40); Metamyelocytes Percent 1 %; Monocytes Percent Manual 5 % (2-11); Neutrophils Percent Manual 72 % (45-73); Promyelocytes Percent 1 %
[2020-06-06 22:25] LABS: Macrocytosis 1+ (5-14) /OIF; RBC Morphology NOTED
[2020-06-06 22:26] LABS: Platelet Estimate DECREASED (NORMAL); Polychromasia 1+ (0-2) /OIF
[2020-06-06 22:27] LABS: Platelet Morphology Comment NORMAL
[2020-06-06 22:36] LABS: PLT ABN DIST 1; Platelet Count 16 X10*3/uL (160-400)
--- NOTE | 2020-06-06 22:38 | MHC.PIE ---
p; platelets 16. note; d/t iv issures 2nd platelets was hang at 2200 i; dr cortez notified e; will cont to monitor
[2020-06-07] VITALS (16 sets, daily range): BP systolic 73–138; BP diastolic 52–72; PULSE 79–142; RESP 17–20; TEMP 35.9–36.6; O2SAT 92–99
[2020-06-07] MEDS: Doxycycline Hyclate 100 MG in 0.9 % Sodium Chloride 250 ML 166.67 MG IV ×2 (05:25→16:05)
[2020-06-07 06:56] LABS: Hemoglobin 8.7 g/dl (12.0-16.0); Red Cell Distribution Width 18.6 % (11.0-16.0)
[2020-06-07 06:58] LABS: Hematocrit 29.6 % (37-47); Mean Corpuscular HGB Conc 29.4 g/dl (31.0-35.0); Mean Corpuscular Hemoglobin 25.5 pg (27.0-33.0); Mean Corpuscular Volume 86.8 fL (80-98); Red Blood Count 3.41 X10*6/uL (4.20-5.50); White Blood Count 14.6 X10*3/uL (4.8-10.8)
[2020-06-07 07:27] LABS: Glucose, Whole Blood 92 mg/dL (60-115)
[2020-06-07 07:31] LABS: Platelet Count 5 X10*3/uL (160-400)
[2020-06-07 07:56] LABS: Anion Gap 16 (12-20); Blood Urea Nitrogen 9 mg/dL (9-16); Calcium 7.5 mg/dL (8.4-10.2); Carbon Dioxide 29 mmol/L (22-29); Chloride 99 mmol/L (96-108); Creatinine Clr Calc Pharmacy 74.7; Estimated Glomerular Filt Rate > 60; Glucose Random 103 mg/dL (60-115); Potassium 2.2 mmol/L (3.3-5.1); Sodium 142 mmol/L (135-145)
--- NOTE | 2020-06-07 08:54 | PM.EVENT ---
Labs show persistent thrombocytopenia in spite of transfusion which is consistent with ITP/autoimmune thrombocytopenia. She has developed some anemia as well. Start dexamethasone 40 mg p.o. daily for 4 days.
[2020-06-07 09:02] LABS: Lactate Dehydrogenase 321 U/L (122-220)
[2020-06-07] MEDS: Potassium Chloride/H20 10 MEQ/100 ML PIGGYBACK 100 MEQ IV ×4 (09:20→16:03)
[2020-06-07] MEDS: 0.9 % Sodium Chloride Flush 3 ML SYRINGE IVFLUSH (09:21)
[2020-06-07] MEDS: guaiFENesin LA 600 MG TAB.ER.12H 1200 MG PO ×2 (09:37→20:42)
[2020-06-07] MEDS: Ferrous Sulfate 324 MG TABLET.DR PO (09:38)
[2020-06-07] MEDS: dexAMETHasone 4 MG TABLET 40 MG PO (09:39)
[2020-06-07] MEDS: Loratadine 10 MG TABLET PO (09:59)
[2020-06-07] MEDS: Sertraline HCL 25 MG TABLET PO (09:59)
[2020-06-07] MEDS: 0.9 % Sodium Chloride 1,000 ML 999 ML IV (10:47)
[2020-06-07 11:07] LABS: Glucose, Whole Blood 88 mg/dL (60-115)
--- NOTE | 2020-06-07 12:44 | MHC.CM.PN ---
Per ROUNDS discussion, Patient is not yet medically cleared for dc (IV Doxycycline, IV K, daily PT INR, 1:1 Sitter r/t SI). Goal is to return to LTC @ [facility] and CM will continue to follow.
--- NOTE | 2020-06-07 12:48 | MHC.CM.PN ---
CORRECTION TO PREVIOUS NOTE (NO DAILY PT INR).
--- NOTE | 2020-06-07 14:30 | P.PNIM_ITS ---
Subjective Subjective Date of Service: 06/07/20 Interval History: the patient was seen and evaluated this morning Laying in bed, more alert and interactive today but still very sleepy and tired No reported fever, chills No reported other overnight events. Systemic review: Still Encephalopathic, difficult to arouse, No chest pain, palpitation No shortness of breath or coughing No abdominal pain, nausea or vomiting No urinary symptoms denies any pain, shortness of breath Physical Exam Vital Signs: Vital Signs: Last Vital Signs Temp 97.3 F 06/07/20 10:59 Pulse 110 H 06/07/20 10:59 Resp 18 06/07/20 10:59 BP 109/63 06/07/20 10:59 Pulse Ox 92 06/07/20 10:59 Body Mass Index 44.1 Const: Other: Constitutional : Encephalopathic but responsive to stimuli, does not seem in distress Neck : Normal inspection, Supple Cardiovascular : RRR, S1 S2, no lower extremity edema Respiratory : Fair bilateral air entry, bilateral bases crackles, now wheezes or rhonchi Gastrointestinal: soft, lax, Normal bowel sounds, Non tender Skin : Warm/Dry, multiple areas of bruises, large dry wound on the chest of her left lower extremity, covered with dressing Neurological : Encephalopathic but responsive to stimuli, able to say few words and does make sense, No focal deficit Objective Data Current Medications Generic Name Dose Route Start Last Admin Trade Name Freq PRN Reason Stop Dose Admin Acetaminophen 650 mg 06/04/20 21:23 Acetaminophen Supp 650 Mg Supp.Rect [place] Q6H PRN Pain, Mild (Pain Scale 1-3) Albuterol/Ipratropium 3 ml 06/04/20 21:18 Albuterol/Iprat 2.5/0.5mg 3 Ml Ampul.Neb INHALE Q6H PRN shortness of breath Dexamethasone 40 mg 06/07/20 09:00 06/07/20 09:39 Dexamethasone 4 Mg Tablet PO 40 mg DAILY [facility] Administration Ferrous Sulfate 324 mg 06/05/20 09:00 06/07/20 09:38 Ferrous Sulfate 324 Mg Tablet.Dr PO 324 mg DAILY [facility] Administration Furosemide 40 mg 06/05/20 09:00 06/07/20 10:04 Furosemide 40 Mg Tablet PO Not Given DAILY [facility] Protocol Guaifenesin 1,200 mg 06/05/20 09:00 06/07/20 09:37 Guaifenesin La 600 Mg Tab.Er.12h PO 1,200 mg BID [facility] Administration Doxycycline Hyclate 100 mg/ 250 mls @ 166.67 mls/hr 06/06/20 16:00 06/07/20 07:19 Sodium Chloride IV Infused Q12H [facility] Infusion Dextrose/Lactated Ringer's 1,000 mls @ 80 mls/hr 06/06/20 17:15 06/07/20 11:01 D5lr IVCONT Not Given .[id number] [facility] Insulin Human Lispro 0 unit 06/05/20 07:30 06/07/20 12:48 Insulin Lispro 100 Unit/Ml 3 Ml Vial SUBCUT Not Given QIDACHS [facility] Protocol Loratadine 10 mg 06/05/20 09:00 06/07/20 09:59 Loratadine 10 Mg Tablet PO 10 mg DAILY [facility] Administration Metoprolol Tartrate 12.5 mg 06/05/20 09:00 06/07/20 09:56 Metoprolol Tartrate 25 Mg Tablet PO Not Given BID [facility] Protocol Montelukast Sodium 10 mg 06/05/20 21:00 06/06/20 19:58 Montelukast Sodium 10 Mg Tablet PO 10 mg BEDTIME [facility] Administration Omeprazole 20 mg 06/05/20 06:30 06/07/20 05:28 Omeprazole 20 Mg Capsule.Dr PO Not Given BID@0630,1630 [facility] Ondansetron HCl 4 mg 06/04/20 23:45 06/05/20 00:01 Ondansetron Hcl 4 Mg/2 Ml Vial IVPUSH 4 mg Q8H PRN Administration Nausea Pharmacy Consult 1 each 06/04/20 21:12 Consult Rx Vancomycin Dosing MISCELLANE DAILY PRN Consult order Pharmacy Consult 1 each 06/04/20 21:20 Consult Rx Vancomycin Dosing MISCELLANE DAILY PRN Consult order Senna 17.2 mg 06/04/20 21:23 Sennosides 8.6 Mg Tablet PO BEDTIME PRN Constipation Sertraline HCl 25 mg 06/05/20 09:00 06/07/20 09:59 Sertraline Hcl 25 Mg Tablet PO 25 mg DAILY [facility] Administration Sodium Chloride 3 ml 06/05/20 00:00 06/07/20 09:21 0.9 % Sodium Chloride Flush 3 Ml Syringe IVFLUSH 3 ml QSHIFT [facility] Administration Labs CBC & Chem 7: 06/07/20 05:41 06/07/20 05:41 Microbiology Microbiology Results: Microbiology 06/04/20 18:07 Blood - Venous Blood Culture - Preliminary No growth after 48 hours. 06/04/20 18:06 Blood - Venous Blood Culture - Preliminary No growth after 48 hours. 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 Thrombocytopenia Platelets dropped from 208 on admission to 4 within 2 days, still low today Unclear etiology but could be related to antibiotics Hold Eliquis Transfused 2 units of platelets to transfuse 4 more units of platelets Hematology input appreciated, vancomycin induced ITP possibility, bone Chang suppression Recheck platelets Negative DIC profile Goal to keep platelets above 30 Toxic encephalopathy in setting of reported benzodiazepine overdose More interactive and alert today but still lethargic and sleepy BIN OPERATOR evaluated, 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 Aspiration precautions. Suicidal ideation/benzodiazepine overdose Patient reported to Will to 15 tablets of Ativan 1 mg tablets. Poison Control recommended supportive therapy and observation. Patient currently protecting the airway 1 on 1 observation. Section 12 was done in the ER. Crisis/Psychiatric consult. Discussed with the family who mentioned that patient is strict DNR DNI Hypokalemia Potassium of 2.2 this morning Received IV potassium replacement to give oral potassium replacement Monitor BMP Acute on chronic hypoxic respiratory failure Health-care associated pneumonia, likely aspiration O2 dropped to 80s on admission, continue oxygen supplement and wean down as tolerated DC Zosyn and vancomycin Start doxycycline Id input appreciated Patient has thick bronchial secretions-chest physiotherapy. History of COPD/chronic respiratory failure Continue home oxygen at 2 L. Duo nebs p.r.n.. keep BiPAP at night as tolerated. History of factor 5 laden deficiency/DVT: Continue home anticoagulation. Patient was on Eliquis , to hold Diet Ground mechanical per BIN OPERATOR Code status: DNR/DNI.
[2020-06-07] MEDS: Lidocaine HCl 1 % MPF 5 ML VIAL 10 ML SUBCUT (16:13)
[2020-06-07 16:20] LABS: Glucose, Whole Blood 142 mg/dL (60-115)
[2020-06-07] MEDS: Omeprazole 20 MG CAPSULE.DR PO (17:37)
[2020-06-07] MEDS: Potassium Chloride Packet 20 MEQ PACKET 60 MEQ PO (17:37)
--- NOTE | 2020-06-07 18:51 | P.EN_ITS ---
Event Note Date of Service: 06/07/20 Event Note: Psychiatry note: Chart reviewed and patient briefly seen Currently medically admitted following intentional overdose with lorazepam. Multiple underlying chronic medial issues. Pt seen very briefly as she had to use the bathroom during interview--during interview patient with very flat affect. Reporting that she has been on several medications but none of them work . Unclear how long she has been on Sertraline, but current dose is quite low. When asked if she was still having thoughts of not wanting to be alive she replied yes. Collateral from daughter who was visiting: -patient with history of AUD. Reports patient used to drink daily and consistently to intoxication up until about January/February when her health began to deteriorate. -Daughter reporting that over the last year patient has been saying that she wants to . On the day she overdoses, she called her daughter to say she loved her and goodbye. -Daughter reports that patient was very upset and tearful that she was still alive and was not successful with her attempt. -Daughter reporting that over the last 4 months patient has had numerous medical issues and her mental health has significantly deteriorated as well. Daughter does not believe patient has been taking Sertraline as prescribed as she was resistant to start it and often refused it Plan: -Consider increasing Sertaline to 50mg -Patient still reporting suicidal ideation/ desire to not be alive, should be closely monitored -Once medically stable, psychiatric admission -This freelance copywriter to follow up for more thorough patient interview
[2020-06-07 20:33] LABS: Glucose, Whole Blood 198 mg/dL (60-115)
[2020-06-07] MEDS: Potassium Chloride Packet 20 MEQ PACKET 40 MEQ PO (20:42)
[2020-06-07] MEDS: Montelukast Sodium 10 MG TABLET PO (20:42)
[2020-06-07 21:06] LABS: Anion Gap 14 (12-20); Blood Urea Nitrogen 10 mg/dL (9-16); Calcium 7.3 mg/dL (8.4-10.2); Carbon Dioxide 25 mmol/L (22-29); Chloride 104 mmol/L (96-108); Estimated Glomerular Filt Rate > 60; Glucose Random 217 mg/dL (60-115); Potassium 4.4 mmol/L (3.3-5.1); Sodium 139 mmol/L (135-145)
[2020-06-07 21:29] LABS: Hematocrit 27.6 % (37-47); Mean Corpuscular Hemoglobin 25.2 pg (27.0-33.0); Mean Corpuscular Volume 86.8 fL (80-98); Red Blood Count 3.18 X10*6/uL (4.20-5.50); Red Cell Distribution Width 18.2 % (11.0-16.0)
[2020-06-07 21:40] LABS: Platelet Count 4 X10*3/uL (160-400)
[2020-06-07] MEDS: Insulin Lispro 100 UNIT/ML 3 ML VIAL SUBCUT (23:28)
[2020-06-07] MEDS: 0.9 % Sodium Chloride Flush 10 ML SYRINGE 5 ML IVFLUSH ×3 (23:32→23:40)
[2020-06-08] VITALS (16 sets, daily range): BP systolic 98–140; BP diastolic 55–87; PULSE 74–103; RESP 16–20; TEMP 36.1–36.9; O2SAT 92–99
[2020-06-08] MEDS: Doxycycline Hyclate 100 MG in 0.9 % Sodium Chloride 250 ML 166.67 MG IV ×2 (04:57→17:11)
[2020-06-08] MEDS: Dextrose 5 % and Lactated Ring 1,000 ML 80 ML IVCONT ×2 (04:59→19:51)
[2020-06-08] MEDS: Omeprazole 20 MG CAPSULE.DR PO ×2 (06:03→16:19)
[2020-06-08 07:14] LABS: Hematocrit 24.4 % (37-47); Mean Corpuscular HGB Conc 28.7 g/dl (31.0-35.0); Mean Corpuscular Volume 87.1 fL (80-98); Mean Platelet Volume 10.5 fL (9.4-12.3); Platelet Count 104 X10*3/uL (160-400); Red Cell Distribution Width 18.1 % (11.0-16.0); White Blood Count 14.9 X10*3/uL (4.8-10.8)
[2020-06-08 07:25] LABS: Glucose, Whole Blood 161 mg/dL (60-115)
[2020-06-08] MEDS: Insulin Lispro 100 UNIT/ML 3 ML VIAL SUBCUT ×2 (07:39→16:19)
[2020-06-08 07:45] LABS: Anion Gap 18 (12-20); Blood Urea Nitrogen 10 mg/dL (9-16); Calcium 7.8 mg/dL (8.4-10.2); Carbon Dioxide 23 mmol/L (22-29); Chloride 106 mmol/L (96-108); Creatinine Clr Calc Pharmacy 81.3; Estimated Glomerular Filt Rate > 60; Glucose Random 164 mg/dL (60-115); Potassium 4.6 mmol/L (3.3-5.1); Sodium 142 mmol/L (135-145)
--- NOTE | 2020-06-08 09:00 | MHC.CARE ---
Please call CARE team for assessment once pt is medically cleared
[2020-06-08] MEDS: guaiFENesin LA 600 MG TAB.ER.12H 1200 MG PO ×2 (09:27→19:50)
[2020-06-08] MEDS: Ferrous Sulfate 324 MG TABLET.DR PO (09:27)
[2020-06-08] MEDS: Sertraline HCL 50 MG TABLET PO (09:28)
[2020-06-08] MEDS: Loratadine 10 MG TABLET PO (09:28)
[2020-06-08] MEDS: Furosemide 40 MG TABLET PO (09:28)
[2020-06-08] MEDS: dexAMETHasone 4 MG TABLET 40 MG PO (09:29)
--- NOTE | 2020-06-08 09:36 | MHC.CARE ---
CARE team spoke with pts nurse Sissy who informed CARE that pt is not medically cleared today and unlikely until tomorrow.
[2020-06-08 11:07] LABS: Glucose, Whole Blood 148 mg/dL (60-115)
--- NOTE | 2020-06-08 11:30 | MHC.CLN ---
F/U VARIABLE PO DIET RX: 1200DM CHOPPED-APPROPRIATE RECOMMEND ADDING SANTOS AND GLUCERNA BID TO PROMOTE WOUND HEALING
[2020-06-08] MEDS: 0.9 % Sodium Chloride Flush 10 ML SYRINGE 5 ML IVFLUSH ×3 (11:45→20:02)
--- NOTE | 2020-06-08 14:38 | P.PNIM_ITS ---
Subjective Subjective Date of Service: 06/08/20 Interval History: the patient was seen and evaluated this morning Laying in bed, more alert and interactive today , feels better overall No reported fever, chills or shortness of breath No reported other overnight events. Systemic review: Denies fevers, chills No chest pain, palpitation No shortness of breath or coughing No abdominal pain, nausea or vomiting No urinary symptoms Multiple bruises and wounds Physical Exam Vital Signs: Vital Signs: Last Vital Signs Temp 97.8 F 06/08/20 12:17 Pulse 95 06/08/20 12:17 Resp 20 06/08/20 12:17 BP 116/67 06/08/20 12:17 Pulse Ox 97 06/08/20 11:12 Body Mass Index 44.1 Const: Other: Constitutional : Alert and interactive, not in distress Neck : Normal inspection, Supple Cardiovascular : RRR, S1 S2, no lower extremity edema Respiratory : Fair bilateral air entry, bilateral bases crackles, no wheezes or rhonchi Gastrointestinal: soft, lax, Normal bowel sounds, Non tender Skin : Warm/Dry, multiple areas of bruises, stage II pressure ulcer with no drainage noted, large dry wound on the chest of her left lower extremity, covered with dressing Neurological : Alert, interactive, oriented to self and place, No focal deficit Objective Data Current Medications Generic Name Dose Route Start Last Admin Trade Name Freq PRN Reason Stop Dose Admin Acetaminophen 650 mg 06/04/20 21:23 Acetaminophen Supp 650 Mg Supp.Rect [place] Q6H PRN Pain, Mild (Pain Scale 1-3) Albuterol/Ipratropium 3 ml 06/04/20 21:18 Albuterol/Iprat 2.5/0.5mg 3 Ml Ampul.Neb INHALE Q6H PRN shortness of breath Dexamethasone 40 mg 06/07/20 09:00 06/08/20 09:29 Dexamethasone 4 Mg Tablet PO 40 mg DAILY [facility] Administration Ferrous Sulfate 324 mg 06/05/20 09:00 06/08/20 09:27 Ferrous Sulfate 324 Mg Tablet.Dr PO 324 mg DAILY [facility] Administration Furosemide 40 mg 06/05/20 09:00 06/08/20 09:28 Furosemide 40 Mg Tablet PO 40 mg DAILY [facility] Administration Protocol Guaifenesin 1,200 mg 06/05/20 09:00 06/08/20 09:27 Guaifenesin La 600 Mg Tab.Er.12h PO 1,200 mg BID [facility] Administration Doxycycline Hyclate 100 mg/ 250 mls @ 166.67 mls/hr 06/06/20 16:00 06/08/20 06:55 Sodium Chloride IV Infused Q12H [facility] Infusion Dextrose/Lactated Ringer's 1,000 mls @ 80 mls/hr 06/06/20 17:15 06/08/20 04:59 D5lr IVCONT 80 mls/hr .[id number] [facility] Administration Insulin Human Lispro 0 unit 06/05/20 07:30 06/08/20 11:54 Insulin Lispro 100 Unit/Ml 3 Ml Vial SUBCUT Not Given QIDACHS [facility] Protocol Loratadine 10 mg 06/05/20 09:00 06/08/20 09:28 Loratadine 10 Mg Tablet PO 10 mg DAILY [facility] Administration Metoprolol Tartrate 12.5 mg 06/05/20 09:00 06/07/20 09:56 Metoprolol Tartrate 25 Mg Tablet PO Not Given BID [facility] Protocol Montelukast Sodium 10 mg 06/05/20 21:00 06/07/20 20:42 Montelukast Sodium 10 Mg Tablet PO 10 mg BEDTIME [facility] Administration Omeprazole 20 mg 06/05/20 06:30 06/08/20 06:03 Omeprazole 20 Mg Capsule.Dr PO 20 mg BID@0630,1630 [facility] Administration Ondansetron HCl 4 mg 06/04/20 23:45 06/05/20 00:01 Ondansetron Hcl 4 Mg/2 Ml Vial IVPUSH 4 mg Q8H PRN Administration Nausea Pharmacy Consult 1 each 06/04/20 21:12 Consult Rx Vancomycin Dosing MISCELLANE DAILY PRN Consult order Pharmacy Consult 1 each 06/04/20 21:20 Consult Rx Vancomycin Dosing MISCELLANE DAILY PRN Consult order Senna 17.2 mg 06/04/20 21:23 Sennosides 8.6 Mg Tablet PO BEDTIME PRN Constipation Sertraline HCl 50 mg 06/08/20 09:00 06/08/20 09:28 Sertraline Hcl 50 Mg Tablet PO 50 mg DAILY [facility] Administration Sodium Chloride 3 ml 06/05/20 00:00 06/08/20 11:44 0.9 % Sodium Chloride Flush 3 Ml Syringe IVFLUSH Not Given QSHIFT [facility] Sodium Chloride 5 ml 06/07/20 16:00 06/07/20 23:40 0.9 % Sodium Chloride Flush 10 Ml Syringe IVFLUSH 5 ml TID [facility] Administration Sodium Chloride 5 ml 06/07/20 16:00 06/08/20 14:22 0.9 % Sodium Chloride Flush 10 Ml Syringe IVFLUSH Not Given TID [facility] Labs CBC & Chem 7: 06/08/20 05:56 06/08/20 05:56 Microbiology Microbiology Results: Microbiology 06/04/20 18:07 Blood - Venous Blood Culture - Preliminary No growth after 48 hours. 06/04/20 18:06 Blood - Venous Blood Culture - Preliminary No growth after 48 hours. 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 Thrombocytopenia Improved above 100 post total of 6 units of platelets transfusion Likely related to antibiotics, vancomycin specifically or related to ITP Restarted Eliquis for today Hematology input appreciated, vancomycin induced ITP possibility, ITP to treat with dexamethasone Continue dexamethasone 40 mg daily 2/4 Goal to keep platelets above 30 Acute on chronic anemia, Symptomatic anemia Hemoglobin dropped to 7 this morning Could be secondary to ITP as well, fall more suppression CT scan of the abdomen, hip negative for any internal bleeding To transfuse a unit of blood Continue dexamethasone therapy Toxic encephalopathy in setting of reported benzodiazepine overdose More interactive and alert today LIFE EDUCATOR evaluated, 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 Aspiration precautions. Suicidal ideation/benzodiazepine overdose Patient reported to Will to 15 tablets of Ativan 1 mg tablets. Poison Control recommended supportive therapy and observation 1 on observation. Section 12 was done in the ER. Crisis/Psychiatric consult. Pressure ulcer, Stage II Local care To get wound consult Hypokalemia Improved after p.o. and IV replacement Monitor BMP Acute on chronic hypoxic respiratory failure Health-care associated pneumonia, likely aspiration Still requiring oxygen supplement, to wean down as tolerated Start doxycycline Id input appreciated Patient has thick bronchial secretions-chest physiotherapy. History of COPD/chronic respiratory failure Continue home oxygen at 2 L. Duo nebs p.r.n.. keep BiPAP at night as tolerated. History of factor 5 laden deficiency/DVT: Continue home anticoagulation. Patient was on Eliquis , to hold Diet Ground mechanical per LIFE EDUCATOR Code status: DNR/DNI.
[2020-06-08 16:03] LABS: Glucose, Whole Blood 160 mg/dL (60-115)
--- NOTE | 2020-06-08 16:59 | P.CONGS_ITS ---
History of Present Illness Consult details Consult date: 06/08/20 Narrative: [age] year female referred for an intra-abdominal abscess. He was admitted 4days ago in the hospital because of suicidal ideations. She apparently took multiple doses of of [facility] from the [facility] because her depression. She has multiple medical problems as well. She was noted to have anemia here to this admission. There was no obvious source that could be identified. She underwent a CAT scan to rule out a retroperitoneal bleed as she does have history of falls. This however showed a small intra-abdominal abscess in the pelvis. I was therefore consulted. She says she does not have any significant or new abdominal pain at all. She does not seem to be a very good historian. She denies any nausea or vomiting. There is no fever documented recently. She denies GI complaints. Review of Systems Constitutional: Constitutional: Reports lethargy and Reports poor appetite Cardiovascular: Cardiovascular: Denies chest pain, Reports dyspnea and Reports dyspnea on exertion Respiratory: Respiratory: Reports cough, Reports dyspnea and Reports dyspnea on exertion Gastrointestinal: Gastrointestinal: Denies diarrhea and Denies vomiting Genitourinary: Genitourinary: Denies difficulty voiding Psychiatric: Psychiatric: Reports depression [facility] Past Medical History Medical History (Updated 06/08/20 @ 17:08 by Gunnar Fuentes MD) Blood clot in vein COPD (chronic obstructive pulmonary disease) Diabetes Epistaxis Factor 5 Leiden mutation, heterozygous FH: total knee replacement GERD (gastroesophageal reflux disease) Heart failure Intra-abdominal abscess EMERALD (obstructive sleep apnea) Family History Family history: reviewed and not pertinent Surgical History Surgical History History of bronchoscopy History of cholecystectomy Hx of tonsillectomy Social History Social History Household Members: Other Household Members Other:: [facility] Housing: Assisted Living Facility Housing Other:: [facility] Do you presently have visiting nurse or other home services: Yes Unable to assess alcohol history related to: Unable to respond, Unknown and Refusing to respond Alcohol intake: unknown Smoking Status: Unknown if ever smoked Second Hand Smoke Exposure: No Use of substances other than those prescribed or required for medical reasons: Unknown Currently Displaying Signs/Symptoms of Drug Intoxication Withdrawal: No Advance Directives: Yes Advance Directives on File: Yes Advance Directives Date on File: 05/18/20 Do you have thoughts of harming others: None Do you have a plan to hurt others: No Plan Recently lost weight without trying: Unsure service: No Current occupational status: retired Meds Allergies Allergy/AdvReac Type Severity Reaction Status Date / Time Sulfa (Sulfonamide Allergy Intermediate SWELLING Verified 05/27/20 20:09 Antibiotics) [Sulfa (Sulfonamides)] alendronate sodium [Fosamax] Allergy Unknown Unknown Verified 05/27/20 20:09 azithromycin [Zithromax] Allergy Unknown Unknown Verified 05/27/20 20:09 cefepime Allergy Unknown Unknown Verified 05/27/20 20:09 levofloxacin Allergy Unknown Unknown Verified 05/27/20 20:09 umeclidinium [Anoro Ellipta] Allergy Unknown Unknown Verified 05/27/20 20:09 vilanterol [Anoro Ellipta] Allergy Unknown Unknown Verified 05/27/20 20:09 vancomycin AdvReac Severe thrombocyto Verified 06/06/20 17:13 penia ADHESIVE TAPE Allergy Unknown Unknown Uncoded 05/27/20 20:09 Sucralfate Allergy Unknown Unknown Uncoded 05/27/20 20:09 Sulfamethoxazole Allergy Unknown Unknown Uncoded 05/27/20 20:09 Active Medications: Current Medications Generic Name Dose Route Start Last Admin Trade Name Freq PRN Reason Stop Dose Admin Acetaminophen 650 mg 06/04/20 21:23 Acetaminophen Supp 650 Mg Supp.Rect [place] Q6H PRN Pain, Mild (Pain Scale 1-3) Albuterol/Ipratropium 3 ml 06/04/20 21:18 Albuterol/Iprat 2.5/0.5mg 3 Ml Ampul.Neb INHALE Q6H PRN shortness of breath Dexamethasone 40 mg 06/07/20 09:00 06/08/20 09:29 Dexamethasone 4 Mg Tablet PO 40 mg DAILY SATNAM Administration Ferrous Sulfate 324 mg 06/05/20 09:00 06/08/20 09:27 Ferrous Sulfate 324 Mg Tablet.Dr PO 324 mg DAILY SATNAM Administration Furosemide 40 mg 06/05/20 09:00 06/08/20 09:28 Furosemide 40 Mg Tablet PO 40 mg DAILY SATNAM Administration Protocol Guaifenesin 1,200 mg 06/05/20 09:00 06/08/20 09:27 Guaifenesin La 600 Mg Tab.Er.12h PO 1,200 mg BID SATNAM Administration Doxycycline Hyclate 100 mg/ 250 mls @ 166.67 mls/hr 06/06/20 16:00 06/08/20 06:55 Sodium Chloride IV Infused Q12H [facility] Infusion Dextrose/Lactated Ringer's 1,000 mls @ 80 mls/hr 06/06/20 17:15 06/08/20 04:59 D5lr IVCONT 80 mls/hr .[id number] SATNAM Administration Metronidazole 500 mg in 100 mls @ 100 mls/hr 06/08/20 17:00 Flagyl IV Q8H SATNAM Ceftriaxone Sodium 1 gm/ 50 mls @ 100 mls/hr 06/08/20 17:00 Sodium Chloride IV Q24H [facility] Insulin Human Lispro 0 unit 06/05/20 07:30 06/08/20 16:19 Insulin Lispro 100 Unit/Ml 3 Ml Vial SUBCUT 2 unit QIDACHS [facility] Administration Protocol Loratadine 10 mg 06/05/20 09:00 06/08/20 09:28 Loratadine 10 Mg Tablet PO 10 mg DAILY SATNAM Administration Metoprolol Tartrate 12.5 mg 06/05/20 09:00 06/07/20 09:56 Metoprolol Tartrate 25 Mg Tablet PO Not Given BID [facility] Protocol Montelukast Sodium 10 mg 06/05/20 21:00 06/07/20 20:42 Montelukast Sodium 10 Mg Tablet PO 10 mg BEDTIME SATNAM Administration Omeprazole 20 mg 06/05/20 06:30 06/08/20 16:19 Omeprazole 20 Mg Capsule.Dr PO 20 mg BID@0630,1630 [facility] Administration Ondansetron HCl 4 mg 06/04/20 23:45 06/05/20 00:01 Ondansetron Hcl 4 Mg/2 Ml Vial IVPUSH 4 mg Q8H PRN Administration Nausea Pharmacy Consult 1 each 06/04/20 21:12 Consult Rx Vancomycin Dosing MISCELLANE DAILY PRN Consult order Pharmacy Consult 1 each 06/04/20 21:20 Consult Rx Vancomycin Dosing MISCELLANE DAILY PRN Consult order Senna 17.2 mg 06/04/20 21:23 Sennosides 8.6 Mg Tablet PO BEDTIME PRN Constipation Sertraline HCl 50 mg 06/08/20 09:00 06/08/20 09:28 Sertraline Hcl 50 Mg Tablet PO 50 mg DAILY SATNAM Administration Sodium Chloride 3 ml 06/05/20 00:00 06/08/20 11:44 0.9 % Sodium Chloride Flush 3 Ml Syringe IVFLUSH Not Given QSHIFT SATNAM Sodium Chloride 5 ml 06/07/20 16:00 06/07/20 23:40 0.9 % Sodium Chloride Flush 10 Ml Syringe IVFLUSH 5 ml TID SATNAM Administration Sodium Chloride 5 ml 06/07/20 16:00 06/08/20 14:22 0.9 % Sodium Chloride Flush 10 Ml Syringe IVFLUSH Not Given TID [facility] Home Medications Medication Instructions Recorded Confirmed Last Taken Type Eliquis 2.5 mg PO BID 05/18/20 06/04/20 05/22/20 History Flovent HFA 2 puff INHALATION BID 05/18/20 06/04/20 05/22/20 History furosemide 40 mg PO DAILY 05/18/20 06/04/20 05/22/20 History lorazepam 1 mg PO BEDTIME PRN 05/18/20 06/04/20 05/21/20 History metoprolol tartrate 12.5 mg PO BID 05/18/20 06/04/20 05/22/20 History montelukast 10 mg PO BEDTIME 05/18/20 06/04/20 05/21/20 History pantoprazole 40 mg PO BID 05/18/20 06/04/20 05/22/20 History pioglitazone 15 mg PO DAILY 05/18/20 06/04/20 05/22/20 History sertraline 25 mg PO DAILY 05/18/20 06/04/20 05/22/20 History calcium carbonate-vitamin D2 1 tab PO DAILY 06/04/20 06/04/20 Unknown History [Calcium + Vitamin D] cholecalciferol (vitamin D3) 25 mcg PO DAILY 06/04/20 06/04/20 Unknown History [Vitamin D3] glucosamine sulfate [Glucosamine] 750 mg PO DAILY 06/04/20 06/04/20 Unknown History insulin lispro [Humalog U-100 1 sliding scale dose SUBCUT 06/04/20 06/04/20 Un known History Insulin] USEASDIRECTD loratadine [Claritin] 10 mg PO DAILY 06/04/20 06/04/20 Unknown History zolpidem [Ambien] 5 mg PO BEDTIME PRN 06/04/20 06/04/20 Unknown History Physical Exam Vital Signs: Vital Signs: Last Vital Signs Temp 98.4 F 06/08/20 15:04 Pulse 103 H 06/08/20 15:04 Resp 18 06/08/20 15:04 BP 108/56 L 06/08/20 15:04 Pulse Ox 94 06/08/20 15:04 Body Mass Index 44.1 Const: Other: Appears short of breath, communicative and answers questions Resp: Other: Some shortness of breath Effort & Inspection: audible wheezes and Actively coughing Cardio: Rhythm: abnormal rhythm GI: Palpation (GI): Soft to palpation and nontender Skin: Other: Multiple ecchymosis and skin avulsions throughout her extremities Extrem: Right upper extremity: edema Results Labs Result diagrams: 06/08/20 05:56 06/08/20 05:56 Labs: Abnormal lab results 06/06/20 06/07/20 06/07/20 Range/Units 13:18 20:18 20:30 WBC (4.8-10.8) X10*3/uL RBC (4.20-5.50) X10*6/uL Hgb (12.0-16.0) g/dl Hct (37-47) % MCH (27.0-33.0) pg MCHC (31.0-35.0) g/dl RDW (11.0-16.0) % Plt Count (160-400) X10*3/uL POC Glucose 198 H (60-115) mg/dL Random Glucose 217 H D (60-115) mg/dL Calcium 7.3 L (8.4-10.2) mg/dL Crossmatch See Detail 06/07/20 06/08/20 06/08/20 Range/Units 20:59 05:56 05:56 WBC 13.0 H 14.9 H (4.8-10.8) X10*3/uL RBC 3.18 L 2.80 L (4.20-5.50) X10*6/uL Hgb 8.0 L 7.0 L* (12.0-16.0) g/dl Hct 27.6 L 24.4 L (37-47) % MCH 25.2 L 25.0 L (27.0-33.0) pg MCHC 29.0 L 28.7 L (31.0-35.0) g/dl RDW 18.2 H 18.1 H (11.0-16.0) % Plt Count 4 L* 104 L D (160-400) X10*3/uL POC Glucose (60-115) mg/dL Random Glucose 164 H (60-115) mg/dL Calcium 7.8 L D (8.4-10.2) mg/dL Crossmatch 06/08/20 06/08/20 06/08/20 Range/Units 07:11 10:50 15:59 WBC (4.8-10.8) X10*3/uL RBC (4.20-5.50) X10*6/uL Hgb (12.0-16.0) g/dl Hct (37-47) % MCH (27.0-33.0) pg MCHC (31.0-35.0) g/dl RDW (11.0-16.0) % Plt Count (160-400) X10*3/uL POC Glucose 161 H 148 H 160 H (60-115) mg/dL Random Glucose (60-115) mg/dL Calcium (8.4-10.2) mg/dL Crossmatch Short CBC 06/07/20 06/08/20 Range/Units 20:59 05:56 WBC 13.0 H 14.9 H (4.8-10.8) X10*3/uL Hgb 8.0 L 7.0 L* (12.0-16.0) g/dl Hct 27.6 L 24.4 L (37-47) % Plt Count 4 L* 104 L D (160-400) X10*3/uL BMP 06/07/20 06/08/20 20:30 05:56 Sodium 139 142 Potassium 4.4 D 4.6 Chloride 104 106 Carbon Dioxide 25 23 BUN 10 10 Creatinine 0.69 0.67 Calcium 7.3 L 7.8 L D Urine 06/04/20 Range/Units 18:13 Urine Color YELLOW Urine Appearance CLEAR Urine pH 5.5 (5.0-8.0) Ur Specific [place] 1.020 (1.005-1.025) Urine Protein NEG (NEG-TRACE) MG/DL Urine Glucose (UA) NEG (NEG) MG/DL All other labs normal. Imaging Abdomen CT scan report/results: report reviewed and image reviewed CT scan - pelvis: report reviewed and image reviewed Assessment and Plan (1) Intra-abdominal abscess: Status: Acute She has had intra-abdominal abscess, about 4 cm in diameter, adjacent to sigmoid. This may be secondary to a history of sigmoid diverticulitis. She does not have any GI complaints at this time. She denies significant abdominal pain. Her abdominal exam is benign. Ideally, she should have CT drainage of this intra-abdominal abscess. However, she does not appear to be in any condition to undergo the procedure. She has severe anemia and has multiple active medical problems. She is significantly short of breath. I am uncertain if she is able to lie down flat for an adequate period of time. She is also coagulopathic and thrombocytopenic and has significant anemia as well. There is identifiable source of bleeding. I recommend treating this with IV antibiotics at this time. Her doses of antibiotics are at this point as well because of her reactions in the past. This will be discussed with ID. I will also review her films with the radiologist.
[2020-06-08] MEDS: cefTRIAXone sodium 1 GM in 0.9 % Sodium Chloride 50 ML IV (17:12)
[2020-06-08] MEDS: metroNIDAZOLE/NS 500 MG/100 ML PIGGYBACK 100 MG IV (17:12)
[2020-06-08] MEDS: 0.9 % Sodium Chloride Flush 3 ML SYRINGE IVFLUSH (17:20)
[2020-06-08] MEDS: Montelukast Sodium 10 MG TABLET PO (19:51)
[2020-06-08] MEDS: Metoprolol Tartrate 25 MG TABLET 12.5 MG PO (19:51)
[2020-06-08 20:03] LABS: Glucose, Whole Blood 174 mg/dL (60-115)
[2020-06-09] VITALS (12 sets, daily range): BP systolic 116–153; BP diastolic 70–90; PULSE 66–86; RESP 16–26; TEMP 36.3–36.8; O2SAT 93–99
[2020-06-09] MEDS: metroNIDAZOLE/NS 500 MG/100 ML PIGGYBACK 100 MG IV ×4 (00:30→23:58)
[2020-06-09] MEDS: 0.9 % Sodium Chloride Flush 3 ML SYRINGE IVFLUSH ×4 (00:34→23:57)
[2020-06-09] MEDS: Doxycycline Hyclate 100 MG in 0.9 % Sodium Chloride 250 ML 166.67 MG IV (04:19)
[2020-06-09] MEDS: Omeprazole 20 MG CAPSULE.DR PO ×2 (05:43→15:43)
[2020-06-09] MEDS: Dextrose 5 % and Lactated Ring 1,000 ML 80 ML IVCONT (06:21)
[2020-06-09 06:37] LABS: Anion Gap 15 (12-20); Blood Urea Nitrogen 15 mg/dL (9-16); Calcium 7.8 mg/dL (8.4-10.2); Carbon Dioxide 24 mmol/L (22-29); Chloride 104 mmol/L (96-108); Creatinine Clr Calc Pharmacy 70.8; Estimated Glomerular Filt Rate > 60; Glucose Random 230 mg/dL (60-115); Prothrombin Time 11.7 SEC (10.8-13.0); Sodium 139 mmol/L (135-145)
[2020-06-09 06:59] LABS: Hematocrit 27.6 % (37-47); Hemoglobin 8.2 g/dl (12.0-16.0); Mean Corpuscular HGB Conc 29.7 g/dl (31.0-35.0); Mean Corpuscular Hemoglobin 26.3 pg (27.0-33.0); Mean Corpuscular Volume 88.5 fL (80-98); Mean Platelet Volume 12.2 fL (9.4-12.3); Platelet Count 119 X10*3/uL (160-400); Red Blood Count 3.12 X10*6/uL (4.20-5.50); Red Cell Distribution Width 18.2 % (11.0-16.0); White Blood Count 15.6 X10*3/uL (4.8-10.8)
[2020-06-09 07:42] LABS: Glucose, Whole Blood 205 mg/dL (60-115)
[2020-06-09] MEDS: Sertraline HCL 50 MG TABLET PO (07:46)
[2020-06-09] MEDS: Ferrous Sulfate 324 MG TABLET.DR PO (07:47)
[2020-06-09] MEDS: Furosemide 40 MG TABLET PO (07:47)
[2020-06-09] MEDS: guaiFENesin LA 600 MG TAB.ER.12H 1200 MG PO ×2 (07:47→20:14)
[2020-06-09] MEDS: dexAMETHasone 4 MG TABLET 40 MG PO (07:48)
[2020-06-09] MEDS: 0.9 % Sodium Chloride Flush 10 ML SYRINGE 5 ML IVFLUSH ×5 (07:51→21:26)
[2020-06-09] MEDS: Loratadine 10 MG TABLET PO (07:52)
[2020-06-09] MEDS: Insulin Lispro 100 UNIT/ML 3 ML VIAL SUBCUT ×4 (07:57→20:15)
[2020-06-09] MEDS: Metoprolol Tartrate 25 MG TABLET 12.5 MG PO ×2 (07:58→20:13)
[2020-06-09 11:30] LABS: Glucose, Whole Blood 156 mg/dL (60-115)
--- NOTE | 2020-06-09 12:13 | MHC.CARE ---
0930: Rounded on pt. Secured clearance to meet with the pt from pt's nurse Tressa. Pt appeared confused and did not appear to be an accurate historian of the events leading up to her hospitalization. Pt would drift off topic and did so numerous times during the conversation. Pt was certain that she wanted to and expressed that clearly stating I want to because I'm old and can't go through this. I was able to meet with the pt's daughter Abida and her to secure collateral information regarding pt. Pt's baseline is very different from how she is presenting. Pt is very social, and enjoyed entertaining and spending time with friends. Pt has been having these suicidal thoughts since January when she fell and fractured her back. This injury necessitated her being hospitalized and later placed in rehab. It was determined by the family that she and her , who suffers from dementia, would move into an assisted living program as pt was the primary rn medicare for the . While in assisted living and undergoing rehab for her back injury, pt fell and injured her leg. As a result of her injuries it was necessary for her to be quarantined and away from her . Social distancing and the quarantines due to her injuries have been very difficult for her. Pt has a history of alcohol abuse and has been in rehab before for this. Pt's daughter suggests that the alcohol consumption was a means of coping and she hasn't been able to consume alcohol since her move to assisted living.
--- NOTE | 2020-06-09 12:48 | HO.PM.IMPN ---
Subjective Subjective Date of Service: 06/09/20 Interval History: the patient was seen and evaluated this morning Laying in bed, more alert and interactive today , feels better overall CT abdomen pelvis with was consistent with pelvic abscess. No reported fever, chills or shortness of breath No reported other overnight events. Systemic review: Denies fevers, chills No chest pain, palpitation No shortness of breath or coughing No abdominal pain, nausea or vomiting No urinary symptoms Multiple bruises and wounds Physical Exam Vital Signs: Vital Signs: Last Vital Signs Temp 98.3 F 06/09/20 11:25 Pulse 73 06/09/20 11:25 Resp 22 H 06/09/20 11:25 BP 136/76 06/09/20 11:25 Pulse Ox 97 06/09/20 11:25 Body Mass Index 44.1 Const: Other: Constitutional : Alert and interactive, not in distress Neck : Normal inspection, Supple Cardiovascular : RRR, S1 S2, no lower extremity edema Respiratory : Fair bilateral air entry, bilateral bases crackles, no wheezes or rhonchi Gastrointestinal: soft, lax, Normal bowel sounds, Non tender Skin : Warm/Dry, multiple areas of bruises, stage II pressure ulcer with no drainage noted, large dry wound on the chest of her left lower extremity, covered with dressing Neurological : Alert, interactive, oriented to self and place, No focal deficit Objective Data Current Medications Generic Name Dose Route Start Last Admin Trade Name Freq PRN Reason Stop Dose Admin Acetaminophen 650 mg 06/04/20 21:23 Acetaminophen Supp 650 Mg Supp.Rect [place] Q6H PRN Pain, Mild (Pain Scale 1-3) Albuterol/Ipratropium 3 ml 06/04/20 21:18 Albuterol/Iprat 2.5/0.5mg 3 Ml Ampul.Neb INHALE Q6H PRN shortness of breath Dexamethasone 40 mg 06/07/20 09:00 06/09/20 07:48 Dexamethasone 4 Mg Tablet PO 06/10/20 09:01 40 mg DAILY SATNAM Administration Ferrous Sulfate 324 mg 06/05/20 09:00 06/09/20 07:47 Ferrous Sulfate 324 Mg Tablet. PO 324 mg DAILY SATNAM Administration Furosemide 40 mg 06/05/20 09:00 06/09/20 07:47 Furosemide 40 Mg Tablet PO 40 mg DAILY SATNAM Administration Protocol Guaifenesin 1,200 mg 06/05/20 09:00 06/09/20 07:47 Guaifenesin La 600 Mg Tab.Er.12h PO 1,200 mg BID SATNAM Administration Doxycycline Hyclate 100 mg/ 250 mls @ 166.67 mls/hr 06/06/20 16:00 06/09/20 05:51 Sodium Chloride IV Infused Q12H SATNAM Infusion Dextrose/Lactated Ringer's 1,000 mls @ 80 mls/hr 06/06/20 17:15 06/09/20 06:21 D5lr IVCONT 80 mls/hr .[id number] SATNAM Administration Metronidazole 500 mg in 100 mls @ 100 mls/hr 06/08/20 17:00 06/09/20 09:49 Flagyl IV Infused Q8H SATNAM Infusion Ceftriaxone Sodium 1 gm/ 50 mls @ 100 mls/hr 06/08/20 17:00 06/08/20 18:31 Sodium Chloride IV Infused Q24H SATNAM Infusion Insulin Human Lispro 0 unit 06/05/20 07:30 06/09/20 11:45 Insulin Lispro 100 Unit/Ml 3 Ml Vial SUBCUT 2 unit QIDACHS SATNAM Administration Protocol Loratadine 10 mg 06/05/20 09:00 06/09/20 07:52 Loratadine 10 Mg Tablet PO 10 mg DAILY SATNAM Administration Metoprolol Tartrate 12.5 mg 06/05/20 09:00 06/09/20 07:58 Metoprolol Tartrate 25 Mg Tablet PO 12.5 mg BID SATNAM Administration Protocol Montelukast Sodium 10 mg 06/05/20 21:00 06/08/20 19:51 Montelukast Sodium 10 Mg Tablet PO 10 mg BEDTIME SATNAM Administration Omeprazole 20 mg 06/05/20 06:30 06/09/20 05:43 Omeprazole 20 Mg Capsule.Dr PO 20 mg BID@0630,1630 SATNAM Administration Ondansetron HCl 4 mg 06/04/20 23:45 06/05/20 00:01 Ondansetron Hcl 4 Mg/2 Ml Vial IVPUSH 4 mg Q8H PRN Administration Nausea Pharmacy Consult 1 each 06/04/20 21:12 Consult Rx Vancomycin Dosing MISCELLANE DAILY PRN Consult order Pharmacy Consult 1 each 06/04/20 21:20 Consult Rx Vancomycin Dosing MISCELLANE DAILY PRN Consult order Senna 17.2 mg 06/04/20 21:23 Sennosides 8.6 Mg Tablet PO BEDTIME PRN Constipation Sertraline HCl 50 mg 06/08/20 09:00 06/09/20 07:46 Sertraline Hcl 50 Mg Tablet PO 50 mg DAILY SATNAM Administration Sodium Chloride 3 ml 06/05/20 00:00 06/09/20 07:51 0.9 % Sodium Chloride Flush 3 Ml Syringe IVFLUSH 3 ml QSHIFT SATNAM Administration Sodium Chloride 5 ml 06/07/20 16:00 06/09/20 07:51 0.9 % Sodium Chloride Flush 10 Ml Syringe IVFLUSH 5 ml TID SATNAM Administration Sodium Chloride 5 ml 06/07/20 16:00 06/09/20 07:51 0.9 % Sodium Chloride Flush 10 Ml Syringe IVFLUSH 5 ml TID SATNAM Administration Labs CBC & Chem 7: 06/09/20 05:32 06/09/20 05:32 Microbiology Microbiology Results: Microbiology 06/04/20 18:07 Blood - Venous Blood Culture - Preliminary No growth after 48 hours. 06/04/20 18:06 Blood - Venous Blood Culture - Preliminary No growth after 48 hours. 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 Intra-abdominal abscess Above 4 cm in diameter, adjacent to sigmoid Surgery input appreciated, ideally should have CT drainage but withhold with multiple other medical issues. To treat with IV antibiotics of Flagyl and ceftriaxone for now to repeat CT scan on Friday Thrombocytopenia Improved above 100 post total of 6 units of platelets transfusion Likely related to antibiotics, vancomycin specifically or related to ITP Restarted Eliquis for today Hematology input appreciated, vancomycin induced ITP possibility, ITP to treat with dexamethasone Continue dexamethasone 40 mg daily 3/4 Goal to keep platelets above 30 Acute on chronic anemia, Symptomatic anemia Hemoglobin improved to 8.2 post transfusion 1 unit Could be secondary to ITP as well CT scan of the abdomen, hip negative for any internal bleeding Continue dexamethasone therapy Toxic encephalopathy in setting of reported benzodiazepine overdose Resolving INTRAVENOUS THERAPY NURSE evaluated, 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 Aspiration precautions. Suicidal ideation/benzodiazepine overdose Patient reported to Will to 15 tablets of Ativan 1 mg tablets. Poison Control recommended supportive therapy and observation 1 on 1 observation. Section 12 was done in the ER. Crisis/Psychiatric consult. Will need inpatient psych admission Pressure ulcer, Stage II Local care To get wound consult Hypokalemia Improved after p.o. and IV replacement Monitor BMP Acute on chronic hypoxic respiratory failure Health-care associated pneumonia, likely aspiration Still requiring oxygen supplement, to wean down as tolerated Start doxycycline Id input appreciated Patient has thick bronchial secretions-chest physiotherapy. History of COPD/chronic respiratory failure Continue home oxygen at 2 L. Duo nebs p.r.n.. keep BiPAP at night as tolerated. History of factor 5 laden deficiency/DVT: Continue home anticoagulation. Patient was on Eliquis , to hold Diet Ground mechanical per INTRAVENOUS THERAPY NURSE Code status: DNR/DNI.
--- NOTE | 2020-06-09 13:23 | MHC.CM.PN ---
Per ROUNDS discussion, Patient is not yet medically cleared for dc (IV Ceftriaxone, IV Flagyl, Sitter, SI). Returning to LTC VS Psych placement is the goal for dc and cM will continue to follow.
--- NOTE | 2020-06-09 13:36 | MHC.CLN ---
F/U PO INTAKE 25-50% DIET RX: 1200DM CHOPPED-APPROPRIATE WILL CHANGE SUPPLEMENT TO ENSURE TO INCREASE KCALS AND PO PROTEIN TO SUPPORT WOUND HEALING RECOMMEND SANTOS AND ENSURE BID TO PROVIDE 860KCALS, 45G PROTEIN FOLLOWING
--- NOTE | 2020-06-09 15:47 | PM.PNGS ---
Subjective Subjective Date of Service: 06/09/20 Interval history: Denies any abdominal pain Tolerating diet well No fever Says she feels well today Physical Exam Vital Signs: Vital Signs: Last Vital Signs Temp 98.3 F 06/09/20 11:25 Pulse 73 06/09/20 11:25 Resp 22 H 06/09/20 11:25 BP 136/76 06/09/20 11:25 Pulse Ox 97 06/09/20 11:25 Body Mass Index 44.1 Chemistry 06/07/20 06/07/20 06/08/20 05:41 20:30 05:56 Sodium 142 139 142 Potassium 2.2 L* D 4.4 D 4.6 Carbon Dioxide 29 25 23 BUN 9 10 10 Creatinine 0.73 0.69 0.67 Calcium 7.5 L 7.3 L 7.8 L D 06/09/20 05:32 Sodium 139 Potassium 4.0 Carbon Dioxide 24 BUN 15 Creatinine 0.77 Calcium 7.8 L Hematology 06/06/20 06/06/20 06/07/20 17:27 21:05 05:41 WBC 22.8 H 21.4 H 14.6 H Hgb 10.9 L 10.3 L 8.7 L Plt Count 6 L* 16 L* D 5 L* D 06/07/20 06/08/20 06/09/20 20:59 05:56 05:32 WBC 13.0 H 14.9 H 15.6 H Hgb 8.0 L 7.0 L* 8.2 L Plt Count 4 L* 104 L D 119 L Const: Other: Some shortness of breath General: no acute distress Nutritional Appearance: obese Resp: Other: Little short of breath Cardio: Rhythm: regular rhythm GI: Palpation (GI): Soft to palpation and nontender Progress Note: A&P Assessment and plan (1) Intra-abdominal abscess: Status: Acute Assessment and Plan: Has small intra-abdominal abscess, likely diverticular in origin No significant abdominal pain or tenderness No fever Tolerating diet well She has multiple acute medical issues including thrombocytopenia, possible ITP Best to hold off on CT drainage for now IV antibiotics We continue to evaluate down the line Fall Risk Details Current Medications: Current Medications Generic Name Dose Route Start Last Admin Trade Name Freq PRN Reason Stop Dose Admin Acetaminophen 650 mg 06/04/20 21:23 Acetaminophen Supp 650 Mg Supp.Rect NM Q6H PRN Pain, Mild (Pain Scale 1-3) Albuterol/Ipratropium 3 ml 06/04/20 21:18 Albuterol/Iprat 2.5/0.5mg 3 Ml Ampul.Neb INHALE Q6H PRN shortness of breath Apixaban 2.5 mg 06/09/20 21:00 Apixaban 2.5 Mg Tablet PO BID SATNAM Dexamethasone 40 mg 06/07/20 09:00 06/09/20 07:48 Dexamethasone 4 Mg Tablet PO 06/10/20 09:01 40 mg DAILY SATNAM Administration Ferrous Sulfate 324 mg 06/05/20 09:00 06/09/20 07:47 Ferrous Sulfate 324 Mg Tablet.Dr PO 324 mg DAILY SATNAM Administration Furosemide 40 mg 06/05/20 09:00 06/09/20 07:47 Furosemide 40 Mg Tablet PO 40 mg DAILY SATNAM Administration Protocol Guaifenesin 1,200 mg 06/05/20 09:00 06/09/20 07:47 Guaifenesin La 600 Mg Tab.Er.12h PO 1,200 mg BID SATNAM Administration Dextrose/Lactated Ringer's 1,000 mls @ 80 mls/hr 06/06/20 17:15 06/09/20 06:21 D5lr IVCONT 80 mls/hr .[id number] SATNAM Administration Metronidazole 500 mg in 100 mls @ 100 mls/hr 06/08/20 17:00 06/09/20 09:49 Flagyl IV Infused Q8H SATNAM Infusion Ceftriaxone Sodium 1 gm/ 50 mls @ 100 mls/hr 06/08/20 17:00 06/08/20 18:31 Sodium Chloride IV Infused Q24H SATNAM Infusion Insulin Human Lispro 0 unit 06/05/20 07:30 06/09/20 11:45 Insulin Lispro 100 Unit/Ml 3 Ml Vial SUBCUT 2 unit QIDACHS SATNAM Administration Protocol Loratadine 10 mg 06/05/20 09:00 06/09/20 07:52 Loratadine 10 Mg Tablet PO 10 mg DAILY SATNAM Administration Metoprolol Tartrate 12.5 mg 06/05/20 09:00 06/09/20 07:58 Metoprolol Tartrate 25 Mg Tablet PO 12.5 mg BID SATNAM Administration Protocol Montelukast Sodium 10 mg 06/05/20 21:00 06/08/20 19:51 Montelukast Sodium 10 Mg Tablet PO 10 mg BEDTIME SATNAM Administration Omeprazole 20 mg 06/05/20 06:30 06/09/20 15:43 Omeprazole 20 Mg Capsule. PO 20 mg BID@0630,6010 SATNAM Administration Ondansetron HCl 4 mg 06/04/20 23:45 06/05/20 00:01 Ondansetron Hcl 4 Mg/2 Ml Vial IVPUSH 4 mg Q8H PRN Administration Nausea Pharmacy Consult 1 each 06/04/20 21:12 Consult Rx Vancomycin Dosing MISCELLANE DAILY PRN Consult order Pharmacy Consult 1 each 06/04/20 21:20 Consult Rx Vancomycin Dosing MISCELLANE DAILY PRN Consult order Senna 17.2 mg 06/04/20 21:23 Sennosides 8.6 Mg Tablet PO BEDTIME PRN Constipation Sertraline HCl 50 mg 06/08/20 09:00 06/09/20 07:46 Sertraline Hcl 50 Mg Tablet PO 50 mg DAILY SATNAM Administration Sodium Chloride 3 ml 06/05/20 00:00 06/09/20 14:30 0.9 % Sodium Chloride Flush 3 Ml Syringe IVFLUSH 3 ml QSHIFT SATNAM Administration Sodium Chloride 5 ml 06/07/20 16:00 06/09/20 14:30 0.9 % Sodium Chloride Flush 10 Ml Syringe IVFLUSH 5 ml TID SATNAM Administration Sodium Chloride 5 ml 06/07/20 16:00 06/09/20 14:29 0.9 % Sodium Chloride Flush 10 Ml Syringe IVFLUSH Not Given TID SATNAM Time Spent With Patient Time: Total time spent is greater than 50% in coordination of care (as documented) at patient's floor/unit and/or counseling patient: Time with patient: 15 - 24 minutes
--- NOTE | 2020-06-09 15:50 | PM.IDPN ---
Subjective Subjective Date of Service: 06/09/20 Interval History: she has no abdominal pain she had decreased hematocrit and CT abdomen checked and showed 4.6 x 3.5 cm abscess near sigmoid colon Objective Data Labs CBC & Chem 7: 06/10/20 07:28 06/12/20 05:45 Labs: Laboratory Results - last 24 hr 06/06/20 06/08/20 06/08/20 13:18 15:59 19:54 WBC RBC Hgb Hct MCV MCH MCHC RDW Plt Count MPV Absolute Nucleated RBC Nucleated RBC % (auto) PT INR Sodium Potassium Chloride Carbon Dioxide Anion Gap BUN Creatinine Estim Creat Clear Calc Estimated GFR POC Glucose 160 H 174 H Random Glucose Calcium Crossmatch See Detail 06/09/20 06/09/20 06/09/20 05:32 05:32 05:32 WBC 15.6 H RBC 3.12 L Hgb 8.2 L Hct 27.6 L MCV 88.5 MCH 26.3 L MCHC 29.7 L RDW 18.2 H Plt Count 119 L MPV 12.2 Absolute Nucleated RBC 0.000 Nucleated RBC % (auto) 0.0 PT 11.7 D INR 1.0 Sodium 139 Potassium 4.0 Chloride 104 Carbon Dioxide 24 Anion Gap 15 BUN 15 Creatinine 0.77 Estim Creat Clear Calc 70.8 Estimated GFR > 60 POC Glucose Random Glucose 230 H D Calcium 7.8 L Crossmatch 06/09/20 06/09/20 07:39 11:27 WBC RBC Hgb Hct MCV MCH MCHC RDW Plt Count MPV Absolute Nucleated RBC Nucleated RBC % (auto) PT INR Sodium Potassium Chloride Carbon Dioxide Anion Gap BUN Creatinine Estim Creat Clear Calc Estimated GFR POC Glucose 205 H 156 H Random Glucose Calcium Crossmatch Microbiology Microbiology Results: Microbiology 06/04/20 18:07 Blood - Venous Blood Culture - Preliminary No growth after 48 hours. 06/04/20 18:06 Blood - Venous Blood Culture - Preliminary No growth after 48 hours. Physical Exam Vital Signs: Vital Signs: Last Vital Signs Temp 98.3 F 06/09/20 11:25 Pulse 73 06/09/20 11:25 Resp 22 H 06/09/20 11:25 BP 136/76 06/09/20 11:25 Pulse Ox 97 06/09/20 11:25 Body Mass Index 44.1 Const: General: cooperative HENMT: Head: Yes normal to inspection Mouth: Normal oral and palatal mucosa present Resp: Effort & Inspection: normal respiratory effort Cardio: Rate: regular rate Rhythm: regular rhythm GI: Palpation (GI): Soft to palpation and nontender Extrem: Other: scab abrasion left leg Assessment and Plan Assessment and plan (1) Intra-abdominal abscess: Problem details: She has incidental finding of abscess It is moderate in size Status: Acute Assessment and Plan: Continue Ceftriaxone and Flagyl for now Check CT scan again early part of next week and drain per IR if larger than 3 cm and culture This antibiotic regimen covers lung ?aspiration as well (2) Leukocytosis: Status: Acute Time Spent With Patient Time: Total time spent is greater than 50% in coordination of care (as documented) at patient's floor/unit and/or counseling patient: Time with patient: 15 - 24 minutes
[2020-06-09] MEDS: cefTRIAXone sodium 1 GM in 0.9 % Sodium Chloride 50 ML IV (16:36)
--- NOTE | 2020-06-09 16:53 | P.CONWO_ITS ---
History of Present Illness Data of Consult Service Date: 06/09/20 Requesting physician: Nai Craig Primary Care Provider: Magdiel Stanley MD HPI Reason for consult: buttock ulcer 74-year-old female hospitalized since [id number], brought in for mental status changes with recent admission on May 23 for shortness of breath, hypoxia and COPD exacerbation with pneumonia. Was discharged. Returned on 04 June. Came in from [facility]. History of factor 5 Leiden on Eliquis, diabetes, COPD and hypertension, history of DVT. While hospitalized had recent thrombocytopenia. Eliquis recently restarted. Abdominal abscess seen on abdominal CT scan. On antibiotics for such. Has suction device for urinary incontinence place topically. Asked to see buttock wounds. Review of Systems Review of Systems: Yes all other systems are reviewed and are negative Respiratory: Comments: No SOB now but worse with lying flat. [facility] Medical History Blood clot in vein COPD (chronic obstructive pulmonary disease) Diabetes Epistaxis Factor 5 Leiden mutation, heterozygous FH: total knee replacement GERD (gastroesophageal reflux disease) Heart failure Intra-abdominal abscess EMERALD (obstructive sleep apnea) Family history: reviewed and not pertinent Surgical History History of bronchoscopy History of cholecystectomy Hx of tonsillectomy Social History Household Members: Other Household Members Other:: [facility] Housing: Assisted Living Facility Housing Other:: [facility] Do you presently have visiting nurse or other home services: Yes Unable to assess alcohol history related to: Unable to respond, Unknown and Refusing to respond Alcohol intake: unknown Smoking Status: Unknown if ever smoked Second Hand Smoke Exposure: No Use of substances other than those prescribed or required for medical reasons: Unknown Currently Displaying Signs/Symptoms of Drug Intoxication Withdrawal: No Advance Directives: Yes Advance Directives on File: Yes Advance Directives Date on File: 05/18/20 Do you have thoughts of harming others: None Do you have a plan to hurt others: No Plan Recently lost weight without trying: Unsure service: No Current occupational status: retired Meds Allergies Allergy/AdvReac Type Severity Reaction Status Date / Time Sulfa (Sulfonamide Allergy Intermediate SWELLING Verified 05/27/20 20:09 Antibiotics) [Sulfa (Sulfonamides)] alendronate sodium [Fosamax] Allergy Unknown Unknown Verified 05/27/20 20:09 azithromycin [Zithromax] Allergy Unknown Unknown Verified 05/27/20 20:09 cefepime Allergy Unknown Unknown Verified 05/27/20 20:09 levofloxacin Allergy Unknown Unknown Verified 05/27/20 20:09 umeclidinium [Anoro Ellipta] Allergy Unknown Unknown Verified 05/27/20 20:09 vilanterol [Anoro Ellipta] Allergy Unknown Unknown Verified 05/27/20 20:09 vancomycin AdvReac Severe thrombocyto Verified 06/06/20 17:13 penia ADHESIVE TAPE Allergy Unknown Unknown Uncoded 05/27/20 20:09 Sucralfate Allergy Unknown Unknown Uncoded 05/27/20 20:09 Sulfamethoxazole Allergy Unknown Unknown Uncoded 05/27/20 20:09 Active Medications: Current Medications Generic Name Dose Route Start Last Admin Trade Name Freq PRN Reason Stop Dose Admin Acetaminophen 650 mg 06/04/20 21:23 Acetaminophen Supp 650 Mg Supp.Rect RI Q6H PRN Pain, Mild (Pain Scale 1-3) Albuterol/Ipratropium 3 ml 06/04/20 21:18 Albuterol/Iprat 2.5/0.5mg 3 Ml Ampul.Neb INHALE Q6H PRN shortness of breath Apixaban 2.5 mg 06/09/20 21:00 Apixaban 2.5 Mg Tablet PO BID SATNAM Dexamethasone 40 mg 06/07/20 09:00 06/09/20 07:48 Dexamethasone 4 Mg Tablet PO 06/10/20 09:01 40 mg DAILY SATNAM Administration Ferrous Sulfate 324 mg 06/05/20 09:00 06/09/20 07:47 Ferrous Sulfate 324 Mg Tablet. PO 324 mg DAILY SATNAM Administration Furosemide 40 mg 06/05/20 09:00 06/09/20 07:47 Furosemide 40 Mg Tablet PO 40 mg DAILY SATNAM Administration Protocol Guaifenesin 1,200 mg 06/05/20 09:00 06/09/20 07:47 Guaifenesin La 600 Mg Tab.Er.12h PO 1,200 mg BID SATNAM Administration Dextrose/Lactated Ringer's 1,000 mls @ 80 mls/hr 06/06/20 17:15 06/09/20 06:21 D5lr IVCONT 80 mls/hr .[id number] SATNAM Administration Metronidazole 500 mg in 100 mls @ 100 mls/hr 06/08/20 17:00 06/09/20 09:49 Flagyl IV Infused Q8H SATNAM Infusion Ceftriaxone Sodium 1 gm/ 50 mls @ 100 mls/hr 06/08/20 17:00 06/09/20 16:36 Sodium Chloride IV 100 mls/hr Q24H SATNAM Administration Insulin Human Lispro 0 unit 06/05/20 07:30 06/09/20 16:34 Insulin Lispro 100 Unit/Ml 3 Ml Vial SUBCUT 2 unit QIDACHS SATNAM Administration Protocol Loratadine 10 mg 06/05/20 09:00 06/09/20 07:52 Loratadine 10 Mg Tablet PO 10 mg DAILY SATNAM Administration Metoprolol Tartrate 12.5 mg 06/05/20 09:00 06/09/20 07:58 Metoprolol Tartrate 25 Mg Tablet PO 12.5 mg BID SATNAM Administration Protocol Montelukast Sodium 10 mg 06/05/20 21:00 06/08/20 19:51 Montelukast Sodium 10 Mg Tablet PO 10 mg BEDTIME SATNAM Administration Omeprazole 20 mg 06/05/20 06:30 06/09/20 15:43 Omeprazole 20 Mg Capsule.Dr PO 20 mg BID@0630,1630 SATNAM Administration Ondansetron HCl 4 mg 06/04/20 23:45 06/05/20 00:01 Ondansetron Hcl 4 Mg/2 Ml Vial IVPUSH 4 mg Q8H PRN Administration Nausea Pharmacy Consult 1 each 06/04/20 21:12 Consult Rx Vancomycin Dosing MISCELLANE DAILY PRN Consult order Pharmacy Consult 1 each 06/04/20 21:20 Consult Rx Vancomycin Dosing MISCELLANE DAILY PRN Consult order Senna 17.2 mg 06/04/20 21:23 Sennosides 8.6 Mg Tablet PO BEDTIME PRN Constipation Sertraline HCl 50 mg 06/08/20 09:00 06/09/20 07:46 Sertraline Hcl 50 Mg Tablet PO 50 mg DAILY SATNAM Administration Sodium Chloride 3 ml 06/05/20 00:00 06/09/20 14:30 0.9 % Sodium Chloride Flush 3 Ml Syringe IVFLUSH 3 ml QSHIFT SATNAM Administration Sodium Chloride 5 ml 06/07/20 16:00 06/09/20 14:30 0.9 % Sodium Chloride Flush 10 Ml Syringe IVFLUSH 5 ml TID SATNAM Administration Sodium Chloride 5 ml 06/07/20 16:00 06/09/20 14:29 0.9 % Sodium Chloride Flush 10 Ml Syringe IVFLUSH Not Given TID [facility] Home Medications Medication Instructions Recorded Confirmed Last Taken Type Eliquis 2.5 mg PO BID 05/18/20 06/04/20 05/22/20 History Flovent HFA 2 puff INHALATION BID 05/18/20 06/04/20 05/22/20 History furosemide 40 mg PO DAILY 05/18/20 06/04/20 05/22/20 History lorazepam 1 mg PO BEDTIME PRN 05/18/20 06/04/20 05/21/20 History metoprolol tartrate 12.5 mg PO BID 05/18/20 06/04/20 05/22/20 History montelukast 10 mg PO BEDTIME 05/18/20 06/04/20 05/21/20 History pantoprazole 40 mg PO BID 05/18/20 06/04/20 05/22/20 History pioglitazone 15 mg PO DAILY 05/18/20 06/04/20 05/22/20 History sertraline 25 mg PO DAILY 05/18/20 06/04/20 05/22/20 History calcium carbonate-vitamin D2 1 tab PO DAILY 06/04/20 06/04/20 Unknown History [Calcium + Vitamin D] cholecalciferol (vitamin D3) 25 mcg PO DAILY 06/04/20 06/04/20 Unknown History [Vitamin D3] glucosamine sulfate [Glucosamine] 750 mg PO DAILY 06/04/20 06/04/20 Unknown History insulin lispro [Humalog U-100 1 sliding scale dose SUBCUT 06/04/20 06/04/20 Unk nown History Insulin] USEASDIRECTD loratadine [Claritin] 10 mg PO DAILY 06/04/20 06/04/20 Unknown History zolpidem [Ambien] 5 mg PO BEDTIME PRN 06/04/20 06/04/20 Unknown History Physical Exam Vital Signs and Narrative: Vital Signs: Last Vital Signs Temp 97.7 F 06/09/20 16:00 Pulse 86 06/09/20 16:00 Resp 22 H 06/09/20 16:00 BP 145/81 H 06/09/20 16:00 Pulse Ox 96 06/09/20 16:00 Body Mass Index 44.1 The patient has small contusions about her arms, legs and buttocks. The gluteal region is no exception. The soft tissues along the gluteal crease are fully blanching. There is discomfort to palpation of this area. Around the urinary suction device, from the posterior aspect, medial thigh dry eschar is seen bilaterally. Unclear if this is related to underlying coagulopathy or device related. I do not see any open areas that are consistent with stage II pressure, ie blistering or epidermal shearing. I see copious scattered contusions related to thrombocytopenia. Results Labs CBC and Chem 7: 06/09/20 05:32 06/09/20 05:32 Labs: Laboratory Results - last 24 hr 06/06/20 06/08/20 06/09/20 13:18 19:54 05:32 MCV 88.5 MCH 26.3 L MCHC 29.7 L RDW 18.2 H Plt Count 119 L MPV 12.2 Absolute Nucleated RBC 0.000 Nucleated RBC % (auto) 0.0 PT INR Anion Gap Estim Creat Clear Calc Estimated GFR POC Glucose 174 H Random Glucose Calcium Crossmatch See Detail 06/09/20 06/09/20 06/09/20 05:32 05:32 07:39 MCV MCH MCHC RDW Plt Count MPV Absolute Nucleated RBC Nucleated RBC % (auto) PT 11.7 D INR 1.0 Anion Gap 15 Estim Creat Clear Calc 70.8 Estimated GFR > 60 POC Glucose 205 H Random Glucose 230 H D Calcium 7.8 L Crossmatch 06/09/20 11:27 MCV MCH MCHC RDW Plt Count MPV Absolute Nucleated RBC Nucleated RBC % (auto) PT INR Anion Gap Estim Creat Clear Calc Estimated GFR POC Glucose 156 H Random Glucose Calcium Crossmatch Assessment and Plan (1) Thrombocytopenia: Start date: 06/09/20 Problem details: Multiple contusions of the skin without clear evidence of pressure ulcer on the buttocks Status: Acute Continue with pressure ulcer prevention protocol including frequent positional change. Zinc oxide to the buttocks for protection is reasonable, particularly in the areas were dry eschar is seen. No convince thing evidence for pressure ulcers as buttock epithelium is largely intact without impaired blanching. Thank you for the courtesy of this referral.
[2020-06-09 17:05] LABS: Glucose, Whole Blood 187 mg/dL (60-115)
--- NOTE | 2020-06-09 17:30 | P.CNPS_ITS ---
History of Present Illness Date of Service: 06/09/2020 Chief Complaint: Overdose Reason for Consult: intentional overdose Requesting physician: Nai Craig Discussed with referring provider: Yes Sources of Information: patient interviewed and chart reviewed HPI Narrative: Patient is a 74-year-old female with multiple medical conditions currently medically admitted following intentional overdose with lorazepam. Patient seen today in room 469. She is awake alert and engaged in interview. Patient reporting that she wants to , ?I do not Wanna live this way?. Patient is tearful reporting that the home she lived in for over 50 years is being sold today. Patient reports that her depressive symptoms worsened around January when she states that she fell and ?everything went downhill from there?. Patient reporting that her has dementia, she is tearful stating that she knows he will miss her but believes that her children will take care of him. Discussed patient's previous alcohol use, patient acknowledged that alcohol was previously a way for her to cope, and something she is no longer able to do. Discussed increase in sertraline, patient replied ?okay, sure?. Medical Evaluation Reviewed: Yes Please see hospitalist's notes Personal & Social History: Recently moved to assisted living facility Review of Systems Psychiatric: Reports anxiety, Reports depression, Reports hopelessness, Reports anhedonia and Reports suicidal ideation [facility] Medical History Blood clot in vein COPD (chronic obstructive pulmonary disease) Diabetes Epistaxis Factor 5 Leiden mutation, heterozygous FH: total knee replacement GERD (gastroesophageal reflux disease) Heart failure Intra-abdominal abscess EMERALD (obstructive sleep apnea) Surgical History History of bronchoscopy History of cholecystectomy Hx of tonsillectomy Diagnostics Vital Signs (24Hr): Vital Signs - 24 hr 06/08/20 18:08 06/08/20 19:10 06/08/20 19:51 Temperature 98.4 F 98.3 F Pulse Rate 103 H 100 102 H Respiratory Rate 20 20 Blood Pressure 108/56 L 105/55 L 112/60 Pulse Oximetry 98 06/08/20 20:24 06/08/20 23:20 06/09/20 00:23 Temperature 97.5 F Pulse Rate 74 Respiratory Rate 18 18 17 Blood Pressure 140/73 H Pulse Oximetry 97 06/09/20 03:57 06/09/20 04:57 06/09/20 06:15 Temperature 98.3 F Pulse Rate 72 Respiratory Rate 18 17 Blood Pressure 116/77 Pulse Oximetry 98 98 06/09/20 07:39 06/09/20 07:58 06/09/20 11:25 Temperature 97.7 F 98.3 F Pulse Rate 81 81 73 Respiratory Rate 26 H 22 H Blood Pressure 117/70 117/70 136/76 Pulse Oximetry 97 97 06/09/20 16:00 Temperature 97.7 F Pulse Rate 86 Respiratory Rate 22 H Blood Pressure 145/81 H Pulse Oximetry 96 Body Mass Index 44.1 Labs Results: 06/09/20 05:32 06/09/20 05:32 Labs: Laboratory Results - last 48 hr 06/06/20 06/07/20 06/07/20 13:18 20:18 20:30 WBC RBC Hgb Hct MCV MCH MCHC RDW Plt Count MPV Absolute Nucleated RBC Nucleated RBC % (auto) PT INR Sodium 139 Potassium 4.4 D Chloride 104 Carbon Dioxide 25 Anion Gap 14 BUN 10 Creatinine 0.69 Estim Creat Clear Calc 79.0 Estimated GFR > 60 POC Glucose 198 H Random Glucose 217 H D Calcium 7.3 L Blood Type AB Positive Antibody Screen NEGATIVE Crossmatch See Detail 06/07/20 06/08/20 06/08/20 20:59 05:56 05:56 WBC 13.0 H 14.9 H RBC 3.18 L 2.80 L Hgb 8.0 L 7.0 L* Hct 27.6 L 24.4 L MCV 86.8 87.1 MCH 25.2 L 25.0 L MCHC 29.0 L 28.7 L RDW 18.2 H 18.1 H Plt Count 4 L* 104 L D MPV Not Reportable 10.5 Absolute Nucleated RBC 0.000 0.000 Nucleated RBC % (auto) 0.0 0.0 PT INR Sodium 142 Potassium 4.6 Chloride 106 Carbon Dioxide 23 Anion Gap 18 BUN 10 Creatinine 0.67 Estim Creat Clear Calc 81.3 Estimated GFR > 60 POC Glucose Random Glucose 164 H Calcium 7.8 L D Blood Type Antibody Screen Crossmatch 06/08/20 06/08/20 06/08/20 07:11 10:50 15:59 WBC RBC Hgb Hct MCV MCH MCHC RDW Plt Count MPV Absolute Nucleated RBC Nucleated RBC % (auto) PT INR Sodium Potassium Chloride Carbon Dioxide Anion Gap BUN Creatinine Estim Creat Clear Calc Estimated GFR POC Glucose 161 H 148 H 160 H Random Glucose Calcium Blood Type Antibody Screen Crossmatch 06/08/20 06/09/20 06/09/20 19:54 05:32 05:32 WBC 15.6 H RBC 3.12 L Hgb 8.2 L Hct 27.6 L MCV 88.5 MCH 26.3 L MCHC 29.7 L RDW 18.2 H Plt Count 119 L MPV 12.2 Absolute Nucleated RBC 0.000 Nucleated RBC % (auto) 0.0 PT 11.7 D INR 1.0 Sodium Potassium Chloride Carbon Dioxide Anion Gap BUN Creatinine Estim Creat Clear Calc Estimated GFR POC Glucose 174 H Random Glucose Calcium Blood Type Antibody Screen Crossmatch 06/09/20 06/09/20 06/09/20 05:32 07:39 11:27 WBC RBC Hgb Hct MCV MCH MCHC RDW Plt Count MPV Absolute Nucleated RBC Nucleated RBC % (auto) PT INR Sodium 139 Potassium 4.0 Chloride 104 Carbon Dioxide 24 Anion Gap 15 BUN 15 Creatinine 0.77 Estim Creat Clear Calc 70.8 Estimated GFR > 60 POC Glucose 205 H 156 H Random Glucose 230 H D Calcium 7.8 L Blood Type Antibody Screen Crossmatch 06/09/20 16:26 WBC RBC Hgb Hct MCV MCH MCHC RDW Plt Count MPV Absolute Nucleated RBC Nucleated RBC % (auto) PT INR Sodium Potassium Chloride Carbon Dioxide Anion Gap BUN Creatinine Estim Creat Clear Calc Estimated GFR POC Glucose 187 H Random Glucose Calcium Blood Type Antibody Screen Crossmatch Imaging Radiology Impressions: ITS Impressions Chest X-Ray 06/04/20 17:39 IMPRESSION: Mild linear atelectasis versus scarring at the left lung base. Mild cardiac enlargement. Chest CT 06/04/20 18:54 IMPRESSION: 1. Bilateral lower lobe airspace opacities, slightly decreased on the right and slightly increased on the left when compared to the CT dated 05/22/2020. Findings could represent atelectasis versus early infiltrates. 2. Fluid/secretions redemonstrated within the left mainstem bronchus, similar when compared to the prior CT. 3. Small, sliding hiatal hernia. 4. Compression fractures redemonstrated throughout the thoracic spine, unchanged. Head CT 06/04/20 18:54 IMPRESSION: * No acute intracranial hemorrhage. * Small vessel ischemic changes and bilateral gangliocapsular lacunar infarcts. If there is concern for acute or subacute ischemia, MRI is indicated. * Partial bilateral mastoid air cell effusions. Guidance Ultrasound 06/07/20 15:30 IMPRESSION: Successful and ultrasound-guided placement of a 5 [place] 40 cm long dual lumen PICC catheter was tip in the SVC. A single extremities was obtained for documentation. FLUOROSCOPY TIME: 1.0 minutes. DOSE AREA PRODUCT: 40 cGy/cm. IMAGES: 1 ultrasound and 1 x-ray PICC Line Insertion 06/07/20 15:30 IMPRESSION: Successful and ultrasound-guided placement of a 5 [place] 40 cm long dual lumen PICC catheter was tip in the SVC. A single extremities was obtained for documentation. FLUOROSCOPY TIME: 1.0 minutes. DOSE AREA PRODUCT: 40 cGy/cm. IMAGES: 1 ultrasound and 1 x-ray Abdomen/Pelvis CT 06/08/20 08:20 IMPRESSION: Small air-fluid collection likely an abscess. Appears concealed at this time and may have originated from adjacent sigmoid colon. No mural thickening seen in the sigmoid colon at this time. There is noted from bleed or mass seen. Small umbilical hernia. Small hiatal hernia. There is no visible acute fracture, dislocation or subluxation of left hip. There are mild degenerative changes bilateral SI joints. There is no evidence of hematoma. Hip CT 06/08/20 08:20 IMPRESSION: Small air-fluid collection likely an abscess. Appears concealed at this time and may have originated from adjacent sigmoid colon. No mural thickening seen in the sigmoid colon at this time. There is noted from bleed or mass seen. Small umbilical hernia. Small hiatal hernia. There is no visible acute fracture, dislocation or subluxation of left hip. There are mild degenerative changes bilateral SI joints. There is no evidence of hematoma. Mental Status Exam Mental Status Exam Patient Appearance: Appropriate Patient Orientation: Person, Place, Time and Situation Level of Consciousness: Awake, Appropriate and Alert Patient Behavior: Appropriate and Crying Mood Description: Depressed and Blunted Affect Description: Depressed and Blunted Patient Cognition Impaired: No Ability to Follow Directions: Good Speech Pattern: Clear, Soft-Spoken and Long Pauses Hallucinations: None Delusions: Not Present Thought Process: Rumination Thought Content: positive for Preoccupation and positive for Suicidal Ideation Depressive Symptoms: Increased Anxiety, Crying Spells, Hopelessness, Feelings of Guilt, Unhappiness and Thoughts of /Suicide Judgement: Poor Medications Medications Current Medications Generic Name Dose Route Start Last Admin Trade Name Kelle PRN Reason Stop Dose Admin Acetaminophen 650 mg 06/04/20 21:23 Acetaminophen Supp 650 Mg Supp.Rect PA Q6H PRN Pain, Mild (Pain Scale 1-3) Albuterol/Ipratropium 3 ml 06/04/20 21:18 Albuterol/Iprat 2.5/0.5mg 3 Ml Ampul.Neb INHALE Q6H PRN shortness of breath Apixaban 2.5 mg 06/09/20 21:00 Apixaban 2.5 Mg Tablet PO BID SATNAM Dexamethasone 40 mg 06/07/20 09:00 06/09/20 07:48 Dexamethasone 4 Mg Tablet PO 06/10/20 09:01 40 mg DAILY SATNAM Administration Ferrous Sulfate 324 mg 06/05/20 09:00 06/09/20 07:47 Ferrous Sulfate 324 Mg Tablet. PO 324 mg DAILY SATNAM Administration Furosemide 40 mg 06/05/20 09:00 06/09/20 07:47 Furosemide 40 Mg Tablet PO 40 mg DAILY SATNAM Administration Protocol Guaifenesin 1,200 mg 06/05/20 09:00 06/09/20 07:47 Guaifenesin La 600 Mg Tab.Er.12h PO 1,200 mg BID SATNAM Administration Metronidazole 500 mg in 100 mls @ 100 mls/hr 06/08/20 17:00 06/09/20 09:49 Flagyl IV Infused Q8H SATNAM Infusion Ceftriaxone Sodium 1 gm/ 50 mls @ 100 mls/hr 06/08/20 17:00 06/09/20 17:06 Sodium Chloride IV Infused Q24H SATNAM Infusion Insulin Human Lispro 0 unit 06/05/20 07:30 06/09/20 16:34 Insulin Lispro 100 Unit/Ml 3 Ml Vial SUBCUT 2 unit QIDACHS SATNAM Administration Protocol Loratadine 10 mg 06/05/20 09:00 06/09/20 07:52 Loratadine 10 Mg Tablet PO 10 mg DAILY SATNAM Administration Metoprolol Tartrate 12.5 mg 06/05/20 09:00 06/09/20 07:58 Metoprolol Tartrate 25 Mg Tablet PO 12.5 mg BID SATNAM Administration Protocol Montelukast Sodium 10 mg 06/05/20 21:00 06/08/20 19:51 Montelukast Sodium 10 Mg Tablet PO 10 mg BEDTIME SATNAM Administration Omeprazole 20 mg 06/05/20 06:30 06/09/20 15:43 Omeprazole 20 Mg Capsule. PO 20 mg BID@0630,6760 SATNAM Administration Ondansetron HCl 4 mg 06/04/20 23:45 06/05/20 00:01 Ondansetron Hcl 4 Mg/2 Ml Vial IVPUSH 4 mg Q8H PRN Administration Nausea Pharmacy Consult 1 each 06/04/20 21:12 Consult Rx Vancomycin Dosing MISCELLANE DAILY PRN Consult order Pharmacy Consult 1 each 06/04/20 21:20 Consult Rx Vancomycin Dosing MISCELLANE DAILY PRN Consult order Senna 17.2 mg 06/04/20 21:23 Sennosides 8.6 Mg Tablet PO BEDTIME PRN Constipation Sertraline HCl 50 mg 06/08/20 09:00 06/09/20 07:46 Sertraline Hcl 50 Mg Tablet PO 50 mg DAILY SATNAM Administration Sodium Chloride 3 ml 06/05/20 00:00 06/09/20 14:30 0.9 % Sodium Chloride Flush 3 Ml Syringe IVFLUSH 3 ml QSHIFT SATNAM Administration Sodium Chloride 5 ml 06/07/20 16:00 06/09/20 14:30 0.9 % Sodium Chloride Flush 10 Ml Syringe IVFLUSH 5 ml TID SATNAM Administration Sodium Chloride 5 ml 06/07/20 16:00 06/09/20 14:29 0.9 % Sodium Chloride Flush 10 Ml Syringe IVFLUSH Not Given TID SATNAM Allergies Allergies Allergy/AdvReac Type Severity Reaction Status Date / Time Sulfa (Sulfonamide Allergy Intermediate SWELLING Verified 05/27/20 20:09 Antibiotics) [Sulfa (Sulfonamides)] alendronate sodium [Fosamax] Allergy Unknown Unknown Verified 05/27/20 20:09 azithromycin [Zithromax] Allergy Unknown Unknown Verified 05/27/20 20:09 cefepime Allergy Unknown Unknown Verified 05/27/20 20:09 levofloxacin Allergy Unknown Unknown Verified 05/27/20 20:09 umeclidinium [Anoro Ellipta] Allergy Unknown Unknown Verified 05/27/20 20:09 vilanterol [Anoro Ellipta] Allergy Unknown Unknown Verified 05/27/20 20:09 vancomycin AdvReac Severe thrombocyto Verified 06/06/20 17:13 penia ADHESIVE TAPE Allergy Unknown Unknown Uncoded 05/27/20 20:09 Sucralfate Allergy Unknown Unknown Uncoded 05/27/20 20:09 Sulfamethoxazole Allergy Unknown Unknown Uncoded 05/27/20 20:09 Assessment & Plan Assessment & Plan (1) Major depress dis, severe: Status: Acute Code(s): F32.2 - Major depressive disorder, single episode, severe without psychotic features Recommendations: * Sertraline dose increased to 50 mg daily * Discussed case with care team, care team will be rounding on patient in providing behavioral health support while she is still medically admitted * Patient still expressing suicidal ideation, should continue to be monitored c losely Greater than 50% of the session was spent on counseling and/or coordination of care
[2020-06-09 20:08] LABS: Glucose, Whole Blood 247 mg/dL (60-115)
[2020-06-09] MEDS: Apixaban 2.5 MG TABLET PO (20:13)
[2020-06-09] MEDS: Montelukast Sodium 10 MG TABLET PO (23:12)
[2020-06-10] VITALS (7 sets, daily range): BP systolic 110–165; BP diastolic 64–87; PULSE 67–94; RESP 16–22; TEMP 36.3–36.9; O2SAT 95–97
[2020-06-10] MEDS: Omeprazole 20 MG CAPSULE.DR PO ×2 (06:00→16:03)
[2020-06-10 07:41] LABS: Glucose, Whole Blood 137 mg/dL (60-115)
[2020-06-10 08:13] LABS: Hematocrit 32.3 % (37-47); Mean Corpuscular Hemoglobin 26.2 pg (27.0-33.0); Mean Corpuscular Volume 84.6 fL (80-98); Mean Platelet Volume 11.8 fL (9.4-12.3); Platelet Count 126 X10*3/uL (160-400); Red Blood Count 3.82 X10*6/uL (4.20-5.50); Red Cell Distribution Width 18.4 % (11.0-16.0); White Blood Count 13.4 X10*3/uL (4.8-10.8)
[2020-06-10] MEDS: 0.9 % Sodium Chloride Flush 3 ML SYRINGE IVFLUSH ×2 (08:42→16:03)
[2020-06-10 08:43] LABS: Anion Gap 18 (12-20); Blood Urea Nitrogen 23 mg/dL (9-16); Calcium 7.9 mg/dL (8.4-10.2); Carbon Dioxide 21 mmol/L (22-29); Chloride 105 mmol/L (96-108); Creatinine Clr Calc Pharmacy 70.8; Estimated Glomerular Filt Rate > 60; Glucose Random 141 mg/dL (60-115); Potassium 3.8 mmol/L (3.3-5.1); Sodium 140 mmol/L (135-145)
[2020-06-10] MEDS: 0.9 % Sodium Chloride Flush 10 ML SYRINGE 5 ML IVFLUSH ×6 (08:47→20:02)
[2020-06-10] MEDS: Furosemide 40 MG TABLET PO (08:48)
[2020-06-10] MEDS: Loratadine 10 MG TABLET PO (08:48)
[2020-06-10] MEDS: dexAMETHasone 4 MG TABLET 40 MG PO (08:48)
[2020-06-10] MEDS: Apixaban 2.5 MG TABLET PO ×2 (08:49→20:03)
[2020-06-10] MEDS: Sertraline HCL 50 MG TABLET PO (08:49)
[2020-06-10] MEDS: Metoprolol Tartrate 25 MG TABLET 12.5 MG PO ×2 (08:49→20:03)
[2020-06-10] MEDS: guaiFENesin LA 600 MG TAB.ER.12H 1200 MG PO ×2 (08:49→20:03)
[2020-06-10] MEDS: Ferrous Sulfate 324 MG TABLET.DR PO (08:49)
[2020-06-10] MEDS: metroNIDAZOLE/NS 500 MG/100 ML PIGGYBACK 100 MG IV ×3 (10:18→23:08)
--- NOTE | 2020-06-10 11:16 | MHC.CARE ---
Checked with patient's care team on her condition/readiness for discharge, will not be ready at least until Friday.
[2020-06-10] MEDS: Insulin Lispro 100 UNIT/ML 3 ML VIAL SUBCUT ×3 (11:29→20:03)
[2020-06-10 11:31] LABS: Glucose, Whole Blood 179 mg/dL (60-115)
--- NOTE | 2020-06-10 13:20 | P.PNIM_ITS ---
Subjective Subjective Date of Service: 06/10/20 Interval History: the patient was seen and evaluated this morning Laying in bed, more alert and interactive today Denies any pain, fever or chills Hemoglobin and platelets stable No reported other overnight events. Systemic review: Denies fevers, chills No chest pain, palpitation No shortness of breath or coughing No abdominal pain, nausea or vomiting No urinary symptoms Multiple bruises and wounds, pressure ulcers Physical Exam Vital Signs: Vital Signs: Last Vital Signs Temp 98.4 F 06/10/20 11:47 Pulse 70 06/10/20 11:47 Resp 20 06/10/20 11:47 BP 126/73 06/10/20 11:47 Pulse Ox 97 06/10/20 11:47 Body Mass Index 44.1 Const: Other: Constitutional : Alert and interactive, not in distress Neck : Normal inspection, Supple Cardiovascular : RRR, S1 S2, no lower extremity edema Respiratory : Fair bilateral air entry, bilateral bases crackles, no wheezes or rhonchi Gastrointestinal: soft, lax, Normal bowel sounds, Non tender Skin : Warm/Dry, multiple areas of bruises, multiple back contusions with no drainage noted, large dry wound on the chest of her left lower extremity, covered with dressing Neurological : Alert, interactive, oriented to self and place, No focal deficit Objective Data Current Medications Generic Name Dose Route Start Last Admin Trade Name Freq PRN Reason Stop Dose Admin Acetaminophen 650 mg 06/04/20 21:23 Acetaminophen Supp 650 Mg Supp.Rect DC Q6H PRN Pain, Mild (Pain Scale 1-3) Albuterol/Ipratropium 3 ml 06/04/20 21:18 Albuterol/Iprat 2.5/0.5mg 3 Ml Ampul.Neb INHALE Q6H PRN shortness of breath Apixaban 2.5 mg 06/09/20 21:00 06/10/20 08:49 Apixaban 2.5 Mg Tablet PO 2.5 mg BID SATNAM Administration Ferrous Sulfate 324 mg 06/05/20 09:00 06/10/20 08:49 Ferrous Sulfate 324 Mg Tablet. PO 324 mg DAILY SATNAM Administration Furosemide 40 mg 06/05/20 09:00 06/10/20 08:48 Furosemide 40 Mg Tablet PO 40 mg DAILY SATNAM Administration Protocol Guaifenesin 1,200 mg 06/05/20 09:00 06/10/20 08:49 Guaifenesin La 600 Mg Tab.Er.12h PO 1,200 mg BID SATNAM Administration Metronidazole 500 mg in 100 mls @ 100 mls/hr 06/08/20 17:00 06/10/20 11:18 Flagyl IV Infused Q8H SATNAM Infusion Ceftriaxone Sodium 1 gm/ 50 mls @ 100 mls/hr 06/08/20 17:00 06/09/20 17:06 Sodium Chloride IV Infused Q24H SATNAM Infusion Insulin Human Lispro 0 unit 06/05/20 07:30 06/10/20 11:29 Insulin Lispro 100 Unit/Ml 3 Ml Vial SUBCUT 2 unit QIDACHS SATNAM Administration Protocol Loratadine 10 mg 06/05/20 09:00 06/10/20 08:48 Loratadine 10 Mg Tablet PO 10 mg DAILY SATNAM Administration Metoprolol Tartrate 12.5 mg 06/05/20 09:00 06/10/20 08:49 Metoprolol Tartrate 25 Mg Tablet PO 12.5 mg BID SATNAM Administration Protocol Montelukast Sodium 10 mg 06/05/20 21:00 06/09/20 23:12 Montelukast Sodium 10 Mg Tablet PO 10 mg BEDTIME SATNAM Administration Omeprazole 20 mg 06/05/20 06:30 06/10/20 06:00 Omeprazole 20 Mg Capsule.Dr PO 20 mg BID@0630,1630 SATNAM Administration Ondansetron HCl 4 mg 06/04/20 23:45 06/05/20 00:01 Ondansetron Hcl 4 Mg/2 Ml Vial IVPUSH 4 mg Q8H PRN Administration Nausea Pharmacy Consult 1 each 06/04/20 21:12 Consult Rx Vancomycin Dosing MISCELLANE DAILY PRN Consult order Pharmacy Consult 1 each 06/04/20 21:20 Consult Rx Vancomycin Dosing MISCELLANE DAILY PRN Consult order Senna 17.2 mg 06/04/20 21:23 Sennosides 8.6 Mg Tablet PO BEDTIME PRN Constipation Sertraline HCl 50 mg 06/08/20 09:00 06/10/20 08:49 Sertraline Hcl 50 Mg Tablet PO 50 mg DAILY SATNAM Administration Sodium Chloride 3 ml 06/05/20 00:00 06/10/20 08:42 0.9 % Sodium Chloride Flush 3 Ml Syringe IVFLUSH 3 ml QSHIFT SATNAM Administration Sodium Chloride 5 ml 06/07/20 16:00 06/10/20 08:47 0.9 % Sodium Chloride Flush 10 Ml Syringe IVFLUSH 5 ml TID SATNAM Administration Sodium Chloride 5 ml 06/07/20 16:00 06/10/20 08:48 0.9 % Sodium Chloride Flush 10 Ml Syringe IVFLUSH 5 ml TID SATNAM Administration Labs CBC & Chem 7: 06/10/20 07:28 06/10/20 07:28 Microbiology Microbiology Results: Microbiology 06/04/20 18:07 Blood - Venous Blood Culture - Final No growth after 5 days. 06/04/20 18:06 Blood - Venous Blood Culture - Final No growth after 5 days. 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 Intra-abdominal abscess Above 4 cm in diameter, adjacent to sigmoid Surgery input appreciated, ideally should have CT drainage but withhold with multiple other medical issues. To treat with IV antibiotics of Flagyl and ceftriaxone for now to repeat CT scan on Friday Thrombocytopenia Improved above 100 post total of 6 units of platelets transfusion Likely related to antibiotics, vancomycin specifically or related to ITP Restarted Eliquis for today Hematology input appreciated, vancomycin induced ITP possibility, ITP to treat with dexamethasone Continue dexamethasone 40 mg daily 06/18 Goal to keep platelets above 30 Acute on chronic anemia, Symptomatic anemia Hemoglobin improved to 8.2 post transfusion 1 unit Could be secondary to ITP as well CT scan of the abdomen, hip negative for any internal bleeding Continue dexamethasone therapy Toxic encephalopathy in setting of reported benzodiazepine overdose Resolved [employer] evaluated, 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 Aspiration precautions Suicidal ideation/benzodiazepine overdose Patient reported to Will to 15 tablets of Ativan 1 mg tablets. Poison Control recommended supportive therapy and observation 1 on 1 observation Section 12 was done in the ER Crisis/Psychiatric consult. Will need inpatient psych admission Multiple contusions Risk for pressure ulcer Frequent positional changes, zinc oxide protection Local care Appreciate wound team consult Hypokalemia Improved after p.o. and IV replacement Monitor BMP Acute on chronic hypoxic respiratory failure Health-care associated pneumonia, likely aspiration Still requiring oxygen supplement, to wean down as tolerated Start doxycycline Id input appreciated Patient has thick bronchial secretions-chest physiotherapy. History of COPD/chronic respiratory failure Continue home oxygen at 2 L. Duo nebs p.r.n.. keep BiPAP at night as tolerated. History of factor 5 laden deficiency/DVT: Continue home anticoagulation. 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
[2020-06-10 16:01] LABS: Glucose, Whole Blood 207 mg/dL (60-115)
[2020-06-10] MEDS: cefTRIAXone sodium 1 GM in 0.9 % Sodium Chloride 50 ML IV (16:57)
[2020-06-10 19:54] LABS: Glucose, Whole Blood 220 mg/dL (60-115)
[2020-06-10] MEDS: Montelukast Sodium 10 MG TABLET PO (20:03)
[2020-06-11] VITALS (8 sets, daily range): BP systolic 114–152; BP diastolic 55–80; PULSE 63–85; RESP 17–22; TEMP 36–36.9; O2SAT 93–98
--- NOTE | 2020-06-11 06:42 | PC.NURSE ---
No urine output from [id number]. Pt bladder scanned for 584ml. Dr. Fofana notified. Straight cath ordered. Pt straight cath for 500ml of yellow urine. Will pass along to day shift.
[2020-06-11] MEDS: Omeprazole 20 MG CAPSULE.DR PO ×2 (07:09→16:15)
[2020-06-11 07:31] LABS: Glucose, Whole Blood 130 mg/dL (60-115)
[2020-06-11] MEDS: 0.9 % Sodium Chloride Flush 10 ML SYRINGE 5 ML IVFLUSH ×6 (08:06→21:15)
[2020-06-11] MEDS: guaiFENesin LA 600 MG TAB.ER.12H 1200 MG PO ×2 (08:07→21:12)
[2020-06-11] MEDS: Sertraline HCL 50 MG TABLET PO (08:07)
[2020-06-11] MEDS: Ferrous Sulfate 324 MG TABLET.DR PO (08:07)
[2020-06-11] MEDS: Furosemide 40 MG TABLET PO (08:07)
[2020-06-11] MEDS: Loratadine 10 MG TABLET PO (08:07)
[2020-06-11] MEDS: Apixaban 2.5 MG TABLET PO ×2 (08:07→21:12)
[2020-06-11] MEDS: Metoprolol Tartrate 25 MG TABLET 12.5 MG PO ×2 (08:07→21:13)
[2020-06-11] MEDS: metroNIDAZOLE/NS 500 MG/100 ML PIGGYBACK 100 MG IV ×2 (08:09→16:16)
--- NOTE | 2020-06-11 10:08 | PM.PNGS ---
Subjective Subjective Date of Service: 06/11/20 Interval history: denies abdl pain tolerating diet well Physical Exam Vital Signs: Vital Signs: Last Vital Signs Temp 97.9 F 06/11/20 07:03 Pulse 68 06/11/20 07:03 Resp 22 H 06/11/20 07:03 BP 134/55 L 06/11/20 07:03 Pulse Ox 97 06/11/20 07:03 Body Mass Index 44.1 PT 11.7 SEC (10.8-13 .0) D 06/09/20 05:32 APTT 27.0 SEC (24.1-38 .0) 06/06/20 13:18 Const: General: comfortable and no acute distress Resp: Other: a little SOB Cardio: Rate: regular rate GI: Palpation (GI): Soft to palpation and nontender Progress Note: A&P Assessment and plan (1) Intra-abdominal abscess: Problem details: She has incidental finding of abscess It is moderate in size Status: Acute Assessment and Plan: has no abdl pain or tenderness tolerating diet she has multiple acute medical issues - will treat with IV abx for now seems to be doing well Fall Risk Details Current Medications: Current Medications Generic Name Dose Route Start Last Admin Trade Name Freq PRN Reason Stop Dose Admin Acetaminophen 650 mg 06/04/20 21:23 Acetaminophen Supp 650 Mg Supp.Rect DC Q6H PRN Pain, Mild (Pain Scale 1-3) Albuterol/Ipratropium 3 ml 06/04/20 21:18 Albuterol/Iprat 2.5/0.5mg 3 Ml Ampul.Neb INHALE Q6H PRN shortness of breath Apixaban 2.5 mg 06/09/20 21:00 06/11/20 08:07 Apixaban 2.5 Mg Tablet PO 2.5 mg BID SATNAM Administration Ferrous Sulfate 324 mg 06/05/20 09:00 06/11/20 08:07 Ferrous Sulfate 324 Mg Tablet.Dr PO 324 mg DAILY SATNAM Administration Furosemide 40 mg 06/05/20 09:00 06/11/20 08:07 Furosemide 40 Mg Tablet PO 40 mg DAILY SATNAM Administration Protocol Guaifenesin 1,200 mg 06/05/20 09:00 06/11/20 08:07 Guaifenesin La 600 Mg Tab.Er.12h PO 1,200 mg BID SATNAM Administration Metronidazole 500 mg in 100 mls @ 100 mls/hr 06/08/20 17:00 06/11/20 09:09 Flagyl IV Infused Q8H SATNAM Infusion Ceftriaxone Sodium 1 gm/ 50 mls @ 100 mls/hr 06/08/20 17:00 06/10/20 17:29 Sodium Chloride IV Infused Q24H SATNAM Infusion Insulin Human Lispro 0 unit 06/05/20 07:30 06/11/20 07:36 Insulin Lispro 100 Unit/Ml 3 Ml Vial SUBCUT Not Given QIDACHS [facility] Protocol Loratadine 10 mg 06/05/20 09:00 06/11/20 08:07 Loratadine 10 Mg Tablet PO 10 mg DAILY SATNAM Administration Metoprolol Tartrate 12.5 mg 06/05/20 09:00 06/11/20 08:07 Metoprolol Tartrate 25 Mg Tablet PO 12.5 mg BID SATNAM Administration Protocol Montelukast Sodium 10 mg 06/05/20 21:00 06/10/20 20:03 Montelukast Sodium 10 Mg Tablet PO 10 mg BEDTIME SATNAM Administration Omeprazole 20 mg 06/05/20 06:30 06/11/20 07:09 Omeprazole 20 Mg Capsule.Dr PO 20 mg BID@0630,1630 SATNAM Administration Ondansetron HCl 4 mg 06/04/20 23:45 06/05/20 00:01 Ondansetron Hcl 4 Mg/2 Ml Vial IVPUSH 4 mg Q8H PRN Administration Nausea Pharmacy Consult 1 each 06/04/20 21:12 Consult Rx Vancomycin Dosing MISCELLANE DAILY PRN Consult order Pharmacy Consult 1 each 06/04/20 21:20 Consult Rx Vancomycin Dosing MISCELLANE DAILY PRN Consult order Senna 17.2 mg 06/04/20 21:23 Sennosides 8.6 Mg Tablet PO BEDTIME PRN Constipation Sertraline HCl 50 mg 06/08/20 09:00 06/11/20 08:07 Sertraline Hcl 50 Mg Tablet PO 50 mg DAILY SATNAM Administration Sodium Chloride 3 ml 06/05/20 00:00 06/11/20 08:12 0.9 % Sodium Chloride Flush 3 Ml Syringe IVFLUSH Not Given QSHIFT SATNAM Sodium Chloride 5 ml 06/07/20 16:00 06/11/20 08:06 0.9 % Sodium Chloride Flush 10 Ml Syringe IVFLUSH 5 ml TID SATNAM Administration Sodium Chloride 5 ml 06/07/20 16:00 06/11/20 08:07 0.9 % Sodium Chloride Flush 10 Ml Syringe IVFLUSH 5 ml TID SATNAM Administration Time Spent With Patient Time: Total time spent is greater than 50% in coordination of care (as documented) at patient's floor/unit and/or counseling patient: Time with patient: 15 - 24 minutes
[2020-06-11 11:17] LABS: Glucose, Whole Blood 168 mg/dL (60-115)
[2020-06-11] MEDS: Insulin Lispro 100 UNIT/ML 3 ML VIAL SUBCUT (11:38)
--- NOTE | 2020-06-11 14:41 | HO.PM.IMPN ---
Subjective Subjective Date of Service: 06/11/20 Interval History: the patient was seen and evaluated this morning Laying in bed, more alert and interactive, not in distress Denies any pain, fever or chills Hemoglobin and platelets stable No reported other overnight events. Systemic review: Denies fevers, chills No chest pain, palpitation No shortness of breath or coughing No abdominal pain, nausea or vomiting No urinary symptoms Multiple bruises and wounds, pressure ulcers Physical Exam Vital Signs: Vital Signs: Last Vital Signs Temp 96.8 F 06/11/20 10:52 Pulse 80 06/11/20 10:52 Resp 22 H 06/11/20 10:52 BP 152/80 H 06/11/20 10:52 Pulse Ox 95 06/11/20 10:52 Body Mass Index 44.1 Const: Other: Constitutional : Alert and interactive, not in distress Neck : Normal inspection, Supple Cardiovascular : RRR, S1 S2, no lower extremity edema Respiratory : Fair bilateral air entry, bilateral bases crackles, no wheezes or rhonchi Gastrointestinal: soft, lax, Normal bowel sounds, Non tender Skin : Warm/Dry, multiple areas of bruises, multiple back contusions with no drainage noted, large dry wound on the chest of her left lower extremity, covered with dressing Neurological : Alert, interactive, oriented to self and place, No focal deficit Objective Data Current Medications Generic Name Dose Route Start Last Admin Trade Name Freq PRN Reason Stop Dose Admin Acetaminophen 650 mg 06/04/20 21:23 Acetaminophen Supp 650 Mg Supp.Rect [place] Q6H PRN Pain, Mild (Pain Scale 1-3) Albuterol/Ipratropium 3 ml 06/04/20 21:18 Albuterol/Iprat 2.5/0.5mg 3 Ml Ampul.Neb INHALE Q6H PRN shortness of breath Apixaban 2.5 mg 06/09/20 21:00 06/11/20 08:07 Apixaban 2.5 Mg Tablet PO 2.5 mg BID SATNAM Administration Ferrous Sulfate 324 mg 06/05/20 09:00 06/11/20 08:07 Ferrous Sulfate 324 Mg Tablet. PO 324 mg DAILY SATNAM Administration Furosemide 40 mg 06/05/20 09:00 06/11/20 08:07 Furosemide 40 Mg Tablet PO 40 mg DAILY SATNAM Administration Protocol Guaifenesin 1,200 mg 06/05/20 09:00 06/11/20 08:07 Guaifenesin La 600 Mg Tab.Er.12h PO 1,200 mg BID SATNAM Administration Metronidazole 500 mg in 100 mls @ 100 mls/hr 06/08/20 17:00 06/11/20 09:09 Flagyl IV Infused Q8H SATNAM Infusion Ceftriaxone Sodium 1 gm/ 50 mls @ 100 mls/hr 06/08/20 17:00 06/10/20 17:29 Sodium Chloride IV Infused Q24H [facility]NAM Infusion Insulin Human Lispro 0 unit 06/05/20 07:30 06/11/20 11:38 Insulin Lispro 100 Unit/Ml 3 Ml Vial SUBCUT 2 unit QIDACHS [facility] Administration Protocol Loratadine 10 mg 06/05/20 09:00 06/11/20 08:07 Loratadine 10 Mg Tablet PO 10 mg DAILY SATNAM Administration Metoprolol Tartrate 12.5 mg 06/05/20 09:00 06/11/20 08:07 Metoprolol Tartrate 25 Mg Tablet PO 12.5 mg BID SATNAM Administration Protocol Montelukast Sodium 10 mg 06/05/20 21:00 06/10/20 20:03 Montelukast Sodium 10 Mg Tablet PO 10 mg BEDTIME SATNAM Administration Omeprazole 20 mg 06/05/20 06:30 06/11/20 07:09 Omeprazole 20 Mg Capsule.Dr PO 20 mg BID@0630,1630 SATNAM Administration Ondansetron HCl 4 mg 06/04/20 23:45 06/05/20 00:01 Ondansetron Hcl 4 Mg/2 Ml Vial IVPUSH 4 mg Q8H PRN Administration Nausea Pharmacy Consult 1 each 06/04/20 21:12 Consult Rx Vancomycin Dosing MISCELLANE DAILY PRN Consult order Pharmacy Consult 1 each 06/04/20 21:20 Consult Rx Vancomycin Dosing MISCELLANE DAILY PRN Consult order Senna 17.2 mg 06/04/20 21:23 Sennosides 8.6 Mg Tablet PO BEDTIME PRN Constipation Sertraline HCl 50 mg 06/08/20 09:00 06/11/20 08:07 Sertraline Hcl 50 Mg Tablet PO 50 mg DAILY SATNAM Administration Sodium Chloride 3 ml 06/05/20 00:00 06/11/20 08:12 0.9 % Sodium Chloride Flush 3 Ml Syringe IVFLUSH Not Given QSHIFT SATNAM Sodium Chloride 5 ml 06/07/20 16:00 06/11/20 08:06 0.9 % Sodium Chloride Flush 10 Ml Syringe IVFLUSH 5 ml TID SATNAM Administration Sodium Chloride 5 ml 06/07/20 16:00 06/11/20 08:07 0.9 % Sodium Chloride Flush 10 Ml Syringe IVFLUSH 5 ml TID SATNAM Administration Labs CBC & Chem 7: 06/10/20 07:28 06/10/20 07:28 Microbiology Microbiology Results: Microbiology 06/04/20 18:07 Blood - Venous Blood Culture - Final No growth after 5 days. 06/04/20 18:06 Blood - Venous Blood Culture - Final No growth after 5 days. 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 Intra-abdominal abscess Above 4 cm in diameter, adjacent to sigmoid Surgery input appreciated, ideally should have CT drainage but withhold with multiple other medical issues. To treat with IV antibiotics of Flagyl and ceftriaxone for now to repeat CT scan tomorrow morning Thrombocytopenia Improved above 100 post total of 6 units of platelets transfusion Likely related to antibiotics, vancomycin specifically or related to ITP Restarted Eliquis for today Hematology input appreciated, vancomycin induced ITP possibility, ITP to treat with dexamethasone Continue dexamethasone 40 mg daily 06/18 Goal to keep platelets above 30 Acute on chronic anemia, Symptomatic anemia Hemoglobin improved to 8.2 post transfusion 1 unit Could be secondary to ITP as well CT scan of the abdomen, hip negative for any internal bleeding Continue dexamethasone therapy Toxic encephalopathy in setting of reported benzodiazepine overdose Resolved 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 Aspiration precautions Suicidal ideation/benzodiazepine overdose Overdose resolved Took 15 tablets of Ativan 1 mg tablets. Poison Control recommended supportive therapy and observation 1 on 1 observation Section 12 was done in the ER Crisis/Psychiatric consult. Will need inpatient psych admission Multiple contusions Risk for pressure ulcer Frequent positional changes, zinc oxide protection Local care Appreciate wound team consult Hypokalemia Improved after p.o. and IV replacement Monitor BMP Acute on chronic hypoxic respiratory failure Health-care associated pneumonia, likely aspiration Still requiring oxygen supplement, to wean down as tolerated Continue Flagyl and ceftriaxone, DC doxycycline Id input appreciated Patient has thick bronchial secretions-chest physiotherapy. History of COPD/chronic respiratory failure Continue home oxygen at 2 L. Duo nebs p.r.n.. keep BiPAP at night as tolerated. History of factor 5 laden deficiency/DVT: Continue home anticoagulation. Which started on Eliquis Diet Ground mechanical per APPRENTICESHIP REPRESENTATIVE Code status: DNR/DNI.
[2020-06-11 16:03] LABS: Glucose, Whole Blood 116 mg/dL (60-115)
[2020-06-11] MEDS: cefTRIAXone sodium 1 GM in 0.9 % Sodium Chloride 50 ML IV (17:18)
[2020-06-11 20:15] LABS: Glucose, Whole Blood 117 mg/dL (60-115)
[2020-06-11] MEDS: Montelukast Sodium 10 MG TABLET PO (21:12)
[2020-06-11] MEDS: 0.9 % Sodium Chloride Flush 3 ML SYRINGE IVFLUSH (21:13)
[2020-06-12] VITALS (9 sets, daily range): BP systolic 128–145; BP diastolic 66–82; PULSE 67–88; RESP 16–20; TEMP 36.2–37; O2SAT 94–99
[2020-06-12] MEDS: metroNIDAZOLE/NS 500 MG/100 ML PIGGYBACK 100 MG IV ×3 (01:07→17:03)
[2020-06-12] MEDS: Omeprazole 20 MG CAPSULE.DR PO ×2 (05:40→17:03)
[2020-06-12 07:28] LABS: Anion Gap 19 (12-20); Blood Urea Nitrogen 27 mg/dL (9-16); Carbon Dioxide 21 mmol/L (22-29); Chloride 106 mmol/L (96-108); Creatinine Clr Calc Pharmacy 77.9; Estimated Glomerular Filt Rate > 60; Glucose Random 64 mg/dL (60-115); Potassium 3.4 mmol/L (3.3-5.1); Sodium 143 mmol/L (135-145)
[2020-06-12 07:51] LABS: Glucose, Whole Blood 78 mg/dL (60-115)
[2020-06-12 11:24] LABS: Glucose, Whole Blood 74 mg/dL (60-115)
[2020-06-12] MEDS: guaiFENesin LA 600 MG TAB.ER.12H 1200 MG PO ×2 (11:50→21:30)
[2020-06-12] MEDS: Metoprolol Tartrate 25 MG TABLET 12.5 MG PO ×2 (11:50→21:30)
[2020-06-12] MEDS: Ferrous Sulfate 324 MG TABLET.DR PO (11:50)
[2020-06-12] MEDS: Furosemide 40 MG TABLET PO (11:51)
[2020-06-12] MEDS: Sertraline HCL 50 MG TABLET PO (11:51)
[2020-06-12] MEDS: Apixaban 2.5 MG TABLET PO ×2 (11:51→21:30)
[2020-06-12] MEDS: 0.9 % Sodium Chloride Flush 3 ML SYRINGE IVFLUSH ×2 (11:52→17:04)
[2020-06-12] MEDS: 0.9 % Sodium Chloride Flush 10 ML SYRINGE 5 ML IVFLUSH ×6 (11:52→21:31)
--- NOTE | 2020-06-12 11:54 | MHC.CARE ---
CARE team made a check in visit with pt. Pt was resting quietly and a sitter was in the room. Pt stated that she was going to go get more tests this am. Pt was pleasant and open to meeting when feeling improved. CARE saw pts CM in yu who was willing to reach out to CARE team when pt is ready to be evaluated by CARE.
[2020-06-12] MEDS: Nystatin Oral Susp 500,000 UNIT/5 ML ORAL.SUSP 400000 UNIT PO ×3 (13:50→21:30)
--- NOTE | 2020-06-12 14:42 | MHC.CM.PN ---
DP Female 74 DX Overdose. The discharge plan is to return to [facility]. The Care team is following the PT. Once she is medically cleared, Careteam will assess. CM will follow. [phone] ext Careteam.
--- NOTE | 2020-06-12 14:48 | MHC.CLN ---
F/U PO INTAKE 75% AVG (06/10-06/12) DIET RX: 1500DM CHOPPED-APPROPRIATE PT RECEIVING SANTOS AND ENSURE BID PROVIDES 860KCALS (78% EST KCAL NEEDS), 45G PROTEIN (78% EST PROTEIN NEEDS) SUPPLEMENTS IN PLACE TO SUPPORT WOUND HEALING FOLLOWING
--- NOTE | 2020-06-12 14:53 | HO.PM.IMPN ---
Subjective Subjective Date of Service: 06/12/20 Interval History: the patient was seen and evaluated this morning Laying in bed, more alert and interactive, not in distress Denies any pain, fever or chills Hemoglobin and platelets stable No reported other overnight events. Systemic review: Denies fevers, chills No chest pain, palpitation No shortness of breath or coughing No abdominal pain, nausea or vomiting No urinary symptoms Multiple bruises and wounds, pressure ulcers Physical Exam Vital Signs: Vital Signs: Last Vital Signs Temp 98.3 F 06/12/20 08:00 Pulse 78 06/12/20 11:42 Resp 20 06/12/20 08:00 BP 135/77 06/12/20 11:42 Pulse Ox 99 06/12/20 11:42 Body Mass Index 44.1 Const: Other: Constitutional : Alert and interactive, not in distress Neck : Normal inspection, Supple Cardiovascular : RRR, S1 S2, no lower extremity edema Respiratory : Fair bilateral air entry, bilateral bases crackles, no wheezes or rhonchi Gastrointestinal: soft, lax, Normal bowel sounds, Non tender Skin : Warm/Dry, multiple areas of bruises, multiple back contusions with no drainage noted, large dry wound on the chest of her left lower extremity, covered with dressing Neurological : Alert, interactive, oriented to self and place, No focal deficit Objective Data Current Medications Generic Name Dose Route Start Last Admin Trade Name Freq PRN Reason Stop Dose Admin Acetaminophen 650 mg 06/04/20 21:23 Acetaminophen Supp 650 Mg Supp.Rect [place] Q6H PRN Pain, Mild (Pain Scale 1-3) Apixaban 2.5 mg 06/09/20 21:00 06/12/20 11:51 Apixaban 2.5 Mg Tablet PO 2.5 mg BID SATNAM Administration Ferrous Sulfate 324 mg 06/05/20 09:00 06/12/20 11:50 Ferrous Sulfate 324 Mg Tablet.Dr PO 324 mg DAILY SATNAM Administration Furosemide 40 mg 06/05/20 09:00 06/12/20 11:51 Furosemide 40 Mg Tablet PO 40 mg DAILY SATNAM Administration Protocol Guaifenesin 1,200 mg 06/05/20 09:00 06/12/20 11:50 Guaifenesin La 600 Mg Tab.Er.12h PO 1,200 mg BID SATNAM Administration Metronidazole 500 mg in 100 mls @ 100 mls/hr 06/08/20 17:00 06/12/20 13:53 Flagyl IV Infused Q8H [facility] Infusion Ceftriaxone Sodium 1 gm/ 50 mls @ 100 mls/hr 06/08/20 17:00 06/11/20 17:50 Sodium Chloride IV Infused Q24H [facility] Infusion Insulin Human Lispro 0 unit 06/05/20 07:30 06/12/20 13:46 Insulin Lispro 100 Unit/Ml 3 Ml Vial SUBCUT Not Given QIDACHS [facility] Protocol Loratadine 10 mg 06/05/20 09:00 06/12/20 13:51 Loratadine 10 Mg Tablet PO Not Given DAILY [facility] Metoprolol Tartrate 12.5 mg 06/05/20 09:00 06/12/20 11:50 Metoprolol Tartrate 25 Mg Tablet PO 12.5 mg BID [facility] Administration Protocol Montelukast Sodium 10 mg 06/05/20 21:00 06/11/20 21:12 Montelukast Sodium 10 Mg Tablet PO 10 mg BEDTIME [facility] Administration Nystatin 1 appl 06/12/20 21:00 Nystatin Powder 15 Gm Bottle TOPICAL BID [facility] Protocol Nystatin 400,000 unit 06/12/20 13:00 06/12/20 13:50 Nystatin Oral Susp 500,000 Unit/5 Ml Oral.Susp PO 400,000 unit QID [facility] Administration Protocol Omeprazole 20 mg 06/05/20 06:30 06/12/20 05:40 Omeprazole 20 Mg Capsule.Dr PO 20 mg BID@0630,1630 [facility] Administration Ondansetron HCl 4 mg 06/04/20 23:45 06/05/20 00:01 Ondansetron Hcl 4 Mg/2 Ml Vial IVPUSH 4 mg Q8H PRN Administration Nausea Senna 17.2 mg 06/04/20 21:23 Sennosides 8.6 Mg Tablet PO BEDTIME PRN Constipation Sertraline HCl 50 mg 06/08/20 09:00 06/12/20 11:51 Sertraline Hcl 50 Mg Tablet PO 50 mg DAILY [facility] Administration Sodium Chloride 3 ml 06/05/20 00:00 06/12/20 11:52 0.9 % Sodium Chloride Flush 3 Ml Syringe IVFLUSH 3 ml QSHIFT SATNAM Administration Sodium Chloride 5 ml 06/07/20 16:00 06/12/20 14:24 0.9 % Sodium Chloride Flush 10 Ml Syringe IVFLUSH 5 ml TID SATNAM Administration Sodium Chloride 5 ml 06/07/20 16:00 06/12/20 14:24 0.9 % Sodium Chloride Flush 10 Ml Syringe IVFLUSH 5 ml TID SATNAM Administration Labs CBC & Chem 7: 06/10/20 07:28 06/12/20 05:45 Microbiology Microbiology Results: Microbiology 06/04/20 18:07 Blood - Venous Blood Culture - Final No growth after 5 days. 06/04/20 18:06 Blood - Venous Blood Culture - Final No growth after 5 days. 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 Intra-abdominal abscess Above 4 cm in diameter, adjacent to sigmoid Surgery input appreciated, ideally should have CT drainage but withhold with multiple other medical issues. To treat with IV antibiotics of Flagyl and ceftriaxone for now Repeated CT scan today showing no changes on the abscess to discuss with surgical team for possible intervention Thrombocytopenia Improved above 100 post total of 6 units of platelets transfusion Likely related to antibiotics, vancomycin specifically or related to ITP Restarted Eliquis for today Hematology input appreciated, vancomycin induced ITP possibility, ITP to treat with dexamethasone Continue dexamethasone 40 mg daily 06/18 Goal to keep platelets above 30 Acute on chronic anemia, Symptomatic anemia Hemoglobin improved to 8.2 post transfusion 1 unit Could be secondary to ITP as well CT scan of the abdomen, hip negative for any internal bleeding Continue dexamethasone therapy Toxic encephalopathy in setting of reported benzodiazepine overdose Resolved ENROBER evaluated, 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 Aspiration precautions Suicidal ideation/benzodiazepine overdose Overdose resolved Took 15 tablets of Ativan 1 mg tablets. Poison Control recommended supportive therapy and observation 1 on 1 observation Section 12 was done in the ER Crisis/Psychiatric consult. Will need inpatient psych admission Multiple contusions Risk for pressure ulcer Frequent positional changes, zinc oxide protection Local care Appreciate wound team consult Hypokalemia Improved after p.o. and IV replacement Monitor BMP Acute on chronic hypoxic respiratory failure Health-care associated pneumonia, likely aspiration Still requiring oxygen supplement, to wean down as tolerated Continue Flagyl and ceftriaxone, DC doxycycline Id input appreciated Patient has thick bronchial secretions-chest physiotherapy. History of COPD/chronic respiratory failure Continue home oxygen at 2 L. Duo nebs p.r.n.. keep BiPAP at night as tolerated. History of factor 5 laden deficiency/DVT: Continue home anticoagulation. Which started on Eliquis Diet Ground mechanical per ENROBER Code status: DNR/DNI.
[2020-06-12 16:19] LABS: Glucose, Whole Blood 95 mg/dL (60-115)
[2020-06-12] MEDS: cefTRIAXone sodium 1 GM in 0.9 % Sodium Chloride 50 ML IV (18:42)
[2020-06-12 20:34] LABS: Glucose, Whole Blood 108 mg/dL (60-115)
[2020-06-12] MEDS: Nystatin Powder 15 GM BOTTLE 1 APPL TOPICAL (21:30)
[2020-06-12] MEDS: Montelukast Sodium 10 MG TABLET PO (21:30)
[2020-06-13] VITALS (11 sets, daily range): BP systolic 107–140; BP diastolic 59–75; PULSE 77–99; RESP 16–23; TEMP 35.6–37; O2SAT 92–99
[2020-06-13] MEDS: 0.9 % Sodium Chloride Flush 10 ML SYRINGE 5 ML IVFLUSH ×7 (00:38→22:02)
[2020-06-13] MEDS: metroNIDAZOLE/NS 500 MG/100 ML PIGGYBACK 100 MG IV ×3 (00:38→18:37)
[2020-06-13] MEDS: Omeprazole 20 MG CAPSULE.DR PO ×2 (06:38→16:11)
[2020-06-13 07:18] LABS: Glucose, Whole Blood 92 mg/dL (60-115)
[2020-06-13] MEDS: Loratadine 10 MG TABLET PO (07:52)
[2020-06-13] MEDS: Metoprolol Tartrate 25 MG TABLET 12.5 MG PO ×2 (07:52→21:52)
[2020-06-13] MEDS: guaiFENesin LA 600 MG TAB.ER.12H 1200 MG PO ×2 (07:52→21:52)
[2020-06-13] MEDS: Sertraline HCL 50 MG TABLET PO (07:53)
[2020-06-13] MEDS: Furosemide 40 MG TABLET PO (07:53)
[2020-06-13] MEDS: Ferrous Sulfate 324 MG TABLET.DR PO (07:53)
[2020-06-13] MEDS: Apixaban 2.5 MG TABLET PO ×2 (07:53→21:53)
[2020-06-13] MEDS: 0.9 % Sodium Chloride Flush 3 ML SYRINGE IVFLUSH ×2 (08:43→16:06)
[2020-06-13] MEDS: Nystatin Oral Susp 500,000 UNIT/5 ML ORAL.SUSP 400000 UNIT PO ×4 (08:44→21:51)
[2020-06-13] MEDS: Nystatin Powder 15 GM BOTTLE 1 APPL TOPICAL ×2 (08:44→22:02)
--- NOTE | 2020-06-13 11:04 | MHC.CARE ---
CARE team met w pt. In order to facilitate a plan for pt CARE will need the assist in CM for pts aftercare planning. T/w also placed a call and left a message for pts daughter Kylie.
[2020-06-13 11:11] LABS: Glucose, Whole Blood 128 mg/dL (60-115)
--- NOTE | 2020-06-13 15:00 | MHC.CARE ---
CARE team and med floor provider secured a section 12a for pt who is now a [facility] bedsearch. Pts arrived at end of brief discussion of the plan with pt.
--- NOTE | 2020-06-13 15:13 | P.PNIM_ITS ---
Subjective Subjective Date of Service: 06/13/20 Interval History: the patient was seen and evaluated this morning Laying in bed, more alert and interactive, not in distress Denies any pain, fever or chills Hemoglobin and platelets stable No reported other overnight events. Systemic review: Denies fevers, chills No chest pain, palpitation No shortness of breath or coughing No abdominal pain, nausea or vomiting No urinary symptoms Multiple bruises and wounds, pressure ulcers Physical Exam Vital Signs: Vital Signs: Last Vital Signs Temp 97.3 F 06/13/20 11:11 Pulse 93 06/13/20 11:11 Resp 18 06/13/20 11:11 BP 107/61 06/13/20 11:11 Pulse Ox 98 06/13/20 11:11 Body Mass Index 44.1 Const: Other: Constitutional : Alert and interactive, not in distress Neck : Normal inspection, Supple Cardiovascular : RRR, S1 S2, no lower extremity edema Respiratory : Fair bilateral air entry, bilateral bases crackles, no wheezes or rhonchi Gastrointestinal: soft, lax, Normal bowel sounds, Non tender Skin : Warm/Dry, multiple areas of bruises, multiple back contusions with no drainage noted, large dry wound on the chest of her left lower extremity, covered with dressing Neurological : Alert, interactive, oriented to self and place, No focal deficit Objective Data Current Medications Generic Name Dose Route Start Last Admin Trade Name Freq PRN Reason Stop Dose Admin Acetaminophen 650 mg 06/04/20 21:23 Acetaminophen Supp 650 Mg Supp.Rect [place] Q6H PRN Pain, Mild (Pain Scale 1-3) Apixaban 2.5 mg 06/09/20 21:00 06/13/20 07:53 Apixaban 2.5 Mg Tablet PO 2.5 mg BID SATNAM Administration Ferrous Sulfate 324 mg 06/05/20 09:00 06/13/20 07:53 Ferrous Sulfate 324 Mg Tablet.Dr PO 324 mg DAILY SATNAM Administration Furosemide 40 mg 06/05/20 09:00 06/13/20 07:53 Furosemide 40 Mg Tablet PO 40 mg DAILY SATNAM Administration Protocol Guaifenesin 1,200 mg 06/05/20 09:00 06/13/20 07:52 Guaifenesin La 600 Mg Tab.Er.12h PO 1,200 mg BID SATNAM Administration Metronidazole 500 mg in 100 mls @ 100 mls/hr 06/08/20 17:00 06/13/20 09:06 Flagyl IV Infused Q8H [facility] Infusion Ceftriaxone Sodium 1 gm/ 50 mls @ 100 mls/hr 06/08/20 17:00 06/12/20 20:02 Sodium Chloride IV Infused Q24H [facility] Infusion Insulin Human Lispro 0 unit 06/05/20 07:30 06/13/20 11:46 Insulin Lispro 100 Unit/Ml 3 Ml Vial SUBCUT Not Given QIDACHS [facility] Protocol Loratadine 10 mg 06/05/20 09:00 06/13/20 07:52 Loratadine 10 Mg Tablet PO 10 mg DAILY SATNAM Administration Metoprolol Tartrate 12.5 mg 06/05/20 09:00 06/13/20 07:52 Metoprolol Tartrate 25 Mg Tablet PO 12.5 mg BID [facility] Administration Protocol Montelukast Sodium 10 mg 06/05/20 21:00 06/12/20 21:30 Montelukast Sodium 10 Mg Tablet PO 10 mg BEDTIME [facility] Administration Nystatin 1 appl 06/12/20 21:00 06/13/20 08:44 Nystatin Powder 15 Gm Bottle TOPICAL 1 appl BID [facility] Administration Protocol Nystatin 400,000 unit 06/12/20 13:00 06/13/20 13:01 Nystatin Oral Susp 500,000 Unit/5 Ml Oral.Susp PO 400,000 unit QID [facility] Administration Protocol Omeprazole 20 mg 06/05/20 06:30 06/13/20 06:38 Omeprazole 20 Mg Capsule.Dr PO 20 mg BID@0630,1630 [facility] Administration Ondansetron HCl 4 mg 06/04/20 23:45 06/05/20 00:01 Ondansetron Hcl 4 Mg/2 Ml Vial IVPUSH 4 mg Q8H PRN Administration Nausea Senna 17.2 mg 06/04/20 21:23 Sennosides 8.6 Mg Tablet PO BEDTIME PRN Constipation Sertraline HCl 50 mg 06/08/20 09:00 06/13/20 07:53 Sertraline Hcl 50 Mg Tablet PO 50 mg DAILY SATNAM Administration Sodium Chloride 3 ml 06/05/20 00:00 06/13/20 08:43 0.9 % Sodium Chloride Flush 3 Ml Syringe IVFLUSH 3 ml QSHIFT [facility] Administration Sodium Chloride 5 ml 06/07/20 16:00 06/13/20 08:43 0.9 % Sodium Chloride Flush 10 Ml Syringe IVFLUSH 5 ml TID SATNAM Administration Sodium Chloride 5 ml 06/07/20 16:00 06/13/20 08:44 0.9 % Sodium Chloride Flush 10 Ml Syringe IVFLUSH 5 ml TID SATNAM Administration Labs CBC & Chem 7: 06/10/20 07:28 06/12/20 05:45 Microbiology Microbiology Results: Microbiology 06/04/20 18:07 Blood - Venous Blood Culture - Final No growth after 5 days. 06/04/20 18:06 Blood - Venous Blood Culture - Final No growth after 5 days. 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 Intra-abdominal abscess Above 4 cm in diameter, adjacent to sigmoid Surgery input appreciated, ideally should have CT drainage but withhold with multiple other medical issues. To treat with IV antibiotics of Flagyl and ceftriaxone for now Repeated CT scan today showing no changes on the abscess to discuss with surgical team for possible intervention Thrombocytopenia Improved above 100 post total of 6 units of platelets transfusion Likely related to antibiotics, vancomycin specifically or related to ITP Restarted Eliquis with no drop in platelets or hemoglobin Hematology input appreciated, vancomycin induced ITP possibility, ITP to treat with dexamethasone Discontinue dexamethasone 40 mg daily 06/18 Acute on chronic anemia, Symptomatic anemia Hemoglobin stable around 10 post transfusion 1 unit Could be secondary to ITP as well CT scan of the abdomen, hip negative for any internal bleeding Toxic encephalopathy in setting of benzodiazepine overdose Resolved 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 Aspiration precautions Suicidal ideation/benzodiazepine overdose Overdose resolved Took 15 tablets of Ativan 1 mg tablets. Poison Control recommended supportive therapy and observation 1 on observation Section 12 was done in the ER Crisis/Psychiatric consult. Will need inpatient psych admission working on placement Multiple contusions Risk for pressure ulcer Frequent positional changes, zinc oxide protection Local care Appreciate wound team consult Acute on chronic hypoxic respiratory failure Health-care associated pneumonia, likely aspiration Still requiring oxygen supplement, to wean down as tolerated Continue Flagyl and ceftriaxone, DC doxycycline Id input appreciated Patient has thick bronchial secretions-chest physiotherapy. History of COPD/chronic respiratory failure Continue home oxygen at 2 L. Duo nebs p.r.n.. keep BiPAP at night as tolerated. History of factor 5 laden deficiency/DVT: Continue home anticoagulation. Which started on Eliquis Diet Ground mechanical per STEEL WORKER Code status: DNR/DNI.
[2020-06-13 16:09] LABS: Glucose, Whole Blood 133 mg/dL (60-115)
--- NOTE | 2020-06-13 16:36 | P.PNGS_ITS ---
Subjective Subjective Date of Service: 06/13/20 Interval history: Denies complaints Says she feels well Good p.o. intake Physical Exam Vital Signs: Vital Signs: Last Vital Signs Temp 96.0 F L 06/13/20 15:38 Pulse 99 06/13/20 15:38 Resp 16 06/13/20 15:38 BP 113/59 L 06/13/20 15:38 Pulse Ox 94 06/13/20 15:38 Body Mass Index 44.1 Const: General: comfortable and no acute distress Resp: Effort & Inspection: normal respiratory effort Cardio: Rate: regular rate GI: Palpation (GI): Soft to palpation and nontender Progress Note: A&P Assessment and plan (1) Intra-abdominal abscess: Problem details: She has incidental finding of abscess It is moderate in size Status: Acute Assessment and Plan: Found incidentally No symptoms No tenderness I reviewed the CT scan images with Dr. Gar - she feels access to the abscess for drainage may be difficult Continue antibiotics diet as tolerated Fall Risk Details Current Medications: Current Medications Generic Name Dose Route Start Last Admin Trade Name Freq PRN Reason Stop Dose Admin Acetaminophen 650 mg 06/04/20 21:23 Acetaminophen Supp 650 Mg Supp.Rect IN Q6H PRN Pain, Mild (Pain Scale 1-3) Apixaban 2.5 mg 06/09/20 21:00 06/13/20 07:53 Apixaban 2.5 Mg Tablet PO 2.5 mg BID [facility] Administration Ferrous Sulfate 324 mg 06/05/20 09:00 06/13/20 07:53 Ferrous Sulfate 324 Mg Tablet. PO 324 mg DAILY [facility] Administration Furosemide 40 mg 06/05/20 09:00 06/13/20 07:53 Furosemide 40 Mg Tablet PO 40 mg DAILY [facility] Administration Protocol Guaifenesin 1,200 mg 06/05/20 09:00 06/13/20 07:52 Guaifenesin La 600 Mg Tab.Er.12h PO 1,200 mg BID [facility] Administration Metronidazole 500 mg in 100 mls @ 100 mls/hr 06/08/20 17:00 06/13/20 09:06 Flagyl IV Infused Q8H [facility] Infusion Ceftriaxone Sodium 1 gm/ 50 mls @ 100 mls/hr 06/08/20 17:00 06/12/20 20:02 Sodium Chloride IV Infused Q24H [facility] Infusion Insulin Human Lispro 0 unit 06/05/20 07:30 06/13/20 16:09 Insulin Lispro 100 Unit/Ml 3 Ml Vial SUBCUT Not Given QIDACHS [facility] Protocol Loratadine 10 mg 06/05/20 09:00 06/13/20 07:52 Loratadine 10 Mg Tablet PO 10 mg DAILY [facility] Administration Metoprolol Tartrate 12.5 mg 06/05/20 09:00 06/13/20 07:52 Metoprolol Tartrate 25 Mg Tablet PO 12.5 mg BID [facility] Administration Protocol Montelukast Sodium 10 mg 06/05/20 21:00 06/12/20 21:30 Montelukast Sodium 10 Mg Tablet PO 10 mg BEDTIME [facility] Administration Nystatin 1 appl 06/12/20 21:00 06/13/20 08:44 Nystatin Powder 15 Gm Bottle TOPICAL 1 appl BID [facility] Administration Protocol Nystatin 400,000 unit 06/12/20 13:00 06/13/20 13:01 Nystatin Oral Susp 500,000 Unit/5 Ml Oral.Susp PO 400,000 unit QID [facility] Administration Protocol Omeprazole 20 mg 06/05/20 06:30 06/13/20 16:11 Omeprazole 20 Mg Capsule. PO 20 mg BID@0630,1630 [facility] Administration Ondansetron HCl 4 mg 06/04/20 23:45 06/05/20 00:01 Ondansetron Hcl 4 Mg/2 Ml Vial IVPUSH 4 mg Q8H PRN Administration Nausea Senna 17.2 mg 06/04/20 21:23 Sennosides 8.6 Mg Tablet PO BEDTIME PRN Constipation Sertraline HCl 50 mg 06/08/20 09:00 06/13/20 07:53 Sertraline Hcl 50 Mg Tablet PO 50 mg DAILY [facility] Administration Sodium Chloride 3 ml 06/05/20 00:00 06/13/20 16:06 0.9 % Sodium Chloride Flush 3 Ml Syringe IVFLUSH 3 ml QSHIFT [facility] Administration Sodium Chloride 5 ml 06/07/20 16:00 06/13/20 16:06 0.9 % Sodium Chloride Flush 10 Ml Syringe IVFLUSH 5 ml TID [facility] Administration Sodium Chloride 5 ml 06/07/20 16:00 06/13/20 16:06 0.9 % Sodium Chloride Flush 10 Ml Syringe IVFLUSH 5 ml TID [facility] Administration Time Spent With Patient Time: Total time spent is greater than 50% in coordination of care (as documented) at patient's floor/unit and/or counseling patient: Time with patient: 15 - 24 minutes
[2020-06-13] MEDS: cefTRIAXone sodium 1 GM in 0.9 % Sodium Chloride 50 ML IV (17:21)
[2020-06-13] MEDS: Insulin Lispro 100 UNIT/ML 3 ML VIAL SUBCUT (18:37)
[2020-06-13 20:14] LABS: Glucose, Whole Blood 112 mg/dL (60-115)
[2020-06-13] MEDS: Montelukast Sodium 10 MG TABLET PO (21:52)
[2020-06-14] VITALS (9 sets, daily range): BP systolic 103–136; BP diastolic 56–76; PULSE 68–98; RESP 15–20; TEMP 35.4–36.8; O2SAT 96–100
[2020-06-14] MEDS: 0.9 % Sodium Chloride Flush 3 ML SYRINGE IVFLUSH ×3 (00:38→20:18)
[2020-06-14] MEDS: metroNIDAZOLE/NS 500 MG/100 ML PIGGYBACK 100 MG IV ×3 (00:38→17:44)
[2020-06-14] MEDS: Omeprazole 20 MG CAPSULE.DR PO ×2 (05:56→17:36)
[2020-06-14] MEDS: ondansetron HCL 4 MG/2 ML VIAL IVPUSH (06:09)
[2020-06-14 07:37] LABS: Glucose, Whole Blood 99 mg/dL (60-115)
[2020-06-14] MEDS: Ferrous Sulfate 324 MG TABLET.DR PO (09:00)
[2020-06-14] MEDS: Nystatin Oral Susp 500,000 UNIT/5 ML ORAL.SUSP 400000 UNIT PO ×3 (09:00→20:14)
[2020-06-14] MEDS: Sertraline HCL 50 MG TABLET PO (09:00)
[2020-06-14] MEDS: Apixaban 2.5 MG TABLET PO ×2 (09:00→20:14)
[2020-06-14] MEDS: guaiFENesin LA 600 MG TAB.ER.12H 1200 MG PO ×2 (09:00→20:14)
[2020-06-14] MEDS: Metoprolol Tartrate 25 MG TABLET 12.5 MG PO ×2 (09:01→20:14)
[2020-06-14] MEDS: Loratadine 10 MG TABLET PO (09:04)
[2020-06-14] MEDS: Furosemide 40 MG TABLET PO (09:05)
[2020-06-14] MEDS: Nystatin Powder 15 GM BOTTLE 1 APPL TOPICAL ×2 (10:09→20:18)
[2020-06-14 10:55] LABS: Glucose Urine UA NEG (NEG); Leukocyte Esterase Urine NEG (NEG); Specific Gravity - Urine 1.025 (1.005-1.025); Urine Blood NEG (NEG); Urine Protein NEG (NEG-TRACE)
[2020-06-14 11:08] LABS: Appearance Urine HAZY; Color Urine AMBER
[2020-06-14 11:09] LABS: Mucus Urine TRACE /LPF; RBC Urine 0 /HPF (0); Squamous Epithelial Cell Urine TRACE /LPF; WBC Urine 0-2 /HPF (0-4)
[2020-06-14 11:14] LABS: Glucose, Whole Blood 119 mg/dL (60-115)
--- NOTE | 2020-06-14 11:47 | MHC.CLN ---
F/U PO INTAKE REMAINS 75% AVG DIET RX: 1500DM CHOPPED-APPROPRIATE PT RECEIVING SANTOS AND ENSURE BID PROVIDES 860KCALS (78% EST KCAL NEEDS), 45G PROTEIN (78% EST PROTEIN NEEDS) SUPPLEMENTS IN PLACE TO SUPPORT WOUND HEALING FOLLOWING
--- NOTE | 2020-06-14 12:32 | MHC.CM.PN ---
Per ROUNDS discussion, Patient is medically cleared for dc to Inpatient [facility]. Care Team is involved and CM awaits notice of bed availability.
[2020-06-14] MEDS: Calcium Carbonate 750 MG TAB.CHEW PO ×2 (12:36→18:44)
--- NOTE | 2020-06-14 14:39 | HO.PM.IMPN ---
Subjective Subjective Date of Service: 06/14/20 Interval History: the patient was seen and evaluated this morning Laying in bed, more alert and interactive, not in distress Denies any pain, fever or chills Hemoglobin and platelets stable No reported other overnight events. Systemic review: Denies fevers, chills No chest pain, palpitation No shortness of breath or coughing No abdominal pain, nausea or vomiting No urinary symptoms Multiple bruises and wounds, pressure ulcers Physical Exam Vital Signs: Vital Signs: Last Vital Signs Temp 96.5 F L 06/14/20 11:14 Pulse 92 06/14/20 11:14 Resp 19 06/14/20 11:14 BP 107/61 06/14/20 11:14 Pulse Ox 99 06/14/20 11:14 Body Mass Index 44.1 Const: Other: Constitutional : Alert and interactive, not in distress Neck : Normal inspection, Supple Cardiovascular : RRR, S1 S2, no lower extremity edema Respiratory : Fair bilateral air entry, bilateral bases crackles, no wheezes or rhonchi Gastrointestinal: soft, lax, Normal bowel sounds, Non tender Skin : Warm/Dry, multiple areas of bruises, multiple back contusions with no drainage noted, large dry wound on the chest of her left lower extremity, covered with dressing Neurological : Alert, interactive, oriented to self and place, No focal deficit Objective Data Current Medications Generic Name Dose Route Start Last Admin Trade Name Freq PRN Reason Stop Dose Admin Acetaminophen 650 mg 06/04/20 21:23 Acetaminophen Supp 650 Mg Supp.Rect [place] Q6H PRN Pain, Mild (Pain Scale 1-3) Apixaban 2.5 mg 06/09/20 21:00 06/14/20 09:00 Apixaban 2.5 Mg Tablet PO 2.5 mg BID [facility] Administration Calcium Carbonate 750 mg 06/14/20 12:27 06/14/20 12:36 Calcium Carbonate 750 Mg Tab.Chew PO 750 mg Q4H PRN Administration Indigestion Ferrous Sulfate 324 mg 06/05/20 09:00 06/14/20 09:00 Ferrous Sulfate 324 Mg Tablet.Dr PO 324 mg DAILY [facility] Administration Furosemide 40 mg 06/05/20 09:00 06/14/20 09:05 Furosemide 40 Mg Tablet PO 40 mg DAILY [facility] Administration Protocol Guaifenesin 1,200 mg 06/05/20 09:00 06/14/20 09:00 Guaifenesin La 600 Mg Tab.Er.12h PO 1,200 mg BID [facility] Administration Metronidazole 500 mg in 100 mls @ 100 mls/hr 06/08/20 17:00 06/14/20 10:12 Flagyl IV Infused Q8H [facility] Infusion Ceftriaxone Sodium 1 gm/ 50 mls @ 100 mls/hr 06/08/20 17:00 06/13/20 17:55 Sodium Chloride IV Infused Q24H [facility] Infusion Insulin Human Lispro 0 unit 06/05/20 07:30 06/14/20 11:22 Insulin Lispro 100 Unit/Ml 3 Ml Vial SUBCUT Not Given QIDACHS [facility] Protocol Loratadine 10 mg 06/05/20 09:00 06/14/20 09:04 Loratadine 10 Mg Tablet PO 10 mg DAILY [facility] Administration Metoprolol Tartrate 12.5 mg 06/05/20 09:00 06/14/20 09:01 Metoprolol Tartrate 25 Mg Tablet PO 12.5 mg BID [facility] Administration Protocol Montelukast Sodium 10 mg 06/05/20 21:00 06/13/20 21:52 Montelukast Sodium 10 Mg Tablet PO 10 mg BEDTIME [facility] Administration Nystatin 1 appl 06/12/20 21:00 06/14/20 10:09 Nystatin Powder 15 Gm Bottle TOPICAL 1 appl BID [facility] Administration Protocol Nystatin 400,000 unit 06/12/20 13:00 06/14/20 09:00 Nystatin Oral Susp 500,000 Unit/5 Ml Oral.Susp PO 400,000 unit QID [facility] Administration Protocol Omeprazole 20 mg 06/05/20 06:30 06/14/20 05:56 Omeprazole 20 Mg Capsule.Dr PO 20 mg BID@0630,1630 [facility] Administration Ondansetron HCl 4 mg 06/04/20 23:45 06/14/20 06:09 Ondansetron Hcl 4 Mg/2 Ml Vial IVPUSH 4 mg Q8H PRN Administration Nausea Senna 17.2 mg 06/04/20 21:23 Sennosides 8.6 Mg Tablet PO BEDTIME PRN Constipation Sertraline HCl 50 mg 06/08/20 09:00 06/14/20 09:00 Sertraline Hcl 50 Mg Tablet PO 50 mg DAILY [facility] Administration Sodium Chloride 3 ml 06/05/20 00:00 06/14/20 09:05 0.9 % Sodium Chloride Flush 3 Ml Syringe IVFLUSH 3 ml QSHIFT [facility] Administration Sodium Chloride 5 ml 06/07/20 16:00 06/14/20 10:08 0.9 % Sodium Chloride Flush 10 Ml Syringe IVFLUSH Not Given TID [facility] Sodium Chloride 5 ml 06/07/20 16:00 06/14/20 10:08 0.9 % Sodium Chloride Flush 10 Ml Syringe IVFLUSH Not Given TID [facility] Labs CBC & Chem 7: 06/10/20 07:28 06/12/20 05:45 Microbiology Microbiology Results: Microbiology 06/04/20 18:07 Blood - Venous Blood Culture - Final No growth after 5 days. 06/04/20 18:06 Blood - Venous Blood Culture - Final No growth after 5 days. 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 Urinary retention Complaining of lower abdominal pain, bladder scan positive for almost 3 and his cc of urine To try straight cath for now If happens again to place a [place] to discharge with Intra-abdominal abscess Above 4 cm in diameter, adjacent to sigmoid Repeated CT scan showing no changes on the abscess Surgery input appreciated, can be treated with oral antibiotics and repeat images in 2 weeks as outpatient To treat with IV antibiotics of Flagyl and ceftriaxone for now Thrombocytopenia Improved above 100 post total of 6 units of platelets transfusion Likely related to antibiotics, vancomycin specifically or related to ITP Restarted Eliquis with no drop in platelets or hemoglobin Hematology input appreciated, vancomycin induced ITP possibility, ITP to treat with dexamethasone Discontinue dexamethasone 40 mg daily / Acute on chronic anemia, Symptomatic anemia Hemoglobin stable around 10 post transfusion 1 unit Could be secondary to ITP as well CT scan of the abdomen, hip negative for any internal bleeding Toxic encephalopathy in setting of benzodiazepine overdose Resolved LOADER evaluated, 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 Aspiration precautions Suicidal ideation/benzodiazepine overdose Overdose resolved Took 15 tablets of Ativan 1 mg tablets. Poison Control recommended supportive therapy and observation 1 on observation Section 12 was done in the ER Crisis/Psychiatric consult. Will need inpatient psych admission working on placement Multiple contusions Risk for pressure ulcer Frequent positional changes, zinc oxide protection Local care Appreciate wound team consult Acute on chronic hypoxic respiratory failure Health-care associated pneumonia, likely aspiration Still requiring oxygen supplement, to wean down as tolerated Continue Flagyl and ceftriaxone, DC doxycycline Id input appreciated Patient has thick bronchial secretions-chest physiotherapy. History of COPD/chronic respiratory failure Continue home oxygen at 2 L. Duo nebs p.r.n.. keep BiPAP at night as tolerated. History of factor 5 laden deficiency/DVT: Continue home anticoagulation. Which started on Eliquis Diet Ground mechanical per LOADER Code status: DNR/DNI.
[2020-06-14] MEDS: 0.9 % Sodium Chloride Flush 10 ML SYRINGE 5 ML IVFLUSH ×4 (14:55→20:18)
[2020-06-14 15:52] LABS: Glucose, Whole Blood 117 mg/dL (60-115)
[2020-06-14] MEDS: cefTRIAXone sodium 1 GM in 0.9 % Sodium Chloride 50 ML IV (18:47)
[2020-06-14 19:59] LABS: Glucose, Whole Blood 116 mg/dL (60-115)
[2020-06-14] MEDS: Montelukast Sodium 10 MG TABLET PO (20:14)
[2020-06-15] VITALS (8 sets, daily range): BP systolic 99–136; BP diastolic 54–76; PULSE 80–103; RESP 14–22; TEMP 36.1–36.3; O2SAT 90–99
[2020-06-15] MEDS: metroNIDAZOLE/NS 500 MG/100 ML PIGGYBACK 100 MG IV ×3 (00:37→16:36)
[2020-06-15] MEDS: Omeprazole 20 MG CAPSULE.DR PO ×2 (05:33→16:36)
[2020-06-15 07:19] LABS: Glucose, Whole Blood 89 mg/dL (60-115)
[2020-06-15] MEDS: 0.9 % Sodium Chloride Flush 3 ML SYRINGE IVFLUSH ×2 (07:58→15:41)
[2020-06-15] MEDS: Metoprolol Tartrate 25 MG TABLET 12.5 MG PO ×2 (09:37→21:10)
[2020-06-15] MEDS: Nystatin Oral Susp 500,000 UNIT/5 ML ORAL.SUSP 400000 UNIT PO ×2 (09:38→21:12)
[2020-06-15] MEDS: Loratadine 10 MG TABLET PO (09:39)
[2020-06-15] MEDS: Ferrous Sulfate 324 MG TABLET.DR PO (09:39)
[2020-06-15] MEDS: guaiFENesin LA 600 MG TAB.ER.12H 1200 MG PO ×2 (09:39→21:09)
[2020-06-15] MEDS: Apixaban 2.5 MG TABLET PO ×2 (09:39→21:10)
[2020-06-15] MEDS: Furosemide 40 MG TABLET PO (09:39)
[2020-06-15] MEDS: 0.9 % Sodium Chloride Flush 10 ML SYRINGE 5 ML IVFLUSH ×6 (09:40→23:42)
[2020-06-15] MEDS: Sertraline HCL 50 MG TABLET PO (09:55)
[2020-06-15] MEDS: Nystatin Powder 15 GM BOTTLE 1 APPL TOPICAL ×2 (09:56→23:32)
[2020-06-15 11:21] LABS: Glucose, Whole Blood 116 mg/dL (60-115)
--- NOTE | 2020-06-15 12:43 | HO.PM.IMPN ---
Subjective Subjective Date of Service: 06/15/20 Interval History: lle wound, otherwise no complaints Cardiovascular Cardiovascular: Reports no additional cardiovascular complaints Respiratory Respiratory: Reports no additional respiratory complaints Physical Exam Vital Signs: Vital Signs: Last Vital Signs Temp 97.0 F 06/15/20 11:07 Pulse 93 06/15/20 11:07 Resp 20 06/15/20 11:07 BP 107/60 06/15/20 11:07 Pulse Ox 97 06/15/20 11:07 Body Mass Index 44.1 General: AO X 3, no acute distress Resp: CTA bilateral CVS: S1,S2,RRR GI: soft, non tender, non distended Neuro: motor grossly intact Psych: appropriate affect skin: see pic of LLE Objective Data Current Medications Generic Name Dose Route Start Last Admin Trade Name Freq PRN Reason Stop Dose Admin Acetaminophen 650 mg 06/04/20 21:23 Acetaminophen Supp 650 Mg Supp.Rect [place] Q6H PRN Pain, Mild (Pain Scale 1-3) Apixaban 2.5 mg 06/09/20 21:00 06/15/20 09:39 Apixaban 2.5 Mg Tablet PO 2.5 mg BID [facility] Administration Calcium Carbonate 750 mg 06/14/20 12:27 06/14/20 18:44 Calcium Carbonate 750 Mg Tab.Chew PO 750 mg Q4H PRN Administration Indigestion Ferrous Sulfate 324 mg 06/05/20 09:00 06/15/20 09:39 Ferrous Sulfate 324 Mg Tablet.Dr PO 324 mg DAILY [facility] Administration Furosemide 40 mg 06/05/20 09:00 06/15/20 09:39 Furosemide 40 Mg Tablet PO 40 mg DAILY [facility] Administration Protocol Guaifenesin 1,200 mg 06/05/20 09:00 06/15/20 09:39 Guaifenesin La 600 Mg Tab.Er.12h PO 1,200 mg BID [facility] Administration Metronidazole 500 mg in 100 mls @ 100 mls/hr 06/08/20 17:00 06/15/20 10:55 Flagyl IV Infused Q8H [facility] Infusion Ceftriaxone Sodium 1 gm/ 50 mls @ 100 mls/hr 06/08/20 17:00 06/14/20 19:47 Sodium Chloride IV Infused Q24H [facility] Infusion Insulin Human Lispro 0 unit 06/05/20 07:30 06/15/20 11:47 Insulin Lispro 100 Unit/Ml 3 Ml Vial SUBCUT Not Given QIDACHS [facility] Protocol Loratadine 10 mg 06/05/20 09:00 06/15/20 09:39 Loratadine 10 Mg Tablet PO 10 mg DAILY [facility] Administration Metoprolol Tartrate 12.5 mg 06/05/20 09:00 06/15/20 09:37 Metoprolol Tartrate 25 Mg Tablet PO 12.5 mg BID [facility] Administration Protocol Montelukast Sodium 10 mg 06/05/20 21:00 06/14/20 20:14 Montelukast Sodium 10 Mg Tablet PO 10 mg BEDTIME [facility] Administration Nystatin 1 appl 06/12/20 21:00 06/15/20 09:56 Nystatin Powder 15 Gm Bottle TOPICAL 1 appl BID [facility] Administration Protocol Nystatin 400,000 unit 06/12/20 13:00 06/15/20 11:48 Nystatin Oral Susp 500,000 Unit/5 Ml Oral.Susp PO Not Given QID [facility] Protocol Omeprazole 20 mg 06/05/20 06:30 06/15/20 05:33 Omeprazole 20 Mg Capsule.Dr PO 20 mg BID@0630,1370 [facility] Administration Ondansetron HCl 4 mg 06/04/20 23:45 06/14/20 06:09 Ondansetron Hcl 4 Mg/2 Ml Vial IVPUSH 4 mg Q8H PRN Administration Nausea Senna 17.2 mg 06/04/20 21:23 Sennosides 8.6 Mg Tablet PO BEDTIME PRN Constipation Sertraline HCl 50 mg 06/08/20 09:00 06/15/20 09:55 Sertraline Hcl 50 Mg Tablet PO 50 mg DAILY [facility] Administration Sodium Chloride 3 ml 06/05/20 00:00 06/15/20 07:58 0.9 % Sodium Chloride Flush 3 Ml Syringe IVFLUSH 3 ml QSHIFT [facility] Administration Sodium Chloride 5 ml 06/07/20 16:00 06/15/20 09:40 0.9 % Sodium Chloride Flush 10 Ml Syringe IVFLUSH 5 ml TID [facility] Administration Sodium Chloride 5 ml 06/07/20 16:00 06/15/20 09:54 0.9 % Sodium Chloride Flush 10 Ml Syringe IVFLUSH 5 ml TID [facility] Administration Labs CBC & Chem 7: 06/10/20 07:28 06/12/20 05:45 Microbiology Microbiology Results: Microbiology 06/04/20 18:07 Blood - Venous Blood Culture - Final No growth after 5 days. 06/04/20 18:06 Blood - Venous Blood Culture - Final No growth after 5 days. 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 Acute on chronic hypoxic respiratory failure secondary to toxic encephalopathy from benzodiazepine overdose/suicide attempt Encephalopathy Resolved [facility] psych bed search Aspiration pneumonia Continue ceftriaxone And Flagyl Urinary retention monitor Intra-abdominal abscess Above 4 cm in diameter, adjacent to sigmoid Repeated CT scan showing no changes on the abscess Surgery input appreciated, can be treated with oral antibiotics and repeat images in 2 weeks as outpatient To treat with IV antibiotics of Flagyl and ceftriaxone for now Left lower extremity wound Surgery to see Thrombocytopenia Improved above 100 post total of 6 units of platelets transfusion Likely related to antibiotics, vancomycin specifically or related to ITP Restarted Eliquis with no drop in platelets or hemoglobin Hematology input appreciated, vancomycin induced ITP possibility, ITP to treat with dexamethasone Discontinue dexamethasone 40 mg daily 06/18 Acute on chronic anemia, Symptomatic anemia Hemoglobin stable around 10 post transfusion 1 unit Could be secondary to ITP as well CT scan of the abdomen, hip negative for any internal bleeding History of COPD/chronic respiratory failure Continue home oxygen at 2 L. Duo nebs p.r.n.. keep BiPAP at night as tolerated. History of factor 5 laden deficiency/DVT: Eliquis
--- NOTE | 2020-06-15 14:43 | MHC.CARE ---
1400: Met with pt. MSU completed. Updated pt regarding the bed search being conducted. Pt was an active participant in our conversation and appears brighter than she had been in previous discussions.
--- NOTE | 2020-06-15 15:41 | P.PNGS_ITS ---
Subjective Subjective Date of Service: 06/15/20 Interval history: She denies any new complaints. I was asked to see her because of an open wound on the left thigh. This appeared to have some discoloration. Denies significant pain on this area Physical Exam Vital Signs: Vital Signs: Last Vital Signs Temp 97.0 F 06/15/20 14:52 Pulse 95 06/15/20 14:52 Resp 22 H 06/15/20 14:52 BP 99/61 06/15/20 14:52 Pulse Ox 98 06/15/20 14:52 Body Mass Index 44.1 Const: General: comfortable and no acute distress Resp: Effort & Inspection: normal respiratory effort Cardio: Rate: regular rate GI: Palpation (GI): Soft to palpation and nontender Extrem: Other: She has multiple ecchymotic areas her extremities. On the left anterior thighs note of an open we with exposed hematoma. The open wound is about 5 cm in widest dimension. There is mild surrounding redness. There is no pus. Progress Note: A&P Assessment and plan (1) Hematoma: Status: Acute Assessment and Plan: There is an open wound with a hematoma as described above. I would allow this to slough off on its own. Dressing changes can be done daily dry gauze. She has a history of falling the past so this is likely traumatic wound. I will reach examine this tomorrow. Fall Risk Details Current Medications: Current Medications Generic Name Dose Route Start Last Admin Trade Name Freq PRN Reason Stop Dose Admin Acetaminophen 650 mg 06/04/20 21:23 Acetaminophen Supp 650 Mg Supp.Rect [place] Q6H PRN Pain, Mild (Pain Scale 1-3) Apixaban 2.5 mg 06/09/20 21:00 06/15/20 09:39 Apixaban 2.5 Mg Tablet PO 2.5 mg BID [facility] Administration Calcium Carbonate 750 mg 06/14/20 12:27 06/14/20 18:44 Calcium Carbonate 750 Mg Tab.Chew PO 750 mg Q4H PRN Administration Indigestion Ferrous Sulfate 324 mg 06/05/20 09:00 06/15/20 09:39 Ferrous Sulfate 324 Mg Tablet. PO 324 mg DAILY [facility] Administration Furosemide 40 mg 06/05/20 09:00 06/15/20 09:39 Furosemide 40 Mg Tablet PO 40 mg DAILY [facility] Administration Protocol Guaifenesin 1,200 mg 06/05/20 09:00 06/15/20 09:39 Guaifenesin La 600 Mg Tab.Er.12h PO 1,200 mg BID [facility] Administration Metronidazole 500 mg in 100 mls @ 100 mls/hr 06/08/20 17:00 06/15/20 10:55 Flagyl IV Infused Q8H [facility] Infusion Ceftriaxone Sodium 1 gm/ 50 mls @ 100 mls/hr 06/08/20 17:00 06/14/20 19:47 Sodium Chloride IV Infused Q24H [facility] Infusion Insulin Human Lispro 0 unit 06/05/20 07:30 06/15/20 11:47 Insulin Lispro 100 Unit/Ml 3 Ml Vial SUBCUT Not Given QIDACHS [facility] Protocol Loratadine 10 mg 06/05/20 09:00 06/15/20 09:39 Loratadine 10 Mg Tablet PO 10 mg DAILY [facility] Administration Metoprolol Tartrate 12.5 mg 06/05/20 09:00 06/15/20 09:37 Metoprolol Tartrate 25 Mg Tablet PO 12.5 mg BID [facility] Administration Protocol Montelukast Sodium 10 mg 06/05/20 21:00 06/14/20 20:14 Montelukast Sodium 10 Mg Tablet PO 10 mg BEDTIME [facility] Administration Nystatin 1 appl 06/12/20 21:00 06/15/20 09:56 Nystatin Powder 15 Gm Bottle TOPICAL 1 appl BID [facility] Administration Protocol Nystatin 400,000 unit 06/12/20 13:00 06/15/20 11:48 Nystatin Oral Susp 500,000 Unit/5 Ml Oral.Susp PO Not Given QID [facility] Protocol Omeprazole 20 mg 06/05/20 06:30 06/15/20 05:33 Omeprazole 20 Mg Capsule.Dr PO 20 mg BID@0630,1630 [facility] Administration Ondansetron HCl 4 mg 06/04/20 23:45 06/14/20 06:09 Ondansetron Hcl 4 Mg/2 Ml Vial IVPUSH 4 mg Q8H PRN Administration Nausea Senna 17.2 mg 06/04/20 21:23 Sennosides 8.6 Mg Tablet PO BEDTIME PRN Constipation Sertraline HCl 50 mg 06/08/20 09:00 06/15/20 09:55 Sertraline Hcl 50 Mg Tablet PO 50 mg DAILY [facility] Administration Sodium Chloride 3 ml 06/05/20 00:00 06/15/20 07:58 0.9 % Sodium Chloride Flush 3 Ml Syringe IVFLUSH 3 ml QSHIFT [facility] Administration Sodium Chloride 5 ml 06/07/20 16:00 06/15/20 14:43 0.9 % Sodium Chloride Flush 10 Ml Syringe IVFLUSH 5 ml TID [facility] Administration Sodium Chloride 5 ml 06/07/20 16:00 06/15/20 14:44 0.9 % Sodium Chloride Flush 10 Ml Syringe IVFLUSH 5 ml TID [facility] Administration Time Spent With Patient Time: Total time spent is greater than 50% in coordination of care (as documented) at patient's floor/unit and/or counseling patient: Time with patient: 15 - 24 minutes
[2020-06-15 16:32] LABS: Glucose, Whole Blood 120 mg/dL (60-115)
[2020-06-15] MEDS: cefTRIAXone sodium 1 GM in 0.9 % Sodium Chloride 50 ML IV (16:35)
[2020-06-15 20:43] LABS: Glucose, Whole Blood 130 mg/dL (60-115)
[2020-06-15] MEDS: Montelukast Sodium 10 MG TABLET PO (21:11)
[2020-06-15] MEDS: ondansetron HCL 4 MG/2 ML VIAL IVPUSH (21:16)
[2020-06-16] VITALS (8 sets, daily range): BP systolic 97–116; BP diastolic 56–61; PULSE 84–100; RESP 14–20; TEMP 36.2–36.8; O2SAT 96–99
[2020-06-16] MEDS: 0.9 % Sodium Chloride Flush 3 ML SYRINGE IVFLUSH ×2 (01:07→17:00)
[2020-06-16] MEDS: metroNIDAZOLE/NS 500 MG/100 ML PIGGYBACK 100 MG IV ×3 (03:05→17:04)
[2020-06-16] MEDS: Omeprazole 20 MG CAPSULE.DR PO ×2 (05:48→16:59)
[2020-06-16 06:52] LABS: Hematocrit 36.6 % (37-47); Hemoglobin 10.5 g/dl (12.0-16.0); Mean Corpuscular HGB Conc 28.7 g/dl (31.0-35.0); Mean Corpuscular Hemoglobin 25.7 pg (27.0-33.0); Mean Corpuscular Volume 89.5 fL (80-98); Platelet Count 318 X10*3/uL (160-400); Red Blood Count 4.09 X10*6/uL (4.20-5.50); Red Cell Distribution Width 19.3 % (11.0-16.0); White Blood Count 12.4 X10*3/uL (4.8-10.8)
[2020-06-16 07:20] LABS: Anion Gap 14 (12-20); Blood Urea Nitrogen 7 mg/dL (9-16); Calcium 7.8 mg/dL (8.4-10.2); Carbon Dioxide 34 mmol/L (22-29); Chloride 96 mmol/L (96-108); Creatinine Clr Calc Pharmacy 85.2; Estimated Glomerular Filt Rate > 60; Glucose Fasting 95 mg/dL (60-99); Sodium 141 mmol/L (135-145)
[2020-06-16 07:20] LABS: Glucose, Whole Blood 99 mg/dL (60-115)
[2020-06-16 07:28] LABS: Band Neutrophils Percent 9 % (3-5); Eosinophils Absolute Manual 0.4 X10*3/UL (0.0-0.8); Eosinophils Percent Manual 3 % (0-4); Lymphocytes Absolute Manual 1.4 X10*3/uL (0.6-4.8); Lymphocytes Percent Manual 11 % (20-40); Metamyelocytes Absolute 0.2 X10*3/uL; Metamyelocytes Percent 2 %; Monocytes Absolute Manual 0.2 X10*3/uL (0.0-1.2); Monocytes Percent Manual 2 % (2-11); Myelocytes Absolute 0.1 X10*/uL; Myelocytes Percent 1 %; Neutrophils Percent Manual 72 % (45-73)
[2020-06-16 07:29] LABS: Hypochromasia 1+ (5-14) /OIF; Polychromasia 1+ (0-2) /OIF; RBC Morphology NOTED
[2020-06-16 07:31] LABS: Platelet Estimate NORMAL (NORMAL); Platelet Morphology Comment NORMAL
[2020-06-16] MEDS: 0.9 % Sodium Chloride Flush 10 ML SYRINGE 5 ML IVFLUSH ×6 (07:37→21:47)
[2020-06-16] MEDS: Ferrous Sulfate 324 MG TABLET.DR PO (07:42)
[2020-06-16] MEDS: Furosemide 40 MG TABLET PO (07:42)
[2020-06-16] MEDS: guaiFENesin LA 600 MG TAB.ER.12H 1200 MG PO ×2 (07:42→21:41)
[2020-06-16] MEDS: Metoprolol Tartrate 25 MG TABLET 12.5 MG PO (07:42)
[2020-06-16] MEDS: Sertraline HCL 50 MG TABLET PO (07:44)
[2020-06-16] MEDS: Apixaban 2.5 MG TABLET PO ×2 (07:44→21:41)
[2020-06-16] MEDS: Loratadine 10 MG TABLET PO (07:44)
[2020-06-16] MEDS: Nystatin Powder 15 GM BOTTLE 1 APPL TOPICAL ×2 (10:07→21:42)
[2020-06-16 11:05] LABS: Glucose, Whole Blood 86 mg/dL (60-115)
--- NOTE | 2020-06-16 11:37 | HO.PM.IMPN ---
Subjective Subjective Date of Service: 06/16/20 Interval History: nausea Cardiovascular Cardiovascular: Reports no additional cardiovascular complaints Gastrointestinal Gastrointestinal: Reports no additional gastrointestinal complaints Physical Exam Vital Signs: Vital Signs: Last Vital Signs Temp 98.2 F 06/16/20 11:03 Pulse 94 06/16/20 11:03 Resp 20 06/16/20 11:03 BP 100/61 06/16/20 11:03 Pulse Ox 97 06/16/20 11:03 Body Mass Index 44.1 Const General: comfortable and no acute distress Resp Effort & Inspection: normal respiratory effort Cardio Rate: regular rate GI Palpation (GI): Soft to palpation and nontender Extrem Other: She has multiple ecchymotic areas her extremities. On the left anterior thighs note of an open we with exposed hematoma. The open wound is about 5 cm in widest dimension. There is mild surrounding redness. There is no pus. Objective Data Current Medications Generic Name Dose Route Start Last Admin Trade Name Freq PRN Reason Stop Dose Admin Acetaminophen 650 mg 06/04/20 21:23 Acetaminophen Supp 650 Mg Supp.Rect [place] Q6H PRN Pain, Mild (Pain Scale 1-3) Apixaban 2.5 mg 06/09/20 21:00 06/16/20 07:44 Apixaban 2.5 Mg Tablet PO 2.5 mg BID [facility] Administration Calcium Carbonate 750 mg 06/14/20 12:27 06/14/20 18:44 Calcium Carbonate 750 Mg Tab.Chew PO 750 mg Q4H PRN Administration Indigestion Ferrous Sulfate 324 mg 06/05/20 09:00 06/16/20 07:42 Ferrous Sulfate 324 Mg Tablet.Dr PO 324 mg DAILY [facility] Administration Furosemide 40 mg 06/05/20 09:00 06/16/20 07:42 Furosemide 40 Mg Tablet PO 40 mg DAILY [facility] Administration Protocol Guaifenesin 1,200 mg 06/05/20 09:00 06/16/20 07:42 Guaifenesin La 600 Mg Tab.Er.12h PO 1,200 mg BID [facility] Administration Metronidazole 500 mg in 100 mls @ 100 mls/hr 06/08/20 17:00 06/16/20 09:57 Flagyl IV 100 mls/hr Q8H [facility] Administration Insulin Human Lispro 0 unit 06/05/20 07:30 06/16/20 07:36 Insulin Lispro 100 Unit/Ml 3 Ml Vial SUBCUT Not Given QIDACHS [facility] Protocol Loratadine 10 mg 06/05/20 09:00 06/16/20 07:44 Loratadine 10 Mg Tablet PO 10 mg DAILY [facility] Administration Metoprolol Tartrate 12.5 mg 06/05/20 09:00 06/16/20 07:42 Metoprolol Tartrate 25 Mg Tablet PO 12.5 mg BID [facility] Administration Protocol Montelukast Sodium 10 mg 06/05/20 21:00 06/15/20 21:11 Montelukast Sodium 10 Mg Tablet PO 10 mg BEDTIME [facility] Administration Nystatin 1 appl 06/12/20 21:00 06/16/20 10:07 Nystatin Powder 15 Gm Bottle TOPICAL 1 appl BID [facility] Administration Protocol Nystatin 400,000 unit 06/12/20 13:00 06/16/20 07:46 Nystatin Oral Susp 500,000 Unit/5 Ml Oral.Susp PO Not Given QID [facility] Protocol Omeprazole 20 mg 06/05/20 06:30 06/16/20 05:48 Omeprazole 20 Mg Capsule. PO 20 mg BID@0630,0440 [facility] Administration Ondansetron HCl 4 mg 06/04/20 23:45 06/15/20 21:16 Ondansetron Hcl 4 Mg/2 Ml Vial IVPUSH 4 mg Q8H PRN Administration Nausea Senna 17.2 mg 06/04/20 21:23 Sennosides 8.6 Mg Tablet PO BEDTIME PRN Constipation Sertraline HCl 50 mg 06/08/20 09:00 06/16/20 07:44 Sertraline Hcl 50 Mg Tablet PO 50 mg DAILY [facility] Administration Sodium Chloride 3 ml 06/05/20 00:00 06/16/20 07:36 0.9 % Sodium Chloride Flush 3 Ml Syringe IVFLUSH Not Given QSHIFT [facility] Sodium Chloride 5 ml 06/07/20 16:00 06/16/20 07:37 0.9 % Sodium Chloride Flush 10 Ml Syringe IVFLUSH 5 ml TID [facility] Administration Sodium Chloride 5 ml 06/07/20 16:00 06/16/20 07:37 0.9 % Sodium Chloride Flush 10 Ml Syringe IVFLUSH 5 ml TID [facility] Administration Labs CBC & Chem 7: 06/16/20 05:48 06/16/20 05:48 Microbiology Microbiology Results: Microbiology 06/04/20 18:07 Blood - Venous Blood Culture - Final No growth after 5 days. 06/04/20 18:06 Blood - Venous Blood Culture - Final No growth after 5 days. 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 Acute on chronic hypoxic respiratory failure secondary to toxic encephalopathy from benzodiazepine overdose/suicide attempt Encephalopathy Resolved [facility] psych bed search Aspiration pneumonia Continue ceftriaxone And Flagyl Urinary retention monitor Intra-abdominal abscess Above 4 cm in diameter, adjacent to sigmoid Repeated CT scan showing no changes on the abscess Surgery input appreciated, can be treated with oral antibiotics and repeat images in 2 weeks as outpatient To treat with IV antibiotics of Flagyl and ceftriaxone for now Left lower extremity wound Surgery appreciated, local care Thrombocytopenia Improved above 100 post total of 6 units of platelets transfusion Likely related to antibiotics, vancomycin specifically or related to ITP Restarted Eliquis with no drop in platelets or hemoglobin Acute on chronic anemia, Symptomatic anemia Hemoglobin stable around 10 post transfusion 1 unit Could be secondary to ITP as well CT scan of the abdomen, hip negative for any internal bleeding History of COPD/chronic respiratory failure Continue home oxygen at 2 L. Duo nebs p.r.n.. keep BiPAP at night as tolerated. History of factor 5 laden deficiency/DVT: Eliquis
--- NOTE | 2020-06-16 11:50 | MHC.CM.PN ---
Bed search for Inpatient [facility]/Psych bed is ongoing and CM will continue to follow for dc planning.
--- NOTE | 2020-06-16 13:30 | MHC.CLN ---
F/U PO INTAKE POOR DIET RX: 1500DM CHOPPED-APPROPRIATE PT C/O NAUSEA CAN'T GET THE FOOD DOWN PT RECEIVING ENSURE AND [facility] BID FOR WOUND HEALING HOWEVER NOT CONSUMING R/T NAUSEA WILL TRIAL ENSURE CLEAR WITH [facility] FOLLOWING
--- NOTE | 2020-06-16 13:42 | P.PNGS_ITS ---
Subjective Subjective Date of Service: 06/16/20 Interval history: Denies new complaints Good oral intake No abdominal pain Physical Exam Vital Signs: Vital Signs: Last Vital Signs Temp 98.2 F 06/16/20 11:03 Pulse 94 06/16/20 11:03 Resp 20 06/16/20 11:03 BP 100/61 06/16/20 11:03 Pulse Ox 97 06/16/20 11:03 Body Mass Index 44.1 PT 11.7 SEC (10.8-13 .0) D 06/09/20 05:32 APTT 27.0 SEC (24.1-38 .0) 06/06/20 13:18 Const: General: comfortable and no acute distress Resp: Effort & Inspection: normal respiratory effort Cardio: Rate: regular rate GI: Palpation (GI): Soft to palpation and nontender Extrem: Other: Left anterior thigh - open wound with appears to be an old skin avulsion, about 5 cm x 11 cm, expose subcutaneously year with overlying hematoma, no pus, no gangrene or necrosis Progress Note: A&P Assessment and plan (1) Hematoma: Status: Acute Assessment and Plan: She has an open wound the left anterior thigh from what appears to be an old skin avulsion. There was note of a hematoma overlying the subcutaneous layer. I proceeded to do sharp excisional debridement of the overlying hematoma and nonviable subcutaneous later using fine tipped scissors; I did excisional debridement down to looking subcutaneous layer. I then applied a Xeroform dressing and over the area with gauze; I wrapped the thigh with a Hardik roll The area is not infected. I would recommend same wound care with non here in dressings to the open wound daily. Fall Risk Details Current Medications: Current Medications Generic Name Dose Route Start Last Admin Trade Name Freq PRN Reason Stop Dose Admin Acetaminophen 650 mg 06/04/20 21:23 Acetaminophen Supp 650 Mg Supp.Rect [place] Q6H PRN Pain, Mild (Pain Scale 1-3) Apixaban 2.5 mg 06/09/20 21:00 06/16/20 07:44 Apixaban 2.5 Mg Tablet PO 2.5 mg BID [facility] Administration Calcium Carbonate 750 mg 06/14/20 12:27 06/14/20 18:44 Calcium Carbonate 750 Mg Tab.Chew PO 750 mg Q4H PRN Administration Indigestion Ferrous Sulfate 324 mg 06/05/20 09:00 06/16/20 07:42 Ferrous Sulfate 324 Mg Tablet. PO 324 mg DAILY [facility] Administration Furosemide 40 mg 06/05/20 09:00 06/16/20 07:42 Furosemide 40 Mg Tablet PO 40 mg DAILY [facility] Administration Protocol Guaifenesin 1,200 mg 06/05/20 09:00 06/16/20 07:42 Guaifenesin La 600 Mg Tab.Er.12h PO 1,200 mg BID [facility] Administration Metronidazole 500 mg in 100 mls @ 100 mls/hr 06/08/20 17:00 06/16/20 12:49 Flagyl IV Infused Q8H [facility] Infusion Ceftriaxone Sodium 1 gm/ 50 mls @ 100 mls/hr 06/16/20 16:00 Sodium Chloride IV Q24H [facility] Insulin Human Lispro 0 unit 06/05/20 07:30 06/16/20 12:27 Insulin Lispro 100 Unit/Ml 3 Ml Vial SUBCUT Not Given QIDACHS [facility] Protocol Loratadine 10 mg 06/05/20 09:00 06/16/20 07:44 Loratadine 10 Mg Tablet PO 10 mg DAILY [facility] Administration Metoprolol Tartrate 12.5 mg 06/05/20 09:00 06/16/20 07:42 Metoprolol Tartrate 25 Mg Tablet PO 12.5 mg BID [facility] Administration Protocol Montelukast Sodium 10 mg 06/05/20 21:00 06/15/20 21:11 Montelukast Sodium 10 Mg Tablet PO 10 mg BEDTIME [facility] Administration Nystatin 1 appl 06/12/20 21:00 06/16/20 10:07 Nystatin Powder 15 Gm Bottle TOPICAL 1 appl BID [facility] Administration Protocol Nystatin 400,000 unit 06/12/20 13:00 06/16/20 07:46 Nystatin Oral Susp 500,000 Unit/5 Ml Oral.Susp PO Not Given QID [facility] Protocol Omeprazole 20 mg 06/05/20 06:30 06/16/20 05:48 Omeprazole 20 Mg Capsule. PO 20 mg BID@0630,1630 [facility] Administration Ondansetron HCl 4 mg 06/04/20 23:45 06/15/20 21:16 Ondansetron Hcl 4 Mg/2 Ml Vial IVPUSH 4 mg Q8H PRN Administration Nausea Senna 17.2 mg 06/04/20 21:23 Sennosides 8.6 Mg Tablet PO BEDTIME PRN Constipation Sertraline HCl 50 mg 06/08/20 09:00 06/16/20 07:44 Sertraline Hcl 50 Mg Tablet PO 50 mg DAILY [facility] Administration Sodium Chloride 3 ml 06/05/20 00:00 06/16/20 07:36 0.9 % Sodium Chloride Flush 3 Ml Syringe IVFLUSH Not Given QSHIFT [facility] Sodium Chloride 5 ml 06/07/20 16:00 06/16/20 07:37 0.9 % Sodium Chloride Flush 10 Ml Syringe IVFLUSH 5 ml TID [facility] Administration Sodium Chloride 5 ml 06/07/20 16:00 06/16/20 07:37 0.9 % Sodium Chloride Flush 10 Ml Syringe IVFLUSH 5 ml TID [facility] Administration Time Spent With Patient Time: Total time spent is greater than 50% in coordination of care (as documented) at patient's floor/unit and/or counseling patient: Time with patient: 15 - 24 minutes
[2020-06-16] MEDS: Potassium Chloride ER 20 MEQ TAB.ER.PRT 40 MEQ PO (13:54)
--- NOTE | 2020-06-16 15:09 | PC.NURSE ---
1400 sitter at bedside. Appetite poor, some nausea, no vomitting. Refused zofran. Dr Fuentes changed dsg to left leg. Seen by Care Team today.
[2020-06-16 16:05] LABS: Glucose, Whole Blood 109 mg/dL (60-115)
[2020-06-16] MEDS: cefTRIAXone sodium 1 GM in 0.9 % Sodium Chloride 50 ML IV (17:05)
[2020-06-16 19:55] LABS: Glucose, Whole Blood 127 mg/dL (60-115)
[2020-06-16] MEDS: Montelukast Sodium 10 MG TABLET PO (21:41)
[2020-06-17] VITALS (10 sets, daily range): BP systolic 103–140; BP diastolic 59–71; PULSE 73–109; RESP 15–20; TEMP 36.2–36.6; O2SAT 92–98
[2020-06-17] MEDS: metroNIDAZOLE/NS 500 MG/100 ML PIGGYBACK 100 MG IV ×2 (02:19→09:38)
[2020-06-17] MEDS: 0.9 % Sodium Chloride Flush 3 ML SYRINGE IVFLUSH ×2 (02:19→19:58)
[2020-06-17] MEDS: Omeprazole 20 MG CAPSULE.DR PO ×2 (06:40→18:19)
[2020-06-17 07:13] LABS: Glucose, Whole Blood 99 mg/dL (60-115)
[2020-06-17] MEDS: Nystatin Oral Susp 500,000 UNIT/5 ML ORAL.SUSP 400000 UNIT PO ×2 (09:36→13:13)
[2020-06-17] MEDS: Metoprolol Tartrate 25 MG TABLET 12.5 MG PO ×2 (09:37→19:54)
[2020-06-17] MEDS: Furosemide 40 MG TABLET PO (09:37)
[2020-06-17] MEDS: Sertraline HCL 50 MG TABLET PO (09:37)
[2020-06-17] MEDS: Ferrous Sulfate 324 MG TABLET.DR PO (09:37)
[2020-06-17] MEDS: Apixaban 2.5 MG TABLET PO ×2 (09:37→19:54)
[2020-06-17] MEDS: Loratadine 10 MG TABLET PO (09:37)
[2020-06-17] MEDS: guaiFENesin LA 600 MG TAB.ER.12H 1200 MG PO ×2 (09:37→19:54)
[2020-06-17] MEDS: 0.9 % Sodium Chloride Flush 10 ML SYRINGE 5 ML IVFLUSH ×4 (09:38→20:01)
[2020-06-17] MEDS: Nystatin Powder 15 GM BOTTLE 1 APPL TOPICAL (09:38)
[2020-06-17 12:54] LABS: Glucose, Whole Blood 122 mg/dL (60-115)
--- NOTE | 2020-06-17 13:29 | HO.PM.IMPN ---
Subjective Subjective Date of Service: 06/17/20 Interval History: nausea resolved Cardiovascular Cardiovascular: Reports no additional cardiovascular complaints Respiratory Respiratory: Reports no additional respiratory complaints Physical Exam Vital Signs: Vital Signs: Last Vital Signs Temp 97.6 F 06/17/20 12:00 Pulse 102 H 06/17/20 12:00 Resp 18 06/17/20 12:00 BP 107/62 06/17/20 12:00 Pulse Ox 92 06/17/20 12:00 Body Mass Index 44.1 Const General: comfortable and no acute distress Resp Effort & Inspection: normal respiratory effort Cardio Rate: regular rate GI Palpation (GI): Soft to palpation and nontender Extrem Other: Left anterior thigh - open wound with appears to be an old skin avulsion, about 5 cm x 11 cm, expose subcutaneously year with overlying hematoma, no pus, no gangrene or necrosis Objective Data Current Medications Generic Name Dose Route Start Last Admin Trade Name Freq PRN Reason Stop Dose Admin Acetaminophen 650 mg 06/04/20 21:23 Acetaminophen Supp 650 Mg Supp.Rect [place] Q6H PRN Pain, Mild (Pain Scale 1-3) Apixaban 2.5 mg 06/09/20 21:00 06/17/20 09:37 Apixaban 2.5 Mg Tablet PO 2.5 mg BID [facility] Administration Calcium Carbonate 750 mg 06/14/20 12:27 06/14/20 18:44 Calcium Carbonate 750 Mg Tab.Chew PO 750 mg Q4H PRN Administration Indigestion Ferrous Sulfate 324 mg 06/05/20 09:00 06/17/20 09:37 Ferrous Sulfate 324 Mg Tablet.Dr PO 324 mg DAILY [facility] Administration Furosemide 40 mg 06/05/20 09:00 06/17/20 09:37 Furosemide 40 Mg Tablet PO 40 mg DAILY [facility] Administration Protocol Guaifenesin 1,200 mg 06/05/20 09:00 06/17/20 09:37 Guaifenesin La 600 Mg Tab.Er.12h PO 1,200 mg BID [facility] Administration Metronidazole 500 mg in 100 mls @ 100 mls/hr 06/08/20 17:00 06/17/20 10:54 Flagyl IV Infused Q8H [facility] Infusion Ceftriaxone Sodium 1 gm/ 50 mls @ 100 mls/hr 06/16/20 16:00 06/16/20 17:52 Sodium Chloride IV Infused Q24H [facility] Infusion Insulin Human Lispro 0 unit 06/05/20 07:30 06/17/20 13:06 Insulin Lispro 100 Unit/Ml 3 Ml Vial SUBCUT Not Given [facility]IDACHS [facility] Protocol Loratadine 10 mg 06/05/20 09:00 06/17/20 09:37 Loratadine 10 Mg Tablet PO 10 mg DAILY [facility] Administration Metoprolol Tartrate 12.5 mg 06/05/20 09:00 06/17/20 09:37 Metoprolol Tartrate 25 Mg Tablet PO 12.5 mg BID [facility] Administration Protocol Montelukast Sodium 10 mg 06/05/20 21:00 06/16/20 21:41 Montelukast Sodium 10 Mg Tablet PO 10 mg BEDTIME [facility] Administration Nystatin 1 appl 06/12/20 21:00 06/17/20 09:38 Nystatin Powder 15 Gm Bottle TOPICAL 1 appl BID [facility] Administration Protocol Nystatin 400,000 unit 06/12/20 13:00 06/17/20 13:13 Nystatin Oral Susp 500,000 Unit/5 Ml Oral.Susp PO 400,000 unit QID [facility] Administration Protocol Omeprazole 20 mg 06/05/20 06:30 06/17/20 06:40 Omeprazole 20 Mg Capsule. PO 20 mg BID@0630,1630 [facility] Administration Ondansetron HCl 4 mg 06/04/20 23:45 06/15/20 21:16 Ondansetron Hcl 4 Mg/2 Ml Vial IVPUSH 4 mg Q8H PRN Administration Nausea Senna 17.2 mg 06/04/20 21:23 Sennosides 8.6 Mg Tablet PO BEDTIME PRN Constipation Sertraline HCl 50 mg 06/08/20 09:00 06/17/20 09:37 Sertraline Hcl 50 Mg Tablet PO 50 mg DAILY [facility] Administration Sodium Chloride 3 ml 06/05/20 00:00 06/17/20 09:39 0.9 % Sodium Chloride Flush 3 Ml Syringe IVFLUSH Not Given QSHIFT [facility] Sodium Chloride 5 ml 06/07/20 16:00 06/17/20 09:38 0.9 % Sodium Chloride Flush 10 Ml Syringe IVFLUSH 5 ml TID [facility] Administration Sodium Chloride 5 ml 06/07/20 16:00 06/17/20 09:38 0.9 % Sodium Chloride Flush 10 Ml Syringe IVFLUSH 5 ml TID [facility] Administration Labs CBC & Chem 7: 04/02/21 05:48 06/16/20 05:48 Microbiology Microbiology Results: Microbiology 06/04/20 18:07 Blood - Venous Blood Culture - Final No growth after 5 days. 06/04/20 18:06 Blood - Venous Blood Culture - Final No growth after 5 days. 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 Acute on chronic hypoxic respiratory failure secondary to toxic encephalopathy from benzodiazepine overdose/suicide attempt Encephalopathy Resolved [facility] psych bed search Aspiration pneumonia Continue ceftriaxone And Flagyl Urinary retention monitor Intra-abdominal abscess Above 4 cm in diameter, adjacent to sigmoid Repeated CT scan showing no changes on the abscess Surgery input appreciated, can be treated with oral antibiotics and repeat images in 2 weeks as outpatient To treat with IV antibiotics of Flagyl and ceftriaxone for now Left lower extremity wound Surgery appreciated, debridement performed 06/16/20, continue local care Thrombocytopenia Improved above 100 post total of 6 units of platelets transfusion Likely related to antibiotics, vancomycin specifically or related to ITP Restarted Eliquis with no drop in platelets or hemoglobin Acute on chronic anemia, Symptomatic anemia Hemoglobin stable around 10 post transfusion 1 unit Could be secondary to ITP as well CT scan of the abdomen, hip negative for any internal bleeding History of COPD/chronic respiratory failure Continue home oxygen at 2 L. Duo nebs p.r.n.. keep BiPAP at night as tolerated. History of factor 5 laden deficiency/DVT: Eliquis
[2020-06-17 16:10] LABS: Glucose, Whole Blood 105 mg/dL (60-115)
[2020-06-17] MEDS: metroNIDAZOLE 500 MG TABLET PO (18:19)
[2020-06-17 19:25] LABS: Glucose, Whole Blood 116 mg/dL (60-115)
[2020-06-17] MEDS: Montelukast Sodium 10 MG TABLET PO (19:53)
--- NOTE | 2020-06-17 22:11 | PM.IDPN ---
Subjective Subjective Date of Service: 06/17/20 Interval History: she has abscess,diverticular Objective Data Labs CBC & Chem 7: 06/16/20 05:48 06/16/20 05:48 Labs: Laboratory Results - last 24 hr 06/17/20 06/17/20 06/17/20 07:05 12:50 16:06 POC Glucose 99 122 H 105 06/17/20 19:21 POC Glucose 116 H Microbiology Microbiology Results: Microbiology 06/04/20 18:07 Blood - Venous Blood Culture - Final No growth after 5 days. 06/04/20 18:06 Blood - Venous Blood Culture - Final No growth after 5 days. Physical Exam Vital Signs: Vital Signs: Last Vital Signs Temp 97.2 F 06/17/20 19:16 Pulse 109 H 06/17/20 19:54 Resp 15 06/17/20 20:07 BP 107/59 L 06/17/20 19:54 Pulse Ox 94 06/17/20 19:16 Body Mass Index 44.1 Const: General: cooperative HENMT: Head: Yes normal to inspection Mouth: Normal oral and palatal mucosa present Resp: Effort & Inspection: normal respiratory effort Cardio: Rate: regular rate Rhythm: regular rhythm GI: Palpation (GI): Soft to palpation and nontender Skin: General skin exam: no rashes or lesions noted Assessment and Plan Assessment and plan (1) Intra-abdominal abscess: Problem details: She has incidental finding of abscess It is moderate in size She has received 14 days IV antibiotics Status: Acute Assessment and Plan: Would stop IV antibiotics Would recheck CT abdomen make sure abscess resolving Would switch to po Ceftin and Flagyl for 10 days likely Time Spent With Patient Time: Total time spent is greater than 50% in coordination of care (as documented) at patient's floor/unit and/or counseling patient: Time with patient: 15 - 24 minutes
[2020-06-18] VITALS (11 sets, daily range): BP systolic 101–146; BP diastolic 53–80; PULSE 72–104; RESP 16–20; TEMP 36.2–36.8; O2SAT 94–98
[2020-06-18] MEDS: metroNIDAZOLE 500 MG TABLET PO ×3 (00:20→17:35)
[2020-06-18] MEDS: Omeprazole 20 MG CAPSULE.DR PO ×2 (06:14→17:35)
[2020-06-18 07:39] LABS: Glucose, Whole Blood 97 mg/dL (60-115)
[2020-06-18] MEDS: Metoprolol Tartrate 25 MG TABLET 12.5 MG PO ×2 (09:38→20:01)
[2020-06-18] MEDS: guaiFENesin LA 600 MG TAB.ER.12H 1200 MG PO ×2 (09:39→20:00)
[2020-06-18] MEDS: Ferrous Sulfate 324 MG TABLET.DR PO (09:40)
[2020-06-18] MEDS: Sertraline HCL 50 MG TABLET PO (09:40)
[2020-06-18] MEDS: Apixaban 2.5 MG TABLET PO ×2 (09:40→20:00)
[2020-06-18] MEDS: Furosemide 40 MG TABLET PO (09:40)
[2020-06-18] MEDS: Loratadine 10 MG TABLET PO (09:41)
[2020-06-18] MEDS: 0.9 % Sodium Chloride Flush 10 ML SYRINGE 5 ML IVFLUSH ×3 (09:51→22:07)
[2020-06-18 11:38] LABS: Glucose, Whole Blood 90 mg/dL (60-115)
[2020-06-18] MEDS: polyethylene glycoL 3350 17 GM POWD.PACK PO (15:28)
[2020-06-18] MEDS: Nystatin Powder 15 GM BOTTLE 1 APPL TOPICAL (15:31)
--- NOTE | 2020-06-18 15:41 | MHC.CARE ---
1415: Met with patient to conduct a mental status update. Met with pt's nurse regarding the MSU. Pt is now experiencing Audio Visual hallucinations.
[2020-06-18 16:32] LABS: Glucose, Whole Blood 101 mg/dL (60-115)
--- NOTE | 2020-06-18 17:22 | P.PNIM_ITS ---
Subjective Subjective Date of Service: 06/21/20 Interval History: anxious , constipation Review of Systems Unclear if if she has any auditory hallucination- the patient patient able to answer most questions appropriately and says the voices she was hearing is already better, but seems anxious . She feels constipated, denies any nausea or vomiting or abdominal pain. No fever or chills. She said she is passing gases but feel constipated. Could able to answer most of the questions. She said she could not able to sleep last night due to the cpap machine making noise. Physical Exam Vital Signs: Vital Signs: Last Vital Signs Temp 97.2 F 06/18/20 15:10 Pulse 78 06/18/20 15:10 Resp 20 06/18/20 15:10 BP 146/78 H 06/18/20 15:10 Pulse Ox 94 06/18/20 15:10 Body Mass Index 44.1 Physical exam Constitutional: seems very anxious. not in acute distress. Cvs: rrr, [id number] , no murmur res: clear to auscultation ,no rhonchii or wheezing abd: no rebound or guarding ,nt, bs present. ext :Left anterior thigh - ?old skin avulsion, about 5 cm x 11 cm, expose subcutaneously year with overlying hematoma, no pus, no gangrene or necrosis neuro: axo3 , nonfocal. Objective Data Current Medications Generic Name Dose Route Start Last Admin Trade Name Freq PRN Reason Stop Dose Admin Acetaminophen 650 mg 06/04/20 21:23 Acetaminophen Supp 650 Mg Supp.Rect IL Q6H PRN Pain, Mild (Pain Scale 1-3) Apixaban 2.5 mg 06/09/20 21:00 06/18/20 09:40 Apixaban 2.5 Mg Tablet PO 2.5 mg BID SATNAM Administration Calcium Carbonate 750 mg 06/14/20 12:27 06/14/20 18:44 Calcium Carbonate 750 Mg Tab.Chew PO 750 mg Q4H PRN Administration Indigestion Cefuroxime Axetil 500 mg 06/17/20 18:00 06/18/20 06:14 Cefuroxime Axetil 500 Mg Tablet PO 500 mg Q12H SATNAM Administration Docusate Sodium 100 mg 06/18/20 21:00 Docusate Sodium 100 Mg Capsule PO BEDTIME [facility] Ferrous Sulfate 324 mg 06/05/20 09:00 06/18/20 09:40 Ferrous Sulfate 324 Mg Tablet. PO 324 mg DAILY SATNAM Administration Furosemide 40 mg 06/05/20 09:00 06/18/20 09:40 Furosemide 40 Mg Tablet PO 40 mg DAILY SATNAM Administration Protocol Guaifenesin 1,200 mg 06/05/20 09:00 06/18/20 09:39 Guaifenesin La 600 Mg Tab.Er.12h PO 1,200 mg BID SATNAM Administration Insulin Human Lispro 0 unit 06/05/20 07:30 06/18/20 12:08 Insulin Lispro 100 Unit/Ml 3 Ml Vial SUBCUT Not Given QIDACHS [facility] Protocol Loratadine 10 mg 06/05/20 09:00 06/18/20 09:41 Loratadine 10 Mg Tablet PO 10 mg DAILY SATNAM Administration Metoprolol Tartrate 12.5 mg 06/05/20 09:00 06/18/20 09:38 Metoprolol Tartrate 25 Mg Tablet PO 12.5 mg BID SATNAM Administration Protocol Metronidazole 500 mg 06/17/20 17:00 06/18/20 09:39 Metronidazole 500 Mg Tablet PO 500 mg Q8H [facility]NAM Administration Montelukast Sodium 10 mg 06/05/20 21:00 06/17/20 19:53 Montelukast Sodium 10 Mg Tablet PO 10 mg BEDTIME [facility]NAM Administration Nystatin 1 appl 06/12/20 21:00 06/18/20 15:31 Nystatin Powder 15 Gm Bottle TOPICAL 1 appl BID SATNAM Administration Protocol Nystatin 400,000 unit 06/12/20 13:00 06/18/20 14:24 Nystatin Oral Susp 500,000 Unit/5 Ml Oral.Susp PO Not Given QID [facility] Protocol Omeprazole 20 mg 06/05/20 06:30 06/18/20 06:14 Omeprazole 20 Mg Capsule. PO 20 mg BID@0630,1630 [facility] Administration Ondansetron HCl 4 mg 06/04/20 23:45 06/15/20 21:16 Ondansetron Hcl 4 Mg/2 Ml Vial IVPUSH 4 mg Q8H PRN Administration Nausea Polyethylene Glycol 17 gm 06/19/20 09:00 06/18/20 15:28 Polyethylene Glycol 3350 17 Gm Powd.Pack PO 17 gm DAILY SATNAM Administration Senna 17.2 mg 06/04/20 21:23 Sennosides 8.6 Mg Tablet PO BEDTIME PRN Constipation Sertraline HCl 50 mg 06/08/20 09:00 06/18/20 09:40 Sertraline Hcl 50 Mg Tablet PO 50 mg DAILY [facility]NAM Administration Sodium Chloride 3 ml 06/05/20 00:00 06/18/20 17:09 0.9 % Sodium Chloride Flush 3 Ml Syringe IVFLUSH Not Given QSHIFT SATNAM Sodium Chloride 5 ml 06/07/20 16:00 06/18/20 17:08 0.9 % Sodium Chloride Flush 10 Ml Syringe IVFLUSH Not Given TID SATNAM Sodium Chloride 5 ml 06/07/20 16:00 06/18/20 09:51 0.9 % Sodium Chloride Flush 10 Ml Syringe IVFLUSH 5 ml TID SATNAM Administration Labs CBC & Chem 7: 06/21/20 05:56 06/21/20 05:56 Microbiology Microbiology Results: Microbiology 06/04/20 18:07 Blood - Venous Blood Culture - Final No growth after 5 days. 06/04/20 18:06 Blood - Venous Blood Culture - Final No growth after 5 days. 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 1.Acute on chronic hypoxic respiratory failure secondary to toxic encephalopathy from benzodiazepine overdose/suicide attempt Encephalopathy Resolved [facility] psych bed search 2.Aspiration pneumonia intially was on ceftriaxone and Flagyl-switched to ceftin/flagyl. 3.urinary retention monitor 4.Intra-abdominal abscess-Above 4 cm in diameter, adjacent to sigmoid Repeated CT scan showing no changes on the abscess Surgery input appreciated, can be treated with oral antibiotics and repeat images in 2 weeks as outpatient To treat with IV antibiotics of Flagyl and ceftriaxone for now Id followup. 5.Left lower extremity wound Surgery appreciated, debridement performed 06/16/20, continue local care 6.Thrombocytopenia Improved above 100 post total of 6 units of platelets transfusion Likely related to antibiotics, vancomycin specifically or related to ITP Restarted Eliquis with no drop in platelets or hemoglobin 7.Acute on chronic anemia, Symptomatic anemia Hemoglobin stable around 10 post transfusion 1 unit. Could be secondary to ITP as well CT scan of the abdomen, hip negative for any internal bleeding cbc monitering 8.History of COPD/chronic respiratory failure Continue home oxygen at 2 L. Duo nebs p.r.n.. keep BiPAP at night as tolerated. 9.History of factor 5 laden deficiency/DVT: Eliquis 10. skin avulsion area old?: s/p excisional debridement-xerofom dressing qdaily 11.EMERALD: on cpap. 12 Mood DIS:Continue sertraline , ativan 1 mg prn added small dose -addition ativan 0.5 mg also ? unclear if she had any halluciantions ,when went and reexamined her this afternoon , she did not sleep last night also due to bipap making noice -d/w staff to minise noice and sitter, added melatonin. 13: has hypokalemia 4/2 bmp , will repeat bmp.
[2020-06-18] MEDS: LORazepam 0.5 MG TABLET PO (17:35)
[2020-06-18 18:01] LABS: Anion Gap 20 (12-20); Blood Urea Nitrogen 4 mg/dL (9-16); Calcium 8.1 mg/dL (8.4-10.2); Carbon Dioxide 28 mmol/L (22-29); Chloride 95 mmol/L (96-108); Creatinine Clr Calc Pharmacy 83.9; Estimated Glomerular Filt Rate > 60; Glucose Random 93 mg/dL (60-115); Potassium 3.7 mmol/L (3.3-5.1); Sodium 139 mmol/L (135-145)
[2020-06-18 19:52] LABS: Glucose, Whole Blood 105 mg/dL (60-115)
[2020-06-18] MEDS: Docusate Sodium 100 MG CAPSULE PO (20:00)
[2020-06-18] MEDS: Melatonin 3 MG TABLET PO (20:00)
[2020-06-18] MEDS: Montelukast Sodium 10 MG TABLET PO (20:00)
[2020-06-19] VITALS (8 sets, daily range): BP systolic 96–121; BP diastolic 48–73; PULSE 92–110; RESP 16–20; TEMP 35.7–36.6; O2SAT 92–100
[2020-06-19] MEDS: metroNIDAZOLE 500 MG TABLET PO ×3 (01:01→16:17)
[2020-06-19] MEDS: Omeprazole 20 MG CAPSULE.DR PO ×2 (06:00→16:17)
[2020-06-19 07:13] LABS: Hematocrit 36.7 % (37-47); Hemoglobin 10.8 g/dl (12.0-16.0); Mean Corpuscular HGB Conc 29.4 g/dl (31.0-35.0); Mean Corpuscular Hemoglobin 26.6 pg (27.0-33.0); Mean Corpuscular Volume 90.4 fL (80-98); Mean Platelet Volume 11.1 fL (9.4-12.3); Platelet Count 237 X10*3/uL (160-400); Red Blood Count 4.06 X10*6/uL (4.20-5.50); Red Cell Distribution Width 19.8 % (11.0-16.0); White Blood Count 11.3 X10*3/uL (4.8-10.8)
[2020-06-19 07:19] LABS: Glucose, Whole Blood 87 mg/dL (60-115)
[2020-06-19 07:30] LABS: Anion Gap 18 (12-20); Blood Urea Nitrogen 4 mg/dL (9-16); Carbon Dioxide 26 mmol/L (22-29); Chloride 98 mmol/L (96-108); Creatinine Clr Calc Pharmacy 82.6; Estimated Glomerular Filt Rate > 60; Glucose Random 78 mg/dL (60-115); Potassium 3.4 mmol/L (3.3-5.1); Sodium 139 mmol/L (135-145)
[2020-06-19] MEDS: guaiFENesin LA 600 MG TAB.ER.12H 1200 MG PO ×2 (07:52→20:21)
[2020-06-19] MEDS: Metoprolol Tartrate 25 MG TABLET 12.5 MG PO ×2 (07:52→20:21)
[2020-06-19] MEDS: Sertraline HCL 50 MG TABLET PO (07:53)
[2020-06-19] MEDS: Furosemide 40 MG TABLET PO (07:53)
[2020-06-19] MEDS: Apixaban 2.5 MG TABLET PO ×2 (07:53→20:21)
[2020-06-19] MEDS: Loratadine 10 MG TABLET PO (07:53)
[2020-06-19] MEDS: Ferrous Sulfate 324 MG TABLET.DR PO (07:53)
[2020-06-19] MEDS: 0.9 % Sodium Chloride Flush 10 ML SYRINGE 5 ML IVFLUSH (07:54)
[2020-06-19 11:27] LABS: Glucose, Whole Blood 96 mg/dL (60-115)
--- NOTE | 2020-06-19 13:00 | MHC.CM.PN ---
[facility]/Psych bed search continues; CM will continue to follow for dc planning.
--- NOTE | 2020-06-19 14:01 | HO.PM.IMPN ---
Subjective Subjective Date of Service: 06/19/20 Interval History: hallucinatory event yesterday Cardiovascular Cardiovascular: Reports no additional cardiovascular complaints Gastrointestinal Gastrointestinal: Reports no additional gastrointestinal complaints Physical Exam Vital Signs: Vital Signs: Last Vital Signs Temp 97.7 F 06/19/20 11:23 Pulse 92 06/19/20 11:23 Resp 20 06/19/20 11:23 BP 96/54 L 06/19/20 11:23 Pulse Ox 95 06/19/20 11:23 Body Mass Index 44.1 Const General: comfortable and no acute distress Resp Effort & Inspection: normal respiratory effort Cardio Rate: regular rate GI Palpation (GI): Soft to palpation and nontender Extrem Other: Left anterior thigh - open wound with appears to be an old skin avulsion, about 5 cm x 11 cm, expose subcutaneously year with overlying hematoma, no pus, no gangrene or necrosis Objective Data Current Medications Generic Name Dose Route Start Last Admin Trade Name Freq PRN Reason Stop Dose Admin Acetaminophen 650 mg 06/04/20 21:23 Acetaminophen Supp 650 Mg Supp.Rect [place] Q6H PRN Pain, Mild (Pain Scale 1-3) Apixaban 2.5 mg 06/09/20 21:00 06/19/20 07:53 Apixaban 2.5 Mg Tablet PO 2.5 mg BID SATNAM Administration Calcium Carbonate 750 mg 06/14/20 12:27 06/14/20 18:44 Calcium Carbonate 750 Mg Tab.Chew PO 750 mg Q4H PRN Administration Indigestion Cefuroxime Axetil 500 mg 06/17/20 18:00 06/19/20 06:00 Cefuroxime Axetil 500 Mg Tablet PO 500 mg Q12H SATNAM Administration Docusate Sodium 100 mg 06/18/20 21:00 06/18/20 20:00 Docusate Sodium 100 Mg Capsule PO 100 mg BEDTIME [facility] Administration Ferrous Sulfate 324 mg 06/05/20 09:00 06/19/20 07:53 Ferrous Sulfate 324 Mg Tablet.Dr PO 324 mg DAILY SATNAM Administration Furosemide 40 mg 06/05/20 09:00 06/19/20 07:53 Furosemide 40 Mg Tablet PO 40 mg DAILY SATNAM Administration Protocol Guaifenesin 1,200 mg 06/05/20 09:00 06/19/20 07:52 Guaifenesin La 600 Mg Tab.Er.12h PO 1,200 mg BID SATNAM Administration Insulin Human Lispro 0 unit 06/05/20 07:30 06/19/20 11:25 Insulin Lispro 100 Unit/Ml 3 Ml Vial SUBCUT Not Given QIDACHS [facility] Protocol Loratadine 10 mg 06/05/20 09:00 06/19/20 07:53 Loratadine 10 Mg Tablet PO 10 mg DAILY SATNAM Administration Melatonin 3 mg 06/18/20 21:00 06/18/20 20:00 Melatonin 3 Mg Tablet PO 3 mg BEDTIME [facility]NAM Administration Metoprolol Tartrate 12.5 mg 06/05/20 09:00 06/19/20 07:52 Metoprolol Tartrate 25 Mg Tablet PO 12.5 mg BID [facility] Administration Protocol Metronidazole 500 mg 06/17/20 17:00 06/19/20 07:53 Metronidazole 500 Mg Tablet PO 500 mg Q8H [facility] Administration Montelukast Sodium 10 mg 06/05/20 21:00 06/18/20 20:00 Montelukast Sodium 10 Mg Tablet PO 10 mg BEDTIME [facility] Administration Nystatin 1 appl 06/12/20 21:00 06/19/20 07:53 Nystatin Powder 15 Gm Bottle TOPICAL Not Given BID [facility] Protocol Nystatin 400,000 unit 06/12/20 13:00 06/19/20 11:20 Nystatin Oral Susp 500,000 Unit/5 Ml Oral.Susp PO Not Given QID [facility] Protocol Omeprazole 20 mg 06/05/20 06:30 06/19/20 06:00 Omeprazole 20 Mg Capsule. PO 20 mg BID@0630,1630 [facility] Administration Omeprazole 20 mg 06/18/20 17:45 06/19/20 06:05 Omeprazole 20 Mg Capsule. PO Not Given BID@0630,1630 [facility] Ondansetron HCl 4 mg 06/04/20 23:45 06/15/20 21:16 Ondansetron Hcl 4 Mg/2 Ml Vial IVPUSH 4 mg Q8H PRN Administration Nausea Polyethylene Glycol 17 gm 06/19/20 09:00 06/18/20 15:28 Polyethylene Glycol 3350 17 Gm Powd.Pack PO 17 gm DAILY [facility] Administration Senna 17.2 mg 06/04/20 21:23 Sennosides 8.6 Mg Tablet PO BEDTIME PRN Constipation Sertraline HCl 50 mg 06/08/20 09:00 06/19/20 07:53 Sertraline Hcl 50 Mg Tablet PO 50 mg DAILY [facility]NAM Administration Sodium Chloride 3 ml 06/05/20 00:00 06/19/20 07:29 0.9 % Sodium Chloride Flush 3 Ml Syringe IVFLUSH Not Given QSHIFT [facility]NAM Sodium Chloride 5 ml 06/07/20 16:00 06/19/20 08:00 0.9 % Sodium Chloride Flush 10 Ml Syringe IVFLUSH Not Given TID SATNAM Sodium Chloride 5 ml 06/07/20 16:00 06/19/20 07:54 0.9 % Sodium Chloride Flush 10 Ml Syringe IVFLUSH 5 ml TID SATNAM Administration Labs CBC & Chem 7: 06/19/20 05:53 06/19/20 05:53 Microbiology Microbiology Results: Microbiology 06/04/20 18:07 Blood - Venous Blood Culture - Final No growth after 5 days. 06/04/20 18:06 Blood - Venous Blood Culture - Final No growth after 5 days. 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 Acute on chronic hypoxic respiratory failure secondary to toxic encephalopathy from benzodiazepine overdose/suicide attempt Encephalopathy Resolved [facility] psych bed search Aspiration pneumonia completed treatment .Intra-abdominal abscess-Above 4 cm in diameter, adjacent to sigmoid Repeated CT scan showing no changes on the abscess Surgery input appreciated, can be treated with oral antibiotics and repeat images in 2 weeks as outpatient changed to po ceftin and flagyl Left lower extremity wound Surgery appreciated, debridement performed 06/16/20, continue local care History of factor 5 laden deficiency/DVT: Eliquis EMERALD: on cpap. Mood DIS:Continue sertraline , ativan 1 mg prn added small dose -addition ativan 0.5 mg
[2020-06-19] MEDS: Potassium Chloride ER 20 MEQ TAB.ER.PRT 40 MEQ PO (14:57)
[2020-06-19 15:14] LABS: Glucose, Whole Blood 82 mg/dL (60-115)
--- NOTE | 2020-06-19 16:01 | HO.PICC ---
PICC Line Insertion PER REQUEST REMOVAL OF PICC LINE 1. DATE: 06/19/20 2. REASON REMOVED: NON-FUNCTIONAL 3. INSERTED LENGTH: APPROXIMATELY 44 CM..DUAL LUMEN PER RAD PICC LINE INSERTION REPORT 4. REMOVED LENGTH: 45 CM, 5-[place], INTACT, DOUBLE- LUMEN 5. SMALL CUT-TO-SIZE XEROFORM WITH STERILE GAUZE DRESSING PLACED OVER PUNCTURE SITE AND COVERED WITH TEGADERM; MANUAL PRESSURE HELD FOR APPROX 5 MIN. NO NOTED BLEEDING/OOZING S/P PICC REMOVAL. PT TOLERATED WELL AND DENIES COMPLAINTS. AFTER REMOVAL OF PICC, INTACT DOUBLE-LUMEN PICC INSPECTED; NOTED BLOOD CLOT COMPLETELY OCCLUDING DISTAL TIP.
[2020-06-19 19:32] LABS: Glucose, Whole Blood 95 mg/dL (60-115)
[2020-06-19] MEDS: Docusate Sodium 100 MG CAPSULE PO (20:21)
[2020-06-19] MEDS: Melatonin 3 MG TABLET PO (20:21)
[2020-06-19] MEDS: Montelukast Sodium 10 MG TABLET PO (20:21)
[2020-06-20] VITALS (14 sets, daily range): BP systolic 62–109; BP diastolic 40–73; PULSE 65–170; RESP 16–25; TEMP 35.8–36.8; O2SAT 92–99
[2020-06-20] MEDS: metroNIDAZOLE 500 MG TABLET PO ×2 (01:51→10:01)
[2020-06-20] MEDS: Omeprazole 20 MG CAPSULE.DR PO ×2 (06:31→16:33)
[2020-06-20 07:17] LABS: Glucose, Whole Blood 95 mg/dL (60-115)
[2020-06-20] MEDS: guaiFENesin LA 600 MG TAB.ER.12H 1200 MG PO ×2 (10:00→20:20)
[2020-06-20] MEDS: Sertraline HCL 50 MG TABLET PO (10:00)
[2020-06-20] MEDS: Ferrous Sulfate 324 MG TABLET.DR PO (10:01)
[2020-06-20] MEDS: Loratadine 10 MG TABLET PO (10:01)
[2020-06-20] MEDS: Metoprolol Tartrate 25 MG TABLET 12.5 MG PO (10:01)
[2020-06-20] MEDS: Apixaban 2.5 MG TABLET PO ×2 (10:01→20:21)
[2020-06-20] MEDS: Furosemide 40 MG TABLET PO (10:01)
[2020-06-20 11:01] LABS: Glucose, Whole Blood 103 mg/dL (60-115)
--- NOTE | 2020-06-20 12:45 | P.PNIM_ITS ---
Subjective Subjective Date of Service: 06/20/20 Interval History: nausea Cardiovascular Cardiovascular: Reports no additional cardiovascular complaints Respiratory Respiratory: Reports no additional respiratory complaints Physical Exam Vital Signs: Vital Signs: Last Vital Signs Temp 97.4 F 06/20/20 10:58 Pulse 119 H 06/20/20 10:58 Resp 20 06/20/20 10:58 BP 103/70 06/20/20 10:58 Pulse Ox 95 06/20/20 10:58 Body Mass Index 44.1 Const General: comfortable and no acute distress Resp Effort & Inspection: normal respiratory effort Cardio Rate: regular rate GI Palpation (GI): Soft to palpation and nontender Extrem Other: Left anterior thigh - open wound with appears to be an old skin avulsion, about 5 cm x 11 cm, expose subcutaneously year with overlying hematoma, no pus, no gangrene or necrosis Objective Data Current Medications Generic Name Dose Route Start Last Admin Trade Name Freq PRN Reason Stop Dose Admin Acetaminophen 650 mg 06/04/20 21:23 Acetaminophen Supp 650 Mg Supp.Rect ID Q6H PRN Pain, Mild (Pain Scale 1-3) Apixaban 2.5 mg 06/09/20 21:00 06/20/20 10:01 Apixaban 2.5 Mg Tablet PO 2.5 mg BID SATNAM Administration Calcium Carbonate 750 mg 06/14/20 12:27 06/14/20 18:44 Calcium Carbonate 750 Mg Tab.Chew PO 750 mg Q4H PRN Administration Indigestion Cefuroxime Axetil 500 mg 06/17/20 18:00 06/20/20 06:31 Cefuroxime Axetil 500 Mg Tablet PO 500 mg Q12H SATNAM Administration Docusate Sodium 100 mg 06/18/20 21:00 06/19/20 20:21 Docusate Sodium 100 Mg Capsule PO 100 mg BEDTIME [facility] Administration Ferrous Sulfate 324 mg 06/05/20 09:00 06/20/20 10:01 Ferrous Sulfate 324 Mg Tablet. PO 324 mg DAILY [facility]NAM Administration Furosemide 40 mg 06/05/20 09:00 06/20/20 10:01 Furosemide 40 Mg Tablet PO 40 mg DAILY [facility]NAM Administration Protocol Guaifenesin 1,200 mg 06/05/20 09:00 06/20/20 10:00 Guaifenesin La 600 Mg Tab.Er.12h PO 1,200 mg BID SATNAM Administration Insulin Human Lispro 0 unit 06/05/20 07:30 06/20/20 11:59 Insulin Lispro 100 Unit/Ml 3 Ml Vial SUBCUT Not Given QIDACHS [facility] Protocol Loratadine 10 mg 06/05/20 09:00 06/20/20 10:01 Loratadine 10 Mg Tablet PO 10 mg DAILY [facility] Administration Melatonin 3 mg 06/18/20 21:00 06/19/20 20:21 Melatonin 3 Mg Tablet PO 3 mg BEDTIME [facility] Administration Metoprolol Tartrate 12.5 mg 06/05/20 09:00 06/20/20 10:01 Metoprolol Tartrate 25 Mg Tablet PO 12.5 mg BID [facility] Administration Protocol Metronidazole 500 mg 06/17/20 17:00 06/20/20 10:01 Metronidazole 500 Mg Tablet PO 500 mg Q8H [facility] Administration Montelukast Sodium 10 mg 06/05/20 21:00 06/19/20 20:21 Montelukast Sodium 10 Mg Tablet PO 10 mg BEDTIME [facility] Administration Nystatin 1 appl 06/12/20 21:00 06/19/20 20:41 Nystatin Powder 15 Gm Bottle TOPICAL Not Given BID [facility] Protocol Nystatin 400,000 unit 06/12/20 13:00 06/20/20 12:02 Nystatin Oral Susp 500,000 Unit/5 Ml Oral.Susp PO Not Given QID [facility] Protocol Omeprazole 20 mg 06/05/20 06:30 06/20/20 06:31 Omeprazole 20 Mg Capsule. PO 20 mg BID@0630,1630 [facility] Administration Omeprazole 20 mg 06/18/20 17:45 06/20/20 06:38 Omeprazole 20 Mg Capsule. PO Not Given BID@0630,1630 [facility] Ondansetron HCl 4 mg 06/20/20 10:12 06/20/20 10:38 Ondansetron Odt 4 Mg Tab.Rapdis TRANSLINGU 4 mg Q6H PRN Administration nausea Polyethylene Glycol 17 gm 06/19/20 09:00 06/20/20 10:02 Polyethylene Glycol 3350 17 Gm Powd.Pack PO Not Given DAILY [facility] Senna 17.2 mg 06/04/20 21:23 Sennosides 8.6 Mg Tablet PO BEDTIME PRN Constipation Sertraline HCl 50 mg 06/08/20 09:00 06/20/20 10:00 Sertraline Hcl 50 Mg Tablet PO 50 mg DAILY [facility] Administration Sodium Chloride 3 ml 06/05/20 00:00 06/20/20 10:00 0.9 % Sodium Chloride Flush 3 Ml Syringe IVFLUSH Not Given QSHIFT [facility]NAM Sodium Chloride 5 ml 06/07/20 16:00 06/20/20 12:03 0.9 % Sodium Chloride Flush 10 Ml Syringe IVFLUSH Not Given TID [facility]NAM Sodium Chloride 5 ml 06/07/20 16:00 06/20/20 12:03 0.9 % Sodium Chloride Flush 10 Ml Syringe IVFLUSH Not Given TID SATNAM Labs CBC & Chem 7: 06/19/20 05:53 06/19/20 05:53 Microbiology Microbiology Results: Microbiology 06/04/20 18:07 Blood - Venous Blood Culture - Final No growth after 5 days. 06/04/20 18:06 Blood - Venous Blood Culture - Final No growth after 5 days. 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 Acute on chronic hypoxic respiratory failure secondary to toxic encephalopathy from benzodiazepine overdose/suicide attempt Encephalopathy Resolved medically cleared, [facility] psych bed search in progress Aspiration pneumonia completed treatment Intra-abdominal abscess-Above 4 cm in diameter, adjacent to sigmoid Repeated CT scan 06/20/20 shows interval decrease in size Surgery and ID input appreciated, can be treated with oral antibiotics, continue 8 more days po ceftin and flagyl Left lower extremity wound Surgery appreciated, debridement performed 06/16/20, continue local care History of factor 5 laden deficiency/DVT: Eliquis EMERALD: on cpap. Mood DIS:Continue sertraline , ativan 1 mg prn added small dose -addition ativan 0.5 mg
--- NOTE | 2020-06-20 13:59 | MHC.CARE ---
Spoke with [facility] today, they are concerned about the white blood cell count as the patient has an abscess. The concern being, why is it still elevated? They want to know what the origin of the elevated count is. They are a facility with No med psych so the minute she gets there, she will be a one on one. They don't have that level of medical support they would if they were in a hospital. It was explained to me that [facility] is affiliated with a hospital but not inside one, they are a separate entity. They also needed her bipap machine as they have none there. In speaking today with her daughter Kylie, I was told the Bipap has been dropped off. I was told by the facility, We haven't written her off they just need some answers about those concerns and the bipap. I spoke with Karyn and she provided me with her phone number: [phone] Pt's Hand [employer] and Care have been in contact throughout the day regarding this case. Hand Quilter Vita Aragon advised me that an order has been put in for white blood cell count. Follow up call placed to [facility] advising them that the White Blood cell count has been ordered and we are in possession of the bipap machine. Message left.
--- NOTE | 2020-06-20 14:18 | PM.PNGS ---
Subjective Subjective Date of Service: 06/20/20 Interval history: Denies complaints Says she has no abdominal pain Denies pain on the left thigh Physical Exam Vital Signs: Vital Signs: Last Vital Signs Temp 97.4 F 06/20/20 10:58 Pulse 119 H 06/20/20 10:58 Resp 20 06/20/20 10:58 BP 103/70 06/20/20 10:58 Pulse Ox 95 06/20/20 10:58 Body Mass Index 44.1 She denies complaints Laboratory Results - last 24 hr 06/19/20 06/19/20 06/20/20 15:10 19:27 07:13 POC Glucose 82 95 95 06/20/20 10:56 POC Glucose 103 denies abdominal pain Denies pain on the left thigh Const: General: no acute distress Resp: Effort & Inspection: normal respiratory effort GI: Palpation (GI): Soft to palpation, nontender and no guarding Extrem: Other: Left eye open wound clean, mostly granulating well, no pus, no cellulitis Progress Note: A&P Assessment and plan (1) Intra-abdominal abscess: Status: Acute Assessment and Plan: She remains asymptomatic Intra-abdominal abscess small - as discussed with radiologist, may be difficult to access Follow-up scan shows interval decrease in size Okay to place on p.o. antibiotics (2) Hematoma: Status: Acute Assessment and Plan: Has open wound on left anterior thigh after debridement and evacuation of hematoma Wound clean Dressings changed -Xeroform dressings applied Thigh wrapped in Kerlix Continue wound care Fall Risk Details Current Medications: Current Medications Generic Name Dose Route Start Last Admin Trade Name Freq PRN Reason Stop Dose Admin Acetaminophen 650 mg 06/04/20 21:23 Acetaminophen Supp 650 Mg Supp.Rect UT Q6H PRN Pain, Mild (Pain Scale 1-3) Apixaban 2.5 mg 06/09/20 21:00 06/20/20 10:01 Apixaban 2.5 Mg Tablet PO 2.5 mg BID SATNAM Administration Calcium Carbonate 750 mg 06/14/20 12:27 06/14/20 18:44 Calcium Carbonate 750 Mg Tab.Chew PO 750 mg Q4H PRN Administration Indigestion Cefuroxime Axetil 500 mg 06/17/20 18:00 06/20/20 06:31 Cefuroxime Axetil 500 Mg Tablet PO 500 mg Q12H SATNAM Administration Docusate Sodium 100 mg 06/18/20 21:00 06/19/20 20:21 Docusate Sodium 100 Mg Capsule PO 100 mg BEDTIME SATNAM Administration Ferrous Sulfate 324 mg 06/05/20 09:00 06/20/20 10:01 Ferrous Sulfate 324 Mg Tablet. PO 324 mg DAILY SATNAM Administration Furosemide 40 mg 06/05/20 09:00 06/20/20 10:01 Furosemide 40 Mg Tablet PO 40 mg DAILY SATNAM Administration Protocol Guaifenesin 1,200 mg 06/05/20 09:00 06/20/20 10:00 Guaifenesin La 600 Mg Tab.Er.12h PO 1,200 mg BID SATNAM Administration Insulin Human Lispro 0 unit 06/05/20 07:30 06/20/20 11:59 Insulin Lispro 100 Unit/Ml 3 Ml Vial SUBCUT Not Given QIDACHS [facility] Protocol Loratadine 10 mg 06/05/20 09:00 06/20/20 10:01 Loratadine 10 Mg Tablet PO 10 mg DAILY SATNAM Administration Melatonin 3 mg 06/18/20 21:00 06/19/20 20:21 Melatonin 3 Mg Tablet PO 3 mg BEDTIME SATNAM Administration Metoprolol Tartrate 12.5 mg 06/05/20 09:00 06/20/20 10:01 Metoprolol Tartrate 25 Mg Tablet PO 12.5 mg BID SATNAM Administration Protocol Metronidazole 500 mg 06/17/20 17:00 06/20/20 10:01 Metronidazole 500 Mg Tablet PO 500 mg Q8H SATNAM Administration Montelukast Sodium 10 mg 06/05/20 21:00 06/19/20 20:21 Montelukast Sodium 10 Mg Tablet PO 10 mg BEDTIME SATNAM Administration Nystatin 1 appl 06/12/20 21:00 06/19/20 20:41 Nystatin Powder 15 Gm Bottle TOPICAL Not Given BID [facility] Protocol Nystatin 400,000 unit 06/12/20 13:00 06/20/20 12:02 Nystatin Oral Susp 500,000 Unit/5 Ml Oral.Susp PO Not Given QID [facility] Protocol Omeprazole 20 mg 06/05/20 06:30 06/20/20 06:31 Omeprazole 20 Mg Capsule. PO 20 mg BID@0730,7290 SATANM Administration Omeprazole 20 mg 06/18/20 17:45 06/20/20 06:38 Omeprazole 20 Mg Capsule. PO Not Given BID@0630,1630 [facility] Ondansetron HCl 4 mg 06/20/20 10:12 06/20/20 10:38 Ondansetron Odt 4 Mg Tab.Rapdis TRANSLINGU 4 mg Q6H PRN Administration nausea Polyethylene Glycol 17 gm 06/19/20 09:00 06/20/20 10:02 Polyethylene Glycol 3350 17 Gm Powd.Pack PO Not Given DAILY SATNAM Senna 17.2 mg 06/04/20 21:23 Sennosides 8.6 Mg Tablet PO BEDTIME PRN Constipation Sertraline HCl 50 mg 06/08/20 09:00 06/20/20 10:00 Sertraline Hcl 50 Mg Tablet PO 50 mg DAILY SATNAM Administration Sodium Chloride 3 ml 06/05/20 00:00 06/20/20 10:00 0.9 % Sodium Chloride Flush 3 Ml Syringe IVFLUSH Not Given QSHIFT SATNAM Sodium Chloride 5 ml 06/07/20 16:00 06/20/20 12:03 0.9 % Sodium Chloride Flush 10 Ml Syringe IVFLUSH Not Given TID SATNAM Sodium Chloride 5 ml 06/07/20 16:00 06/20/20 12:03 0.9 % Sodium Chloride Flush 10 Ml Syringe IVFLUSH Not Given TID SATNAM Time Spent With Patient Time: Total time spent is greater than 50% in coordination of care (as documented) at patient's floor/unit and/or counseling patient: Time with patient: 15 - 24 minutes
--- NOTE | 2020-06-20 14:41 | MHC.CLN ---
F/U PO INTAKE VARIABLE-SLIGHT IMPROVEMENT DIET RX: 1500DM CHOPPED-APPROPRIATE PT RECEIVING ENSURE CLEAR AND SANTOS BID FOR WOUND HEALING SUPPLEMENTS PROVIDE 880KCALS, 29G PROTEIN MONITOR PO INTAKE CLOSELY FOLLOWING
--- NOTE | 2020-06-20 15:15 | MHC.CARE ---
1415: Conducted a Mental Status Update on pt.
--- NOTE | 2020-06-20 15:41 | MHC.CARE ---
1500 Call from Admission nurse Karyn at [place]. She acknowledged the message CARE team left earlier, stated that provided the updated labs are acceptable to her MD, she is committed to this admission and has arranged for the 1:1 staffing needed. Fax labs to the facility and they will review in the morning.
[2020-06-20 16:02] LABS: Glucose, Whole Blood 82 mg/dL (60-115)
--- NOTE | 2020-06-20 17:53 | ECG_ITS ---
Test Reason : CP Blood Pressure : / mmHG Vent. Rate : 157 BPM Atrial Rate : 312 BPM P-R Int : 000 ms QRS Dur : 068 ms QT Int : 292 ms P-R-T Axes : 000 022 -89 degrees QTc Int : 472 ms Atrial fibrillation with rapid ventricular response ST & T wave abnormality, consider inferior ischemia Abnormal ECG No previous ECGs available Referred By: Nai Craig Electronically Signed By:DESTINY PENALOZA MD
[2020-06-20 18:48] LABS: Glucose, Whole Blood 96 mg/dL (60-115)
[2020-06-20] MEDS: 0.9 % Sodium Chloride 1,000 ML 999 ML IV (19:15)
[2020-06-20] MEDS: Metoprolol Tartrate 25 MG TABLET PO (19:34)
[2020-06-20 20:08] LABS: Glucose, Whole Blood 88 mg/dL (60-115)
[2020-06-20] MEDS: Melatonin 3 MG TABLET PO (20:20)
[2020-06-20] MEDS: Montelukast Sodium 10 MG TABLET PO (20:20)
[2020-06-20] MEDS: 0.9 % Sodium Chloride Flush 10 ML SYRINGE 5 ML IVFLUSH (20:22)
[2020-06-20] MEDS: Metoprolol Tartrate 5 MG/5 ML VIAL 2.5 MG IVPUSH (20:22)
[2020-06-20 20:24] LABS: ABG HCO3 27 mmol/L (22-26); ABG pCO2 37 mmHg (32-45); ABG pCO2 TC 37 mmHg (32-45); ABG pH 7.47 (7.35-7.45); ABG pH TC 7.47 (7.35-7.45); ABG pO2 76 mmHg (83-108); ABG pO2 TC 74 (83-108)
[2020-06-20 20:32] LABS: ABG Refer to POC result
[2020-06-20] MEDS: Lactated Ringers 500 ML 1000 ML IVCONT (21:26)
[2020-06-20] MEDS: dilTIAZem HCL 125 MG in 0.9 % Sodium Chloride 100 ML 10 MG IVCONT (22:55)
[2020-06-21] VITALS (16 sets, daily range): BP systolic 80–113; BP diastolic 48–80; PULSE 89–98; RESP 16–22; TEMP 36.1–36.9; O2SAT 91–97
--- NOTE | 2020-06-21 00:05 | PC.NURSE ---
Pt converted to Afib RVR around 1830, HR 170's sustaining, sBP low in the 70's manually, pt initially hypoxic 82 on 2L NC (Titrated to 5L NC to maintain sats >90%for about 5mins, back down to 2L NC,sats improved to 92-95%). Pt asymptomatic, denies CP, palpitations or SOB. Dr. Erazo made aware. STAT PO 25 mg Lopressor, CXR, and ABG's ordered. No IV access-22G to the right wrist established. 1L NS bolus, after the bolus, BP still soft 70-80's and HR still ranging 140-150's. Pt asymptomatic, DR. Fofana updated, LR 500ml and cardizem gtt ordered. Cardizem gtt started at 10mg/hr @2300, and titrated to 15mg/hr @2315. Pt converted to NSR @2330, cardizem gtt turned off, and manual BP lower at 62/40. Report given to next RN, and DR. Fofana updated via [facility].
[2020-06-21] MEDS: 0.9 % Sodium Chloride Flush 3 ML SYRINGE IVFLUSH ×4 (00:32→19:51)
[2020-06-21] MEDS: Lactated Ringers 500 ML IVCONT (01:52)
[2020-06-21] MEDS: Midodrine HCl 5 MG TABLET PO ×3 (01:53→19:50)
[2020-06-21] MEDS: Omeprazole 20 MG CAPSULE.DR PO ×2 (05:45→17:01)
--- NOTE | 2020-06-21 06:34 | PC.NURSE ---
Patient's BP 80/48. Assessed patient , asymptomatic. Dr. Fofana notified, 500 ml bolus of LR, and Mididrine 5 mg ordered/adminstered. BP improved to 113/53. Will continue to monitor. Patient resting comfortably at present time.
[2020-06-21 06:57] LABS: Hematocrit 34.4 % (37-47); Hemoglobin 10.3 g/dl (12.0-16.0); Mean Corpuscular HGB Conc 29.9 g/dl (31.0-35.0); Mean Corpuscular Hemoglobin 26.8 pg (27.0-33.0); Mean Corpuscular Volume 89.6 fL (80-98); Platelet Count 235 X10*3/uL (160-400); Red Blood Count 3.84 X10*6/uL (4.20-5.50); Red Cell Distribution Width 19.9 % (11.0-16.0); White Blood Count 12.2 X10*3/uL (4.8-10.8)
[2020-06-21 07:17] LABS: Anion Gap 16 (12-20); Blood Urea Nitrogen 5 mg/dL (9-16); Calcium 7.9 mg/dL (8.4-10.2); Carbon Dioxide 28 mmol/L (22-29); Chloride 96 mmol/L (96-108); Estimated Glomerular Filt Rate > 60; Glucose Fasting 75 mg/dL (60-99); Potassium 3.3 mmol/L (3.3-5.1); Sodium 137 mmol/L (135-145)
[2020-06-21 07:24] LABS: Glucose, Whole Blood 77 mg/dL (60-115)
[2020-06-21 07:42] LABS: Band Neutrophils Percent 8 % (3-5); Basophils Abs Manual 0.1 X10*3/uL (0.0-0.3); Basophils Percent Manual 1 % (0-1); Lymphocytes Absolute Manual 1.5 X10*3/uL (0.6-4.8); Lymphocytes Percent Manual 12 % (20-40); Metamyelocytes Absolute 0.4 X10*3/uL; Metamyelocytes Percent 3 %; Monocytes Absolute Manual 0.6 X10*3/uL (0.0-1.2); Monocytes Percent Manual 5 % (2-11); Neutrophils Absolute Manual 9.6 X10*3/uL (2.2-7.9); Neutrophils Percent Manual 71 % (45-73)
[2020-06-21 07:43] LABS: Platelet Estimate NORMAL (NORMAL); Platelet Morphology Comment NORMAL
[2020-06-21 07:44] LABS: Hypochromasia 1+ (5-14) /OIF; Polychromasia 1+ (0-2) /OIF; RBC Morphology NOTED
[2020-06-21] MEDS: guaiFENesin LA 600 MG TAB.ER.12H 1200 MG PO ×2 (09:38→19:44)
[2020-06-21] MEDS: Sertraline HCL 50 MG TABLET PO (09:38)
[2020-06-21] MEDS: Apixaban 2.5 MG TABLET PO ×2 (09:39→19:47)
[2020-06-21] MEDS: Loratadine 10 MG TABLET PO (09:39)
[2020-06-21] MEDS: Metoprolol Tartrate 25 MG TABLET 12.5 MG PO (09:39)
[2020-06-21] MEDS: metroNIDAZOLE 500 MG TABLET PO ×2 (09:39→17:01)
[2020-06-21] MEDS: Ferrous Sulfate 324 MG TABLET.DR PO (09:39)
[2020-06-21] MEDS: Nystatin Powder 15 GM BOTTLE 1 APPL TOPICAL ×2 (09:41→09:58)
[2020-06-21 11:15] LABS: Glucose, Whole Blood 115 mg/dL (60-115)
--- NOTE | 2020-06-21 11:22 | MHC.CARE ---
3708: Faxed WBC lab results to [facility]. Awaiting phone call.
--- NOTE | 2020-06-21 11:23 | MHC.CARE ---
10:30: Adamaris from [facility] called asking if CARE wanted them to keep this patient on their waiting list as [facility] is out of her insurance network. To place her at [facility] may require a Single Case Agreement . There is no bed open at this time. I asked them to keep her on the waiting list.
--- NOTE | 2020-06-21 11:25 | MHC.CARE ---
1117: Message left for the psych [place] program coordinator Karyn at [facility] regarding the fax of the WBC lab results for this patient. Follow up e mail sent to Case management Vita Aragon
--- NOTE | 2020-06-21 13:39 | MHC.CM.PN ---
spoke with narendra in the care team they are still working on inpt psych placement waiting to hear from angella venegas
--- NOTE | 2020-06-21 14:14 | HO.PM.IMPN ---
Subjective Subjective Date of Service: 06/21/20 Interval History: the patient was seen and evaluated this morning Laying in bed, feels comfortable overall, blood pressure noticed to be running little low Heart rate better controlled overnight Denies any fever, chills or shortness of breath No reported other overnight events. Systemic review: No fever, chills but reports feeling very weak and altered yesterday No chest pain, palpitation No shortness of breath or coughing No abdominal pain, nausea or vomiting No urinary symptoms No any rash or wounds Physical Exam Vital Signs: Vital Signs: Last Vital Signs Temp 97.2 F 06/21/20 10:56 Pulse 93 06/21/20 14:04 Resp 18 06/21/20 10:56 BP 106/80 06/21/20 14:04 Pulse Ox 95 06/21/20 10:56 Body Mass Index 44.1 Const: Other: Constitutional : Alert, oriented, not in distress Neck : Normal inspection, Supple Cardiovascular : RRR, S1 S2, no lower extremity edema Respiratory : Good bilateral air entry, no crackles, wheezes or rhonchi Gastrointestinal: soft, lax, Normal bowel sounds, Non tender Skin : Warm/Dry, Left anterior thigh - open wound with appears to be an old skin avulsion, about 5 cm x 11 cm covered with dressing Neurological : Alert & oriented x3, No focal deficit Objective Data Current Medications Generic Name Dose Route Start Last Admin Trade Name Freq PRN Reason Stop Dose Admin Acetaminophen 650 mg 06/04/20 21:23 Acetaminophen Supp 650 Mg Supp.Rect ND Q6H PRN Pain, Mild (Pain Scale 1-3) Apixaban 2.5 mg 06/09/20 21:00 06/21/20 09:39 Apixaban 2.5 Mg Tablet PO 2.5 mg BID SATNAM Administration Calcium Carbonate 750 mg 06/14/20 12:27 06/14/20 18:44 Calcium Carbonate 750 Mg Tab.Chew PO 750 mg Q4H PRN Administration Indigestion Cefuroxime Axetil 500 mg 06/17/20 18:00 06/21/20 05:48 Cefuroxime Axetil 500 Mg Tablet PO Not Given Q12H SATNAM Docusate Sodium 100 mg 06/18/20 21:00 06/20/20 20:21 Docusate Sodium 100 Mg Capsule PO Not Given BEDTIME SATNAM Ferrous Sulfate 324 mg 06/05/20 09:00 06/21/20 09:39 Ferrous Sulfate 324 Mg Tablet. PO 324 mg DAILY SATNAM Administration Furosemide 40 mg 06/05/20 09:00 06/20/20 10:01 Furosemide 40 Mg Tablet PO 40 mg DAILY SATNAM Administration Protocol Guaifenesin 1,200 mg 06/05/20 09:00 06/21/20 09:38 Guaifenesin La 600 Mg Tab.Er.12h PO 1,200 mg BID SATNAM Administration Insulin Human Lispro 0 unit 06/05/20 07:30 06/21/20 11:16 Insulin Lispro 100 Unit/Ml 3 Ml Vial SUBCUT Not Given [facility]HS [facility] Protocol Loratadine 10 mg 06/05/20 09:00 06/21/20 09:39 Loratadine 10 Mg Tablet PO 10 mg DAILY SATNAM Administration Melatonin 3 mg 06/18/20 21:00 06/20/20 20:20 Melatonin 3 Mg Tablet PO 3 mg BEDTIME SATNAM Administration Metoprolol Tartrate 25 mg 06/21/20 21:00 Metoprolol Tartrate 25 Mg Tablet PO BID [facility] Protocol Metronidazole 500 mg 06/17/20 17:00 06/21/20 09:39 Metronidazole 500 Mg Tablet PO 500 mg Q8H SATNAM Administration Midodrine 5 mg 06/21/20 09:45 06/21/20 14:04 Midodrine Hcl 5 Mg Tablet PO 06/23/20 21:01 5 mg TID SATNAM Administration Montelukast Sodium 10 mg 06/05/20 21:00 06/20/20 20:20 Montelukast Sodium 10 Mg Tablet PO 10 mg BEDTIME SATNAM Administration Nystatin 1 appl 06/12/20 21:00 06/21/20 09:58 Nystatin Powder 15 Gm Bottle TOPICAL 1 appl BID SATNAM Administration Protocol Nystatin 400,000 unit 06/12/20 13:00 06/21/20 14:05 Nystatin Oral Susp 500,000 Unit/5 Ml Oral.Susp PO Not Given QID [facility] Protocol Omeprazole 20 mg 06/05/20 06:30 06/21/20 05:45 Omeprazole 20 Mg Capsule. PO 20 mg BID@0630,1630 SATNAM Administration Ondansetron HCl 4 mg 06/20/20 10:12 06/20/20 10:38 Ondansetron Odt 4 Mg Tab.Rapdis TRANSLINGU 4 mg Q6H PRN Administration nausea Polyethylene Glycol 17 gm 06/19/20 09:00 06/21/20 09:55 Polyethylene Glycol 3350 17 Gm Powd.Pack PO Not Given DAILY SATNAM Senna 17.2 mg 06/04/20 21:23 Sennosides 8.6 Mg Tablet PO BEDTIME PRN Constipation Sertraline HCl 50 mg 06/08/20 09:00 06/21/20 09:38 Sertraline Hcl 50 Mg Tablet PO 50 mg DAILY SATNAM Administration Sodium Chloride 3 ml 06/05/20 00:00 06/21/20 09:38 0.9 % Sodium Chloride Flush 3 Ml Syringe IVFLUSH 3 ml QSHIFT SATNAM Administration Labs CBC & Chem 7: 06/21/20 05:56 06/21/20 05:56 Microbiology Microbiology Results: Microbiology 06/04/20 18:07 Blood - Venous Blood Culture - Final No growth after 5 days. 06/04/20 18:06 Blood - Venous Blood Culture - Final No growth after 5 days. 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 Atrial fibrillation with RVR Controlled overnight with IV Cardizem drip Increase metoprolol to 25 b.i.d. Keep on telemetry Check electrolytes Acute on chronic hypoxic respiratory failure secondary to toxic encephalopathy from benzodiazepine overdose/suicide attempt Encephalopathy Resolved medically cleared, [facility] psych bed search in progress Aspiration pneumonia completed treatment Intra-abdominal abscess-Above 4 cm in diameter, adjacent to sigmoid Repeated CT scan 06/20/20 shows interval decrease in size Surgery and ID input appreciated, can be treated with oral antibiotics, continue 8 more days po ceftin and flagyl Left lower extremity wound Surgery appreciated, debridement performed 06/16/20, continue local care History of factor 5 laden deficiency/DVT: Eliquis EMERALD on cpap. Mood DIS Continue sertraline , ativan 1 mg prn added small dose -addition ativan 0.5 mg DVT PPX Eliquis
--- NOTE | 2020-06-21 14:51 | MHC.CARE ---
1300: Conducted an MSU with pt. Jes Tinsley from Case Management.
[2020-06-21 16:09] LABS: Glucose, Whole Blood 83 mg/dL (60-115)
--- NOTE | 2020-06-21 19:09 | MHC.CARE ---
CARE Team is notified that pt has been denied by [facility] ([facility] psych inpt) due to medical acuity. Pt has been a geripsych bedsearch for 9 days and CARE Team has been unable to secure placement for client due to nursing care needs. CARE Team recommended to Dr. Bowman, who agrees to pass along info to pt's hospitalist, to place another psych consult given the concerns surrounding inability to find placement for pt, and sending facility unwilling to take pt back without psychiatric intervention. CARE Team speaks with Val, assistant activities director from [facility] surrounding concerns for placing pt and exploring possibility of pt returning to [facility]. Val voices concerns about pt and her being in the same facility, given that inadvertently provided the medication to pt that she attempted to intentionally overdose with. has dementia, and Val fears that even if he agrees to not supply pt with meds in the future, he may be unable to follow through due to memory loss and confusion. Val states that the goal for pt was to return to assisted living, and given that pt is being declined from [facility] due to medical concerns, Val would like clarification if this is still a realistic goal for pt. CARE Team will communicate with case management tomorrow regarding these concerns and to continue to explore placement change, rather then inpt psych admission. Val recommends [facility] in [place], [place]. Family should also be contacted. CARE Team will continue with [facility] psych bedsearch pending this follow up. CARE Team conducts statewide geriatric inpt psych bedsearch with the following results: [facility]- Per Milagro, two beds available, 1 male and 1 female. assessment and labs faxed, CARE Team confirms with Milagro @ [phone] that packet was received. Milagro states that she will call CARE Team after referral is reviewed this evening.If no call from Milagro this evening, CARE Team will call and follow up in the morning [facility]- Per Wendy, no beds today, but they are willing to receive clinical. Packet faxed and confirmed with Wendy that packet was received. She encourages CARE Team to call and f/u tomorrow morning. The following units were called and have no openings this evening. CARE Team will call again in the morning: [facility]- full per Zaria Craft- referral reviewed, pt declined [facility]- full per Jesus Jones [facility]- full per Tatiana Seals- full per [facility]- full per Mariella Iglesias [facility]- full across the system per Maicol
[2020-06-21 19:42] LABS: Glucose, Whole Blood 88 mg/dL (60-115)
[2020-06-21] MEDS: Melatonin 3 MG TABLET PO (19:45)
[2020-06-21] MEDS: Montelukast Sodium 10 MG TABLET PO (19:45)
[2020-06-21] MEDS: Metoprolol Tartrate 25 MG TABLET PO (19:51)
[2020-06-22] VITALS (14 sets, daily range): BP systolic 84–126; BP diastolic 44–76; PULSE 80–100; RESP 18–25; TEMP 36.4–37.1; O2SAT 88–98
[2020-06-22] MEDS: Omeprazole 20 MG CAPSULE.DR PO ×2 (05:56→15:46)
[2020-06-22 07:11] LABS: Glucose, Whole Blood 76 mg/dL (60-115)
[2020-06-22 07:14] LABS: Magnesium 1.1 mg/dL (1.6-2.6)
[2020-06-22] MEDS: polyethylene glycoL 3350 17 GM POWD.PACK PO (07:55)
[2020-06-22] MEDS: Magnesium Sulfate/H2O 2 GM/50 ML PIGGYBACK IV ×2 (07:56→09:48)
[2020-06-22] MEDS: Apixaban 2.5 MG TABLET PO ×2 (07:56→20:49)
[2020-06-22] MEDS: metroNIDAZOLE 500 MG TABLET PO ×2 (07:56→15:46)
[2020-06-22] MEDS: Metoprolol Tartrate 25 MG TABLET PO ×2 (07:56→20:48)
[2020-06-22] MEDS: Midodrine HCl 5 MG TABLET PO ×3 (07:56→20:48)
[2020-06-22] MEDS: Sertraline HCL 50 MG TABLET PO (07:56)
[2020-06-22] MEDS: guaiFENesin LA 600 MG TAB.ER.12H 1200 MG PO ×2 (07:57→20:48)
[2020-06-22] MEDS: Loratadine 10 MG TABLET PO (07:57)
[2020-06-22] MEDS: Ferrous Sulfate 324 MG TABLET.DR PO (07:57)
[2020-06-22] MEDS: 0.9 % Sodium Chloride Flush 3 ML SYRINGE IVFLUSH ×3 (07:58→23:42)
[2020-06-22] MEDS: Nystatin Powder 15 GM BOTTLE 1 APPL TOPICAL ×2 (08:13→20:49)
[2020-06-22] MEDS: Furosemide 40 MG TABLET PO (09:48)
--- NOTE | 2020-06-22 10:09 | MHC.CARE ---
Spoke with Milagro from Case Management regarding the difficulty with placing this pt. Milagro advised me she put a request in for a psych consult. Awaiting results of the psych consult before moving forward in collaboration with Case Management.
[2020-06-22 11:20] LABS: Glucose, Whole Blood 80 mg/dL (60-115)
--- NOTE | 2020-06-22 11:46 | MHC.CARE ---
1050: Completed MSU on pt.
--- NOTE | 2020-06-22 15:14 | P.CNPS_ITS ---
History of Present Illness Date of Service: 06/22/2020 Chief Complaint: Overdose Reason for Consult: post SI Requesting physician: Nai Craig Discussed with referring provider: Yes Sources of Information: patient interviewed, chart reviewed and crisis/core team assessment reviewed HPI Narrative: Mrs. 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 Pt's hospital stay has been complicated by treatment of pneumonia with combination of vancomycin/Zosy and pt experienced Vancomycin induced ITP and need for platelet transfusion. Pt was seen by DAVE Biggs on 06/07- at that time pt continued to endorse depressed mood, suicidal ideation, regretting being alive. Sertraline was increased to 50mg po daily. Today, pt laying in bed, in no acute distress. She is pleasant on approach but complains that I can't eat, I haven't had food for two months. This news writer introduced herself. Pt asked about her understanding of reason for coming to ED and subsequent hospitalization. When pt reminded of recent suicide attempt (as pt with long pause not providing much details), pt reported that suicide attempt (overdose) had happened about one year ago. She appears disoriented to situation and recent events, although she was able to tell this news writer that she was in [facility] and plan was for her to go to SNF. She reports she has not been eating, that she can only have liquids. She is unable to explain if she is having difficulty swallowing or what is preventing her from eating as per chart pt not on NPO nor swallowing problems noted. Moreover, per RN and pt's attending pt has been on regular diet and eating normally although fair quantities. Pt continued to insist that she is feeling better but worried about not been able to eat. In terms of her mood, pt describes mood as okay. She denies SI/HI. She reports hearing voices of children laughing and music which she notes others can't hear. She smiles as she describes this. Medical Evaluation Reviewed: Yes Review of Systems Review of Systems Pt reports difficulty eating, ?swallowing PMFSH Medical History (Updated 06/18/20 @ 17:34 by Yuni Raymond MD) Blood clot in vein COPD (chronic obstructive pulmonary disease) Diabetes Epistaxis Factor 5 Leiden mutation, heterozygous FH: total knee replacement GERD (gastroesophageal reflux disease) Heart failure Hematoma Intra-abdominal abscess EMERALD (obstructive sleep apnea) Surgical History History of bronchoscopy History of cholecystectomy Hx of tonsillectomy Diagnostics Vital Signs (24Hr): Vital Signs - 24 hr 06/21/20 16:41 06/21/20 19:03 06/21/20 19:50 Temperature 98.4 F Pulse Rate 93 91 98 Respiratory Rate 18 Blood Pressure 103/51 L 100/55 L 104/60 Pulse Oximetry 91 L 06/21/20 19:58 06/22/20 00:00 06/22/20 00:07 Temperature 98.0 F Pulse Rate 89 Respiratory Rate 20 20 21 H Blood Pressure 99/56 L Pulse Oximetry 96 06/22/20 03:10 06/22/20 04:43 06/22/20 07:22 Temperature 97.9 F 97.8 F Pulse Rate 88 84 Respiratory Rate 19 20 19 Blood Pressure 122/60 124/62 Pulse Oximetry 94 96 06/22/20 07:56 06/22/20 11:06 06/22/20 11:24 Temperature 98.7 F Pulse Rate 84 80 81 Respiratory Rate 18 Blood Pressure 124/62 97/44 L 84/60 L Pulse Oximetry 93 06/22/20 15:09 Temperature Pulse Rate 91 Respiratory Rate 18 Blood Pressure 126/76 Pulse Oximetry 97 Body Mass Index 44.1 Labs Results: 06/21/20 05:56 06/21/20 05:56 Labs: Laboratory Results - last 48 hr 06/20/20 06/20/20 06/20/20 15:49 18:45 20:00 WBC RBC Hgb Hct MCV MCH MCHC RDW Plt Count MPV Immature Gran % (Auto) Neut % (Auto) Lymph % (Auto) [place] % (Auto) Eos % (Auto) Baso % (Auto) Lymph # (Auto) [place] # (Auto) Eos # (Auto) Baso # (Auto) Abs Immat Gran (auto) Absolute Neuts (auto) Absolute Nucleated RBC Nucleated RBC % (auto) Neutrophils % (Manual) Band Neutrophils % Lymphocytes % (Manual) Monocytes % (Manual) Basophils % (Manual) Metamyelocytes % Abs Neuts (Manual) Lymphocytes # (Manual) Monocytes # (Manual) Basophils # (Manual) Metamyelocytes # Platelet Estimate Plt Morphology Comment RBC Morphology Polychromasia Hypochromasia O2 Saturation ABG pH at Pt Temp ABG pH (Temp Correct) ABG pCO2 at Pt Temp ABG pCO2 (Temp Corrct ABG pO2 at Pt Temp ABG pO2 (Temp Correct ABG HCO3 ABG Base Excess (Actual) Sodium Potassium Chloride Carbon Dioxide Anion Gap BUN Creatinine Estim Creat Clear Calc Estimated GFR POC Glucose 82 96 88 Fasting Glucose Calcium Magnesium 06/20/20 06/21/20 06/21/20 20:15 05:56 05:56 WBC 12.2 H RBC 3.84 L Hgb 10.3 L Hct 34.4 L MCV 89.6 MCH 26.8 L MCHC 29.9 L RDW 19.9 H Plt Count 235 MPV 11.0 Immature Gran % (Auto) Cancelled Neut % (Auto) Cancelled Lymph % (Auto) Cancelled [place] % (Auto) Cancelled Eos % (Auto) Cancelled Baso % (Auto) Cancelled Lymph # (Auto) Cancelled [place] # (Auto) Cancelled Eos # (Auto) Cancelled Baso # (Auto) Cancelled Abs Immat Gran (auto) Cancelled Absolute Neuts (auto) Cancelled Absolute Nucleated RBC 0.000 Nucleated RBC % (auto) 0.0 Neutrophils % (Manual) 71 Band Neutrophils % 8 H Lymphocytes % (Manual) 12 L Monocytes % (Manual) 5 Basophils % (Manual) 1 Metamyelocytes % 3 Abs Neuts (Manual) 9.6 H Lymphocytes # (Manual) 1.5 Monocytes # (Manual) 0.6 Basophils # (Manual) 0.1 Metamyelocytes # 0.4 Platelet Estimate NORMAL Plt Morphology Comment NORMAL RBC Morphology NOTED Polychromasia 1+ (0-2) Hypochromasia 1+ (5-14) O2 Saturation 94.0 ABG pH at Pt Temp 7.47 H ABG pH (Temp Correct) 7.47 H ABG pCO2 at Pt Temp 37 ABG pCO2 (Temp Corrct 37 ABG pO2 at Pt Temp 76 L ABG pO2 (Temp Correct 74 L ABG HCO3 27 H ABG Base Excess (Actual) 4.0 Sodium 137 Potassium 3.3 Chloride 96 Carbon Dioxide 28 Anion Gap 16 BUN 5 L Creatinine 0.79 Estim Creat Clear Calc 69.0 Estimated GFR > 60 POC Glucose Fasting Glucose 75 Calcium 7.9 L Magnesium 06/21/20 06/21/20 06/21/20 07:21 11:12 16:03 WBC RBC Hgb Hct MCV MCH MCHC RDW Plt Count MPV Immature Gran % (Auto) Neut % (Auto) Lymph % (Auto) [place] % (Auto) Eos % (Auto) Baso % (Auto) Lymph # (Auto) [place] # (Auto) Eos # (Auto) Baso # (Auto) Abs Immat Gran (auto) Absolute Neuts (auto) Absolute Nucleated RBC Nucleated RBC % (auto) Neutrophils % (Manual) Band Neutrophils % Lymphocytes % (Manual) Monocytes % (Manual) Basophils % (Manual) Metamyelocytes % Abs Neuts (Manual) Lymphocytes # (Manual) Monocytes # (Manual) Basophils # (Manual) Metamyelocytes # Platelet Estimate Plt Morphology Comment RBC Morphology Polychromasia Hypochromasia O2 Saturation ABG pH at Pt Temp ABG pH (Temp Correct) ABG pCO2 at Pt Temp ABG pCO2 (Temp Corrct ABG pO2 at Pt Temp ABG pO2 (Temp Correct ABG HCO3 ABG Base Excess (Actual) Sodium Potassium Chloride Carbon Dioxide Anion Gap BUN Creatinine Estim Creat Clear Calc Estimated GFR POC Glucose 77 115 83 Fasting Glucose Calcium Magnesium 06/21/20 06/22/20 06/22/20 19:38 06:01 07:06 WBC RBC Hgb Hct MCV MCH MCHC RDW Plt Count MPV Immature Gran % (Auto) Neut % (Auto) Lymph % (Auto) [place] % (Auto) Eos % (Auto) Baso % (Auto) Lymph # (Auto) [place] # (Auto) Eos # (Auto) Baso # (Auto) Abs Immat Gran (auto) Absolute Neuts (auto) Absolute Nucleated RBC Nucleated RBC % (auto) Neutrophils % (Manual) Band Neutrophils % Lymphocytes % (Manual) Monocytes % (Manual) Basophils % (Manual) Metamyelocytes % Abs Neuts (Manual) Lymphocytes # (Manual) Monocytes # (Manual) Basophils # (Manual) Metamyelocytes # Platelet Estimate Plt Morphology Comment RBC Morphology Polychromasia Hypochromasia O2 Saturation ABG pH at Pt Temp ABG pH (Temp Correct) ABG pCO2 at Pt Temp ABG pCO2 (Temp Corrct ABG pO2 at Pt Temp ABG pO2 (Temp Correct ABG HCO3 ABG Base Excess (Actual) Sodium Potassium Chloride Carbon Dioxide Anion Gap BUN Creatinine Estim Creat Clear Calc Estimated GFR POC Glucose 88 76 Fasting Glucose Calcium Magnesium 1.1 L* 06/22/20 11:05 WBC RBC Hgb Hct MCV MCH MCHC RDW Plt Count MPV Immature Gran % (Auto) Neut % (Auto) Lymph % (Auto) [place] % (Auto) Eos % (Auto) Baso % (Auto) Lymph # (Auto) [place] # (Auto) Eos # (Auto) Baso # (Auto) Abs Immat Gran (auto) Absolute Neuts (auto) Absolute Nucleated RBC Nucleated RBC % (auto) Neutrophils % (Manual) Band Neutrophils % Lymphocytes % (Manual) Monocytes % (Manual) Basophils % (Manual) Metamyelocytes % Abs Neuts (Manual) Lymphocytes # (Manual) Monocytes # (Manual) Basophils # (Manual) Metamyelocytes # Platelet Estimate Plt Morphology Comment RBC Morphology Polychromasia Hypochromasia O2 Saturation ABG pH at Pt Temp ABG pH (Temp Correct) ABG pCO2 at Pt Temp ABG pCO2 (Temp Corrct ABG pO2 at Pt Temp ABG pO2 (Temp Correct ABG HCO3 ABG Base Excess (Actual) Sodium Potassium Chloride Carbon Dioxide Anion Gap BUN Creatinine Estim Creat Clear Calc Estimated GFR POC Glucose 80 Fasting Glucose Calcium Magnesium Imaging Radiology Impressions: ITS Impressions Chest X-Ray 06/04/20 17:39 IMPRESSION: Mild linear atelectasis versus scarring at the left lung base. Mild cardiac enlargement. Chest CT 06/04/20 18:54 IMPRESSION: 1. Bilateral lower lobe airspace opacities, slightly decreased on the right and slightly increased on the left when compared to the CT dated 05/22/2020. Findings could represent atelectasis versus early infiltrates. 2. Fluid/secretions redemonstrated within the left mainstem bronchus, similar when compared to the prior CT. 3. Small, sliding hiatal hernia. 4. Compression fractures redemonstrated throughout the thoracic spine, unchanged. Head CT 06/04/20 18:54 IMPRESSION: * No acute intracranial hemorrhage. * Small vessel ischemic changes and bilateral gangliocapsular lacunar infarcts. If there is concern for acute or subacute ischemia, MRI is indicated. * Partial bilateral mastoid air cell effusions. Guidance Ultrasound 06/07/20 15:30 IMPRESSION: Successful and ultrasound-guided placement of a 5 [place] 40 cm long dual lumen PICC catheter was tip in the SVC. A single extremities was obtained for documentation. FLUOROSCOPY TIME: 1.0 minutes. DOSE AREA PRODUCT: 40 cGy/cm. IMAGES: 1 ultrasound and 1 x-ray PICC Line Insertion 06/07/20 15:30 IMPRESSION: Successful and ultrasound-guided placement of a 5 [place] 40 cm long dual lumen PICC catheter was tip in the SVC. A single extremities was obtained for documentation. FLUOROSCOPY TIME: 1.0 minutes. DOSE AREA PRODUCT: 40 cGy/cm. IMAGES: 1 ultrasound and 1 x-ray Abdomen/Pelvis CT 06/08/20 08:20 IMPRESSION: Small air-fluid collection likely an abscess. Appears concealed at this time and may have originated from adjacent sigmoid colon. No mural thickening seen in the sigmoid colon at this time. There is noted from bleed or mass seen. Small umbilical hernia. Small hiatal hernia. There is no visible acute fracture, dislocation or subluxation of left hip. There are mild degenerative changes bilateral SI joints. There is no evidence of hematoma. Hip CT 06/08/20 08:20 IMPRESSION: Small air-fluid collection likely an abscess. Appears concealed at this time and may have originated from adjacent sigmoid colon. No mural thickening seen in the sigmoid colon at this time. There is noted from bleed or mass seen. Small umbilical hernia. Small hiatal hernia. There is no visible acute fracture, dislocation or subluxation of left hip. There are mild degenerative changes bilateral SI joints. There is no evidence of hematoma. Abdomen/Pelvis CT 06/12/20 08:00 IMPRESSION: No change in left pelvic abscess from most recent exam 06/08/2020. This may communicate with the sigmoid colon. There is diverticulosis of the colon. Abdomen/Pelvis CT 06/20/20 08:00 IMPRESSION: Mild diverticular disease of the proximal sigmoid colon. There is slight interval decrease in the pericolic abscess versus contained perforation now measuring 2.9 x 3.4 cm. Chest X-Ray 06/20/20 19:45 IMPRESSION: Stable examination demonstrating mild bibasilar airspace disease, atelectasis versus consolidation. Mental Status Exam Mental Status Exam Narrative: Appearance: [place] woman, wearing hospital gown, fair hygiene, in NAD Behavior: calm, friendly Psychomotor: no agitation or retardation noted Speech: clear, normal rate/rhythm/volume, spontaneous TP: derailment noted TC: worried about not being able to eat, AH Mood: okay Affect:congruent, brightens at times SI:denies HI:denies AH/VH:reports AH of children laughing, hearing music Delusions:none reported Insight/judgment:poor x 2- impaired Memory/cog: alert, oriented to place, month, year not to situation with flu ctuating levels of confusion in past days Medications Medications Current Medications Generic Name Dose Route Start Last Admin Trade Name Freq PRN Reason Stop Dose Admin Acetaminophen 650 mg 06/04/20 21:23 Acetaminophen Supp 650 Mg Supp.Rect [place] Q6H PRN Pain, Mild (Pain Scale 1-3) Apixaban 2.5 mg 06/09/20 21:00 06/22/20 07:56 Apixaban 2.5 Mg Tablet PO 2.5 mg BID SATNAM Administration Calcium Carbonate 750 mg 06/14/20 12:27 06/14/20 18:44 Calcium Carbonate 750 Mg Tab.Chew PO 750 mg Q4H PRN Administration Indigestion Cefuroxime Axetil 500 mg 06/17/20 18:00 06/22/20 05:56 Cefuroxime Axetil 500 Mg Tablet PO 500 mg Q12H SATNAM Administration Docusate Sodium 100 mg 06/18/20 21:00 06/21/20 19:47 Docusate Sodium 100 Mg Capsule PO Not Given BEDTIME SATNAM Ferrous Sulfate 324 mg 06/05/20 09:00 06/22/20 07:57 Ferrous Sulfate 324 Mg Tablet. PO 324 mg DAILY SATNAM Administration Furosemide 40 mg 06/05/20 09:00 06/22/20 09:48 Furosemide 40 Mg Tablet PO 40 mg DAILY SATNAM Administration Protocol Guaifenesin 1,200 mg 06/05/20 09:00 06/22/20 07:57 Guaifenesin La 600 Mg Tab.Er.12h PO 1,200 mg BID SATNAM Administration Insulin Human Lispro 0 unit 06/05/20 07:30 06/22/20 11:56 Insulin Lispro 100 Unit/Ml 3 Ml Vial SUBCUT Not Given QIDACHS [facility] Protocol Loratadine 10 mg 06/05/20 09:00 06/22/20 07:57 Loratadine 10 Mg Tablet PO 10 mg DAILY SATNAM Administration Melatonin 3 mg 06/18/20 21:00 06/21/20 19:45 Melatonin 3 Mg Tablet PO 3 mg BEDTIME SATNAM Administration Metoprolol Tartrate 25 mg 06/21/20 21:00 06/22/20 07:56 Metoprolol Tartrate 25 Mg Tablet PO 25 mg BID SATNAM Administration Protocol Metronidazole 500 mg 06/17/20 17:00 06/22/20 07:56 Metronidazole 500 Mg Tablet PO 500 mg Q8H SATNAM Administration Midodrine 5 mg 06/21/20 15:00 06/22/20 07:56 Midodrine Hcl 5 Mg Tablet PO 5 mg TID SATNAM Administration Montelukast Sodium 10 mg 06/05/20 21:00 06/21/20 19:45 Montelukast Sodium 10 Mg Tablet PO 10 mg BEDTIME SATNAM Administration Nystatin 1 appl 06/12/20 21:00 06/22/20 08:13 Nystatin Powder 15 Gm Bottle TOPICAL 1 appl BID [facility] Administration Protocol Nystatin 400,000 unit 06/12/20 13:00 06/22/20 11:56 Nystatin Oral Susp 500,000 Unit/5 Ml Oral.Susp PO Not Given QID [facility] Protocol Omeprazole 20 mg 06/05/20 06:30 06/22/20 05:56 Omeprazole 20 Mg Capsule.Dr PO 20 mg BID@0630,1630 [facility] Administration Ondansetron HCl 4 mg 06/20/20 10:12 06/20/20 10:38 Ondansetron Odt 4 Mg Tab.Rapdis TRANSLINGU 4 mg Q6H PRN Administration nausea Polyethylene Glycol 17 gm 06/19/20 09:00 06/22/20 07:55 Polyethylene Glycol 3350 17 Gm Powd.Pack PO 17 gm DAILY [facility] Administration Senna 17.2 mg 06/04/20 21:23 Sennosides 8.6 Mg Tablet PO BEDTIME PRN Constipation Sertraline HCl 50 mg 06/08/20 09:00 06/22/20 07:56 Sertraline Hcl 50 Mg Tablet PO 50 mg DAILY SATNAM Administration Sodium Chloride 3 ml 06/05/20 00:00 06/22/20 07:58 0.9 % Sodium Chloride Flush 3 Ml Syringe IVFLUSH 3 ml QSHIFT SATNAM Administration Allergies Allergies Allergy/AdvReac Type Severity Reaction Status Date / Time Sulfa (Sulfonamide Allergy Intermediate SWELLING Verified 05/27/20 20:09 Antibiotics) [Sulfa (Sulfonamides)] alendronate sodium [Fosamax] Allergy Unknown Unknown Verified 05/27/20 20:09 azithromycin [Zithromax] Allergy Unknown Unknown Verified 05/27/20 20:09 cefepime Allergy Unknown Unknown Verified 05/27/20 20:09 levofloxacin Allergy Unknown Unknown Verified 05/27/20 20:09 umeclidinium [Anoro Ellipta] Allergy Unknown Unknown Verified 05/27/20 20:09 vilanterol [Anoro Ellipta] Allergy Unknown Unknown Verified 05/27/20 20:09 vancomycin AdvReac Severe thrombocyto Verified 06/06/20 17:13 penia ADHESIVE TAPE Allergy Unknown Unknown Uncoded 05/27/20 20:09 Sucralfate Allergy Unknown Unknown Uncoded 05/27/20 20:09 Sulfamethoxazole Allergy Unknown Unknown Uncoded 05/27/20 20:09 Assessment & Plan Assessment & Plan (1) Major depress dis, severe: Status: Acute Code(s): F32.2 - Major depressive disorder, single episode, severe without psychotic features Recommendations: Ms. Cano is a 74 year-old woman [place] [facility] [place] post suicide attempt (intentional OD with ativan). Pt stay complicated by pneumonia treated with vancomycin which caused Vancomycin induced ITP. Pt initially evaluated on 06/07/2020 by DAVE Biggs when pt continued to endorse severe depressed mood, suicidal ideation regretting not having post suicide attempt. Pt then also presented with a linear thought process, fully oriented to year/month and situation and able to provide accurate details of events leading to this admission. Today, pt appears with fluctuating levels of orientation/confusion, mainly in the sense that she is not oriented to situation nor reasons for current hospitalization and denies recent suicide attempt and thinks main health concern is that she has not been able to eat, which is not the case. Today, she is denying depressed mood, suicidal ideation including plan or intent. After conversation with pt's attending, Dr. Craig, pt has not presented with agitation or combativeness although noted that she has hypoactive delirium. At time, it may take pt some time to completely clear up, otherwise she has been medically cleared. PLAN 1.AT this time, Pt does not meet inpatient psychiatric level of care- in that she is not at imminent risks of harming herself or others due to suicidal or homicidal ideation. 2. Pt may step down to rehab/SNF-with awareness that she currently has fluctua ting levels of confusion which is not her baseline 3. Pt may continue on Sertraline 50mg po daily- 4. Once pt presents as more clear, reevaluate symptoms of depression. If possible, pt should be seen by psychiatric provider while in SNF and/or referred to OP psychiatric treatment once discharge. At this point, due to what appears to be hypoactive delirium, she would not be appropriate for regular/traditional OP psychotherapy nor PHP. 5. Although pt currently not suicidal or homicidal- reevaluate need for sitter NOT due to suicidality but potential increase in confusional state and lack of safety awareness. As of today, although pt confused, not agitated nor combative, nor trying to unsafely ambulate on her own nor trying to pull IV, in which case she may be safe to be without sitter- but this may have to be ongoing assessment by primary treatment team until pt appears much clear. Greater than 50% of the session was spent on counseling and/or coordination of care
--- NOTE | 2020-06-22 15:25 | HO.PM.IMPN ---
Subjective Subjective Date of Service: 06/22/20 Interval History: The patient was seen and evaluated this morning Laying in bed, feels comfortable overall, heart rate better controlled Sitter still at the bedside, mildly confused Denies any fever, chills or shortness of breath No reported other overnight events. Systemic review: No fever, chills but reports feeling very weak and altered yesterday No chest pain, palpitation No shortness of breath or coughing No abdominal pain, nausea or vomiting No urinary symptoms No any rash or wounds Physical Exam Vital Signs: Vital Signs: Last Vital Signs Temp 98.7 F 06/22/20 11:06 Pulse 91 06/22/20 15:09 Resp 18 06/22/20 15:09 BP 126/76 06/22/20 15:09 Pulse Ox 97 06/22/20 15:09 Body Mass Index 44.1 Const: Other: Constitutional : Alert, oriented to self and place but confused about other details, not in distress Neck : Normal inspection, Supple Cardiovascular : RRR, S1 S2, no lower extremity edema Respiratory : Good bilateral air entry, no crackles, wheezes or rhonchi Gastrointestinal: soft, lax, Normal bowel sounds, Non tender Skin : Warm/Dry, multiple wounds, Left anterior thigh - open wound with appears to be an old skin avulsion, about 5 cm x 11 cm covered with dressing Neurological : Alert & oriented to self and place, No focal deficit Objective Data Current Medications Generic Name Dose Route Start Last Admin Trade Name Freq PRN Reason Stop Dose Admin Acetaminophen 650 mg 06/04/20 21:23 Acetaminophen Supp 650 Mg Supp.Rect ME Q6H PRN Pain, Mild (Pain Scale 1-3) Apixaban 2.5 mg 06/09/20 21:00 06/22/20 07:56 Apixaban 2.5 Mg Tablet PO 2.5 mg BID [facility] Administration Calcium Carbonate 750 mg 06/14/20 12:27 06/14/20 18:44 Calcium Carbonate 750 Mg Tab.Chew PO 750 mg Q4H PRN Administration Indigestion Cefuroxime Axetil 500 mg 06/17/20 18:00 06/22/20 05:56 Cefuroxime Axetil 500 Mg Tablet PO 500 mg Q12H [facility] Administration Docusate Sodium 100 mg 06/18/20 21:00 06/21/20 19:47 Docusate Sodium 100 Mg Capsule PO Not Given BEDTIME [facility] Ferrous Sulfate 324 mg 06/05/20 09:00 06/22/20 07:57 Ferrous Sulfate 324 Mg Tablet. PO 324 mg DAILY [facility] Administration Furosemide 40 mg 06/05/20 09:00 06/22/20 09:48 Furosemide 40 Mg Tablet PO 40 mg DAILY [facility] Administration Protocol Guaifenesin 1,200 mg 06/05/20 09:00 06/22/20 07:57 Guaifenesin La 600 Mg Tab.Er.12h PO 1,200 mg BID [facility] Administration Insulin Human Lispro 0 unit 06/05/20 07:30 06/22/20 11:56 Insulin Lispro 100 Unit/Ml 3 Ml Vial SUBCUT Not Given QIDACHS [facility] Protocol Loratadine 10 mg 06/05/20 09:00 06/22/20 07:57 Loratadine 10 Mg Tablet PO 10 mg DAILY [facility] Administration Melatonin 3 mg 06/18/20 21:00 06/21/20 19:45 Melatonin 3 Mg Tablet PO 3 mg BEDTIME [facility] Administration Metoprolol Tartrate 25 mg 06/21/20 21:00 06/22/20 07:56 Metoprolol Tartrate 25 Mg Tablet PO 25 mg BID [facility] Administration Protocol Metronidazole 500 mg 06/17/20 17:00 06/22/20 07:56 Metronidazole 500 Mg Tablet PO 500 mg Q8H [facility] Administration Midodrine 5 mg 06/21/20 15:00 06/22/20 07:56 Midodrine Hcl 5 Mg Tablet PO 5 mg TID [facility] Administration Montelukast Sodium 10 mg 06/05/20 21:00 06/21/20 19:45 Montelukast Sodium 10 Mg Tablet PO 10 mg BEDTIME [facility] Administration Nystatin 1 appl 06/12/20 21:00 06/22/20 08:13 Nystatin Powder 15 Gm Bottle TOPICAL 1 appl BID [facility] Administration Protocol Nystatin 400,000 unit 06/12/20 13:00 06/22/20 11:56 Nystatin Oral Susp 500,000 Unit/5 Ml Oral.Susp PO Not Given QID [facility] Protocol Omeprazole 20 mg 06/05/20 06:30 06/22/20 05:56 Omeprazole 20 Mg Capsule. PO 20 mg BID@8230,5120 [facility] Administration Ondansetron HCl 4 mg 06/20/20 10:12 06/20/20 10:38 Ondansetron Odt 4 Mg Tab.Rapdis TRANSLINGU 4 mg Q6H PRN Administration nausea Polyethylene Glycol 17 gm 06/19/20 09:00 06/22/20 07:55 Polyethylene Glycol 3350 17 Gm Powd.Pack PO 17 gm DAILY [facility] Administration Senna 17.2 mg 06/04/20 21:23 Sennosides 8.6 Mg Tablet PO BEDTIME PRN Constipation Sertraline HCl 50 mg 06/08/20 09:00 06/22/20 07:56 Sertraline Hcl 50 Mg Tablet PO 50 mg DAILY [facility] Administration Sodium Chloride 3 ml 06/05/20 00:00 06/22/20 07:58 0.9 % Sodium Chloride Flush 3 Ml Syringe IVFLUSH 3 ml QSHIFT [facility] Administration Labs CBC & Chem 7: 06/21/20 05:56 06/21/20 05:56 Microbiology Microbiology Results: Microbiology 06/04/20 18:07 Blood - Venous Blood Culture - Final No growth after 5 days. 06/04/20 18:06 Blood - Venous Blood Culture - Final No growth after 5 days. 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 Atrial fibrillation with RVR IV Cardizem drip discontinue Increase metoprolol to 25 b.i.d. Keep on telemetry Hypomagnesemia Magnesium of 1.1 to give IV supplement To keep on p.o. supplement today Resolved, Acute on chronic hypoxic respiratory failure Resolved, secondary to toxic encephalopathy from benzodiazepine overdose/suicide attempt medically cleared, Evaluated by psychiatry team today, no need for inpatient psych or sitter at the bedside. Aspiration pneumonia completed treatment Intra-abdominal abscess-Above 4 cm in diameter, adjacent to sigmoid Repeated CT scan 06/20/20 shows interval decrease in size Surgery and ID input appreciated, can be treated with oral antibiotics, continue 8 more days po ceftin and flagyl You Left lower extremity wound Surgery appreciated, debridement performed 06/16/20, continue local care History of factor 5 laden deficiency/DVT: Eliquis EMERALD on cpap. Mood DIS Continue sertraline , ativan 1 mg prn added small dose -addition ativan 0.5 mg DVT PPX Eliquis
--- NOTE | 2020-06-22 15:56 | MHC.CARE ---
Per Claudette c/o Abelino Pt is not able to be accepted to their unit due to complicated medical picture.
[2020-06-22 16:27] LABS: Glucose, Whole Blood 78 mg/dL (60-115)
[2020-06-22] MEDS: Magnesium Oxide 400 MG TABLET PO (16:53)
--- NOTE | 2020-06-22 17:54 | PC.NURSE ---
Patient's SI sitter d/c'd post eval by psych, telesitter in room. PT eval this AM. Patient reporting stomach aches after PO antibiotics; patient given food/yogurt with administration. Patient had 2 small BM's. Continuing to refuse Nystatin oral suspension. Dressing to left leg changed; irrigated with NS, Xeroform, wrapped with kerlix, patient tolerated well. No further issues.
[2020-06-22 20:32] LABS: Glucose, Whole Blood 113 mg/dL (60-115)
[2020-06-22] MEDS: Docusate Sodium 100 MG CAPSULE PO (20:48)
[2020-06-22] MEDS: Montelukast Sodium 10 MG TABLET PO (20:49)
[2020-06-22] MEDS: Nystatin Oral Susp 500,000 UNIT/5 ML ORAL.SUSP 400000 UNIT PO (20:49)
[2020-06-22] MEDS: Melatonin 3 MG TABLET PO (20:49)
[2020-06-23] VITALS (9 sets, daily range): BP systolic 84–108; BP diastolic 47–58; PULSE 90–117; RESP 18–23; TEMP 36.3–37.1; O2SAT 94–99
[2020-06-23] MEDS: metroNIDAZOLE 500 MG TABLET PO ×3 (02:02→17:13)
--- NOTE | 2020-06-23 06:00 | PC.NURSE ---
patient is requesting morning meds with breakfast due to nausea
[2020-06-23 07:22] LABS: Glucose, Whole Blood 94 mg/dL (60-115)
[2020-06-23] MEDS: Nystatin Oral Susp 500,000 UNIT/5 ML ORAL.SUSP 400000 UNIT PO (08:11)
[2020-06-23] MEDS: Furosemide 40 MG TABLET PO (08:12)
[2020-06-23] MEDS: Ferrous Sulfate 324 MG TABLET.DR PO (08:12)
[2020-06-23] MEDS: Magnesium Oxide 400 MG TABLET PO ×2 (08:12→17:14)
[2020-06-23] MEDS: Sertraline HCL 50 MG TABLET PO (08:12)
[2020-06-23] MEDS: polyethylene glycoL 3350 17 GM POWD.PACK PO (08:12)
[2020-06-23] MEDS: guaiFENesin LA 600 MG TAB.ER.12H 1200 MG PO ×2 (08:12→20:06)
[2020-06-23] MEDS: Omeprazole 20 MG CAPSULE.DR PO ×2 (08:12→17:14)
[2020-06-23] MEDS: Loratadine 10 MG TABLET PO (08:13)
[2020-06-23] MEDS: Apixaban 2.5 MG TABLET PO ×2 (08:13→20:07)
[2020-06-23] MEDS: Midodrine HCl 5 MG TABLET PO ×3 (08:13→20:08)
[2020-06-23] MEDS: Nystatin Powder 15 GM BOTTLE 1 APPL TOPICAL ×2 (08:14→20:22)
[2020-06-23] MEDS: 0.9 % Sodium Chloride Flush 3 ML SYRINGE IVFLUSH ×3 (08:15→20:22)
[2020-06-23 11:04] LABS: Glucose, Whole Blood 116 mg/dL (60-115)
--- NOTE | 2020-06-23 12:53 | MHC.CM.PN ---
Patient's 1:1 Sitter was dc'd on 06/22/20. Day [facility], where Patient is from, will re-eval Patient on 06/26/20 to make sure that there was not a need to restart a Sitter over the weekend. CM will follow for dc planning.
--- NOTE | 2020-06-23 13:00 | MHC.CLN ---
F/U PO INTAKE 50% AVG OCCASIONALLY C/O NAUSEA DIET RX: 1500DM CHOPPED-APPROPRIATE PT RECEIVING ENSURE CLEAR AND SANTOS BID FOR WOUND HEALING SUPPLEMENTS PROVIDE 880KCALS, 29G PROTEIN MONITOR PO INTAKE CLOSELY FOLLOWING
--- NOTE | 2020-06-23 14:13 | MHC.CARE ---
1030 - MSU completed. Contacted pt's daughter to advise her of the status of pt. Corresponded with Dr. Eason, Case Management & Shay Yip at various times of the day regarding this pt.
--- NOTE | 2020-06-23 14:30 | HO.PM.IMPN ---
Subjective Subjective Date of Service: 06/23/20 Interval History: The patient was seen and evaluated this morning Laying in bed, feels comfortable overall, heart rate better controlled Denies any fever, chills or shortness of breath No reported other overnight events. Systemic review: No fever, chills but reports feeling tired overall No chest pain, palpitation No shortness of breath or coughing No abdominal pain, nausea or vomiting No urinary symptoms No any rash or wounds Physical Exam Vital Signs: Vital Signs: Last Vital Signs Temp 98.0 F 06/23/20 10:54 Pulse 102 H 06/23/20 10:54 Resp 18 06/23/20 10:54 BP 93/51 L 06/23/20 10:54 Pulse Ox 94 06/23/20 10:54 Body Mass Index 44.1 Const: Other: Constitutional : Alert, oriented to self and place, not in distress Neck : Normal inspection, Supple Cardiovascular : RRR, S1 S2, no lower extremity edema Respiratory : Good bilateral air entry, no crackles, wheezes or rhonchi Gastrointestinal: soft, lax, Normal bowel sounds, Non tender Skin : Warm/Dry, multiple wounds, Left anterior thigh - open wound with appears to be an old skin avulsion, about 5 cm x 11 cm covered with dressing Neurological : Alert & oriented to self and place, No focal deficit Objective Data Current Medications Generic Name Dose Route Start Last Admin Trade Name Freq PRN Reason Stop Dose Admin Acetaminophen 650 mg 06/04/20 21:23 Acetaminophen Supp 650 Mg Supp.Rect CA Q6H PRN Pain, Mild (Pain Scale 1-3) Apixaban 2.5 mg 06/09/20 21:00 06/23/20 08:13 Apixaban 2.5 Mg Tablet PO 2.5 mg BID [facility] Administration Calcium Carbonate 750 mg 06/14/20 12:27 06/14/20 18:44 Calcium Carbonate 750 Mg Tab.Chew PO 750 mg Q4H PRN Administration Indigestion Cefuroxime Axetil 500 mg 06/17/20 18:00 06/23/20 08:12 Cefuroxime Axetil 500 Mg Tablet PO 500 mg Q12H [facility] Administration Docusate Sodium 100 mg 06/18/20 21:00 06/22/20 20:48 Docusate Sodium 100 Mg Capsule PO 100 mg BEDTIME [facility] Administration Ferrous Sulfate 324 mg 06/05/20 09:00 06/23/20 08:12 Ferrous Sulfate 324 Mg Tablet. PO 324 mg DAILY [facility] Administration Furosemide 40 mg 06/05/20 09:00 06/23/20 08:12 Furosemide 40 Mg Tablet PO 40 mg DAILY [facility] Administration Protocol Guaifenesin 1,200 mg 06/05/20 09:00 06/23/20 08:12 Guaifenesin La 600 Mg Tab.Er.12h PO 1,200 mg BID [facility] Administration Insulin Human Lispro 0 unit 06/05/20 07:30 06/23/20 11:21 Insulin Lispro 100 Unit/Ml 3 Ml Vial SUBCUT Not Given QIDACHS [facility] Protocol Loratadine 10 mg 06/05/20 09:00 06/23/20 08:13 Loratadine 10 Mg Tablet PO 10 mg DAILY [facility] Administration Magnesium Oxide 400 mg 06/22/20 17:30 06/23/20 08:12 Magnesium Oxide 400 Mg Tablet PO 400 mg BIDPC [facility] Administration Melatonin 3 mg 06/18/20 21:00 06/22/20 20:49 Melatonin 3 Mg Tablet PO 3 mg BEDTIME [facility] Administration Metoprolol Tartrate 25 mg 06/21/20 21:00 06/23/20 08:13 Metoprolol Tartrate 25 Mg Tablet PO Not Given BID [facility] Protocol Metronidazole 500 mg 06/17/20 17:00 06/23/20 08:12 Metronidazole 500 Mg Tablet PO 500 mg Q8H [facility] Administration Midodrine 5 mg 06/21/20 15:00 06/23/20 13:58 Midodrine Hcl 5 Mg Tablet PO 5 mg TID [facility] Administration Montelukast Sodium 10 mg 06/05/20 21:00 06/22/20 20:49 Montelukast Sodium 10 Mg Tablet PO 10 mg BEDTIME [facility] Administration Nystatin 1 appl 06/12/20 21:00 06/23/20 08:14 Nystatin Powder 15 Gm Bottle TOPICAL 1 appl BID [facility] Administration Protocol Nystatin 400,000 unit 06/12/20 13:00 06/23/20 13:58 Nystatin Oral Susp 500,000 Unit/5 Ml Oral.Susp PO Not Given QID [facility] Protocol Omeprazole 20 mg 06/05/20 06:30 06/23/20 08:12 Omeprazole 20 Mg Capsule. PO 20 mg BID@0630,1630 [facility] Administration Ondansetron HCl 4 mg 06/20/20 10:12 06/23/20 03:44 Ondansetron Odt 4 Mg Tab.Rapdis TRANSLINGU 4 mg Q6H PRN Administration nausea Polyethylene Glycol 17 gm 06/19/20 09:00 06/23/20 08:12 Polyethylene Glycol 3350 17 Gm Powd.Pack PO 17 gm DAILY [facility] Administration Senna 17.2 mg 06/04/20 21:23 Sennosides 8.6 Mg Tablet PO BEDTIME PRN Constipation Sertraline HCl 50 mg 06/08/20 09:00 06/23/20 08:12 Sertraline Hcl 50 Mg Tablet PO 50 mg DAILY [facility] Administration Sodium Chloride 3 ml 06/05/20 00:00 06/23/20 08:15 0.9 % Sodium Chloride Flush 3 Ml Syringe IVFLUSH 3 ml QSHIFT [facility] Administration Labs CBC & Chem 7: 06/21/20 05:56 06/21/20 05:56 Microbiology Microbiology Results: Microbiology 06/04/20 18:07 Blood - Venous Blood Culture - Final No growth after 5 days. 06/04/20 18:06 Blood - Venous Blood Culture - Final No growth after 5 days. 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 Atrial fibrillation with RVR Rate controlled Continue metoprolol to 25 b.i.d. Keep on telemetry Hypomagnesemia Replacement given To keep on p.o. supplement today Resolved, Acute on chronic hypoxic respiratory failure Resolved, secondary to toxic encephalopathy from benzodiazepine overdose/suicide attempt medically cleared, Evaluated by psychiatry team, no need for inpatient psych or sitter at the bedside. Aspiration pneumonia completed treatment Intra-abdominal abscess-Above 4 cm in diameter, adjacent to sigmoid Repeated CT scan 06/20/20 shows interval decrease in size Surgery and ID input appreciated, can be treated with oral antibiotics, continue D6/8 more days po ceftin and flagyl Left lower extremity wound Surgery appreciated, debridement performed 06/16/20, continue local care History of factor 5 laden deficiency/DVT: Eliquis EMERALD on cpap. Mood DIS Continue sertraline , ativan 1 mg prn added small dose -addition ativan 0.5 mg DVT PPX Eliquis
[2020-06-23 16:15] LABS: Glucose, Whole Blood 80 mg/dL (60-115)
[2020-06-23] MEDS: Montelukast Sodium 10 MG TABLET PO (20:07)
[2020-06-23] MEDS: Docusate Sodium 100 MG CAPSULE PO (20:08)
[2020-06-23] MEDS: Melatonin 3 MG TABLET PO (20:08)
[2020-06-23 20:24] LABS: Glucose, Whole Blood 84 mg/dL (60-115)
[2020-06-24] VITALS (14 sets, daily range): BP systolic 68–112; BP diastolic 45–80; PULSE 90–123; RESP 18–24; TEMP 35.9–37.6; O2SAT 91–98
[2020-06-24] MEDS: metroNIDAZOLE 500 MG TABLET PO ×2 (00:31→09:52)
[2020-06-24] MEDS: Lactated Ringers 500 ML 1000 ML IVCONT (02:32)
[2020-06-24 03:28] LABS: MANUAL DIFF FLAG NO
[2020-06-24] MEDS: Midodrine HCl 5 MG TABLET PO (03:41)
[2020-06-24 03:43] LABS: Basophils Absolute Auto 0.1 X10*3/uL (0.0-0.2); Basophils Percent Auto 0.6 % (0-2); Eosinophils Percent Auto 0.3 % (0-4); Hematocrit 32.1 % (37-47); Hemoglobin 9.9 g/dl (12.0-16.0); Imm Gran Abs Auto 0.31 X10*3/uL (0.00-0.03); Imm Gran Pct Auto 2.6 % (0.0-0.4); Lymphocytes Absolute Auto 1.2 X10*3/uL (1.2-4.9); Lymphocytes Percent Auto 10.4 % (20-40); Mean Corpuscular HGB Conc 30.8 g/dl (31.0-35.0); Mean Corpuscular Hemoglobin 26.8 pg (27.0-33.0); Mean Corpuscular Volume 86.8 fL (80-98); Monocytes Percent Auto 8.4 % (2-11); Neutrophils Absolute Auto 9.2 X10*3/uL (2.0-8.3); Neutrophils Percent Auto 77.7 % (45-73); Platelet Count 266 X10*3/uL (160-400); Red Cell Distribution Width 20.2 % (11.0-16.0); White Blood Count 11.9 X10*3/uL (4.8-10.8)
[2020-06-24 03:53] LABS: Lactic Acid 2.2 mmol/L (0.5-2.0)
[2020-06-24 03:55] LABS: Alanine Aminotransferase 14 U/L (0-31); Albumin Level 2.2 g/dL (3.5-5.0); Alkaline Phosphatase 83 U/L (39-117); Anion Gap 18 (12-20); Aspartate Amino Transferase 12 U/L (5-31); Bilirubin Total 0.5 mg/dL (0.0-1.0); Blood Urea Nitrogen 7 mg/dL (9-16); Calcium 8.3 mg/dL (8.4-10.2); Carbon Dioxide 24 mmol/L (22-29); Chloride 95 mmol/L (96-108); Estimated Glomerular Filt Rate 30; Glucose Random 68 mg/dL (60-115); Potassium 2.9 mmol/L (3.3-5.1); Sodium 134 mmol/L (135-145)
[2020-06-24] MEDS: Albumin Human 25 % 50 ML 100 ML IV (03:56)
--- NOTE | 2020-06-24 04:16 | P.EN_ITS ---
Event Note Date of Service: 06/24/20 Event Note: patient is significantly hypertensive, evaluated by ICU, patient w ill be given albumin and extra dose of midodrine, IC reports the patient can be managed on the floor at this time and they will continue to monitor her closely
[2020-06-24] MEDS: Potassium Chloride Packet 20 MEQ PACKET 40 MEQ PO (04:50)
[2020-06-24] MEDS: Omeprazole 20 MG CAPSULE.DR PO ×2 (04:51→16:35)
[2020-06-24] MEDS: Piperacillin Sodium/Tazobactam 3.375 GM in 0.9 % Sodium Chloride 50 ML IV ×4 (05:15→22:56)
[2020-06-24 05:26] LABS: Reflex Lactate? Lactic Acid Added
[2020-06-24] MEDS: Albumin Human 25 % 100 ML IV ×2 (05:48→09:56)
[2020-06-24 07:31] LABS: ~Lactic Acid-LAB USE ONLY 1.8 mmol/L (0.5-2.0)
[2020-06-24 07:37] LABS: Glucose, Whole Blood 88 mg/dL (60-115)
[2020-06-24] MEDS: 0.9 % Sodium Chloride Flush 3 ML SYRINGE IVFLUSH ×3 (09:49→21:08)
[2020-06-24] MEDS: guaiFENesin LA 600 MG TAB.ER.12H 1200 MG PO (09:50)
[2020-06-24] MEDS: Loratadine 10 MG TABLET PO (09:52)
[2020-06-24] MEDS: Apixaban 2.5 MG TABLET PO ×2 (09:52→21:02)
[2020-06-24] MEDS: Ferrous Sulfate 324 MG TABLET.DR PO (09:53)
[2020-06-24] MEDS: Magnesium Oxide 400 MG TABLET PO ×2 (09:53→16:35)
[2020-06-24] MEDS: Midodrine HCl 5 MG TABLET 10 MG PO ×3 (09:53→21:01)
[2020-06-24] MEDS: Sertraline HCL 50 MG TABLET PO (09:54)
[2020-06-24] MEDS: Nystatin Powder 15 GM BOTTLE 1 APPL TOPICAL ×2 (09:54→21:03)
[2020-06-24] MEDS: polyethylene glycoL 3350 17 GM POWD.PACK PO (09:58)
[2020-06-24] MEDS: ondansetron HCL 4 MG/2 ML VIAL IVPUSH (11:16)
[2020-06-24 11:26] LABS: Glucose, Whole Blood 66 mg/dL (60-115)
--- NOTE | 2020-06-24 11:29 | P.PNIM_ITS ---
Subjective Subjective Date of Service: 06/24/20 Interval History: The patient was seen and evaluated this morning Laying in bed, complaining of nausea and decreased appetite with metallic taste in her mouth Blood pressure dropped overnight requiring IV fluid boluses with good response Denies any fever, chills or shortness of breath No reported other overnight events. Systemic review: No fever, chills but reports feeling tired overall No chest pain, palpitation No shortness of breath or coughing No abdominal pain, but complaining of nausea No urinary symptoms No any rash or wounds Physical Exam Vital Signs: Vital Signs: Last Vital Signs Temp 97.2 F 06/24/20 07:51 Pulse 106 H 06/24/20 10:06 Resp 20 06/24/20 07:51 BP 97/47 L 06/24/20 10:06 Pulse Ox 97 06/24/20 07:51 Body Mass Index 44.1 Const: Other: Constitutional : Alert, oriented to self and place, not in distress Neck : Normal inspection, Supple Cardiovascular : RRR, S1 S2, no lower extremity edema Respiratory : Good bilateral air entry, no crackles, wheezes or rhonchi Gastrointestinal: soft, lax, Normal bowel sounds, Non tender Skin : Warm/Dry, multiple wounds, Left anterior thigh - open wound with appears to be an old skin avulsion, about 5 cm x 11 cm covered with dressing Neurological : Alert & oriented to self and place, No focal deficit Objective Data Current Medications Generic Name Dose Route Start Last Admin Trade Name Freq PRN Reason Stop Dose Admin Acetaminophen 650 mg 06/04/20 21:23 Acetaminophen Supp 650 Mg Supp.Rect ND Q6H PRN Pain, Mild (Pain Scale 1-3) Apixaban 2.5 mg 06/09/20 21:00 06/24/20 09:52 Apixaban 2.5 Mg Tablet PO 2.5 mg BID [facility] Administration Calcium Carbonate 750 mg 06/14/20 12:27 06/14/20 18:44 Calcium Carbonate 750 Mg Tab.Chew PO 750 mg Q4H PRN Administration Indigestion Docusate Sodium 100 mg 06/18/20 21:00 06/23/20 20:08 Docusate Sodium 100 Mg Capsule PO 100 mg BEDTIME [facility] Administration Ferrous Sulfate 324 mg 06/05/20 09:00 06/24/20 09:53 Ferrous Sulfate 324 Mg Tablet. PO 324 mg DAILY [facility] Administration Piperacillin Sod/Tazobactam 50 mls @ 100 mls/hr 06/24/20 05:00 06/24/20 05:48 Sod 3.375 gm/ Sodium Chloride IV Infused Q6H [facility]NAM Infusion Insulin Human Lispro 0 unit 06/05/20 07:30 06/24/20 11:29 Insulin Lispro 100 Unit/Ml 3 Ml Vial SUBCUT Not Given QIDACHS [facility] Protocol Loratadine 10 mg 06/05/20 09:00 06/24/20 09:52 Loratadine 10 Mg Tablet PO 10 mg DAILY [facility] Administration Magnesium Oxide 400 mg 06/22/20 17:30 06/24/20 09:53 Magnesium Oxide 400 Mg Tablet PO 400 mg BIDPC [facility] Administration Melatonin 3 mg 06/18/20 21:00 06/23/20 20:08 Melatonin 3 Mg Tablet PO 3 mg BEDTIME [facility] Administration Metoprolol Tartrate 12.5 mg 06/24/20 21:00 Metoprolol Tartrate 25 Mg Tablet PO BID [facility] Protocol Midodrine 10 mg 06/24/20 09:00 06/24/20 09:53 Midodrine Hcl 5 Mg Tablet PO 10 mg TID [facility] Administration Montelukast Sodium 10 mg 06/05/20 21:00 06/23/20 20:07 Montelukast Sodium 10 Mg Tablet PO 10 mg BEDTIME [facility] Administration Nystatin 1 appl 06/12/20 21:00 06/24/20 09:54 Nystatin Powder 15 Gm Bottle TOPICAL 1 appl BID [facility] Administration Protocol Nystatin 400,000 unit 06/12/20 13:00 06/24/20 09:54 Nystatin Oral Susp 500,000 Unit/5 Ml Oral.Susp PO Not Given QID [facility] Protocol Omeprazole 20 mg 06/05/20 06:30 06/24/20 04:51 Omeprazole 20 Mg Capsule.Dr PO 20 mg BID@0630,1630 [facility] Administration Ondansetron HCl 4 mg 06/24/20 10:13 06/24/20 11:16 Ondansetron Hcl 4 Mg/2 Ml Vial IVPUSH 4 mg Q8H PRN Administration Nausea and Vomiting Polyethylene Glycol 17 gm 06/19/20 09:00 06/24/20 09:58 Polyethylene Glycol 3350 17 Gm Powd.Pack PO 17 gm DAILY [facility] Administration Senna 17.2 mg 06/04/20 21:23 Sennosides 8.6 Mg Tablet PO BEDTIME PRN Constipation Sertraline HCl 50 mg 06/08/20 09:00 06/24/20 09:54 Sertraline Hcl 50 Mg Tablet PO 50 mg DAILY [facility] Administration Sodium Chloride 3 ml 06/05/20 00:00 06/24/20 09:49 0.9 % Sodium Chloride Flush 3 Ml Syringe IVFLUSH 3 ml QSHIFT [facility] Administration Labs CBC & Chem 7: 06/24/20 03:16 06/24/20 03:16 Microbiology Microbiology Results: Microbiology 06/04/20 18:07 Blood - Venous Blood Culture - Final No growth after 5 days. 06/04/20 18:06 Blood - Venous Blood Culture - Final No growth after 5 days. 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 Left lung atelectasis CXR Concerning for possible new pneumonia related to aspiration Completed treatment area during the admission for aspiration pneumonia. Change antibiotic to IV Zosyn. Chest physiotherapy Incentive spirometry Nausea, decreased appetite Likely secondary to p.o. Flagyl with reported metallic taste. Hypotension Her blood pressure runs so that baseline, worsened overnight for decreased oral intake Received bolus of fluids Encourage oral intake To use boluses as needed with target systolic of above 90 Atrial fibrillation RvR Rate Increasing again as metoprolol was held for low blood pressure th Decrease metoprolol to 12.5 b.i.d. to give Mg sulphate Get cardiology eval Keep on telemetry Hypomagnesemia Replacement given To keep on p.o. supplement today Resolved, Acute on chronic hypoxic respiratory failure Resolved, secondary to toxic encephalopathy from benzodiazepine overdose/suicide attempt medically cleared, Evaluated by psychiatry team, no need for inpatient psych or sitter at the bedside. Intra-abdominal abscess-Above 4 cm in diameter, adjacent to sigmoid Repeated CT scan 06/20/20 shows interval decrease in size Surgery and ID input appreciated, can be treated with oral antibiotics, continue D6/8 more days po ceftin and flagyl Left lower extremity wound Surgery appreciated, debridement performed 06/16/20, continue local care History of factor 5 laden deficiency/DVT: Eliquamy EMERALD on cpap. Mood DIS Continue sertraline , ativan 1 mg prn added small dose -addition ativan 0.5 mg DVT PPX Eliquis
[2020-06-24] MEDS: 0.9 % Sodium Chloride 1,000 ML 999 ML IV (12:40)
[2020-06-24] MEDS: Magnesium Sulfate/H2O 2 GM/50 ML PIGGYBACK IV (12:40)
[2020-06-24 16:17] LABS: Glucose, Whole Blood 83 mg/dL (60-115)
--- NOTE | 2020-06-24 18:02 | PC.NURSE ---
Patient having nausea and vomiting this AM, IV zofran ordered and administered. Repeat CT abd/pelv and chest x-ray completed. Metoprolol held this AM per hospitalist due to low BP's. Patient continues to have poor PO intake, only taking sips of drinks, refusing food. BP's in the 80s around noon; 1000 mL NS bolus given with good effect, BP back in the mid 90s. Maintainence fluids, 20 mEq of KCl in NS, added. Dressing to left hematoma changed; irrigated with NS, xerform applied, and wrapped with kerlix. No urine output this shift, bladder scan approx 240 mL, hospitalist notified, U/A still pending.
[2020-06-24] MEDS: Metoprolol Tartrate 25 MG TABLET 12.5 MG PO (21:01)
[2020-06-24] MEDS: Melatonin 3 MG TABLET PO (21:02)
[2020-06-24] MEDS: Docusate Sodium 100 MG CAPSULE PO (21:02)
[2020-06-24] MEDS: Montelukast Sodium 10 MG TABLET PO (21:03)
[2020-06-24] MEDS: Nystatin Cream 15 GM TUBE 1 APPL TOPICAL (21:48)
[2020-06-24 22:49] LABS: Glucose, Whole Blood 70 mg/dL (60-115)
[2020-06-25] VITALS (9 sets, daily range): BP systolic 85–130; BP diastolic 53–86; PULSE 77–137; RESP 16–25; TEMP 36.2–36.9; O2SAT 94–98
--- NOTE | 2020-06-25 01:01 | PC.NURSE ---
Pt noted to have worsening open areas on bilateral buttocks. Right buttock wound appears deeper with newly necrotic areas. [employer] made aware. New pictures taken to show progression. Air loss mattress added. Heel boots on. Pt to be repo'd Q1H. Pt also bladder scanned for 222 mls. made aware. Order to continue checking urine output and re-scan again later. Pt incontinent of BM. Requesting to not wear BiPAP tonight. Wearing 2L O2 n/c. VSS. Pt presenting with generalized 3-4+ pitting edema. Pt refusing to remove watch on right wrist. Positioned to left side. Will continue to monitor and re-assess.
[2020-06-25] MEDS: Piperacillin Sodium/Tazobactam 3.375 GM in 0.9 % Sodium Chloride 50 ML IV ×2 (05:07→11:04)
[2020-06-25] MEDS: Omeprazole 20 MG CAPSULE.DR PO (06:18)
[2020-06-25 06:23] LABS: Glucose Urine UA NEG (NEG); Leukocyte Esterase Urine NEG (NEG); Nitrite Urine POS (NEG); UACC Culture Trigger YES; Urine Blood NEG (NEG); Urine Ketones NEG (NEG); Urine Protein 1+ MG/DL (NEG-TRACE)
[2020-06-25 06:28] LABS: Appearance Urine CLEAR; Color Urine BROWN
[2020-06-25 06:32] LABS: Creatinine Urine 112.11 mg/dL
[2020-06-25 06:50] LABS: Amorphous Sediment Urine 3+ /LPF; Mucus Urine TRACE /LPF; RBC Urine 0 /HPF (0); Squamous Epithelial Cell Urine TRACE /LPF; WBC Clumps Urine NOTED
[2020-06-25 07:18] LABS: Glucose, Whole Blood 55 mg/dL (60-115)
[2020-06-25 07:40] LABS: Anion Gap 17 (12-20); Blood Urea Nitrogen 8 mg/dL (9-16); Carbon Dioxide 22 mmol/L (22-29); Chloride 101 mmol/L (96-108); Creatinine Clr Calc Pharmacy 24.1; Estimated Glomerular Filt Rate 21; Glucose Random 59 mg/dL (60-115); Potassium 3.4 mmol/L (3.3-5.1); Sodium 137 mmol/L (135-145)
[2020-06-25] MEDS: Glucose Gel 15 GM GEL..GRAM. PO (07:43)
[2020-06-25 07:48] LABS: Glucose, Whole Blood 60 mg/dL (60-115)
--- NOTE | 2020-06-25 09:12 | PM.PNNEP ---
Subjective Subjective Date of Service: 06/25/20 Physical Exam Vital Signs: Vital Signs: Last Vital Signs Temp 97.2 F 06/25/20 07:43 Pulse 85 06/25/20 07:43 Resp 20 06/25/20 07:43 BP 88/56 L 06/25/20 07:43 Pulse Ox 96 06/25/20 07:43 Body Mass Index 44.1 Objective Data Labs CBC & Chem 7: 06/24/20 03:16 06/25/20 06:19 Labs: Laboratory Results - last 24 hr 06/24/20 06/24/20 06/24/20 11:21 16:12 22:46 Sodium Potassium Chloride Carbon Dioxide Anion Gap BUN Creatinine Estim Creat Clear Calc Estimated GFR POC Glucose 66 83 70 Random Glucose Calcium Urine Color Urine Appearance Urine pH Ur Specific [place] Urine Protein Urine Glucose (UA) Urine Ketones Urine Blood Urine Nitrite Ur Leukocyte Esterase Urine RBC Urine WBC Urine WBC Clumps Ur Squamous Epith Cells Amorphous Sediment Urine Bacteria Urine Mucus Urine Yeast Ur Random Sodium Urine Creatinine 06/25/20 06/25/20 06/25/20 05:44 05:44 06:19 Sodium 137 Potassium 3.4 Chloride 101 Carbon Dioxide 22 Anion Gap 17 BUN 8 L Creatinine 2.26 H Estim Creat Clear Calc 24.1 Estimated GFR 21 POC Glucose Random Glucose 59 L* Calcium 8.0 L Urine Color BROWN Urine Appearance CLEAR Urine pH 5.0 Ur Specific [place] 1.020 Urine Protein 1+ H Urine Glucose (UA) NEG Urine Ketones NEG Urine Blood NEG Urine Nitrite POS H Ur Leukocyte Esterase NEG Urine RBC 0 Urine WBC 1-4 Urine WBC Clumps NOTED Ur Squamous Epith Cells TRACE Amorphous Sediment 3+ Urine Bacteria NONE Urine Mucus TRACE Urine Yeast TRACE Ur Random Sodium 27.0 Urine Creatinine 112.11 06/25/20 06/25/20 07:14 07:36 Sodium Potassium Chloride Carbon Dioxide Anion Gap BUN Creatinine Estim Creat Clear Calc Estimated GFR POC Glucose 55 L* 60 Random Glucose Calcium Urine Color Urine Appearance Urine pH Ur Specific [place] Urine Protein Urine Glucose (UA) Urine Ketones Urine Blood Urine Nitrite Ur Leukocyte Esterase Urine RBC Urine WBC Urine WBC Clumps Ur Squamous Epith Cells Amorphous Sediment Urine Bacteria Urine Mucus Urine Yeast Ur Random Sodium Urine Creatinine Microbiology Microbiology Results: Microbiology 06/24/20 06:22 Blood - Venous Blood Culture - Preliminary No growth after 24 hours. 06/24/20 06:27 Blood - Venous Blood Culture - Preliminary No growth after 24 hours. 06/04/20 18:07 Blood - Venous Blood Culture - Final No growth after 5 days. 06/04/20 18:06 Blood - Venous Blood Culture - Final No growth after 5 days. Assessment & Plan Assessment and plan (1) KATIE (acute kidney injury): Problem details: DDx; Hypoperfusion from hypotension Probably progressed to ischemic ATN No obstruction by CT scan Urine sediments bland Disproportionate increase in Creatinine ( r/o Rhabdo, check Vanco levels) Suggest Keep I > O and SBP > 100 no indication for dialysis Dictated Thanks Status: Acute Time Spent With Patient Time: Total time spent is greater than 50% in coordination of care (as documented) at patient's floor/unit and/or counseling patient:
[2020-06-25] MEDS: Hydrocortisone Sod Succ/PF 100 MG VIAL IVPUSH (09:16)
[2020-06-25] MEDS: 0.9 % Sodium Chloride Flush 3 ML SYRINGE IVFLUSH ×3 (09:16→21:24)
[2020-06-25] MEDS: Albumin Human 25 % 100 ML IV (09:17)
--- NOTE | 2020-06-25 11:00 | P.CONCA_ITS ---
History of Present Illness History of Present Illness Date of Service: 06/25/20 Consult reason: atrial fibrillation Chief complaint: Overdose Narrative: We have been asked to see this patient with regard to atrial fibrillation. Patient herself is not able to give any history of so ever. She has been in the hospital for many weeks because of overdose attempt. Apparently few days ago she had atrial fibrillation and hence we have been asked to see her. There is no mention of atrial fibrillation or any specific cardiac issues in her prior history. At the time of admission, H and P it documented that because of depression, she took several tablets of Ativan and hence she was in altered mental status and admitted to the hospital. She has been here for a few weeks now. Review of Systems Review of Systems: Yes Unobtainable due to mental status PMFSH Past Medical History Medical History (Updated 06/25/20 @ 11:05 by Alfred Jeong MD) Blood clot in vein COPD (chronic obstructive pulmonary disease) Diabetes Epistaxis Factor 5 Leiden mutation, heterozygous FH: total knee replacement GERD (gastroesophageal reflux disease) Heart failure Hematoma Intra-abdominal abscess EMERALD (obstructive sleep apnea) Family History Family history: reviewed and not pertinent Surgical History Surgical History History of bronchoscopy History of cholecystectomy Hx of tonsillectomy Social History Social History Household Members: Other Household Members Other:: [facility] Housing: Assisted Living Facility Housing Other:: [facility] Do you presently have visiting nurse or other home services: Yes Unable to assess alcohol history related to: Unable to respond, Unknown and Refusing to respond Alcohol intake: unknown Smoking Status: Unknown if ever smoked Second Hand Smoke Exposure: No Use of substances other than those prescribed or required for medical reasons: Unknown Currently Displaying Signs/Symptoms of Drug Intoxication Withdrawal: No Advance Directives: Yes Advance Directives on File: Yes Advance Directives Date on File: 05/18/20 Do you have thoughts of harming others: None Do you have a plan to hurt others: No Plan Recently lost weight without trying: Unsure service: No Current occupational status: retired Meds Allergies Allergy/AdvReac Type Severity Reaction Status Date / Time Sulfa (Sulfonamide Allergy Intermediate SWELLING Verified 05/27/20 20:09 Antibiotics) [Sulfa (Sulfonamides)] alendronate sodium [Fosamax] Allergy Unknown Unknown Verified 05/27/20 20:09 azithromycin [Zithromax] Allergy Unknown Unknown Verified 05/27/20 20:09 cefepime Allergy Unknown Unknown Verified 05/27/20 20:09 levofloxacin Allergy Unknown Unknown Verified 05/27/20 20:09 umeclidinium [Anoro Ellipta] Allergy Unknown Unknown Verified 05/27/20 20:09 vilanterol [Anoro Ellipta] Allergy Unknown Unknown Verified 05/27/20 20:09 vancomycin AdvReac Severe thrombocyto Verified 06/06/20 17:13 penia ADHESIVE TAPE Allergy Unknown Unknown Uncoded 05/27/20 20:09 Sucralfate Allergy Unknown Unknown Uncoded 05/27/20 20:09 Sulfamethoxazole Allergy Unknown Unknown Uncoded 05/27/20 20:09 Active Medications: Current Medications Generic Name Dose Route Start Last Admin Trade Name Freq PRN Reason Stop Dose Admin Acetaminophen 650 mg 06/04/20 21:23 Acetaminophen Supp 650 Mg Supp.Rect ND Q6H PRN Pain, Mild (Pain Scale 1-3) Apixaban 2.5 mg 06/09/20 21:00 06/25/20 09:48 Apixaban 2.5 Mg Tablet PO Not Given BID SATNAM Calcium Carbonate 750 mg 06/14/20 12:27 06/14/20 18:44 Calcium Carbonate 750 Mg Tab.Chew PO 750 mg Q4H PRN Administration Indigestion Docusate Sodium 100 mg 06/18/20 21:00 06/24/20 21:02 Docusate Sodium 100 Mg Capsule PO 100 mg BEDTIME SATNAM Administration Ferrous Sulfate 324 mg 06/05/20 09:00 06/25/20 09:48 Ferrous Sulfate 324 Mg Tablet.Dr PO Not Given DAILY SATNAM Hydrocortisone Sodium Succinate 100 mg 06/25/20 08:30 06/25/20 09:16 Hydrocortisone Sod Succ/Pf 100 Mg Vial IVPUSH 100 mg Q6H SATNAM Administration Piperacillin Sod/Tazobactam 50 mls @ 100 mls/hr 06/24/20 05:00 06/25/20 05:45 Sod 3.375 gm/ Sodium Chloride IV Infused Q6H SATNAM Infusion Albumin Human 100 mls @ 100 mls/hr 06/25/20 08:30 06/25/20 10:22 Kedbumin 25 % IV 04/12/21 03:29 Infused Q6H [facility] Infusion Insulin Human Lispro 0 unit 06/05/20 07:30 06/25/20 07:23 Insulin Lispro 100 Unit/Ml 3 Ml Vial SUBCUT Not Given QIDACHS [facility] Protocol Magnesium Oxide 400 mg 06/22/20 17:30 06/25/20 09:48 Magnesium Oxide 400 Mg Tablet PO Not Given BIDPC [facility] Melatonin 3 mg 06/18/20 21:00 06/24/20 21:02 Melatonin 3 Mg Tablet PO 3 mg BEDTIME [facility] Administration Metoprolol Tartrate 12.5 mg 06/24/20 21:00 06/25/20 09:48 Metoprolol Tartrate 25 Mg Tablet PO Not Given BID [facility] Protocol Midodrine 10 mg 06/24/20 09:00 06/25/20 09:48 Midodrine Hcl 5 Mg Tablet PO Not Given TID [facility] Montelukast Sodium 10 mg 06/05/20 21:00 06/24/20 21:03 Montelukast Sodium 10 Mg Tablet PO 10 mg BEDTIME [facility] Administration Nystatin 1 appl 06/12/20 21:00 06/25/20 09:49 Nystatin Powder 15 Gm Bottle TOPICAL Not Given BID [facility] Protocol Nystatin 400,000 unit 06/12/20 13:00 06/25/20 09:48 Nystatin Oral Susp 500,000 Unit/5 Ml Oral.Susp PO Not Given QID [facility] Protocol Nystatin 1 appl 06/24/20 21:00 06/25/20 09:48 Nystatin Cream 15 Gm Tube TOPICAL Not Given BID [facility] Protocol Omeprazole 20 mg 06/05/20 06:30 06/25/20 06:18 Omeprazole 20 Mg Capsule.Dr PO 20 mg BID@0630,1630 [facility] Administration Ondansetron HCl 4 mg 06/24/20 10:13 06/24/20 11:16 Ondansetron Hcl 4 Mg/2 Ml Vial IVPUSH 4 mg Q8H PRN Administration Nausea and Vomiting Polyethylene Glycol 17 gm 06/19/20 09:00 06/25/20 09:49 Polyethylene Glycol 3350 17 Gm Powd.Pack PO Not Given DAILY [facility] Senna 17.2 mg 06/04/20 21:23 Sennosides 8.6 Mg Tablet PO BEDTIME PRN Constipation Sertraline HCl 50 mg 06/08/20 09:00 06/25/20 09:49 Sertraline Hcl 50 Mg Tablet PO Not Given DAILY [facility] Sodium Chloride 3 ml 06/05/20 00:00 06/25/20 09:16 0.9 % Sodium Chloride Flush 3 Ml Syringe IVFLUSH 3 ml QSHIFT [facility] Administration Home Medications Medication Instructions Recorded Confirmed Last Taken Type Eliquis 2.5 mg PO BID 05/18/20 06/04/20 05/22/20 History Flovent HFA 2 puff INHALATION BID 05/18/20 06/04/20 05/22/20 History furosemide 40 mg PO DAILY 05/18/20 06/04/20 05/22/20 History metoprolol tartrate 12.5 mg PO BID 05/18/20 06/04/20 05/22/20 History montelukast 10 mg PO BEDTIME 05/18/20 06/04/20 05/21/20 History pantoprazole 40 mg PO BID 05/18/20 06/04/20 05/22/20 History pioglitazone 15 mg PO DAILY 05/18/20 06/04/20 05/22/20 History calcium carbonate-vitamin D2 1 tab PO DAILY 06/04/20 06/04/20 Unknown History cholecalciferol (vitamin D3) 25 mcg PO DAILY 06/04/20 06/04/20 Unknown History [Vitamin D3] glucosamine sulfate 750 mg PO DAILY 06/04/20 06/04/20 Unknown History insulin lispro [Humalog U-100 1 sliding scale dose SUBCUT 06/04/20 06/04/20 Unknown History Insulin] USEASDIRECTD loratadine [Claritin] 10 mg PO DAILY 06/04/20 06/04/20 Unknown History Physical Exam Vital Signs: Vital Signs: Last Vital Signs Temp 97.2 F 06/25/20 07:43 Pulse 85 06/25/20 09:48 Resp 21 H 06/25/20 09:54 BP 88/56 L 06/25/20 09:48 Pulse Ox 96 06/25/20 07:43 Body Mass Index 44.1 Const: General: cooperative, comfortable and no acute distress Orienta tion/consciousness: patient oriented x3 HENMT: Other: Unremarkable Neck: Neck: Yes normal visual inspection Chest: Chest palpation & inspection: normal inspection of the chest Resp: Auscultation: diminished lung sounds Cardio: Jugular venous distension: no JVD Palpation: normal PMI Heart sounds: S1 normal heart sound present, S2 normal heart sound present, no gallops, no murmurs and no rubs GI: Palpation (GI): Soft to palpation Back/Spine/Pelvis: Other: unremarkable Skin: General skin exam: no rashes or lesions noted Neuro: General: patient oriented x3 Psych: Mental Status: mental status grossly normal Results Labs and Meds Result diagrams: 06/24/20 03:16 06/25/20 06:19 Lab results: Laboratory Results - last 24 hr 06/24/20 06/24/20 06/24/20 11:21 16:12 22:46 Sodium Potassium Chloride Carbon Dioxide Anion Gap BUN Creatinine Estim Creat Clear Calc Estimated GFR POC Glucose 66 83 70 Random Glucose Calcium Total Creatine Kinase Urine Color Urine Appearance Urine pH Ur Specific [place] Urine Protein Urine Glucose (UA) Urine Ketones Urine Blood Urine Nitrite Ur Leukocyte Esterase Urine RBC Urine WBC Urine WBC Clumps Ur Squamous Epith Cells Amorphous Sediment Urine Bacteria Urine Mucus Urine Yeast Ur Random Sodium Urine Creatinine 06/25/20 06/25/20 06/25/20 05:44 05:44 06:19 Sodium 137 Potassium 3.4 Chloride 101 Carbon Dioxide 22 Anion Gap 17 BUN 8 L Creatinine 2.26 H Estim Creat Clear Calc 24.1 Estimated GFR 21 POC Glucose Random Glucose 59 L* Calcium 8.0 L Total Creatine Kinase 65 Urine Color BROWN Urine Appearance CLEAR Urine pH 5.0 Ur Specific [place] 1.020 Urine Protein 1+ H Urine Glucose (UA) NEG Urine Ketones NEG Urine Blood NEG Urine Nitrite POS H Ur Leukocyte Esterase NEG Urine RBC 0 Urine WBC 1-4 Urine WBC Clumps NOTED Ur Squamous Epith Cells TRACE Amorphous Sediment 3+ Urine Bacteria NONE Urine Mucus TRACE Urine Yeast TRACE Ur Random Sodium 27.0 Urine Creatinine 112.11 06/25/20 06/25/20 07:14 07:36 Sodium Potassium Chloride Carbon Dioxide Anion Gap BUN Creatinine Estim Creat Clear Calc Estimated GFR POC Glucose 55 L* 60 Random Glucose Calcium Total Creatine Kinase Urine Color Urine Appearance Urine pH Ur Specific [place] Urine Protein Urine Glucose (UA) Urine Ketones Urine Blood Urine Nitrite Ur Leukocyte Esterase Urine RBC Urine WBC Urine WBC Clumps Ur Squamous Epith Cells Amorphous Sediment Urine Bacteria Urine Mucus Urine Yeast Ur Random Sodium Urine Creatinine ECG Attestation: I personally reviewed and interpreted this ECG as follows: Interpretation: EKG from last week with probably atrial fibrillation with rapid rate at 157 per but there is a lot of baseline artifact. Prior to that she was in sinus rhythm. In the last 4-5 days, she has essentially been having so much artifact on telemetry that it is hard to say what the underlying rhythm is but likely sinus rhythm. Assessment and Plan (1) Atrial fibrillation with rapid ventricular response: Status: Acute (2) Overdose of benzodiazepine: Qualifiers: Encounter type: initial encounter Injury intent: undetermined intent Qualified Code(s): T42.4X4A - Poisoning by benzodiazepines, undetermined, initial encounter Status: Acute (3) Suicidal ideation: Status: Acute Multiple medical comorbidities, admitted with benzodiazepine overdose, toxic metabolic encephalopathy. Due to artifact difficult to say what the underlying rhythm is but likely to be sinus. One episode of atrial fibrillation about 5 days ago but not prolonged. May use low-dose beta-blockers as tolerated by her blood pressure. If that is not feasible, may consider amiodarone. With regard to anticoagulation, Eliquis dose for her should be 5 mg b.i.d.. Unremarkable troponins earlier in the hospital stay. Otherwise on d iscussion with hospitalist, goals of care to be decided. Echocardiogram-05/2020 Conclusions: - The left ventricular systolic function is hyperdynamic. The visually estimated ejection fraction is between 65-70%. - Abnormal diastolic function is noted. Spectral Doppler is indicative of an impaired relaxation filling pattern. Elevated filling pressures. - Normal right ventricular cavity size and systolic function. - The inferior vena cava is normal in size and collapses greater than 50% with inspiration
[2020-06-25] MEDS: Morphine Sulfate 2 MG/ML CARTRIDGE 1 MG IVPUSH (11:04)
[2020-06-25 11:13] LABS: Glucose, Whole Blood 92 mg/dL (60-115)
[2020-06-25] MEDS: 0.9 % Sodium Chloride 1,000 ML 999 ML IV (12:18)
--- NOTE | 2020-06-25 14:15 | W.MHC.ACPN ---
Advanced Care Planning Note Advanced Care Planning Note Discussed with: patient and family member(s) Time spent (in minutes): 25 Narrative: I had a chance to meet with the patient this morning to discuss her current hospital stay, ongoing medical problems and goals of care. The patient this morning was refusing daycare home oral medications. Has been sick over the last few days with persistent hypotension regardless of IV fluid and medications that were given to her. She is not tolerating diet and refusing to eat. Upon discussion she mentioned that she seek fall of this and she does not thing she wants to live anymore. She is not suicidal and she seemed reasonable during the discussion that her general condition has been deteriorating over the last few years and reach to the point were she does not thing there is recovery from this. We discussed comfort measures and seems to be agreeable to that. I discussed this with both care proxy and daughter Kylie fernandez on spoke to the rest of the family about about discussion. I met with her at the bedside around noon today and we discussed comfort measure as the family seems to be agreeable as a next step. 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 Most of her home medications were discontinued and will focus more on comfort measures at this point. Problems Discussed (1) Hypotension: (2) Failure to thrive:
--- NOTE | 2020-06-25 14:19 | P.PNIM_ITS ---
Subjective Subjective Date of Service: 06/25/20 Interval History: Comfort measures only Physical Exam Vital Signs: Vital Signs: Last Vital Signs Temp 97.3 F 06/25/20 11:34 Pulse 85 06/25/20 11:34 Resp 22 H 06/25/20 11:34 BP 88/56 L 06/25/20 09:48 Pulse Ox 95 06/25/20 11:34 Body Mass Index 44.1 Const: Other: Comfort measures only Objective Data Current Medications Generic Name Dose Route Start Last Admin Trade Name Freq PRN Reason Stop Dose Admin Acetaminophen 650 mg 06/04/20 21:23 Acetaminophen Supp 650 Mg Supp.Rect [place] Q6H PRN Pain, Mild (Pain Scale 1-3) Apixaban 2.5 mg 06/09/20 21:00 06/25/20 09:48 Apixaban 2.5 Mg Tablet PO Not Given BID [facility] Lorazepam 1 mg 06/25/20 13:35 Lorazepam 2 Mg/Ml Vial IVPUSH Q4H PRN anxiety/restlessness Morphine Sulfate 5 mg 06/25/20 13:35 Morphine Sulfate Oral Destiny 10 Mg/5 Ml Solution SUBLINGUAL Q4H PRN Shortness of Breath/Wheezing Morphine Sulfate 2 mg 06/25/20 13:35 Morphine Sulfate 2 Mg/Ml Cartridge IVPUSH Q3H PRN Pain, Severe (Pain Scale 7-10) Nystatin 1 appl 06/12/20 21:00 06/25/20 09:49 Nystatin Powder 15 Gm Bottle TOPICAL Not Given BID [facility] Protocol Nystatin 400,000 unit 06/12/20 13:00 06/25/20 13:29 Nystatin Oral Susp 500,000 Unit/5 Ml Oral.Susp PO Not Given QID [facility] Protocol Nystatin 1 appl 06/24/20 21:00 06/25/20 09:48 Nystatin Cream 15 Gm Tube TOPICAL Not Given BID [facility] Protocol Ondansetron HCl 4 mg 06/24/20 10:13 06/24/20 11:16 Ondansetron Hcl 4 Mg/2 Ml Vial IVPUSH 4 mg Q8H PRN Administration Nausea and Vomiting Polyethylene Glycol 17 gm 06/19/20 09:00 06/25/20 09:49 Polyethylene Glycol 3350 17 Gm Powd.Pack PO Not Given DAILY [facility] Senna 17.2 mg 06/04/20 21:23 Sennosides 8.6 Mg Tablet PO BEDTIME PRN Constipation Sodium Chloride 3 ml 06/05/20 00:00 06/25/20 09:16 0.9 % Sodium Chloride Flush 3 Ml Syringe IVFLUSH 3 ml QSHIFT [facility] Administration Labs CBC & Chem 7: 06/24/20 03:16 06/25/20 06:19 Microbiology Microbiology Results: Microbiology 06/24/20 06:22 Blood - Venous Blood Culture - Preliminary No growth after 24 hours. 06/24/20 06:27 Blood - Venous Blood Culture - Preliminary No growth after 24 hours. 06/04/20 18:07 Blood - Venous Blood Culture - Final No growth after 5 days. 06/04/20 18:06 Blood - Venous Blood Culture - Final No growth after 5 days. 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 The patient was treated in the hospital but her general condition continue to deteriorate as she developed acute kidney injury over the last few days and decided to go for comfort measures. Acute kidney injury Persistent hypotension Comfort measures only Discontinue blood work, vitals and glucose check Morphine p.r.n. for pain and shortness of breath Ativan as needed Atropine drops for comfort Support was offered to the family
[2020-06-25] MEDS: Nystatin Cream 15 GM TUBE 1 APPL TOPICAL (21:23)
[2020-06-25] MEDS: Nystatin Powder 15 GM BOTTLE 1 APPL TOPICAL (21:24)
[2020-06-25] MEDS: Apixaban 2.5 MG TABLET PO (21:27)
[2020-06-26 00:08] VITALS: PULSE 69; RESP 20; O2SAT 97
[2020-06-26 04:36] VITALS: PULSE 76; RESP 17; O2SAT 97
--- NOTE | 2020-06-26 10:07 | MHC.SLORD ---
Speech Language Pathology Order Status: Order for re-evaluation was received on 06/24/20. 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 Per MD, order for speech consult was canceled.
[2020-06-26] MEDS: Morphine Sulfate 2 MG/ML CARTRIDGE IVPUSH ×3 (10:15→21:12)
[2020-06-26] MEDS: 0.9 % Sodium Chloride Flush 3 ML SYRINGE IVFLUSH ×2 (10:23→15:02)
[2020-06-26] MEDS: Nystatin Cream 15 GM TUBE 1 APPL TOPICAL ×2 (10:23→21:11)
[2020-06-26] MEDS: Nystatin Powder 15 GM BOTTLE 1 APPL TOPICAL ×2 (10:24→21:11)
--- NOTE | 2020-06-26 10:31 | MHC.CM.PN ---
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 CM will follow for possible need to adjust the dc plan.
[2020-06-26] MEDS: LORazepam 2 MG/ML VIAL 1 MG IVPUSH (12:06)
--- NOTE | 2020-06-26 12:44 | MHC.CLN ---
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
--- NOTE | 2020-06-26 14:24 | P.PNIM_ITS ---
Subjective Subjective Date of Service: 06/26/20 Interval History: Comfort measures only Physical Exam Vital Signs: Vital Signs: Last Vital Signs Temp 97.3 F 06/25/20 11:34 Pulse 85 06/25/20 11:34 Resp 17 06/26/20 04:36 BP 88/56 L 06/25/20 09:48 Pulse Ox 95 06/25/20 11:34 Body Mass Index 44.1 Const: Other: Comfort measures only Objective Data Current Medications Generic Name Dose Route Start Last Admin Trade Name Freq PRN Reason Stop Dose Admin Acetaminophen 650 mg 06/04/20 21:23 Acetaminophen Supp 650 Mg Supp.Rect [place] Q6H PRN Pain, Mild (Pain Scale 1-3) Apixaban 2.5 mg 06/09/20 21:00 06/26/20 10:22 Apixaban 2.5 Mg Tablet PO Not Given BID SATNAM Atropine Sulfate 2 drop 06/25/20 14:22 Atropine Sulfate 1 % Ophth Destiny 2 Ml Bottle SUBLINGUAL Q4H PRN Secretions Lorazepam 1 mg 06/25/20 13:35 06/26/20 12:06 Lorazepam 2 Mg/Ml Vial IVPUSH 1 mg Q4H PRN Administration anxiety/restlessness Morphine Sulfate 5 mg 06/25/20 13:35 Morphine Sulfate Oral Destiny 10 Mg/5 Ml Solution SUBLINGUAL Q4H PRN Shortness of Breath/Wheezing Morphine Sulfate 2 mg 06/25/20 13:35 06/26/20 10:15 Morphine Sulfate 2 Mg/Ml Cartridge IVPUSH 2 mg Q3H PRN Administration Pain, Severe (Pain Scale 7-10) Nystatin 1 appl 06/12/20 21:00 06/26/20 10:24 Nystatin Powder 15 Gm Bottle TOPICAL 1 appl BID [facility] Administration Protocol Nystatin 400,000 unit 06/12/20 13:00 06/26/20 11:55 Nystatin Oral Susp 500,000 Unit/5 Ml Oral.Susp PO Not Given QID [facility] Protocol Nystatin 1 appl 06/24/20 21:00 06/26/20 10:23 Nystatin Cream 15 Gm Tube TOPICAL 1 appl BID [facility] Administration Protocol Ondansetron HCl 4 mg 06/24/20 10:13 06/24/20 11:16 Ondansetron Hcl 4 Mg/2 Ml Vial IVPUSH 4 mg Q8H PRN Administration Nausea and Vomiting Polyethylene Glycol 17 gm 06/19/20 09:00 06/26/20 10:24 Polyethylene Glycol 3350 17 Gm Powd.Pack PO Not Given DAILY [facility] Senna 17.2 mg 06/04/20 21:23 Sennosides 8.6 Mg Tablet PO BEDTIME PRN Constipation Sodium Chloride 3 ml 06/05/20 00:00 06/26/20 10:23 0.9 % Sodium Chloride Flush 3 Ml Syringe IVFLUSH 3 ml QSHIFT [facility] Administration Labs CBC & Chem 7: 06/24/20 03:16 06/25/20 06:19 Microbiology Microbiology Results: Microbiology 06/25/20 00:00 Urine clean catch - Clean Catch Midstream Urine Culture - Final No growth. 06/24/20 06:27 Blood - Venous Blood Culture - Preliminary No growth after 48 hours. 06/24/20 06:22 Blood - Venous Blood Culture - Preliminary No growth after 48 hours. 06/04/20 18:07 Blood - Venous Blood Culture - Final No growth after 5 days. 06/04/20 18:06 Blood - Venous Blood Culture - Final No growth after 5 days. 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 The patient was treated in the hospital but her general condition continue to deteriorate as she developed acute kidney injury over the last few days and decided to go for comfort measures. Acute kidney injury Persistent hypotension Comfort measures only Discontinue blood work, vitals and glucose check Morphine p.r.n. for pain and shortness of breath Ativan as needed Atropine drops for comfort
--- NOTE | 2020-06-26 15:09 | PC.NURSE ---
1400 generalized anasarca to extremities. sleeping most of day. opens eyes and asks for morphine for pain. Family in to visit earlier. Has Bipap on. refusing to remove it to apply cannula. States it is comfortable. Will notify MD to clarify 02 orders.
[2020-06-26 15:25] VITALS: PULSE 75; RESP 28; O2SAT 96
[2020-06-26 19:47] VITALS: BP 175/69; PULSE 106; RESP 20; TEMP 36.1; O2SAT 97
[2020-06-26] MEDS: Apixaban 2.5 MG TABLET PO (21:11)
[2020-06-27 00:40] VITALS: PULSE 69; RESP 22; O2SAT 95
[2020-06-27] MEDS: 0.9 % Sodium Chloride Flush 3 ML SYRINGE IVFLUSH ×3 (01:07→16:19)
--- NOTE | 2020-06-27 10:02 | MHC.CM.PN ---
CM spoke with Daughter/HCP/Kylie at [phone] regarding dc planning.Per Kylie's request, CM has put in a referral to [facility], and Hospice will meet at bedside with Patient and Kylie today at 11 AM.This was done with MD approval/request.
--- NOTE | 2020-06-27 11:54 | MHC.CM.PN ---
Patient's Daughter/HCP/Kylie has chosen to appeal dc. Original IMM and a copy of the Detailed Notice of DC have been given to Kylie and CM Management and MD have been notified. CM will continue to follow for dc planning.
--- NOTE | 2020-06-27 12:34 | P.PNIM_ITS ---
Subjective Subjective Date of Service: 06/27/20 Interval History: Comfort measures only Physical Exam Vital Signs: Vital Signs: Last Vital Signs Temp 97 F 06/26/20 19:47 Pulse 106 H 06/26/20 19:47 Resp 22 H 06/27/20 00:40 BP 175/69 H 06/26/20 19:47 Pulse Ox 97 06/26/20 19:47 Body Mass Index 44.1 Const: Other: Comfort measures only Objective Data Current Medications Generic Name Dose Route Start Last Admin Trade Name Freq PRN Reason Stop Dose Admin Acetaminophen 650 mg 06/04/20 21:23 Acetaminophen Supp 650 Mg Supp.Rect MI Q6H PRN Pain, Mild (Pain Scale 1-3) Apixaban 2.5 mg 06/09/20 21:00 06/27/20 07:42 Apixaban 2.5 Mg Tablet PO Not Given BID [facility] Atropine Sulfate 2 drop 06/25/20 14:22 Atropine Sulfate 1 % Ophth Destiny 2 Ml Bottle SUBLINGUAL Q4H PRN Secretions Lorazepam 1 mg 06/25/20 13:35 06/26/20 12:06 Lorazepam 2 Mg/Ml Vial IVPUSH 1 mg Q4H PRN Administration anxiety/restlessness Morphine Sulfate 5 mg 06/25/20 13:35 Morphine Sulfate Oral Destiny 10 Mg/5 Ml Solution SUBLINGUAL Q4H PRN Shortness of Breath/Wheezing Morphine Sulfate 2 mg 06/25/20 13:35 06/26/20 21:12 Morphine Sulfate 2 Mg/Ml Cartridge IVPUSH 2 mg Q3H PRN Administration Pain, Severe (Pain Scale 7-10) Nystatin 1 appl 06/12/20 21:00 06/27/20 07:56 Nystatin Powder 15 Gm Bottle TOPICAL Not Given BID [facility] Protocol Nystatin 400,000 unit 06/12/20 13:00 06/27/20 07:42 Nystatin Oral Susp 500,000 Unit/5 Ml Oral.Susp PO Not Given QID [facility] Protocol Nystatin 1 appl 06/24/20 21:00 06/27/20 07:56 Nystatin Cream 15 Gm Tube TOPICAL Not Given BID [facility] Protocol Ondansetron HCl 4 mg 06/24/20 10:13 06/24/20 11:16 Ondansetron Hcl 4 Mg/2 Ml Vial IVPUSH 4 mg Q8H PRN Administration Nausea and Vomiting Polyethylene Glycol 17 gm 06/19/20 09:00 06/27/20 07:56 Polyethylene Glycol 3350 17 Gm Powd.Pack PO Not Given DAILY SATNAM Senna 17.2 mg 06/04/20 21:23 Sennosides 8.6 Mg Tablet PO BEDTIME PRN Constipation Sodium Chloride 3 ml 06/05/20 00:00 06/27/20 07:54 0.9 % Sodium Chloride Flush 3 Ml Syringe IVFLUSH 3 ml QSHIFT SATNAM Administration Labs CBC & Chem 7: 06/24/20 03:16 06/25/20 06:19 Microbiology Microbiology Results: Microbiology 06/25/20 00:00 Urine clean catch - Clean Catch Midstream Urine Culture - Final No growth. 06/24/20 06:27 Blood - Venous Blood Culture - Preliminary No growth after 48 hours. 06/24/20 06:22 Blood - Venous Blood Culture - Preliminary No growth after 48 hours. 06/04/20 18:07 Blood - Venous Blood Culture - Final No growth after 5 days. 06/04/20 18:06 Blood - Venous Blood Culture - Final No growth after 5 days. 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 The patient was treated in the hospital but her general condition continue to deteriorate as she developed acute kidney injury over the last few days and decided to go for comfort measures. Acute kidney injury Persistent hypotension Comfort measures only Discontinue blood work, vitals and glucose check Morphine p.r.n. for pain and shortness of breath Ativan as needed Atropine drops for comfort To discuss with Hospice team
[2020-06-27] MEDS: Morphine Sulfate Oral Sol 10 MG/5 ML SOLUTION 5 MG SUBLINGUAL ×2 (15:19→19:19)
[2020-06-27] MEDS: Atropine Sulfate 1 % Ophth Sol 2 ML BOTTLE 2 DROP SUBLINGUAL (15:23)
[2020-06-27] MEDS: Nystatin Powder 15 GM BOTTLE 1 APPL TOPICAL (21:30)
[2020-06-27] MEDS: Nystatin Cream 15 GM TUBE 1 APPL TOPICAL (21:31)
[2020-06-28] VITALS: RESP 22
[2020-06-28] MEDS: 0.9 % Sodium Chloride Flush 3 ML SYRINGE IVFLUSH ×3 (00:42→15:47)
[2020-06-28] MEDS: Morphine Sulfate Oral Sol 10 MG/5 ML SOLUTION 5 MG SUBLINGUAL (05:04)
[2020-06-28 05:05] VITALS: RESP 24
--- NOTE | 2020-06-28 08:06 | MHC.CM.PN ---
Patient's Daughter/HCP/Kylie called yesterday, late afternoon with a question about the appeal process. CM answered Kylie's question and advised her to call Jackie mullins; she was agreeable.Should Patient lose the appeal, Patient will return to [facility] with Hospice from [facility] (with her standard Medicare benefit paying for Hospice and Patient/family paying privately for room and board).CM will follow for dc planning.
[2020-06-28] MEDS: Morphine Sulfate 2 MG/ML CARTRIDGE IVPUSH ×2 (10:03→17:31)
[2020-06-28] MEDS: Nystatin Cream 15 GM TUBE 1 APPL TOPICAL (10:06)
--- NOTE | 2020-06-28 12:54 | HO.PM.IMPN ---
Subjective Subjective Date of Service: 06/28/20 Interval History: was not able to rouse Cardiovascular Cardiovascular: Reports no additional cardiovascular complaints Gastrointestinal Gastrointestinal: Reports no additional gastrointestinal complaints Physical Exam Vital Signs: Vital Signs: Last Vital Signs Temp 97 F 06/26/20 19:47 Pulse 106 H 06/26/20 19:47 Resp 24 H 06/28/20 05:05 BP 175/69 H 06/26/20 19:47 Pulse Ox 97 06/26/20 19:47 Body Mass Index 44.1 General: obtunded, comfortable, ill appearing Resp: diminished CVS: S1,S2,RRR GI: soft, non tender, non distended Objective Data Current Medications Generic Name Dose Route Start Last Admin Trade Name Freq PRN Reason Stop Dose Admin Acetaminophen 650 mg 06/04/20 21:23 Acetaminophen Supp 650 Mg Supp.Rect SC Q6H PRN Pain, Mild (Pain Scale 1-3) Apixaban 2.5 mg 06/09/20 21:00 06/28/20 09:39 Apixaban 2.5 Mg Tablet PO Not Given BID [facility] Atropine Sulfate 2 drop 06/25/20 14:22 06/27/20 15:23 Atropine Sulfate 1 % Ophth Destiny 2 Ml Bottle SUBLINGUAL 2 drop Q4H PRN Administration Secretions Lorazepam 1 mg 06/25/20 13:35 06/26/20 12:06 Lorazepam 2 Mg/Ml Vial IVPUSH 1 mg Q4H PRN Administration anxiety/restlessness Morphine Sulfate 5 mg 06/25/20 13:35 06/28/20 05:04 Morphine Sulfate Oral Destiny 10 Mg/5 Ml Solution SUBLINGUAL 5 mg Q4H PRN Administration Shortness of Breath/Wheezing Morphine Sulfate 2 mg 06/25/20 13:35 06/28/20 10:03 Morphine Sulfate 2 Mg/Ml Cartridge IVPUSH 2 mg Q3H PRN Administration Pain, Severe (Pain Scale 7-10) Nystatin 1 appl 06/12/20 21:00 06/28/20 10:27 Nystatin Powder 15 Gm Bottle TOPICAL Not Given BID [facility] Protocol Nystatin 400,000 unit 06/12/20 13:00 06/28/20 12:42 Nystatin Oral Susp 500,000 Unit/5 Ml Oral.Susp PO Not Given QID [facility] Protocol Nystatin 1 appl 06/24/20 21:00 06/28/20 10:06 Nystatin Cream 15 Gm Tube TOPICAL 1 appl BID [facility] Administration Protocol Ondansetron HCl 4 mg 06/24/20 10:13 06/24/20 11:16 Ondansetron Hcl 4 Mg/2 Ml Vial IVPUSH 4 mg Q8H PRN Administration Nausea and Vomiting Polyethylene Glycol 17 gm 06/19/20 09:00 06/28/20 07:48 Polyethylene Glycol 3350 17 Gm Powd.Pack PO Not Given DAILY [facility] Senna 17.2 mg 06/04/20 21:23 Sennosides 8.6 Mg Tablet PO BEDTIME PRN Constipation Sodium Chloride 3 ml 06/05/20 00:00 06/28/20 07:48 0.9 % Sodium Chloride Flush 3 Ml Syringe IVFLUSH 3 ml QSHIFT [facility] Administration Labs CBC & Chem 7: 06/24/20 03:16 06/25/20 06:19 Microbiology Microbiology Results: Microbiology 06/25/20 00:00 Urine clean catch - Clean Catch Midstream Urine Culture - Final No growth. 06/24/20 06:27 Blood - Venous Blood Culture - Preliminary No growth after 48 hours. 06/24/20 06:22 Blood - Venous Blood Culture - Preliminary No growth after 48 hours. 06/04/20 18:07 Blood - Venous Blood Culture - Final No growth after 5 days. 06/04/20 18:06 Blood - Venous Blood Culture - Final No growth after 5 days. 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 The patient was treated in the hospital but her general condition continue to deteriorate as she developed acute kidney injury over the last few days and decided to go for comfort measures. Acute kidney injury Persistent hypotension Comfort measures only Discontinue blood work, vitals and glucose check Morphine p.r.n. for pain and shortness of breath Ativan as needed Atropine drops for comfort appears comfortable with interventions, unable to take po
--- NOTE | 2020-06-28 13:24 | MHC.CM.PN ---
CM SPOKE W/PT'S HOSPITALIST AND PER HOSPITALIST PT IS NOT CLINICALLY STABLE ENOUGH FOR TRANSFER SO HE WILL KEEP PT REGARDLESS OF [facility]'S DECISION ON APPEAL.
--- NOTE | 2020-06-28 15:30 | MHC.CM.PN ---
M contacted Daughter/HCP/Kylie at 3:28pm [phone] to let her know regardless of [facility] Appeal pt will not be discharged today, per daughter she has not heard from [facility] regarding appeal. CM will con't to follow pt for change in d/c needs.
--- NOTE | 2020-06-28 16:16 | MHC.CM.PN ---
NURSE CARE MANGER NOTE ELECTRONIC MEDICAL RECORD REVIEWED THE FOLLOWING SHORT TERM REHAB ARE FOLLOWING HIM ([facility] [address], [facility]), RECOMENDATIONS MADE BY OT/PT/HOSPITALIST THAT HE SHOULD GO TO REHAB , PATIENT REFUSES,REVIEWED WITH HIM HIS NEEDS AND HE IS UNREALISTIC (HE VOICED THAT HE WANTS TO GET BACK HOME and be with his dog) mul;betty vna agencies declined patient ( toña vna/[facility] /[facility]/ [facility]/ [facility]lee / [facility] vna. [facility], emir urena iis reviewing i requested (rn==-pt-ot) and asked when they can startand i t[facility] patient s co pay cost for eliquis would be $242:00 dollars a week and patient can not adfford this ,checking into how much co pay xarelto would be discharge plan - home with emir urena for (rn-pt-ot)
--- NOTE | 2020-06-28 18:22 | PM.DDS ---
Discharge Sum: Prov Provider Primary care physician: Magdiel Stanley MD Consults: 06/04/20 21:20 Consult to Psychiatry Routine Consulting Provider: Psych Covering Reason for consultation: SI; overdose 06/04/20 21:23 Consult to Infectious Diseases Routine Consulting Provider: Claire Dumont Reason for consultation: pna 06/05/20 13:46 Consult to Crisis Stat Reason for consultation: Suicidal attempt 06/05/20 14:45 Consult to Care Team Routine Comment: Reason for consultation: Suicide attempt 06/06/20 10:46 Consult to Hematology / Oncology Routine Consulting Provider: Kiki Suárez Reason for consultation: Evaluate acute thrombocytopenia. 06/08/20 13:27 Consult to Wound Care Routine Consulting Provider: [facility] Wound Care Management Reason for consultation: stage 2 ulcer for your eval 06/08/20 14:40 Consult to General Surgery Routine Consulting Provider: Gunnar Fuentes Reason for consultation: Reported pelvic Abscess on CT for your kind eval. 06/24/20 07:48 Consult to Nephrology Routine Consulting Provider: Jeff Cooper Reason for consultation: KATIE for your eval. 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 06/25/20 08:25 Consult to Nephrology Routine Consulting Provider: Jeff Cooper Reason for consultation: KATIE for your kind eval. 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 The patient was treated in the hospital but her general condition continue to deteriorate as she developed acute kidney injury over the last few days and decided to go for comfort measures. patient was made comfortable and peacefully. Additional Data Attending physician: Umang Erazo MD
== END 2020-06-28 19:00 | disposition expired | DRG 901 ==
LOC: HO.ED 20:58 → HO.IMC 21:40 → HO.S3 06-28 07:00
PROVIDERS: Internal Medicine; Internal Medicine Hypertension Specialist; Nurse Practitioner Family; Radiology Diagnostic Radiology; Student in an Organized Health Care Education/Training Program; Admitting Provider Hospitalist; Emergency Provider Internal Medicine; PCP Internal Medicine; Visit Provider Internal Medicine
PROC: 02HV33Z Insertion of Infusion Device into Superior Vena Cava, Percutaneous Approach (ICD-10-PCS; principal; 2020-06-07 15:00)
DX: T42.4X2A Poisoning by benzodiazepines, intentional self-harm, initial encounter (principal); J69.0 Pneumonitis due to inhalation of food and vomit; J96.21 Acute and chronic respiratory failure with hypoxia; G92 Toxic encephalopathy; K65.1 Peritoneal abscess; N17.0 Acute kidney failure with tubular necrosis; R45.851 Suicidal ideations; D68.51 Activated protein C resistance; D69.3 Immune thrombocytopenic purpura; F33.2 Major depressive disorder, recurrent severe without psychotic features; J98.11 Atelectasis; Z68.41 Body mass index [BMI] 40.0-44.9, adult; Y92.9 Unspecified place or not applicable; Z20.822 Contact with and (suspected) exposure to COVID-19; Z86.718 Personal history of other venous thrombosis and embolism; E87.6 Hypokalemia; J44.9 Chronic obstructive pulmonary disease, unspecified; Z99.81 Dependence on supplemental oxygen; D72.829 Elevated white blood cell count, unspecified; E78.5 Hyperlipidemia, unspecified; S71.102A Unspecified open wound, left thigh, initial encounter; I48.91 Unspecified atrial fibrillation; W19.XXXA Unspecified fall, initial encounter; E11.9 Type 2 diabetes mellitus without complications; R33.9 Retention of urine, unspecified; R62.7 Adult failure to thrive; E83.42 Hypomagnesemia; K21.9 Gastro-esophageal reflux disease without esophagitis; Z88.2 Allergy status to sulfonamides; I95.9 Hypotension, unspecified; Z79.4 Long term (current) use of insulin; Z79.01 Long term (current) use of anticoagulants; Z79.899 Other long term (current) drug therapy; Z66 Do not resuscitate; Z51.5 Encounter for palliative care
CPT/HCPCS: 36410; 36415; 36573; 36600; 70450; 71045; 71250; 73700; 74176; 76937; 80048; 80053; 80076; 80143; 80179; 80307; 80320; 81001; 81003; 82550; 82947; 83605; 83615; 83735; 83880; 84300; 84484; 85007; 85025; 85027; 85060; 85384; 85610; 85730; 86850; 86900; 86923; 87040; 87086; 87635; 92610; 93005; 94640; 94660; 96365; 96366; 96368; 97110; 97163; 99285; 99291; C1751; J0696; J2060; J2270; J2405; J2543; J3370; J3475; J8540; P9016; P9035; P9047